=== PATIENT | female | born 1970 | race Caucasian/White ===

== ENCOUNTER 2024-05-20 12:11 | Outpatient (OUT) | payer OTHER, SELFPAY ==
--- NOTE | 2024-05-20 12:20 | XR_ITS ---
The [address] [address] Patient Name: YUNIER GARY MRN: [id number] date: 1970 Sex: F Assigned Patient Location: [facility] Current Patient Location: Accession/Order Number: [id number] Exam Date: 05/20/2024 12:25 Report Date: 05/21/2024 06:56 At the request of: FERCHO PANIAGUA Procedure: XR shoulder LT min 2V PROCEDURE: XR shoulder LT min 2V HISTORY: Pain In Unspecified Shoulder M25.519 COMPARISON: None. FINDINGS: BONES:Small degenerative osteophytes projecting inferiorly from distal end of clavicle. 5 mm rounded calcification projecting over the glenohumeral joint. Thin calcifications projecting over distal superior rotator cuff near its humeral head attachment. SOFT TISSUES:See above. EFFUSION:None visible. OTHER: Negative. XR/XR shoulder LT min 2V IMPRESSION: 1. Moderate degenerative changes of acromioclavicular joint which would predispose to rotator cuff injury. 2. Suspect 5 mm loose body within the glenohumeral joint. 3. Suspect calcific tendinitis. Electronically authenticated by: EAGLE BRYSON Date: 05/21/2024 06:56
== END 2024-05-20 12:12 | disposition home or self-care (01) ==
LOC: RAD 12:15
PROVIDERS: PCP Nurse Practitioner Family; Visit Provider Nurse Practitioner Family
DX: M25.512 Pain in left shoulder (principal); M19.012 Primary osteoarthritis, left shoulder
CPT/HCPCS: 73030

== ENCOUNTER 2024-08-02 18:51 | Emergency (ER) | payer OTHER, SELFPAY ==
[2024-08-02 18:55] VITALS: BP 156/81; PULSE 85; TEMP 37; O2SAT 99; BMI 32.4
--- OUTSIDE RECORDS SUMMARY | 2024-08-02 18:57 | XMS_ITS | CCD ---
Author Organization [facility] Care Team Providers Care Electrical Project Engineer Name Role Phone DO Finesse Recio Primary Care Provider [phone] DO Finesse Recio Attending Provider [phone] Nika Richmond Unavailable SULEMAN ., DR MESA Admitting Unavailable REYES ., DR SURY Velez Primary Care Unavailable SULEMAN ., DR MESA Attending Unavailable SULEMAN ., DR MESA Consulting Unavailable ORTEGA SINGH Consulting Unavailable ALETHEA II, TRACY Consulting Unavailable REYES ., DR SURY Velez Primary Care Unavailable SULEMAN ., DR MESA Attending Unavailable SULEMAN ., DR MESA Consulting Unavailable SULEMAN ., DR MESA Admitting Unavailable BELLFLOWER, DR DARA Souza Consulting Unavailable REQUEST, DR PAULA LISTED Primary Care Unavaila ble SULEMAN ., DR MSEA Attending Unavailable SULEMAN ., DR MESA Admitting Unavailable SULEMAN ., DR MESA Consulting Unavailable SULEAMN ., DR MESA Admitting Unavailable REYES ., DR SURY Velez Primary Care Unavailable SULEMAN ., DR MESA Attending Unavailable SULEMAN ., DR MESA Consulting Unavailable DO Finesse Recio Primary Care Provider MD Sissy Smith Attending Provider [phone] Finesse Recio Primary Care Unavailable Sissy Smith Attending Unavailable Sissy Smith Admitting Unavailable Sissy Smith Unavailable FERCHO PANIAGUA Primary Care Physician [phone] FERCHO PANIAGUA Attending Unavailable FERCHO PANIAGUA Attending Unavailable FERCHO PANIAGUA Attending Unavailable SHAWNEE SORIA Attending Unavailable FERCHO PANIAGUA Referring Unavailable Allergies Allergy Classification Reported Allergen(s) Allergy Type Date of Onset Reaction(s) Facility (4 sources) predniSONE; Translations: [prednisone] Drug Allergy Foot swelling (finding), Itching (finding), Weal (disorder) [facility] Aureliano Comment on above: Patient states she c an take the tablets but no injections (1 source) predniSONE Drug Allergy [facility] Repository Medications Current Medications Medication Drug Class(es) Dates Sig (Normalized) Sig (Original) [id number] 200 actuat albuterol 0.09 mg/actuat metered dose inhaler (1 source) beta2-Adrenergic Agonist Start: 11-25-2022 take 2 puff(s) by inhalation every four hours as needed Albuterol Sulfate HFA 108 (90 Base) MCG/ACT 2 puffs as needed Inhalation every 4 hrs Nov, Active azithromycin 250 mg oral tablet (1 source) Macrolide Antimicrobial Start: 11-25-2022 Azithromycin 250 MG 2 tablets on the first day, then 1 tablet daily for 4 days Orally Once a day for 5 day(s) Nov, Active azithromycin 250 mg Tab 5-day Dose Pack (Z-Regino) (1 source) Start: 09-27-2023 End: 10-02-2023 azithromycin 250 mg Tab 5-day Dose Pack (Z-Regino) = 1 packet(s), Oral, As Directed, as directed on package labeling, X 5 day(s), # 6 tab(s), Refills(s) 0, Pharmacy: [facility]/pharmacy #[id number], 165, cm, 09/27/23 14:13:00 EST, Height/Length Dosing, 90.2, kg, 09/27/23 14:13:00 EST, Weight Dosing Start Date: 09/27/23 Stop Date: 10/02/23 Status: Ordered benzonatate 200 mg oral capsule (1 source) Non-narcotic Antitussive Start: 11-25-2022 take 1 capsule by mouth every eight hours Benzonatate 200 MG 1 capsule Orally Three times a day for 10 days Nov, Active fluconazole 150 mg oral tablet (1 source) Azole Antifungal Start: 09-27-2023 Diflucan 150 mg Tab See Instructions, Take one tablet at the onset of symptoms; may repeat in 72 hours, # 2 tab(s), Refills(s) 0, Pharmacy: [facility]/pharmacy #[id number], 165, cm, 09/27/23 14:13:00 EST, Height/Length Dosing, 90.2, kg, 09/27/23 14:13:00 EST, Weight Dosing Start Date: 09/27/23 Status: Ordered Multi Vitamin+ (1 source) Start: 09-27-2023 Multi Vitamin+ Refill(s) 0 Start Date: 09/27/23 Status: Ordered Completed/Discontinued Medications Medication Drug Class(es) Dates Sig (Normalized) Sig (Original) methylPREDNISolone (2 sources) Corticosteroid Start: 03-19-2015 Depo-Medrol 80 mg Mar, 1 mL Problems Problem Classification Problem Date Documented Date Episodic/Chronic Abdominal pain (1 source) Pelvic and perineal pain; Translations: [PELVIC AND PERINEAL PAIN] Onset: 01-03-2023 Episodic Administrative/social admission (1 source) Patient encounter status; Translations: [Persons encountering health services in other specified circumstances] Onset: 09-27-2023 Episodic Benign neoplasm of uterus (1 source) Leiomyoma of uterus, unspecified; Translations: [LEIOMYOMA OF UTERUS UNSPECIFIED] Onset: 01-03-2023 Episodic Chronic obstructive pulmonary disease and bronchiectasis (1 source) Bronchitis, not specified as acute or chronic Episodic Contraceptive and procreative management (4 sources) Encounter for sterilization; Translations: [ENCOUNTER FOR STERILIZATION] Onset: 12-21-2022 Episodic Immunizations and screening for infectious disease (1 source) Encounter for screening for human papillomavirus (HPV); Translations: [ENC SCREENING HUMAN PAPILLOMAVIRUS] Onset: 11-02-2022 Episodic Menstrual disorders (5 sources) Excessive and frequent menstruation with regular cycle; Translations: [EXCESS FREQ MENSTRUATION W/REG CYCL] Onset: 11-07-2022 Chronic Other connective tissue disease (1 source) Ganglion, right hand Episodic Other connective tissue disease (1 source) Ganglion, left hand Episodic Other female genital disorders (1 source) Abnormal uterine and vaginal bleeding, unspecified; Translations: [ABNORMAL UTERINE VAGINAL BLEED UNS] Onset: 12-07-2022 Chronic Other screening for suspected conditions (not mental disorders or infectious disease) (5 sources) Encounter for screening mammogram for malignant neoplasm of breast; Translations: [Encounter for screening for malignant neoplasm of cervix] Onset: 11-01-2022 Episodic Other skin disorders (1 source) Disorder of the skin and subcutaneous tissue, unspecified Episodic Other skin disorders (1 source) Localized swelling, mass and lump, left upper limb Episodic Other upper respiratory infections (1 source) Acute upper respiratory infection; Translations: [Acute upper respiratory infection, unspecified] Onset: 09-27-2023 Episodic Residual codes; unclassified (1 source) Family history of malignant neoplasm of other genital organs; Translations: [FAM HX MALIG NEOPLSM OTH GENIT ORGN] Onset: 11-08-2022 Episodic Residual codes; unclassified (1 source) Family history of malignant neoplasm of other organs or systems; Translations: [FAM HX MALIG NEOPLASM OTH ORGN/SYS] Onset: 11-08-2022 Episodic Unclassified (1 source) Localized swelling, mass and lump, left upper limb; Translations: [Localized swelling, mass and lump, left upper limb] Onset: 05-15-2023 Results Test Name Value Interpretation Reference Range Facility Family Medicine Office/Clini c Noteon 05-21-2024 Family Medicine Office/Clinic Note Family Medicine Office/Clinic Note HPI Staff Yunier is a 53 year old female presenting with Onset: a month ago Location: left shoulder pain Duration: Characteristics:_ Aggravated by: Relieved by: ice did seem to help Timing:_ Associated Symptoms:_ did seem to help Putting pop in trunk bend wrong she said like pinching and tearing certain movement will hit her fast I have reviewed and verified the staff HPI to be accurate for this encounter. History of Present Illness Patient presents today to discuss left shoulder pain. She reports about 4 weeks ago she was putting a pop in the trunk of her car and she felt like pinching and tearing in the left shoulder. Since that time she has pain with certain movements. She reports that she feels like maybe there is something loose in the shoulder. She reports she has been using some ice on the shoulder with some relief. She has not used any ibuprofen or acetaminophen. Review of Systems Constitutional: no fever, no chills, no sweats, no weakness Skin: no Jaundice, no rash, no lesions, nopetechiae ENMT: no ear pain, no sore throat, no congestion, no hoarseness Respiratory: no shortness of breath, no cough, no orthopnea, no wheezing Cardiovascular: no chest pain, no palpitations, no edema Gastrointestinal: no nausea, no vomiting, no diarrhea, no GI bleeding Musculoskeletal: no back pain, no trauma Neurologic: no headache, no dizziness, no numbness, no weakness Psychiatric: no sleeping problems, no irritability, no mood swings/depression. Additional ROS info: Except as noted in the above Review of Systems and in the History of Present Illness all other systems have been reviewed and are negative or noncontributory. Physical Exam Vitals & Measurements T: 36.3 ?C(Oral) HR: 78(Peripheral) RR: 18 BP: 138/88 SpO2: 98% HT: 65 in HT: 165.0 cm WT: 88.8 kg WT: 195.36 lb BMI: 32.62 General: alert, no acute distress Skin: warm, dry Head: no trauma, normocephalic Neck: Trachea midline, no adenopathy, no tenderness Eye: normal conjunctiva, sclera clear Cardiovascular: regular rate and rhythm, normal peripheral perfusion Respiratory: Lungs CTA, respirations non labored Back: No tenderness, Normal ROM, Normal alignment. Extremities: no deformity, no trauma; limited ROM of the left shoulder, AC joint tenderness Neurological: oriented x 4, LOC appropriate for age speech normal Psychiatric: cooperative, affect appropriate for age, normal judgement, normal psychiatric thoughts. Assessment/Plan 1. Shoulder pain (M25.519: Pain in unspecified shoulder) X-ray of left shoulder-awaiting results Encouraged to take acetaminophen as needed for discomfort Explained to patient the x-ray is the first step, she may need a referral to an Ortho, or an MRI Follow-up will be determined by the x-ray results 2. Non-smoker (Z78.9: Other specified health status) Encouraged to continue as a non-smoker 3. BMI 32.0-32.9,adult (Z68.32: Body mass index [BMI] 32.0-32.9, adult) The standard range for ages 18 and older is >=18.5 and < 25 kg/m2. Your BMI today was above this range, this falls in the overweight to obese category and there are medical benefits to weight loss. We can offer counselling, referral, and/or medical support in addressing this problem. Your BMI and weight management will be followed at subsequent visits. 4. Class 1 obesity due to excess calories in adult (E66.09: Other obesity due to excess calories) The standard range for ages 18 and older is >=18.5 and < 25 kg/m2. Your BMI today was above this range, this falls in the overweight to obese category and there are medical benefits to weight loss. We can offer counselling, referral, and/or medical support in addressing this problem. Your BMI and weight management will be followed at subsequent visits. Follow-up No qualifying data available Patient Education Shoulder Pain, [id number] Problem List/Past Medical History Ongoing Bronchitis Historical No qualifying data Procedure/Surgical History Cyst of Bartholin's gland (2017), [place] tooth (2004), Hip bone (1972), Tubal ligation. Medications Multi Vitamin+ Vitamin D Allergies predniSONE (Swollen foot, Itchy, Hives) Social History Alcohol Beer, 1-2 times per month, Started age 23 Years. Alcohol use interferes with work or home: No. Drinks more than intended: No. Others hurt by drinking: No. Ready to change: No. Household alcohol concerns: No., 09/27/2023 Exercise Exercise frequency: 1-2 times/week. Self assessment: Good condition. Exercise type: Weight lifting., 09/27/2023 Substance Abuse - Denies Substance Abuse, 09/27/2023 Tobacco Never (less than 100 in lifetime) Tobacco Use:. Never Smokeless Tobacco Use:. Cigarettes, Previous treatment: None., 05/20/2024 Family History Acute myocardial infarction: Mother and Father. Alcoholism: Father and Grandparent. Diabetes mellitus: Mother and Father. Hypertension: Mother. Stroke: Mother. Normal [facility] Comment on above: Result Comment: Elec tronically Signed By: FERCHO PANIAGUA CNP\lillian\Date and Time Signed: 05/21/24 14:00 EDT Ambulatory Visit Summaryon 0 05-20-2024 Ambulatory Visit Summary Ambulatory Visit Summary YUNIER MATAMOROS :1970 Visit Date:05/20/2024 Ambulatory Visit Instructions Your Diagnosis Shoulder pain Non-smoker BMI 32.0-32.9,adult Class 1 obesity due to excess calories in adult Tests Performed XR Shoulder Complete Left -- Results Pending -- Please visit your patient portal for your results or contact your primary care physician. Your Care Team Attending Physician - FERCHO PANIAGUA CNP Primary Care Physician - FERCHO PANIAGUA CNP This Is Your Medications List ergocalciferol (Vitamin D) multivitamin (Multi Vitamin+) Procedures Performed Cyst of Bartholin's gland (2018), [place] tooth (2004), Hip bone (1972), Tubal ligation. Discharge Vitals Temperature (Oral) 36.3 ?C Heart Rate (Peripheral) 78 Respiratory Rate 18 Blood Pressure 138/88 Height 165.0 cm Height 65 in Weight 88.8 kg Weight 195.36 lb BMI 32.62 Medications What When Instructions Unchanged ergocalciferol (Vitamin D) Unchanged multivitamin (Multi Vitamin+) Allergies predniSONE (Swollen foot, Itchy, Hives) Problems Ongoing - Any problem that you are currently receiving treatment for. Bronchitis Patient Survey You may receive a survey via text or e-mail asking about your office visit. Please share your experience with us by completing your survey. We appreciate your feedback and thank you for choosing us for your care. Education Materials Shoulder Pain Many things can cause shoulder pain, including: ? An injury. ? Moving the shoulder in the same way again and again (overuse). ? Joint pain (arthritis). Pain can come from: ? Swelling and irritation (inflammation) of any part of the shoulder. ? An injury to the shoulder joint. ? An injury to: ? Tissues that connect muscle to bone (tendons). ? Tissues that connect bones to each other (ligaments). ? Bones. Follow these instructions at home: Watch for changes in your symptoms. Let your doctor know about them. Follow these instructions to help with your pain. If you have a sling: ? Wear the sling as told by your doctor. Remove it only as told by your doctor. ? Loosen the sling if your fingers: ? Tingle. ? Become numb. ? Turn cold and blue. ? Keep the sling clean. ? If the sling is not waterproof: ? Do not let it get wet. ? Take the sling off when you shower or bathe. Managing pain, stiffness, and swelling ? If told, put ice on the painful area: ? Put ice in a plastic bag. ? Place a towel between your skin and the bag. ? Leave the ice on for 20 minutes, 2?3 times a day. Stop putting ice on if it does not help with the pain. ? Squeeze a soft ball or a foam pad as much as possible. This prevents swelling in the shoulder. It also helps to strengthen the arm. General instructions ? Take [id number] and prescription medicines only as told by your doctor. ? Keep all follow-up visits as told by your doctor. This is important. Contact a doctor if: ? Your pain gets worse. ? Medicine does not help your pain. ? You have new pain in your arm, hand, or fingers. Get help right away if: ? Your arm, hand, or fingers: ? Tingle. ? Are numb. ? Are swollen. ? Are painful. ? Turn white or blue. Summary ? Shoulder pain can be caused by many things. These include injury, moving the shoulder in the same away again and again, and joint pain. ? Watch for changes in your symptoms. Let your doctor know about them. ? This condition may be treated with a sling, ice, and pain medicine. ? Contact your doctor if the pain gets worse or you have new pain. Get help right away if your arm, hand, or fingers tingle or get numb, swollen, or painful. ? Keep all follow-up visits as told by your doctor. This is important. This information is not intended to replace advice given to you by your health care provider. Make sure you discuss any questions you have with your health care provider. Document Revised: 06/02/2022 Document Reviewed: 06/02/2022 Gift Card Impressions Patient Education ? 2022 [employer] Caio [facility] Family Medicine Office/Clini c Noteon 01-16-2024 Family Medicine Office/Clinic Note Chief Complaint ear issues HPI Staff Patient presents for acute visit. Fevers: no Sinus congestion: no Sneezing: no Ear pain: no Ear itching, popping, fullness, ringing, muffled hearing: wooshing and occasional ringing Ear drainage: no Swollen nodes: no Sore throat: no Ear pain worse with chewing: chewing helps Itching: no Difficulty hearing: no occasional jaw pain Patient reports symptoms x 1 week, has improved today. Patient has tried an allergy nasal spray, took edge off. Mucinex as at times patient was feeling SOB. Headaches. Says that she just felt crummy I have reviewed and verified the staff HPI to be accurate for this encounter. History of Present Illness Patient presents today for evaluation of ear congestion & decreased energy. patient states about one week ago she started with some ear pain & and muffled hearing. She states she has tried an OTC nasal spray and this helped some. She is afebrile today in the office and she states she feels better in regards to the fatigue. She reports she has some environmental allergies but only take OTC antihistamine occasionally. Review of Systems PHQ Score Initial Depression Screen Score: 0 SCORE Constitutional: no fever, no chills, no sweats, no weakness Skin: no Jaundice, no rash, no lesions, nopetechiae ENMT: no ear pain, no sore throat, mild congestion, no hoarseness Respiratory: no shortness of breath, no cough, no orthopnea, no wheezing Cardiovascular: no chest pain, no palpitations, no edema Neurologic: no headache, no dizziness, no numbness, no weakness Psychiatric: no sleeping problems, no irritability, no mood swings/depression. Additional ROS info: Except as noted in the above Review of Systems and in the History of Present Illness all other systems have been reviewed and are negative or noncontributory. Physical Exam Vitals & Measurements HR: 77(Peripheral) BP: 146/80 SpO2: 98% HT: 65 in HT: 165.0 cm WT: 90.6 kg WT: 199.32 lb BMI: 33.28 General: alert, no acute distress ENMT: TM's clear, oral mucosa moist, no pharyngeal erythema or exudate; TM's injected Cardiovascular: regular rate and rhythm, normal peripheral perfusion Respiratory: Lungs CTA, respirations non labored Extremities: no deformity, no trauma Neurological: oriented x 4, LOC appropriate for age speech normal Assessment/Plan 1. Ear congestion (H93.8X9: Other specified disorders of ear, unspecified ear) Encouraged to take OTC loratadine-pseudoeph edrine daily x 10 days f/u if no improvement Ordered: loratadine-pseudoeph edrine, 1 tab(s), Oral, Daily for 10 day(s), 10 tab(s), Refill(s) 0, other reason (Rx) 2. BMI 33.0-33.9,adult (Z68.33: Body mass index [BMI] 33.0-33.9, adult) The standard range for ages 18 and older is >=18.5 and < 25 kg/m2. Your BMI today was above this range, this falls in the overweight to obese category and there are medical benefits to weight loss. We can offer counselling, referral, and/or medical support in addressing this problem. Your BMI and weight management will be followed at subsequent visits. Orders: fluconazole, See Instructions, Take one tablet at the onset of symptoms; may repeat in 72 hours, # 2 tab(s), Refills(s) 0, Pharmacy: [facility]/pharmacy #[id number], 165, cm, 09/27/23 14:13:00 EST, Height/Length Dosing, 90.2, kg, 09/27/23 14:13:00 EST, Weight Dosing Follow-up No qualifying data available Problem List/Past Medical History Ongoing Bronchitis Historical No qualifying data Procedure/Surgical History Cyst of Bartholin's gland (2017), [place] tooth (2004), Hip bone (1972), Tubal ligation. Medications Claritin-D 24 Hour 10 mg-240 mg Tab-ER, 1 tab(s), Oral, Daily Multi Vitamin+ Vitamin D Allergies predniSONE (Swollen foot, Itchy, Hives) Social History Alcohol Beer, 1-2 times per month, Started age 23 Years. Alcohol use interferes with work or home: No. Drinks more than intended: No. Others hurt by drinking: No. Ready to change: No. Household alcohol concerns: No., 09/27/2023 Exercise Exercise frequency: 1-2 times/week. Self assessment: Good condition. Exercise type: Weight lifting., 09/27/2023 Substance Abuse - Denies Substance Abuse, 09/27/2023 Tobacco Never (less than 100 in lifetime) Tobacco Use:. Never Smokeless Tobacco Use:. Previous treatment: None., 01/15/2024 Family History Acute myocardial infarction: Mother and Father. Alcoholism: Father and Grandparent. Diabetes mellitus: Mother and Father. Hypertension: Mother. Stroke: Mother. Normal [facility] Comment on above: Result Comment: Elec tronically Signed By: FERCHO PANIAGUA CNP\lillian\Date and Time Signed: 01/16/24 14:18 EDT Ambulatory Visit Summaryon 0 01-15-2024 Ambulatory Visit Summary YUNIER MATAMOROS :1970 Visit Date:01/15/2024 Ambulatory Visit Instructions Your Diagnosis Ear congestion BMI 33.0-33.9,adult Your Care Team Attending Physician - FERCHO PANIAGUA CNP Primary Care Physician - FERCHO PANIAGUA CNP This Is Your Medications List ergocalciferol (Vitamin D) multivitamin (Multi Vitamin+) Procedures Performed Cyst of Bartholin's gland (2017), [place] tooth (2004), Hip bone (1972), Tubal ligation. Discharge Vitals Heart Rate (Peripheral) 77 Blood Pressure 162/90 Height 165.0 cm Height 65 in Weight 90.6 kg Weight 199.32 lb BMI 33.28 Medications What When Instructions Unchanged ergocalciferol (Vitamin D) Unchanged multivitamin (Multi Vitamin+) Allergies predniSONE (Swollen foot, Itchy, Hives) Problems Ongoing - Any problem that you are currently receiving treatment for. Bronchitis Patient Survey You may receive a survey via text or e-mail asking about your office visit. Please share your experience with us by completing your survey. We appreciate your feedback and thank you for choosing us for your care. Normal [facility] Formson 09-28-2023 Forms [id number] #[id number] [facility] Family Medicine Office/Clini c Noteon 09-27-2023 Family Medicine Office/Clinic Note Chief Complaint New patient-establish care-headache and cough. History of Present Illness 53 year old female patient presents to establish care with this provider. She reports she was a previous patient of Dr. Reyes. Her main concern today is she has a dry cough and headache that is lingering since last Sunday. She reports she took OTC Mucinex and Dayquil which seemed to help at first but then this stopped working. She then took Sudafed until this made her restless and anxious. She states she did not test for COVID because it is a virus and she is aware it would need to run it's course. 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 She is hoping to get the cough and headache under control as she is planning on going snow boarding next week in [place]. Review of Systems PHQ Score Initial Depression Screen Score: 0 SCORE Constitutional: no fever, no chills, no sweats, no weakness Skin: no Jaundice, no rash, no lesions, nopetechiae ENMT: no ear pain, no sore throat, mild congestion, no hoarseness Respiratory: no shortness of breath, mild cough, no orthopnea, no wheezing Cardiovascular: no chest pain, no palpitations, no edema Gastrointestinal: no nausea, no vomiting, no diarrhea, no GI bleeding Genitourinary: no dysuria, no hematuria, no discharge, no pain Musculoskeletal: no back pain, no trauma Neurologic: no headache, no dizziness, no numbness, no weakness Psychiatric: no sleeping problems, no irritability, no mood swings/depression. Heme/Lymph: no bleeding tendency, no bruising tendency, no petechiae, no swollen nodes Allergy/Immunologic: no seasonal allergies, no food allergies, no recurrent infections, no impaired immunity Additional ROS info: Except as noted in the above Review of Systems and in the History of Present Illness all other systems have been reviewed and are negative or noncontributory. Physical Exam Vitals & Measurements T: 37.1 ?C(Temporal Artery) HR: 91(Peripheral) RR: 14 BP: 140/90 SpO2: 98% HT: 65 in HT: 165 cm WT: 90.2 kg WT: 198.44 lb BMI: 33.13 General: alert, no acute distress Skin: warm, dry Head: no trauma, normocephalic Neck: Trachea midline, no adenopathy, no tenderness Eye: normal conjunctiva, sclera clear ENMT: TM's clear, oral mucosa moist, no pharyngeal erythema or exudate; bilateral nasal passages erythematous and edematous, positive frontal sinus pain Cardiovascular: regular rate and rhythm, normal peripheral perfusion Respiratory: Lungs CTA, respirations non labored Chest wall: no deformity. Gastrointestinal: soft, non distended, no tenderness, no guarding. Back: No tenderness, Normal ROM, Normal alignment. Extremities: no deformity, no trauma Neurological: oriented x 4, LOC appropriate for age, CN II-XII intact, motor strength equal & normal bilaterally, sensation equal & normal bilaterally, speech normal Psychiatric: cooperative, affect appropriate for age, normal judgement, normal psychiatric thoughts. Assessment/Plan 1. Bacterial URI (J06.9: Acute upper respiratory infection, unspecified) Encourage to increase fluids f/U if no improvement in 3-5 days Ordered: azithromycin, = 1 packet(s), Oral, As Directed, as directed on package labeling, X 5 day(s), # 6 tab(s), Refills(s) 0, [id number], 165, cm, 09/27/23 14:13:00 EST, Height/Length Dosing, 90.2, kg, 09/27/23 14:13:00 EST, Weight Dosing fluconazole, See Instructions, Take one tablet at the onset of symptoms; may repeat in 72 hours, # 2 tab(s), Refills(s) 0, Pharmacy: [facility]/pharmacy #[id number], 165, cm, 09/27/23 14:13:00 EST, Height/Length Dosing, 90.2, kg, 09/27/23 14:13:00 EST, Weight Dosing 2. Encounter to establish care (Z76.89: Persons encountering health services in other specified circumstances) Ordered: azithromycin, = 1 packet(s), Oral, As Directed, as directed on package labeling, X 5 day(s), # 6 tab(s), Refills(s) 0, [id number], 165, cm, 09/27/23 14:13:00 EST, Height/Length Dosing, 90.2, kg, 09/27/23 14:13:00 EST, Weight Dosing fluconazole, See Instructions, Take one tablet at the onset of symptoms; may repeat in 72 hours, # 2 tab(s), Refills(s) 0, [id number], 165, cm, 09/27/23 14:13:00 EST, Height/Length Dosing, 90.2, kg, 09/27/23 14:13:00 EST, Weight Dosing Patient will need to schedule a well visit in the next 12 months Follow-up No qualifying data available Patient Education Upper Respiratory Infection, Adult, Eqpk-br-Wciw Problem List/Past Medical History Ongoing No qualifying data Historical No qualifying data Procedure/Surgical History Cyst of Bartholin's gland (2017), [place] tooth (2004), Hip bone (1972), Tubal ligation. Medications azithromycin 250 mg Tab 5-day Dose Pack (Z-Regino), 1 packet(s), Oral, As Directed Diflucan 150 mg Tab, See Instructions Multi Vitamin+ Allergies predniSONE (Swollen foot, Itchy, Hives) Social History Alcohol Beer, 1-2 times per month, Started age 4 (more content not included)... Normal [facility] Comment on above: Result Comment: Rafael blake Signed By: FERCHO PANIAGUA CNP.alessandra\Date and Time Signed: 09/27/23 15:57 EST Patient Educationon 09-27-20 23 Patient Education Infectious Disease Upper Respiratory Infection, Adult An upper respiratory infection (URI) affects the nose, throat, and upper airways that lead to the lungs. The most common type of URI is often called the common cold. URIs usually get better on their own, without medical treatment. What are the causes? A URI is caused by a germ (virus). You may catch these germs by: ? Breathing in droplets from an infected person's cough or sneeze. ? Touching something that has the germ on it (is contaminated) and then touching your mouth, nose, or eyes. What increases the risk? You are more likely to get a URI if: ? You are very young or very old. ? You have close contact with others, such as at work, school, or a health care facility. ? You smoke. ? You have long-term (chronic) heart or lung disease. ? You have a weakened disease-fighting system (immune system). ? You have nasal allergies or asthma. ? You have a lot of stress. ? You have poor nutrition. What are the signs or symptoms? ? Runny or stuffy (congested) nose. ? Cough. ? Sneezing. ? Sore throat. ? Headache. ? Feeling tired (fatigue). ? Fever. ? Not wanting to eat as much as usual. ? Pain in your forehead, behind your eyes, and over your cheekbones (sinus pain). ? Muscle aches. ? Redness or irritation of the eyes. ? Pressure in the ears or face. How is this treated? URIs usually get better on their own within 7?10 days. Medicines cannot cure URIs, but your doctor may recommend certain medicines to help relieve symptoms, such as: ? Dqvj-qft-ewmnqov cold medicines. ? Medicines to reduce coughing (cough suppressants). Coughing is a type of defense against infection that helps to clear the nose, throat, windpipe, and lungs (respiratory system). Take these medicines only as told by your doctor. ? Medicines to lower your fever. Follow these instructions at home: Activity ? Rest as needed. ? If you have a fever, stay home from work or school until your fever is gone, or until your doctor says you may return to work or school. ? You should stay home until you cannot spread the infection anymore (you are not contagious). ? Your doctor may have you wear a face mask so you have less risk of spreading the infection. Relieving symptoms ? Rinse your mouth often with salt water. To make salt water, dissolve ??1 tsp (3?6 g) of salt in 1 cup (237 mL) of warm water. ? Use a cool-mist humidifier to add moisture to the air. This can help you breathe more easily. Eating and drinking ? Drink enough fluid to keep your pee (urine) pale yellow. ? Eat soups and other clear broths. General instructions ? Take vyqh-ljy-wadtbto and prescription medicines only as told by your doctor. ? Do not smoke or use any products that contain nicotine or tobacco. If you need help quitting, ask your doctor. ? Avoid being where people are smoking (avoid secondhand smoke). ? Stay up to date on all your shots (immunizations), and get the flu shot every year. ? Keep all follow-up visits. How to prevent the spread of infection to others ? Wash your hands with soap and water for at least 20 seconds. If you cannot use soap and water, use hand pharmacist hospital. ? Avoid touching your mouth, face, eyes, or nose. ? Cough or sneeze into a tissue or your sleeve or elbow. Do not cough or sneeze into your hand or into the air. Contact a doctor if: ? You are getting worse, not better. ? You have any of these: ? A fever or chills. ? Brown or red mucus in your nose. ? Yellow or brown fluid (discharge)coming from your nose. ? Pain in your face, especially when you bend forward. ? Swollen neck glands. ? Pain when you swallow. ? White areas in the back of your throat. Get help right away if: ? You have shortness of breath that gets worse. ? You have very bad or constant: ? Headache. ? Ear pain. ? Pain in your forehead, behind your eyes, and over your cheekbones (sinus pain). ? Chest pain. ? You have long-lasting (chronic) lung disease along with any of these: ? Making high-pitched whistling sounds when you breathe, most often when you breathe out (wheezing). ? Long-lasting cough (more than 14 days). ? Coughing up blood. ? A change in your usual mucus. ? You have a stiff neck. ? You have changes in your: ? Vision. ? Hearing. ? Thinking. ? Mood. These symptoms may be an emergency. Get help right away. Call 911. ? Do not wait to see if the symptoms will go away. ? Do not drive yourself to the hospital. Summary ? An upper respiratory infection (URI) is caused by a germ (virus). The most common type of URI is often called the common cold. ? URIs usually get better within 7?10 days. ? Take tvww-une-hcadyqj and prescription medicines only as told by your doctor. This information is not intended to replace advice given to you by your health care (more content not included)... Normal [facility] XR hand LT min 3V*on 023 XR hand LT min 3V* [facility] [place] [address] [place] [address] XRay Report Signed Patient: Yunier Matamoros MR#: [id number] : 1970 Acct:[id number] Age/Sex: 52 / F ADM Date: 05/15/23 Loc: [facility] Room: Type: [facility] Attending Dr: Sissy Smith MD Copies to: Sissy Smith MD Ordering Provider: Sissy Smith MD Date of Service: 05/15/23 XR/XR hand LT min 3V*: PAIN XR hand LT min 3V* 05/15/2023 12:09 PM SIGNS AND SYMPTOMS: Mass on left third digit PROTOCOL: Frontal, lateral, and oblique radiographs of the left hand COMPARISON: None FINDINGS: The bones are in anatomic alignment. There is no evidence of fracture or dislocation. The joint spaces are preserved. No significant soft tissue swelling. XR/XR hand LT min 3V* IMPRESSION: No acute bony injury or significant degenerative change. No significant soft tissue swelling. Impression dictated by: Mikhail Greenberg M.D.05/15/2023 4:52 PM Dictation Location: [place] [address] Transcribed By: [facility] 05/15/231651 Dictated By: Mikhail Greenberg II, MD 05/15/231649 Signed By: 05/15/231651 Normal [facility] XR hand LT min 3V* [facility] [employer] Other XR hand LT min 3V* [facility] [employer] Other XR hand LT min 3V* [address] [place] [address] [facility] Other XR hand LT min 3V* [place] [address] [employer] Other XR hand LT min 3V* XRay Report [employer] Other XR hand LT min 3V* Signed [employer] Other XR hand LT min 3V* Patient: Yunier Matamoros MR#: [id number] [employer] Other XR hand LT min 3V* 827 [employer] Other XR hand LT min 3V* : 1970 Acct:[id number] [employer] Other XR hand LT min 3V* Age/Sex: 52 / F ADM Date: 05/15/23 [employer] Other XR hand LT min 3V* Loc: [facility] Room: Type: [facility] [employer] Other XR hand LT min 3V* Attending Dr: Sissy Smith MD [employer] Other XR hand LT min 3V* Copies to: Sissy Smith MD [employer] Other XR hand LT min 3V* Ordering Provider: Sissy Smith MD [employer] Other XR hand LT min 3V* Date of Service: 05/15/23 [employer] Other XR hand LT min 3V* XR/XR hand LT min 3V*: PAIN [employer] Other XR hand LT min 3V* XR hand LT min 3V* 05/15/2023 12:09 PM [employer] Other XR hand LT min 3V* SIGNS AND SYMPTOMS: Mass on left third digit [employer] Other XR hand LT min 3V* PROTOCOL: Frontal, lateral, and oblique radiographs of the left hand [employer] Other XR hand LT min 3V* COMPARISON: None [employer] Other XR hand LT min 3V* FINDINGS: [employer] Other XR hand LT min 3V* The bones are in anatomic alignment. There is no evidence of fracture or dislocation. The joint [employer] Other XR hand LT min 3V* spaces are preserved. No significant soft tissue swelling. [employer] Other XR hand LT min 3V* XR/XR hand LT min 3V* [employer] Other XR hand LT min 3V* IMPRESSION: [employer] Other XR hand LT min 3V* No acute bony injury or significant degenerative change. [employer] Other XR hand LT min 3V* No significant soft tissue swelling. [employer] Other XR hand LT min 3V* Impression dictated by: Mikhail Greenberg M.D.05/15/2023 4:52 PM [employer] Other XR hand LT min 3V* Dictation Location: [place] [address] [employer] Other XR hand LT min 3V* Transcribed By: PWS 05/15/23 165 [facility] [employer] Other XR hand LT min 3V* Dictated By: Mikhail Greenberg II, MD 05/15/231649 [facility] [employer] Other XR hand LT min 3V* Signed By: [place] [facility] Other XR hand LT min 3V* 05/15/23 [facility] [employer] Other CBC AUTO DIFFon 12-21-2022 BASO # 0.0 103/ul Normal 0.0-0.1 [facility] Comment on above: Performed By: #### C BC #### [facility] [address] [place] [address] Dr. Scottie Franco Basophils/100 WBC (Bld) 0.7 % Normal 0.2-2.0 [facility] Comment on above: Performed By: #### C BC #### [facility] [address] [place] [address] Dr. Scottie Franco EO # 0.2 103/ul Normal 0.0-0.7 [facility] Comment on above: Performed By: #### C BC #### [facility] [address] [place] [address] Dr. Scottie Franco Eosinophils/100 WBC (Bld) 3.0 % Normal 0.9-7.0 [facility] Comment on above: Performed By: #### C BC #### [facility] [address] [place] [address] Dr. Scottie Franco Erythrocyte distribution width (RBC) [Ratio] 11.7 % Normal 11.0-15.0 [facility] Comment on above: Performed By: #### C BC #### [facility] [address] [place] [address] Dr. Scottie Franco Hematocrit (Bld) [Volume fraction] 35.3 % Critically low 36.0-48.0 [facility] Comment on above: Performed By: #### C BC #### [facility] [address] [place] [address] Dr. Scottie Franco Hemoglobin (Bld) [Mass/Vol] 12.5 g/dL Normal 12.0-16.0 [facility] Comment on above: Performed By: #### C BC #### [facility] [address] [place] [address] Dr. Scottie Franco IG # 0.00 10e3/ul Normal 0.00-0.03 [facility] Comment on above: Performed By: #### C BC #### [facility] [address] [place] [address] Dr. Scottie Franco IG % 0.0 % Normal 0.0-0.5 [facility] Comment on above: Performed By: #### C BC #### [facility] [address] [place] [address] Dr. Scottie Franco LYMPH # 2.3 103/ul Normal 1.2-3.8 [facility] Comment on above: Performed By: #### C BC #### [facility] [address] [place] [address] Dr. Scottie Franco Lymphocytes/100 WBC (Bld) 37.6 % Normal 20.5-60.0 [facility] Comment on above: Performed By: #### C BC #### [facility] [address] [place] [address] Dr. Scottie Franco MANUAL DIFF REQ NO Normal [facility] Comment on above: Performed By: #### C BC #### [facility] [address] [place] [address] Dr. Scottie Franco MCH (RBC) [Entitic mass] 32.0 pg Normal 26.7-34.0 [facility] Comment on above: Performed By: #### C BC #### [facility] [address] [place] [address] Dr. Scottie Franco MCHC (RBC) [Mass/Vol] 35.4 g/dL Critically high 29.9-35.2 [facility] Comment on above: Performed By: #### C BC #### [facility] [address] [place] [address] Dr. Scottie Franco MCV (RBC) [Entitic vol] 90.3 fL Normal 81.0-99.0 [facility] Comment on above: Performed By: #### C BC #### [facility] [address] [place] [address] Dr. Scottie Franco MONO # 0.5 103/ul Normal 0.3-0.8 [facility] Comment on above: Performed By: #### C BC #### [facility] [address] [place] [address] Dr. Scottie Franco Monocytes/100 WBC (Bld) 7.8 % Normal 1.7-12.0 [facility] Comment on above: Performed By: #### C BC #### [facility] [address] [place] [address] Dr. Scottie Franco NEUT # 3.1 103/ul Normal 1.4-6.5 [facility] Comment on above: Performed By: #### C BC #### [facility] [address] [place] [address] Dr. Scottie Franco Neutrophils/100 WBC (Bld) 50.9 % Normal 43.0-75.0 [facility] Comment on above: Performed By: #### C BC #### [facility] [address] [place] [address] Dr. Scottie Franco Platelet mean volume (Bld) [Entitic vol] 10.0 fL Normal 9.5-13.5 [facility] Comment on above: Performed By: #### C BC #### [facility] [address] [place] [address] Dr. Scottie Franco PLT 314 103/ul Normal 150-450 [facility] Comment on above: Performed By: #### C BC #### [facility] [address] [place] [address] Dr. Scottie Franco RBC 3.91 106/ul Critically low 4.20-5.40 [facility] Comment on above: Performed By: #### C BC #### [facility] [address] [place] [address] Dr. Scottie Franco WBC 6.0 103/ul Normal 4.0-11.0 [facility] Comment on above: Performed By: #### C BC #### [facility] [address] [place] [address] Dr. Scottie Franco PREG QUANT HCGon 12-21-2022 HCG QUANT <1 Normal [facility] Comment on above: Performed By: #### P REGQNT #### [facility] [address] [place] [address] Dr. Scottie Franco HCG RANGE SEE BELOW Normal [facility] Comment on above: Result Comment: 5-50 0.2-1 WEEK 50-500 1-2 WEEKS 100-5,000 2-3 WEEKS 500-10,000 3-4 WEEKS 1,000-50,000 4-5 WEEKS 10,000-100,000 5-6 WEEKS 15,000-200,000 6-8 WEEKS 10,000-100,000 2-3 MONTHS Performed By: #### P REGQNT #### [facility] [address] [place] [address] Dr. Scottie Franco CBC AUTO DIFFon 11-07-2022 BASO # 0.0 103/ul Normal 0.0-0.1 [facility] Comment on above: Performed By: #### C BC #### [facility] [address] [place] [address] Dr. Scottie Franco Basophils/100 WBC (Bld) 0.5 % Normal 0.2-2.0 [facility] Comment on above: Performed By: #### C BC #### [facility] [address] [place] [address] Dr. Scottie Franco EO # 0.1 103/ul Normal 0.0-0.7 [facility] Comment on above: Performed By: #### C BC #### [facility] [address] [place] [address] Dr. Scottie Franco Eosinophils/100 WBC (Bld) 1.8 % Normal 0.9-7.0 [facility] Comment on above: Performed By: #### C BC #### [facility] [address] [place] [address] Dr. Scottie Franco Erythrocyte distribution width (RBC) [Ratio] 11.9 % Normal 11.0-15.0 [facility] Comment on above: Performed By: #### C BC #### [facility] [address] [place] [address] Dr. Scottie Franco Hematocrit (Bld) [Volume fraction] 38.4 % Normal 36.0-48.0 [facility] Comment on above: Performed By: #### C BC #### [facility] [address] [place] [address] Dr. Scottie Franco Hemoglobin (Bld) [Mass/Vol] 13.0 g/dL Normal 12.0-16.0 [facility] Comment on above: Performed By: #### C BC #### [facility] [address] [place] [address] Dr. Scottie Franco IG # 0.01 10e3/ul Normal 0.00-0.03 [facility] Comment on above: Performed By: #### C BC #### [facility] [address] [place] [address] Dr. Scottie Franco IG % 0.1 % Normal 0.0-0.5 [facility] Comment on above: Performed By: #### C BC #### [facility] [address] [place] [address] Dr. Scottie Franco LYMPH # 2.4 103/ul Normal 1.2-3.8 [facility] Comment on above: Performed By: #### C BC #### [facility] [address] [place] [address] Dr. Scottie Franco Lymphocytes/100 WBC (Bld) 32.1 % Normal 20.5-60.0 [facility] Comment on above: Performed By: #### C BC #### [facility] [address] [place] [address] Dr. Scottie Franco MANUAL DIFF REQ NO Normal [facility] Comment on above: Performed By: #### C BC #### [facility] [address] [place] [address] Dr. Scottie Franco MCH (RBC) [Entitic mass] 31.4 pg Normal 26.7-34.0 [facility] Comment on above: Performed By: #### C BC #### [facility] [address] [place] [address] [address] Scottie Franco MCHC (RBC) [Mass/Vol] 33.9 g/dL Normal 29.9-35.2 [facility] Comment on above: Performed By: #### C BC #### [facility] [address] [place] [address] [address] Scottie Franco MCV (RBC) [Entitic vol] 92.8 fL Normal 81.0-99.0 [facility] Comment on above: Performed By: #### C BC #### [facility] [address] [place] [address] Dr. Scottie Franco MONO # 0.4 103/ul Normal 0.3-0.8 [facility] Comment on above: Performed By: #### C BC #### [facility] [address] [place] [address] Dr. Scottie Franco Monocytes/100 WBC (Bld) 5.3 % Normal 1.7-12.0 [facility] Comment on above: Performed By: #### C BC #### [facility] [address] [place] [address] Dr. Scottie Franco NEUT # 4.4 103/ul Normal 1.4-6.5 [facility] Comment on above: Performed By: #### C BC #### [facility] [address] [place] [address] Dr. Scottie Franco Neutrophils/100 WBC (Bld) 60.2 % Normal 43.0-75.0 [facility] Comment on above: Performed By: #### C BC #### [facility] [address] [place] [address] Dr. Scottie Franco Platelet mean volume (Bld) [Entitic vol] 9.9 fL Normal 9.5-13.5 [facility] Comment on above: Performed By: #### C BC #### [facility] [address] [place] [address] Dr. Scottie Franco PLT 306 103/ul Normal 150-450 [facility] Comment on above: Performed By: #### C BC #### [facility] [address] [place] [address] Dr. Scottie Franco RBC 4.14 106/ul Critically low 4.20-5.40 [facility] Comment on above: Performed By: #### C BC #### [facility] [address] [place] [address] Dr. Scottie Franco WBC 7.3 103/ul Normal 4.0-11.0 [facility] Comment on above: Performed By: #### C BC #### [facility] [address] [place] [address] Dr. Scottie Franco FREE T4on 11-07-2022 Free T4 [Mass/Vol] 0.81 ng/dL Normal 0.76-1.46 [facility] Comment on above: Performed By: #### F T4 #### [facility] [address] [place] [address] Dr. Scottie Franco GLYCOHEMOGLOBIN A1Con 2022 ADA RECOMMENDATION SEE BELOW Normal [facility] Comment on above: Result Comment: ADA RECOMMENDED LIMIT 4.0 - 6.0 ADA THERAPEUTIC TARGET < 7.0 ACTION SUGGESTED > 7.0 Performed By: #### A 1C #### [facility] [address] [place] [address] Dr. Scottie Franco Glucose [Mass/Vol] 91 mg/dL Normal [facility] Comment on above: Performed By: #### A 1C #### [facility] [address] [place] [address] Dr. Scottie Franco HbA1c (Bld) [Mass fraction] 4.8 % Normal 4.5-6.2 [facility] Comment on above: Performed By: #### A 1C #### [facility] [address] [place] [address] Dr. Scottie Franco MG MAMM SCREEN 3D DAVID CADon 11-07-2022 MG MAMM SCREEN 3D DAVID CAD Patient: YUNIER MATAMOROS Exam Date: 11/07/2022 : 1970 Gender:F Ordering : DR BONITA SHELDON . Admission #: [id number] Family : Order #: [id number] CLICK HERE TO VIEW EXAM RADIOLOGY REPORT PROCEDURE: MAMMOGRAM SCREENING 3D BILATERAL CAD COMPARISON: MG MAMM DAVID SCRN W CAD DIG, 08/27/2013. INDICATIONS: Screening mammography Calculator Name NCI Breast Cancer Risk Assessment Tool 5 Year Breast Cancer Risk 1.10% Lifetime Breast Cancer Risk 9.90% Personal Breast Cancer No Personal Ovarian Cancer No Treatments None Family Cancers Mother with uterine cancer at age 40; Grandfather-paternal with pancreas cancer at age 86. LOCATION: [facility] BREAST COMPOSITION: Heterogeneously dense,which may obscure small masses. FINDINGS: DIAGNOSTIC CATEGORY 1--NEGATIVE. NO CHANGE FROM COMPARISON ASSESSMENT. Scattered benign-appearing calcifications are present. RIGHT BREAST: No significant suspicious finding. LEFT BREAST: No significant suspicious finding. RECOMMENDATIONS: ROUTINE MAMMOGRAM AND CLINICAL EVALUATION IN 12 MONTHS. PLEASE NOTE: A NORMAL MAMMOGRAM DOES NOT EXCLUDE THE POSSIBILITY OF BREAST CANCER. A CLINICALLY SUSPICIOUS PALPABLE LUMP SHOULD BE BIOPSIED. Dictated by: Dara Stafford MD on 11/08/2022 at 09:05 Approved by: Dara Stafford MD on 11/08/2022 at 09:11 Normal [facility] PAP ACOG PANEL 2: 30 to 65on 11-07-2022 . . Normal [facility] Comment on above: Result Comment: Perf ormed at: WB Performed By: #### [id number] #### [facility] [address] [place] [address] Dr. Scottie Franco Age Gdln ACOG Testing 30-65 Normal [facility] Comment on above: Performed By: #### [id number] #### [facility] [address] [place] [address] Dr. Scottie Franco DIAGNOSIS: Comment Normal [facility] Comment on above: Result Comment: NEGA TIVE FOR INTRAEPITHELIAL LESION OR MALIGNANCY. Performed at: WB Performed By: #### [id number] #### [facility] [address] [place] [address] Dr. Scottie Franco HPV Aptima Negative Normal Negative [facility] Comment on above: Result Comment: This nucleic acid amplification test detects fourteen high-risk HPV types (16,18,31,33,35,39,45,51,52,56,58,59,66,68) without differentiation. Performed at: =G Performed By: #### [id number] #### [facility] [address] [place] [address] Dr. Scottie Franco HPV Genotype Reflex Comment Normal [facility] Comment on above: Result Comment: Crit alondra not met, HPV Genotype not performed. Performed at: WB Performed By: #### [id number] #### [facility] [address] [place] [address] Dr. Scottie Franco Methodology: Comment Normal [facility] Comment on above: Result Comment: This liquid based ThinPrep(R) pap test was screened with the use of an image guided system. Performed at: WB Performed By: #### [id number] #### [facility] [address] [place] [address] Dr. Scottie Franco Note: Comment Normal [facility] Comment on above: Result Comment: The Pap smear is a screening test designed to aid in the detection of premalignant and malignant conditions of the uterine cervix. It is not a diagnostic procedure and should not be used as the sole means of detecting cervical cancer. Both false-positive and false-negative reports do occur. . Performed at: WB Performed By: #### [id number] #### [facility] [address] [place] [address] Dr. Scottie Franco Performed by: Comment Normal [facility] Comment on above: Result Comment: [employer] (ASCP) Performed at: WB Performed By: #### [id number] #### [facility] [address] [place] [address] Dr. Scottie Franco Specimen adequacy: Comment Normal [facility] Comment on above: Result Comment: Sati sfactory for evaluation. Endocervical and/or squamous metaplastic cells (endocervical component) are present. Performed at: WB Performed By: #### [id number] #### [facility] [address] [place] [address] Dr. Scottie Franco PROTIMEon 11-07-2022 INR Coag (PPP) [Relative time] {INR} Normal [facility] Comment on above: Performed By: #### P T, PTT #### [facility] [address] [address] [address] Scottie Franco INR GUIDELINES SEE BELOW Normal [facility] Comment on above: Result Comment: ALEXANDER RED INR: 2.0 - 3.0 CONDITIONS NOT LISTED BELOW 2.5 - 3.5 FOR PROSTHETIC HEART VALVE REPLACEMENT 2.5 - 3.5 RECURRENT THROMBOSIS Performed By: #### P T, PTT #### [facility] [address] [address] [address] Scottie Franco PT Coag (PPP) [Time] 9.8 s Normal 9.0-11.6 [facility] Comment on above: Performed By: #### P T, PTT #### [facility] [address] [address] [address] Scottie Franco PTTon 11-07-2022 aPTT Coag (Bld) [Time] 26.9 s Normal 22.3-36.2 [facility] Comment on above: Performed By: #### P T, PTT ####[facility] [id number] [id number]. Scottie Franco TSHon 11-07-2022 TSH 1.496 uIU/mL Normal 0.358-3.740 [facility] Comment on above: Performed By: #### T SH ####[facility] [id number] [id number] Franco US PELVIS AND TRANSVAGon US PELVIS AND TRANSVAG EXAMINATION: US PELVIS AND TRANSVAG HISTORY: Excessive and frequent menstruation COMPARISON: No relevant comparison available. FINDINGS: Transabdominal and transvaginal images The uterus is normal in size, contour and echotexture. Anteverted, anteflexed. Uterus measures 7.7 x 3.1 x 5.1 cm. No focal myometrial mass The endometrium measures 6 mm, normal. The right ovary is normal in appearance measuring 2.6 x 1.7 x 3.1 cm. Normal color and Doppler flow. The left ovary is normal in appearance measuring 3.5 x 2.0 x 2.5 cm. Normal color and Doppler flow No free fluid IMPRESSION: Normal exam Electronically authenticated by: DARA STAFFORD Date: 2022-11-07 10:56 Normal [facility] Basophils Auto (Bld) [#/Vol] Ordered By: Finesse Recio on 05-09-2022 Basophils (Bld) [#/Vol] 0.0 10*3/uL 0.0-0.2 [facility] Basophils/100 WBC Auto (Bld) Ordered By: Finesse Recio on 05-09-2022 Basophils/100 WBC (Bld) 0.7 % . [facility] Blood hemoglobin measurement (mass/volume)Ordered By: Finesse Recio on 05-09-2022 Hemoglobin (Bld) [Mass/Vol] 13.6 g/dL 11.8-15.4 [facility] Blood leukocytes automated c ount (number/volume)Ordered By: Finesse Recio on 05-09-2022 WBC (Bld) [#/Vol] 6.6 10*3/uL 4.5-11.0 [facility] Body fluid albumin measureme nt (mass/volume)Ordered By: Finesse Recio on 05-09-2022 Albumin (Body fld) [Mass/Vol] 4.2 g/dL 3.2-5.5 [facility] Cholesterol [Mass/volume] in Serum or PlasmaOrdered By: Finesse Recio on 05-09-2022 Cholesterol [Mass/Vol] 235 mg/dL 140-200 [facility] Comment on above: Chol less than 200 m g/dl low risk Chol 201-239 mg/dl borderline risk Chol 240 mg/dl and greater high risk Cholesterol in LDL Calc [Mas s/Vol]Ordered By: Finesse Recio on 05-09-2022 Cholesterol in LDL [Mass/Vol] 166 mg/dL 0-100 [facility] Comment on above: LDL ATP III CLASSIFI CATION LDL less than 100 mg/dL Optimal LDL 100-129 mg/dL Near or above optimal LDL 130-159 mg/dL Borderline high LDL 160-189 mg/dL High LDL greater than 189 mg/dL Very high Cholesterol in VLDL Calc [Ma ss/Vol]Ordered By: Finesse Recio on 05-09-2022 Cholesterol in VLDL [Mass/Vol] 15 mg/dL [facility] Creatinine and Glomerular fi ltration rate.predicted panel (S/P/Bld)Ordered By: Finesse Recio on 05-09-2022 Creatinine [Mass/Vol] 0.75 mg/dL 0.44-1.03 [facility] Eosinophils Auto (Bld) [#/Vo l]Ordered By: Finesse Recio on 05-09-2022 Eosinophils (Bld) [#/Vol] 0.2 10*3/uL 0.0-0.45 [facility] Eosinophils/100 WBC Auto (Bl d)Ordered By: Finesse Recio on 05-09-2022 Eosinophils/100 WBC (Bld) 2.6 % . [facility] Erythrocyte distribution wid th Auto (RBC) [Ratio]Ordered By: Finesse Recio on 05-09-2022 Erythrocyte distribution width (RBC) [Ratio] 12.7 % 11.9-15.3 [facility] Estimated glomerular filtrat ion rate (GFR) non- AmericanOrdered By: Finesse Recio on 05-09-2022 GFR/1.73 sq M.predicted among non-blacks MDRD (S/P/Bld) [Vol rate/Area] > 60 mL/Min [facility] Globulin Calc (S) [Mass/Vol] Ordered By: Finesse Recio on 05-09-2022 Globulin (S) [Mass/Vol] 2.8 g/dL [facility] Hematocrit Auto (Bld) [Volum e fraction]Ordered By: Finesse Recio on 05-09-2022 Hematocrit (Bld) [Volume fraction] 39.4 % 34.0-46.4 [facility] - Hematology and Cell countsOrdered By: Finesse Recio on 05-09-2022 Nucleated RBC/100 WBC (Bld) [Ratio] 0.1 % 0-0.5 [facility] Lymphocytes Auto (Bld) [#/Vo l]Ordered By: Finesse Recio on 05-09-2022 Lymphocytes (Bld) [#/Vol] 1.7 10*3/uL 1.00-4.8 [facility] Lymphocytes/100 WBC Auto (Bl d)Ordered By: Finesse Recio on 05-09-2022 Lymphocytes/100 WBC (Bld) 26.0 % . [facility] MCH Auto (RBC) [Entitic mass ]Ordered By: Finesse Recio on 05-09-2022 MCH (RBC) [Entitic mass] 31.6 pg 24.7-34.3 [facility] MCHC Auto (RBC) [Mass/Vol]Or dered By: Finesse Recio on 05-09-2022 MCHC (RBC) [Mass/Vol] 34.6 g/dL 32.0-35.0 [facility] MCV Auto (RBC) [Entitic vol] Ordered By: Finesse Recio on 05-09-2022 MCV (RBC) [Entitic vol] 91.4 fL 80-100 [facility] Monocytes Auto (Bld) [#/Vol] Ordered By: Finesse Recio on 05-09-2022 Monocytes (Bld) [#/Vol] 0.4 10*3/uL 0.0-0.8 [facility] Monocytes/100 WBC Auto (Bld) Ordered By: Finesse Recio on 05-09-2022 Monocytes/100 WBC (Bld) 6.4 % . [facility] Neutrophils Auto (Bld) [#/Vo l]Ordered By: Finesse Recio on 05-09-2022 Neutrophils (Bld) [#/Vol] 4.2 10*3/uL 1.8-7.7 [facility] Neutrophils/100 WBC Auto (Bl d)Ordered By: Finesse Recio on 05-09-2022 Neutrophils/100 WBC (Bld) 64.3 % . [facility] No Panel InformationOrdered By: Finesse Recio on 05-09-2022 Estimated GFR () > 60 mL/Min [facility] Comment on above: GFR estimated refere nce range: According to KDOQI guidelines, <60 ml/min/1.73m2 is sufficient to diagnose a patient with chronic kidney disease. Pharmacy Creatinine Clearance (Chem N/A [facility] Platelet mean volume Auto (B ld) [Entitic vol]Ordered By: Finesse Recio on 05-09-2022 Platelet mean volume (Bld) [Entitic vol] 9.2 fL 6.3-10.7 [facility] Platelets Auto (Bld) [#/Vol] Ordered By: Finesse Recio on 05-09-2022 Platelets (Bld) [#/Vol] 303 10*3/uL 150-450 [facility] Protein [Mass/volume] in Ser um or PlasmaOrdered By: Finesse Recio on 05-09-2022 Protein [Mass/Vol] 7.0 g/dL 6.1-7.9 [facility] RBC Auto (Bld) [#/Vol]Ordere d By: Finesse Recio on 05-09-2022 RBC (Bld) [#/Vol] 4.31 10*6/uL 3.60-5.00 [facility] Serum or plasma alanine simon otransferase measurement without P-5'-P (enzymatic activiOrdered By: Finesse Recio on 05-09-2022 ALT No additional P-5'-P [Catalytic activity/Vol] 23 U/L 10-60 [facility] Serum or plasma albumin/glob ulin mass ratioOrdered By: Finesse Recio on 05-09-2022 Albumin/Globulin [Mass ratio] 1.5 {ratio} [facility] Serum or plasma alkaline carmela sphatase measurement (enzymatic activity/volume)Ordered By: Finesse Recio on 05-09-2022 ALP [Catalytic activity/Vol] 59 U/L 32-92 [facility] Serum or plasma aspartate am inotransferase measurement (enzymatic activity/volume)Ordered By: Finesse Recio on 05-09-2022 AST [Catalytic activity/Vol] 18 U/L 10-42 [facility] Serum or plasma calcium dianne urement (mass/volume)Ordered By: Finesse Recio on 05-09-2022 Calcium [Mass/Vol] 9.2 mg/dL 8.2-10.2 [facility] Serum or plasma chloride luke surement (moles/volume)Ordered By: Finesse Recio on 05-09-2022 Chloride [Moles/Vol] 102 mmol/L 95-114 [facility] Serum or plasma glucose dianne urement (mass/volume)Ordered By: Finesse Recio on 05-09-2022 Glucose [Mass/Vol] 93 mg/dL 70-100 [facility] Comment on above: ADA recommended refe rence range Random Glucose Reference Range is dependent on time and content of last meal. Glucose of more than 200 mg/dL in a nonstressed, ambulatory subject supports the diagnosis of Diabetes Mellitus. Serum or plasma high density lipoprotein (HDL) cholesterol measurementOrdered By: Finesse Recio on 05-09-2022 Cholesterol in HDL [Mass/Vol] 54 mg/dL 35-85 [facility] Comment on above: HDL CHOL ATP-III CLA SSIFICATION Cardiovascular Risk HDL > or equal to 60 mg/dL LOW HDL < 40 mg/dL HIGH Serum or plasma potassium me asurement (moles/volume)Ordered By: Finesse Recio on 05-09-2022 Potassium [Moles/Vol] 4.2 mmol/L 3.5-5.1 [facility] Serum or plasma sodium measu rement (moles/volume)Ordered By: Finesse Recio on 05-09-2022 Sodium [Moles/Vol] 137 mmol/L 136-146 [facility] Serum or plasma total biliru bin measurement (mass/volume)Ordered By: Finesse Recio on 05-09-2022 Bilirubin [Mass/Vol] 0.6 mg/dL 0.3-1.2 [facility] Serum or plasma total carbon dioxide measurement (moles/volume)Ordered By: Finesse Recio on 05-09-2022 CO2 [Moles/Vol] 24.5 mmol/L 22.0-30.0 [facility] Serum or plasma total choles terol/high density lipoprotein (HDL) cholesterol mass ratOrdered By: Finesse Recio on 05-09-2022 Cholesterol.total/Chol esterol in HDL [Mass ratio] 4.4 {ratio} <5.0 [facility] Serum or plasma urea nitroge n measurement (mass/volume)Ordered By: Finesse Recio on 05-09-2022 Urea nitrogen [Mass/Vol] 7 mg/dL 9-23 [facility] TSH DL <= 0.005 mIU/L QnOrde red By: Finesse Recio on 05-09-2022 TSH Qn 2.06 m[IU]/L 0.45-5.33 [facility] Triglyceride [Mass/volume] i n Serum or PlasmaOrdered By: Finesse Recio on 05-09-2022 Triglyceride [Mass/Vol] 77 mg/dL 35-149 [facility] Comment on above: TRIG ATP III CLASSIF ICATION TRIG less than 150 mg/dL Normal TRIG 150-199 mg/dL Borderline high TRIG 200-500 mg/dL High TRIG greater than 500 mg/dL Very high Standard traceable to the Center for Disease Conrtrol and Prevention (CDC) test method. Vital Signs Date Time Vital Sign Value Performing Clinician Facility 09-27-2023 14:18-0500 Diastolic blood pressure 90 mm[Hg] FERCHO SIVA [facility] 09-27-2023 14:18-0500 Mean blood pressure 107 mm[Hg] FERCHO SIVA [facility] 09-27-2023 14:18-0500 Systolic blood pressure 140 mm[Hg] FERCHO SIVA [facility] 09-27-2023 13:53-0500 Blood Pressure Location FERCHO SIVA [facility] 09-27-2023 13:53-0500 Body temperature 98.78 [degF] FERCHO SIVA [facility] 09-27-2023 13:53-0500 Diastolic blood pressure 90 mm[Hg] FERCHO SIVA [facility] 09-27-2023 13:53-0500 Heart rate 91 /min FERCHO SIVA [facility] 09-27-2023 13:53-0500 Respiratory rate 14 /min FERCHO SIVA [facility] 09-27-2023 13:53-0500 SaO2% (BldA) [Mass fraction] 98 % FERCHO SIVA [facility] 09-27-2023 13:53-0500 Systolic blood pressure 140 mm[Hg] FERCHO PANIAGUA [facility] [place] 05-15-2023 12:00-0400 Body height 165.1 cm Sissy Lucypaula Other [employer] Other 05-15-2023 12:00-0400 Body mass index (BMI) [Ratio] 32.45 kg/m2 Sissy Smith Other [facility] Other 05-15-2023 12:00-0400 Body weight 88.45 kg Sissy Lucypaula Other [facility] Other 11-25-2022 11:00-0500 Body height 165.1 cm Nika Richmond Other [facility] Other 11-25-2022 11:00-0500 Body mass index (BMI) [Ratio] 32.45 kg/m2 Nika Richmond Other [facility] Other 11-25-2022 11:00-0500 Body temperature 98.3 [degF] Nika Richmond Other [facility] Other 11-25-2022 11:00-0500 Body weight 88.45 kg Nika Richmond Other [facility] Other 11-25-2022 11:00-0500 Respiratory rate 20 /min Nika Richmond Other [employer] Other 11-25-2022 11:00-0500 SaO2% (BldA) [Mass fraction] 99 % Nika Richmond Other [employer] Other Encounters Encounter Date Encounter Type Care Provider Facility Start: 05-27-2024 End: 05-27-2024 ambulatory SHAWNEE SORIA Not Available Start: 05-20-2024 End: 05-20-2024 ambulatory FERCHO A SIVA Facility:[facility] Start: 03-03-2024 ambulatory FERCHOJarod PANIAGUA Facility :[facility] Start: 01-15-2024 End: 01-15-2024 ambulatory FERCHO A SIVA Facility:[facility] Start: 11-02-2023 ambulatory FERCHOJarod PANIAGUA Facility :[facility] Start: 09-27-2023 End: 09-27-2023 ambulatory FERCHO A SIVA Facility:[facility] Start: 09-27-2023 End: 09-27-2023 Patient encounter procedure FERCHO PANIAGUA [facility] [place] Start: 05-15-2023 Office outpatient ne w 30 minutes S[facility]y [facility] Start: 05-15-2023 End: 05-15-2023 ambulatory Finesse Recio Facility:[facility] Start: 05-15-2023 End: 05-15-2023 ambulatory DO Finesse Recio Work Phone: [facility] Work Phone: Start: 05-15-2023 End: 05-15-2023 Patient encounter procedure DO Finesse Recio Work Phone: [facility] Start: 12-21-2022 End: 12-21-[address] BONITA SHELDON . Facility:[facility] Start: 12-07-2022 Encounter for preprocedural cardiovascular examination DR BONITA SHELDON . [facility] Start: 12-05-2022 End: 12-06-[address] BONITA SHELDON . Facility:[facility] Start: 12-05-2022 End: 12-06-2022 Encounter for preprocedural cardiovascular examination DR BONITA SHELDON . Facility: Start: 11-25-2022 End: 11-25-2022 ambulatory Nika Richmond Other [facility] Other Start: 11-25-2022 Office outpatient ne w 30 minutes Nika Richmond [facility] Start: 11-07-2022 End: 11-08-[address] DARA STAFFORD Facility:[facility] Start: 11-01-2022 End: 11-01-[address] SURY REYES . Facility:[facility] Start: 05-09-2022 End: 05-09-2022 Departed Referred DO Finesse Recio Work Phone: [facility] Procedures Date Procedure Procedure Detail Performing Clinician Start: 05-15-2023 Plain X-ray of left hand DO Finesse Recio Work Phone: Start: 10-01-2017 Cyst of Bartholin's gland duct (disorder) FERCHO PANIAGUA Comment on above: Patient states she h as had removal done twice Start: 10-01-2004 Structure of wisdom tooth (body structure) FERCHO PANIAGUA Start: 1970 Innominate bone stru cture (body structure) FERCHOJarod PANIAGUA Ligation of fallopia n tube [facility] [employer] Payers Date Payer Category Payer Self-pay [id number] 1970 Unknown [id number] 2.16.84 [id number] 1972 Unknown [id number] 2.16.84 [id number] 1972 Unknown [id number] 2.16.84 [id number] 1972 Unknown [id number] 2.16.84 [id number] 1972 Unknown [id number] 2.16.8 [id number] 1972 Unknown [id number] 2.16.8 [id number] 1972 Unknown [id number] 2.16.8 [id number] 1972 Unknown [id number] 2.16.84 [id number] 1959 Unknown [id number] Unknown [id number] 2.16.8 [id number] Social History Date Type Detail Facility Tobacco smoking stat [facility] Unknown if ever smoked [facility] Work Phone: Start: 1970 Sex Assigned At Female F [facility] Sex Assigned At [facility] Start: 09-27-2023 Tobacco smoking status Never s moked tobacco (finding) [facility] Tobacco smoking status Never [facility]] Functional Status Date Assessment Result Facility 09-27-2023 Functional Status N/A [facility] Clinical Note 05-20-2024 Note Date & Type Note Facility 05-20-2024 Note Patient Education Orthopedics Shoulder Pain Many things can cause shoulder pain, including: ? An injury. ? Moving the shoulder in the same way again and again (overuse). ? Joint pain (arthritis). Pain can come from: ? Swelling and irritation (inflammation) of any part of the shoulder. ? An injury to the shoulder joint. ? An injury to: ? Tissues that connect muscle to bone (tendons). ? Tissues that connect bones to each other (ligaments). ? Bones. Follow these instructions at home: Watch for changes in your symptoms. Let your doctor know about them. Follow these instructions to help with your pain. If you have a sling: ? Wear the sling as told by your doctor. Remove it only as told by your doctor. ? Loosen the sling if your fingers: ? Tingle. ? Become numb. ? Turn cold and blue. ? Keep the sling clean. ? If the sling is not waterproof: ? Do not let it get wet. ? Take the sling off when you shower or bathe. Managing pain, stiffness, and swelling ? If told, put ice on the painful area: ? Put ice in a plastic bag. ? Place a towel between your skin and the bag. ? Leave the ice on for 20 minutes, 2?3 times a day. Stop putting ice on if it does not help with the pain. ? Squeeze a soft ball or a foam pad as much as possible. This prevents swelling in the shoulder. It also helps to strengthen the arm. General instructions ? Take kvho-ybl-ledcwpo and prescription medicines only as told by your doctor. ? Keep all follow-up visits as told by your doctor. This is important. Contact a doctor if: ? Your pain gets worse. ? Medicine does not help your pain. ? You have new pain in your arm, hand, or fingers. Get help right away if: ? Your arm, hand, or fingers: ? Tingle. ? Are numb. ? Are swollen. ? Are painful. ? Turn white or blue. Summary ? Shoulder pain can be caused by many things. These include injury, moving the shoulder in the same away again and again, and joint pain. ? Watch for changes in your symptoms. Let your doctor know about them. ? This condition may be treated with a sling, ice, and pain medicine. ? Contact your doctor if the pain gets worse or you have new pain. Get help right away if your arm, hand, or fingers tingle or get numb, swollen, or painful. ? Keep all follow-up visits as told by your doctor. This is important. This information is not intended to replace advice given to you by your health care provider. Make sure you discuss any questions you have with your health care provider. Document Revised: 06/02/2022 Document Reviewed: 06/02/2022 Elsevier Patient Education ? 2022 [employer] [facility] Hospital Discharge instructions 09-27-2023 Note Date & Type Note Facility 09-27-2023 Hospital Discharg e instructions Patient Education 09/27/2023 15:57:06 Upper Respiratory Infection, Adult, Imgx-aa-[id number] Upper Respiratory Infection, Adult An upper respiratory infection (URI) affects the nose, throat, and upper airways that lead to the lungs. The most common type of URI is often called the common cold. URIs usually get better on their own, without medical treatment. What are the causes? A URI is caused by a germ (virus). You may catch these germs by: Breathing in droplets from an infected person's cough or sneeze. Touching something that has the germ on it (is contaminated) and then touching your mouth, nose, or eyes. What increases the risk? You are more likely to get a URI if: You are very young or very old. You have close contact with others, such as at work, school, or a health care facility. You smoke. You have long-term (chronic) heart or lung disease. You have a weakened disease-fighting system (immune system). You have nasal allergies or asthma. You have a lot of stress. You have poor nutrition. What are the signs or symptoms? Runny or stuffy (congested) nose. Cough. Sneezing. Sore throat. Headache. Feeling tired (fatigue). Fever. Not wanting to eat as much as usual. Pain in your forehead, behind your eyes, and over your cheekbones (sinus pain). Muscle aches. Redness or irritation of the eyes. Pressure in the ears or face. How is this treated? URIs usually get better on their own within 7 10 days. Medicines cannot cure URIs, but your doctor may recommend certain medicines to help relieve symptoms, such as: Iqvl-zgo-aruxmdl cold medicines. Medicines to reduce coughing (cough suppressants). Coughing is a type of defense against infection that helps to clear the nose, throat, windpipe, and lungs (respiratory system). Take these medicines only as told by your doctor. Medicines to lower your fever. Follow these instructions at home: Activity Rest as needed. If you have a fever, stay home from work or school until your fever is gone, or until your doctor says you may return to work or school. ?You should stay home until you cannot spread the infection anymore (you are not contagious). ?Your doctor may have you wear a face mask so you have less risk of spreading the infection. Relieving symptoms Rinse your mouth often with salt water. To make salt water, dissolve 1 tsp (3 6 g) of salt in 1 cup (237 mL) of warm water. Use a cool-mist humidifier to add moisture to the air. This can help you breathe more easily. Eating and drinking Drink enough fluid to keep your pee (urine) pale yellow. Eat soups and other clear broths. General instructions Take uckz-cfi-lhfnkyv and prescription medicines only as told by your doctor. Do not smoke or use any products that contain nicotine or tobacco. If you need help quitting, ask your doctor. Avoid being where people are smoking (avoid secondhand smoke). Stay up to date on all your shots (immunizations), and get the flu shot every year. Keep all follow-up visits. How to prevent the spread of infection to others Wash your hands with soap and water for at least 20 seconds. If you cannot use soap and water, use hand pharmacist hospital. Avoid touching your mouth, face, eyes, or nose. Cough or sneeze into a tissue or your sleeve or elbow. Do not cough or sneeze into your hand or into the air. Contact a doctor if: You are getting worse, not better. You have any of these: ?A fever or chills. ?Brown or red mucus in your nose. ?Yellow or brown fluid (discharge)coming from your nose. ?Pain in your face, especially when you bend forward. ?Swollen neck glands. ?Pain when you swallow. ?White areas in the back of your throat. Get help right away if: You have shortness of breath that gets worse. You have very bad or constant: ?Headache. ?Ear pain. ?Pain in your forehead, behind your eyes, and over your cheekbones (sinus pain). ?Chest pain. You have long-lasting (chronic) lung disease along with any of these: ?Making high-pitched whistling sounds when you breathe, most often when you breathe out (wheezing). ?Long-lasting cough (more than 14 days). ?Coughing up blood. ?A change in your usual mucus. You have a stiff neck. You have changes in your: ?Vision. ?Hearing. ?Thinking. ?Mood. These symptoms may be an emergency. Get help right away. Call 911. Do not wait to see if the symptoms will go away. Do not drive yourself to the hospital. Summary An upper respiratory infection (URI) is caused by a germ (virus). The most common type of URI is often called the common cold. URIs usually get better within 7 10 days. Take jkvq-sct-jnosiuc and prescription medicines only as told by your doctor. This information is not intended to replace advice given to you by your health care provider. Make sure you discuss any questions you have with your health care provider. Document Revised: 04/19/2022 Document Reviewed: 04/19/2022 [employer] Patient Education 2022 [employer] [facility] [place] Evaluation note 05-15-2023 Note Date & Type Note Facility 05-15-2023 Evaluation note Encounter Date Diagnosis Assessment Notes May, Ganglion, right hand (ICD-10 - M67.441) Discussed with patient this appears to be a gaglion cyst. Discussed with patient we discussed surgical treatment vs consertive treatment options. Patient states she does not want to proceed with surgery at this time. Discussed with patient she can use OTC voltaren gel. May, Ganglion, left hand (ICD-10 - M67.442) May, Mass of left hand (ICD-10 - R22.32) [employer] Clinical Note 12-21-2022 Note Date & Type Note Facility 12-21-2022 Note OPERATIVE NOTE OPERATION DATE: 12/21/2022 PROCEDURE: Shanel endometrial ablation with robotic assisted bilateral salpingectomy with removal of pedunculated fibroid at the fundal region of the uterus. PREOPERATIVE DIAGNOSIS: Menorrhagia, desires permanent sterilization. POSTOPERATIVE DIAGNOSIS: Menorrhagia, desires permanent sterilization including pedunculated uterine fibroid ANESTHESIA: General. SURGEON: Bonita Sheldon D.O. SCIENTIFIC ADVISOR: SKIP Rodriguez URINE OUTPUT: Yellow and clear. BLOOD LOSS: 5 mL. SPECIMEN: Bilateral tubes and pedunculated fibroid. FINDINGS: Normal appearing ovaries, slightly enlarged uterus, pedunculated fundal uterine fibroid. Endometrial cavity fluffy in appearance. No gross evidence of polyps, fibroids or malignancy. Both ostia seen. PROCEDURE: The patient was taken back to the OR where she was prepped and draped in the normal sterile fashion after being placed in the dorsal lithotomy position, after being placed under general anesthesia without difficulty. a weighted speculum was then placed into the vagina. The anterior lip was grasped with a single tooth tenaculum. The patient was then sounded to approximately 9 cm. The patient was gently sounded using Hegar dilators and the hysteroscope was passed through the cervix into the uterus where both ostia were seen. No gross evidence of polyps, fibroids or malignancy. The cervical length was noted to be 4 cm. The Shanel ablation apparatus was set to approximately 5 cm in length. This was placed in through the cervix and into the uterus. After the seal was tested, at that time the total ablation of 120 seconds was performed with the Shanel without difficulty. All instruments were removed from the vagina. A wet sponge stick was placed into the patient's vagina. Attention was then turned to the patient's abdomen, where a scalpel was used to make a small infraumbilical incision. The S retractors were then used to dissect the underlying layers until the fascia could be seen. The fascia was then grasped with Russel clamps and tented up. A knife was then used to make a small incision to the fascia. The muscle was identified, at that time two sutures of #0 Vicryl on a GI needle was then used and placed through the fascia. The peritoneum was then identified and entered bluntly. The 10-4 Maria Del Carmen was then placed into the patient's abdomen. This was confirmed with direct visualization of the bowel, using the laparoscope. The patient's abdomen was then insufflated using approximately 4 liters of CO2 gas. Survey of the patient's abdomen demonstrated normal appearing ovaries, uterus and tubes. A second and third lateral ports, which was 7-8 in size and 5 mm in size, was then placed laterally after incision was made in the skin under direct visualization. The patient's tube on the patient's right side was identified. The tube was then tented up using a grasper. The LigaSure was used to transect and coagulate the mesosalpinx from the fimbriated end to the insertion at the uterus, the tube was amputated and removed in its entirety. Excellent hemostasis was noted. This was performed on the contralateral side as well. The lateral ports were then moved under direct visualization with excellent hemostasis. The abdomen was desufflated. All instruments were removed from the patient's abdomen. The fascia was closed using the #0 Vicryl on GI needle. The skin was closed using 4- 0 Vicryl subcuticularly. All instruments were removed from the patient's vagina as well. The patient was taken out of the dorsal lithotomy position and placed in the supine position and taken to recovery in stable condition. Sponge, lap and needle counts were correct x2 [facility] Evaluation note 11-25-2022 Note Date & Type Note Facility 11-25-2022 Evaluation note Encounter Date Diagnosis Assessment Notes Nov, Skin lesion (ICD-10 - L98.9) Referral sent for dermatology Nov, Bronchitis (ICD-10 - J40) Take medications as directed. Rest and increase fluid intake. Take meds with food to prevent stomach upset. Use inhaler as needed for coughing spells and SOB. It is better to use inhaler a few times a day over the next 2-3 days. Follow up with primary care provider if symptoms do not improve with treatment plan, although it may take a few weeks for the cough to go away [facility] Other Evaluation + Plan note Note Date & Type Note Facility Evaluation + Plan note No data available for this section [facility] Evaluation note Note Date & Type Note Facility Evaluation note No assessment information availa [facility] Work Phone: History general Narrative - Reported Note Date & Type Note Facility History general Narrative - Reported Type Surgical History hip surgery 1972 Surgical History wisdom teeth extraction Hospitalization History hip surgery 1972 [facility] Other Progress note Note Date & Type Note Facility Progress note No data available for this section [facility] Chief Complaint and Reason for Visit Chief Complaint wellness check Reason for Referral Reason 01/02/23 @ 9:50am skin lesion - possibly a wart that will not come off with OTC treatment Diagnosis 1 Skin lesion (L98.9) Referral Organization [facility] Maggy Patel Referring Provider First Name Nika Referring Provider Last Name Basilio Referring Provider Specialty Nurse Pract itionepeggy Referred Organization [facility] Referred Provider Tracy Murguia Referred Address ,[place], [place],[address] Referred Provider Specialty Dermatology Referral Priority Routine Referral Appointment Date 2023-01-02 General Notes Roxana Dejesus 023 07:15:55 AM >Received referral. [facility] Dermatology office request us to send the referral P2P to them and they will call and schedule patient. Referral was sent P2P Roxana Dejesus 12/04/2022 10:23:35 AM >Fax letter for appt update Roxana Dejesus 12/04/2022 01:05:59 PM >Received letter back with appt Summary Purpose Family History No Family History Records FoundNo Family History Records Found No data available for this section No Family History Records FoundNo Family History Records Found Advance Directives No Advanced Directives Records FoundNo Advanced Directives Records FoundNo Advanced Directives Records FoundNo Advanced Directives Records Found Additional Source Comments Care Teams (unrecognized sec tion and content) Team Status: Inactive Member Role Status Dates Finesse Recio , [facility] Primary Care Provider, Attending Provider Active Team Status: Active Member Role Status Dates Finesse Recio DO [facility] Primary Care Provider Active Team Status: Inactive Member Role Status Dates Finesse Recio , DO [facility] Primary Care Provider Active Sissy Smith MD Attending Provider Active Goals (unrecognized section and content) Goals may be documented in a n alternate sectionNo InformationGoals may be documented in an alternate sectionNo Information No data available for this section REASON FOR VISIT (unrecogniz ed section and content) sinus congestion, cough, x 3 days home covid negLeft Middle Finger Mass INFORMATION SOURCE (unrecogn ized section and content) DATE CREATED AUTHOR [facility]/05/2023 [facility] DATE CREATED AUTHOR AUTHOR'S ORGANIZ ATION 05/24/2023 [facility] DATE CREATED AUTHOR AUTHOR'S ORGANIZ ATION 05/22/2024 [facility] DATE CREATED AUTHOR AUTHOR'S ORGANIZ ATION 05/28/2024 [facility] EPIC FOR RECORDS PERTAINING TO PATIENTS WHO ARE OR HAVE BEEN ENROLLED IN A CHEMICAL DEPENDENCY/SUBSTANCEABUSE PROGRAM, SOME INFORMATION MAY BE OMITTED. This clinical summary was aggregated from multiple sources. Caution should be exercised in using it in the provision of clinical care. This summary normalizes information from multiple sources, and as a consequence, information in this document may materially change the coding, format and clinical context of patient data. In addition, data may be omitted in some cases. CLINICAL DECISIONS SHOULD BE BASED ON THE PRIMARY CLINICAL RECORDS. [facility] [employer] [facility]. provides no warranty or guarantee of the accuracy or completeness of information in this document.
--- NOTE | 2024-08-02 19:11 | XR_ITS ---
The [address] [address] Patient Name: YUNIER GARY MRN: [id number] date: 1970 Sex: F Assigned Patient Location: ER Current Patient Location: Accession/Order Number: [id number] Exam Date: 08/02/2024 19:20 Report Date: 08/02/2024 21:56 At the request of: YOHANA FERNANDES Procedure: XR hand LT min 3V EXAM: PLAIN FILM OF THE HAND LEFT HISTORY: Pain. TECHNIQUE: 3 views of the hand are submitted for review. COMPARISON: None FINDINGS: There is a nondisplaced hairline fracture seen involving the base of the second digit left index finger seen only on the AP and oblique view. Mineralization is decreased. Joint spaces are otherwise maintained. Soft tissues are edematous. XR/XR hand LT min 3V IMPRESSION: Oblique fracture of the base of the second digit metacarpal bone with soft tissue swelling Electronically authenticated by: CHERYL ATKINS Date: 08/02/2024 21:56
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
== END 2024-08-02 20:00 | disposition home or self-care (01) ==
PROVIDERS: Emergency Provider Student in an Organized Health Care Education/Training Program; PCP Nurse Practitioner Family
DX: S62.311A Displaced fracture of base of second metacarpal bone, left hand, initial encounter for closed fracture (principal); X58.XXXA Exposure to other specified factors, initial encounter
CPT/HCPCS: 73130; 99283

== ENCOUNTER 2024-08-18 10:57 | Outpatient (OUT) | payer OTHER, SELFPAY ==
--- NOTE | 2024-08-18 | XR_ITS ---
The [address] [address] Patient Name: YUNIER GARY MRN: [id number] date: 1970 Sex: F Assigned Patient Location: Current Patient Location: Accession/Order Number: [id number] Exam Date: 08/18/2024 11:06 Report Date: 08/20/2024 06:53 At the request of: EAGLE HAYES Procedure: XR hand LT min 3V PROCEDURE: XR hand LT min 3V HISTORY: LEFT HAND PAIN ; follow-up fracture COMPARISON: XR hand left 08/02/2024 FINDINGS: BONES:Slightly oblique fracture through base of second metacarpal with minimal lateral subluxation. No appreciable intra-articular extension. Increased density fracture line. SOFT TISSUES:Images were obtained through cast material. EFFUSION:None visible. OTHER: Negative. XR/XR hand LT min 3V IMPRESSION: 1. Stable minimally displaced fracture at base of second metacarpal with suspected changes of early bone healing. Electronically authenticated by: EAGLE BRYSON Date: 08/20/2024 06:53
--- OUTSIDE RECORDS SUMMARY | 2024-08-18 11:19 | XMS_ITS | CCD ---
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 Name Role Phone DO Finesse Recio Primary Care Provider [phone] DO Finesse Recio Attending Provider [phone] Nika Richmond Unavailable SULEMAN ., DR MESA [...] Unavailable SULEMAN ., DR MESA Admitting Unavailable [place], DR DARA Souza Consulting Unavailable REQUEST, DR PAULA LISTED Primary Care Unavaila ble SULEMAN ., DR MESA Attending Unavailable SULEMAN ., DR MESA Admitting Unavailable SULEMAN ., DR MESA Consulting Unavailable SULEMAN ., DR MESA Admitting Unavailable REYES ., DR SURY Velez Primary Care Unavailable SULEMAN ., DR MESA Attending Unavailable SULEMAN ., DR MESA Consulting Unavailable DO Finesse Recio Primary Care Provider MD Sissy Smith Attending Provider Finesse Recio Primary Care Unavailable Sissy Smith Attending Unavailable Sissy Smith Admitting Unavailable Sissy Smith Unavailable FERCHO PANIAGUA Primary Care Physician [phone] FERCHO PANIAGUA Attending Unavailable FERCHO PANIAGUA Attending Unavailable FERCHO PANIAGUA Attending Unavailable SHAWNEE SORIA Attending Unavailable FERCHO PANIAGUA Referring Unavailable Allergies Allergy Classification Reported Allergen(s) Allergy Type Date of Onset Reaction(s) Facility (4 sources) predniSONE; Translations: [prednisone] Drug Allergy Foot swelling (finding), Itching (finding), Weal (disorder) [facility] Aureliano Comment on above: Patient states she c an take the tablets but no injections (1 source) predniSONE Drug Allergy [facility] Repository Medications Current Medications Medication Drug Class(es) Dates Sig (Normalized) Sig (Original) [id number] 200 actuat albuterol 0.09 mg/actuat metered dose [...] # 6 tab(s), Refills(s) 0, Pharmacy: [facility]/pharmacy #[id number], 165, cm, 09/27/23 14:13:00 EST, Height/Length [...] # 2 tab(s), Refills(s) 0, Pharmacy: [facility]/pharmacy #[id number], 165, cm, 09/27/23 14:13:00 EST, Height/Length [...] qualifying data available Patient Education Shoulder Pain, Wkgu-hs-Gemn Problem List/Past Medical History Ongoing Bronchitis Historical No qualifying data Procedure/Surgical History Cyst of Bartholin's gland (2017), [place] tooth (2004), Hip bone (1972), Tubal ligation. [...] and Father. Hypertension: Mother. Stroke: Mother. Normal [facility] Comment on above: Result Comment: Elec [...] Procedures Performed Cyst of Bartholin's gland (2018), [place] tooth (2004), Hip bone (1972), Tubal ligation. [...] strengthen the arm. General instructions ? Take nsaz-kzw-hdcwyqy and prescription medicines only as told by [...] provider. Document Revised: 06/02/2022 Document Reviewed: 06/02/2022 [employer] Patient Education ? 2022 [employer]. Caio [facility] Family Medicine Office/Clini c Noteon 01-16-2024 [...] # 2 tab(s), Refills(s) 0, Pharmacy: [facility]/pharmacy #[id number], 165, cm, 09/27/23 14:13:00 EST, Height/Length Dosing, 90.2, kg, 09/27/23 14:13:00 EST, Weight Dosing Follow-up No qualifying data available Problem List/Past Medical History Ongoing Bronchitis Historical No qualifying data Procedure/Surgical History Cyst of Bartholin's gland (2017), [place] tooth (2004), Hip bone (1972), Tubal ligation. [...] and Father. Hypertension: Mother. Stroke: Mother. Normal [facility] Comment on above: Result Comment: Elec [...] Procedures Performed Cyst of Bartholin's gland (2017), [place] tooth (2004), Hip bone (1972), Tubal ligation. [...] for choosing us for your care. 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 She is hoping to get the cough and headache under control as she is planning on going snow boarding next week in [place]. Review of Systems PHQ Score Initial Depression [...] day(s), # 6 tab(s), Refills(s) 0, [id number] 165, cm, 09/27/23 14:13:00 EST, Height/Length Dosing, 90.2, kg, 09/27/23 14:13:00 EST, Weight Dosing fluconazole, See Instructions, Take one tablet at the onset of symptoms; may repeat in 72 hours, # 2 tab(s), Refills(s) 0, Pharmacy: [facility]/pharmacy #[id number], 165, cm, 09/27/23 14:13:00 EST, Height/Length Dosing, 90.2, kg, 09/27/23 14:13:00 EST, Weight Dosing 2. Encounter to establish care (Z76.89: Persons encountering health services in other specified circumstances) Ordered: azithromycin, = 1 packet(s), Oral, As Directed, as directed on package labeling, X 5 day(s), # 6 tab(s), Refills(s) 0, [id number], 165, cm, 09/27/23 14:13:00 EST, Height/Length Dosing, 90.2, kg, 09/27/23 14:13:00 EST, Weight Dosing fluconazole, See Instructions, Take one tablet at the onset of symptoms; may repeat in 72 hours, # 2 tab(s), Refills(s) 0, [id number], 165, cm, 09/27/23 14:13:00 EST, Height/Length Dosing, 90.2, kg, 09/27/23 14:13:00 EST, Weight Dosing Patient will need to schedule a well visit in the next 12 months Follow-up No qualifying data available Patient Education Upper Respiratory Infection, Adult, Pkpz-wq-Qnsn Problem List/Past Medical History Ongoing No qualifying data Historical No qualifying data Procedure/Surgical History Cyst of Bartholin's gland (2017), [place] tooth (2004), Hip bone (1972), Tubal ligation. Medications azithromycin 250 mg Tab 5-day Dose Pack (Z-Regino), 1 packet(s), Oral, As Directed Diflucan 150 mg Tab, See Instructions Multi Vitamin+ Allergies predniSONE (Swollen foot, Itchy, Hives) Social History Alcohol Beer, 1-2 times per month, Started age 4 (more content not included)... Normal [facility] Comment on above: Result Comment: Rafael [...] to help relieve symptoms, such as: ? Vcxz-yix-vndnkmq cold medicines. ? Medicines to reduce coughing [...] other clear broths. General instructions ? Take pczm-rnp-ceovwyi and prescription medicines only as told by [...] cannot use soap and water, use hand assistant oceanographer. ? Avoid touching your mouth, face, eyes, [...] get better within 7?10 days. ? Take nyru-lod-zemkrzi and prescription medicines only as told by your doctor. This information is not intended to replace advice given to you by your health care (more content not included)... Normal [facility] XR hand LT min 3V*on 023 XR hand LT min 3V* [facility] [place] [address] [place] [address] XRay Report Signed Patient: Yunier Matamoros MR#: [id number] : 1970 Acct:[id number] Age/Sex: 52 / F ADM Date: 05/15/23 [place] [facility] [place] Type: [facility] Attending Dr: Sissy Smith MD Copies to: [...] Mikhail Greenberg M.D.05/15/2023 4:52 PM Dictation Location: [place] [address] Transcribed By: [facility] 05/15/231651 Dictated By: Mikhail Greenberg II, MD 05/15/231649 Signed By: 05/15/231651 Normal [facility] XR hand LT min 3V* [facility] Course [employer] Other XR hand LT min 3V* [facility] [employer] Other XR hand LT min 3V* [address] [place] [address] [employer] Other XR hand LT min 3V* [place] [address] [employer] Other XR hand LT min 3V* XRay Report [employer] Other XR hand LT min 3V* Signed [employer] Other XR hand LT min 3V* Patient: Yunier Matamoros MR#: [id number] [employer] Other XR hand LT min 3V* 827 [employer] Other XR hand LT min 3V* : 1970 Acct:[id number] [employer] Other XR hand LT min 3V* Age/Sex: 52 / F ADM Date: 05/15/23 [employer] Other XR hand LT min 3V* Loc: [facility] Room: Type: [facility] [employer] Other XR hand LT min 3V* Attending Dr: Sissy Smith MD [employer] Other XR hand LT min 3V* Copies to: Sissy Smith MD [employer] Other XR hand LT min 3V* Ordering Provider: Sissy Smith MD [employer] Other XR hand LT min 3V* Date of Service: 05/15/23 [employer] Other XR hand LT min 3V* XR/XR hand LT min 3V*: PAIN [employer] Other XR hand LT min 3V* XR hand LT min 3V* 05/15/2023 12:09 PM [employer] Other XR hand LT min 3V* SIGNS AND SYMPTOMS: Mass on left third digit [employer] Other XR hand LT min 3V* PROTOCOL: Frontal, lateral, and oblique radiographs of the left hand [employer] Other XR hand LT min 3V* COMPARISON: None [employer] Other XR hand LT min 3V* FINDINGS: [employer] Other XR hand LT min 3V* The bones are in anatomic alignment. There is no evidence of fracture or dislocation. The joint [employer] Other XR hand LT min 3V* spaces are preserved. No significant soft tissue swelling. [employer] Other XR hand LT min 3V* XR/XR hand LT min 3V* [employer] Other XR hand LT min 3V* IMPRESSION: [employer] Other XR hand LT min 3V* No acute bony injury or significant degenerative change. [employer] Other XR hand LT min 3V* No significant soft tissue swelling. [employer] Other XR hand LT min 3V* Impression dictated by: Mikhail Greenberg M.D.05/15/2023 4:52 PM [employer] Other XR hand LT min 3V* Dictation Location: [place] [address] [employer] Other XR hand LT min 3V* Transcribed By: PWS 05/15/23 165 [facility] [employer] Other XR hand LT min 3V* Dictated By: Mikhail Greenberg II, MD 05/15/231649 [facility] [employer] Other XR hand LT min 3V* Signed By: Everton [employer] Other XR hand LT min 3V* 05/15/23 [facility] [employer] Other CBC AUTO DIFFon 12-21-2022 BASO # 0.0 103/ul Normal 0.0-0.1 [facility] Comment on above: Performed By: #### C BC #### [facility] [address] [place] [address] Dr. Scottie Franco Basophils/100 WBC (Bld) 0.7 % Normal 0.2-2.0 [facility] Comment on above: Performed By: #### C BC #### [facility] [address] [place] [address] Dr. Scottie Franco EO # 0.2 103/ul Normal 0.0-0.7 [facility] Comment on above: Performed By: #### C BC #### [facility] [address] [place] [address] Dr. Scottie Franco Eosinophils/100 WBC (Bld) 3.0 % Normal 0.9-7.0 [facility] Comment on above: Performed By: #### C BC #### [facility] [address] [place] [address] Dr. Scottie Franco Erythrocyte distribution width (RBC) [Ratio] 11.7 % Normal 11.0-15.0 [facility] Comment on above: Performed By: #### C BC #### [facility] [address] [place] [address] Dr. Scottie Franco Hematocrit (Bld) [Volume fraction] 35.3 % Critically low 36.0-48.0 [facility] Comment on above: Performed By: #### C BC #### [facility] [address] [place] [address] Dr. Scottie Franco Hemoglobin (Bld) [Mass/Vol] 12.5 g/dL Normal 12.0-16.0 [facility] Comment on above: Performed By: #### C BC #### [facility] [address] [place] [address] Dr. Scottie Franco IG # 0.00 10e3/ul Normal 0.00-0.03 [facility] Comment on above: Performed By: #### C BC #### [facility] [address] [place] [address] Dr. Scottie Franco IG % 0.0 % Normal 0.0-0.5 [facility] Comment on above: Performed By: #### C BC #### [facility] [address] [place] [address] Dr. Scottie Franco LYMPH # 2.3 103/ul Normal 1.2-3.8 [facility] Comment on above: Performed By: #### C BC #### [facility] [address] [place] [address] Dr. Scottie Franco Lymphocytes/100 WBC (Bld) 37.6 % Normal 20.5-60.0 [facility] Comment on above: Performed By: #### C BC #### [facility] [address] [place] [address] Dr. Scottie Franco MANUAL DIFF REQ NO Normal [facility] Comment on above: Performed By: #### C BC #### [facility] [address] [place] [address] Dr. Scottie Franco MCH (RBC) [Entitic mass] 32.0 pg Normal 26.7-34.0 [facility] Comment on above: Performed By: #### C BC #### [facility] [address] [place] [address] Dr. Scottie Franco MCHC (RBC) [Mass/Vol] 35.4 g/dL Critically high 29.9-35.2 [facility] Comment on above: Performed By: #### C BC #### [facility] [address] [place] [address] Dr. Scottie Franco MCV (RBC) [Entitic vol] 90.3 fL Normal 81.0-99.0 [facility] Comment on above: Performed By: #### C BC #### [facility] [address] [place] [address] Dr. Scottie Franco MONO # 0.5 103/ul Normal 0.3-0.8 [facility] Comment on above: Performed By: #### C BC #### [facility] [address] [place] [address] Dr. Scottie Franco Monocytes/100 WBC (Bld) 7.8 % Normal 1.7-12.0 [facility] Comment on above: Performed By: #### C BC #### [facility] [address] [place] [address] Dr. Scottie Franco NEUT # 3.1 103/ul Normal 1.4-6.5 [facility] Comment on above: Performed By: #### C BC #### [facility] [address] [place] [address] Dr. Scottie Franco Neutrophils/100 WBC (Bld) 50.9 % Normal 43.0-75.0 [facility] Comment on above: Performed By: #### C BC #### [facility] [address] [place] [address] Dr. Scottie Franco Platelet mean volume (Bld) [Entitic vol] 10.0 fL Normal 9.5-13.5 [facility] Comment on above: Performed By: #### C BC #### [facility] [address] [place] [address] Dr. Scottie Franco PLT 314 103/ul Normal 150-450 [facility] Comment on above: Performed By: #### C BC #### [facility] [address] [place] [address] Dr. Scottie Franco RBC 3.91 106/ul Critically low 4.20-5.40 [facility] Comment on above: Performed By: #### C BC #### [facility] [address] [place] [address] Dr. Scottie Franco WBC 6.0 103/ul Normal 4.0-11.0 [facility] Comment on above: Performed By: #### C BC #### [facility] [address] [place] [address] Dr. Scottie Franco PREG QUANT HCGon 12-21-2022 HCG QUANT <1 Normal [facility] Comment on above: Performed By: #### P REGQNT #### [facility] [address] [place] [address] Dr. Scottie Franco HCG RANGE SEE BELOW Normal [facility] Comment on above: Result Comment: 5-50 0.2-1 WEEK 50-500 1-2 WEEKS 100-5,000 2-3 WEEKS 500-10,000 3-4 WEEKS 1,000-50,000 4-5 WEEKS 10,000-100,000 5-6 WEEKS 15,000-200,000 6-8 WEEKS 10,000-100,000 2-3 MONTHS Performed By: #### P REGQNT #### [facility] [address] [place] [address] Dr. Scottie Franco CBC AUTO DIFFon 11-07-2022 BASO # 0.0 103/ul Normal 0.0-0.1 [facility] Comment on above: Performed By: #### C BC #### [facility] [address] [place] [address] Dr. Scottie Franco Basophils/100 WBC (Bld) 0.5 % Normal 0.2-2.0 [facility] Comment on above: Performed By: #### C BC #### [facility] [address] [place] [address] Dr. Scottie Franco EO # 0.1 103/ul Normal 0.0-0.7 [facility] Comment on above: Performed By: #### C BC #### [facility] [address] [place] [address] Dr. Scottie Franco Eosinophils/100 WBC (Bld) 1.8 % Normal 0.9-7.0 [facility] Comment on above: Performed By: #### C BC #### [facility] [address] [place] [address] Dr. Scottie Franco Erythrocyte distribution width (RBC) [Ratio] 11.9 % Normal 11.0-15.0 [facility] Comment on above: Performed By: #### C BC #### [facility] [address] [place] [address] Dr. Scottie Franco Hematocrit (Bld) [Volume fraction] 38.4 % Normal 36.0-48.0 [facility] Comment on above: Performed By: #### C BC #### [facility] [address] [place] [address] Dr. Scottie Franco Hemoglobin (Bld) [Mass/Vol] 13.0 g/dL Normal 12.0-16.0 [facility] Comment on above: Performed By: #### C BC #### [facility] [address] [place] [address] Dr. Scottie Franco IG # 0.01 10e3/ul Normal 0.00-0.03 [facility] Comment on above: Performed By: #### C BC #### [facility] [address] [place] [address] Dr. Scottie Franco IG % 0.1 % Normal 0.0-0.5 [facility] Comment on above: Performed By: #### C BC #### [facility] [address] [place] [address] Dr. Scottie Franco LYMPH # 2.4 103/ul Normal 1.2-3.8 [facility] Comment on above: Performed By: #### C BC #### [facility] [address] [place] [address] Dr. Scottie Franco Lymphocytes/100 WBC (Bld) 32.1 % Normal 20.5-60.0 [facility] Comment on above: Performed By: #### C BC #### [facility] [address] [place] [address] Dr. Scottie Franco MANUAL DIFF REQ NO Normal [facility] Comment on above: Performed By: #### C BC #### [facility] [address] [place] [address] Dr. Scottie Franco MCH (RBC) [Entitic mass] 31.4 pg Normal 26.7-34.0 [facility] Comment on above: Performed By: #### C BC #### [facility] [address] [place] [address] [address] Scottie Franco MCHC (RBC) [Mass/Vol] 33.9 g/dL Normal 29.9-35.2 [facility] Comment on above: Performed By: #### C BC #### [facility] [address] [place] [address] [address] Scottie Franco MCV (RBC) [Entitic vol] 92.8 fL Normal 81.0-99.0 [facility] Comment on above: Performed By: #### C BC #### [facility] [address] [place] [address] Dr. Scottie Franco MONO # 0.4 103/ul Normal 0.3-0.8 [facility] Comment on above: Performed By: #### C BC #### [facility] [address] [place] [address] Dr. Scottie Franco Monocytes/100 WBC (Bld) 5.3 % Normal 1.7-12.0 [facility] Comment on above: Performed By: #### C BC #### [facility] [address] [place] [address] Dr. Scottie Franco NEUT # 4.4 103/ul Normal 1.4-6.5 [facility] Comment on above: Performed By: #### C BC #### [facility] [address] [place] [address] Dr. Scottie Franco Neutrophils/100 WBC (Bld) 60.2 % Normal 43.0-75.0 [facility] Comment on above: Performed By: #### C BC #### [facility] [address] [place] [address] Dr. Scottie Franco Platelet mean volume (Bld) [Entitic vol] 9.9 fL Normal 9.5-13.5 [facility] Comment on above: Performed By: #### C BC #### [facility] [address] [place] [address] Dr. Scottie Franco PLT 306 103/ul Normal 150-450 [facility] Comment on above: Performed By: #### C BC #### [facility] [address] [place] [address] Dr. Scottie Franco RBC 4.14 106/ul Critically low 4.20-5.40 [facility] Comment on above: Performed By: #### C BC #### [facility] [address] [place] [address] Dr. Scottie Franco WBC 7.3 103/ul Normal 4.0-11.0 [facility] Comment on above: Performed By: #### C BC #### [facility] [address] [place] [address] Dr. Scottie Franco FREE T4on 11-07-2022 Free T4 [Mass/Vol] 0.81 ng/dL Normal 0.76-1.46 [facility] Comment on above: Performed By: #### F T4 #### [facility] [address] [place] [address] Dr. Scottie Franco GLYCOHEMOGLOBIN A1Con 2022 ADA RECOMMENDATION SEE BELOW Normal [facility] Comment on above: Result Comment: ADA RECOMMENDED LIMIT 4.0 - 6.0 ADA THERAPEUTIC TARGET < 7.0 ACTION SUGGESTED > 7.0 Performed By: #### A 1C #### [facility] [address] [place] [address] Dr. Scottie Franco Glucose [Mass/Vol] 91 mg/dL Normal [facility] Comment on above: Performed By: #### A 1C #### [facility] [address] [place] [address] Dr. Scottie Franco HbA1c (Bld) [Mass fraction] 4.8 % Normal 4.5-6.2 [facility] Comment on above: Performed By: #### A 1C #### [facility] [address] [place] [address] Dr. Scottie Franco MG MAMM SCREEN 3D DAVID CADon 11-07-2022 MG MAMM SCREEN 3D DAVID CAD Patient: YUNIER MATAMOROS Exam Date: 11/07/2022 : 1970 Gender:F Ordering : DR BONITA SHELDON . Admission #: [id number] Family : Order #: [id number] CLICK HERE TO VIEW EXAM RADIOLOGY REPORT [...] pancreas cancer at age 88. LOCATION: [facility] BREAST COMPOSITION: Heterogeneously dense,which may obscure [...] Stafford MD on 11/08/2022 at 09:11 Normal [facility] PAP ACOG PANEL 2: 30 to 65on 11-07-2022 . . Normal [facility] Comment on above: Result Comment: Perf ormed at: WB Performed By: #### [id number] #### [facility] [address] [place] [address] Dr. Scottie Franco Age Gdln ACOG Testing 30-65 Normal [facility] Comment on above: Performed By: #### [id number] #### [facility] [address] [place] [address] Dr. Scottie Franco DIAGNOSIS: Comment Normal [facility] Comment on above: Result Comment: NEGA TIVE FOR INTRAEPITHELIAL LESION OR MALIGNANCY. Performed at: WB Performed By: #### [id number] #### [facility] [address] [place] [address] Dr. Scottie Franco HPV Aptima Negative Normal Negative [facility] Comment on above: Result Comment: This nucleic acid amplification test detects fourteen high-risk HPV types (16,18,31,33,35,39,45,51,52,56,58,59,66,68) without differentiation. Performed at: =G Performed By: #### [id number] #### [facility] [address] [place] [address] Dr. Scottie Franco HPV Genotype Reflex Comment Normal [facility] Comment on above: Result Comment: Crit alondra not met, HPV Genotype not performed. Performed at: WB Performed By: #### [id number] #### [facility] [address] [place] [address] Dr. Scottie Franco Methodology: Comment Normal [facility] Comment on above: Result Comment: This liquid based ThinPrep(R) pap test was screened with the use of an image guided system. Performed at: WB Performed By: #### [id number] #### [facility] [address] [place] [address] Dr. Scottie Franco Note: Comment Normal [facility] Comment on above: Result Comment: The Pap smear is a screening test designed to aid in the detection of premalignant and malignant conditions of the uterine cervix. It is not a diagnostic procedure and should not be used as the sole means of detecting cervical cancer. Both false-positive and false-negative reports do occur. . Performed at: WB Performed By: #### [id number] #### [facility] [address] [place] [address] Dr. Scottie Franco Performed by: Comment Normal [facility] Comment on above: Result Comment: [employer] (ASCP) Performed at: WB Performed By: #### [id number] #### [facility] [address] [place] [address] Dr. Scottie Franco Specimen adequacy: Comment Normal [facility] Comment on above: Result Comment: Sati sfactory for evaluation. Endocervical and/or squamous metaplastic cells (endocervical component) are present. Performed at: WB Performed By: #### [id number] #### [facility] [address] [place] [address] Dr. Scottie Franco PROTIMEon 11-07-2022 INR Coag (PPP) [Relative time] {INR} Normal [facility] Comment on above: Performed By: #### P T, PTT #### [facility] [address] [place] [address] [address] Scottie Franco INR GUIDELINES SEE BELOW Normal [facility] Comment on above: Result Comment: ALEXANDER RED INR: 2.0 - 3.0 CONDITIONS NOT LISTED BELOW 2.5 - 3.5 FOR PROSTHETIC HEART VALVE REPLACEMENT 2.5 - 3.5 RECURRENT THROMBOSIS Performed By: #### P T, PTT #### [facility] [address] [address] [address] Scottie Franco PT Coag (PPP) [Time] 9.8 s Normal 9.0-11.6 [facility] Comment on above: Performed By: #### P T, PTT #### [facility] [address] [address] [address] Scottie Franco PTTon 11-07-2022 aPTT Coag (Bld) [Time] 26.9 s Normal 22.3-36.2 [facility] Comment on above: Performed By: #### P T, PTT ####[facility] [address] [id number]. Scottie Franco TSHon 11-07-2022 TSH 1.496 uIU/mL Normal 0.358-3.740 [facility] Comment on above: Performed By: #### T SH ####[facility] [address] [id number] Franco US PELVIS AND TRANSVAGon US PELVIS [...] DARA STAFFORD Date: 2022-11-07 10:56 Normal [facility] Basophils Auto (Bld) [#/Vol] Ordered By: Finesse Recio on 05-09-2022 Basophils (Bld) [#/Vol] 0.0 10*3/uL 0.0-0.2 [facility] Basophils/100 WBC Auto (Bld) Ordered By: Finesse Recio on 05-09-2022 Basophils/100 WBC (Bld) 0.7 % . [facility] Blood hemoglobin measurement (mass/volume)Ordered By: Finesse Recio on 05-09-2022 Hemoglobin (Bld) [Mass/Vol] 13.6 g/dL 11.8-15.4 [facility] Blood leukocytes automated c ount (number/volume)Ordered By: Finesse Recio on 05-09-2022 WBC (Bld) [#/Vol] 6.6 10*3/uL 4.5-11.0 [facility] Body fluid albumin measureme nt (mass/volume)Ordered By: Finesse Recio on 05-09-2022 Albumin (Body fld) [Mass/Vol] 4.2 g/dL 3.2-5.5 [facility] Cholesterol [Mass/volume] in Serum or PlasmaOrdered By: Finesse Recio on 05-09-2022 Cholesterol [Mass/Vol] 235 mg/dL 140-200 [facility] Comment on above: Chol less than 200 m g/dl low risk Chol 201-239 mg/dl borderline risk Chol 240 mg/dl and greater high risk Cholesterol in LDL Calc [Mas s/Vol]Ordered By: Finesse Recio on 05-09-2022 Cholesterol in LDL [Mass/Vol] 166 mg/dL 0-100 [facility] Comment on above: LDL ATP III CLASSIFI CATION LDL less than 100 mg/dL Optimal LDL 100-129 mg/dL Near or above optimal LDL 130-159 mg/dL Borderline high LDL 160-189 mg/dL High LDL greater than 189 mg/dL Very high Cholesterol in VLDL Calc [Ma ss/Vol]Ordered By: Finesse Recio on 05-09-2022 Cholesterol in VLDL [Mass/Vol] 15 mg/dL [facility] Creatinine and Glomerular fi ltration rate.predicted panel (S/P/Bld)Ordered By: Finesse Recio on 05-09-2022 Creatinine [Mass/Vol] 0.75 mg/dL 0.44-1.03 [facility] Eosinophils Auto (Bld) [#/Vo l]Ordered By: Finesse Recio on 05-09-2022 Eosinophils (Bld) [#/Vol] 0.2 10*3/uL 0.0-0.45 [facility] Eosinophils/100 WBC Auto (Bl d)Ordered By: Finesse Recio on 05-09-2022 Eosinophils/100 WBC (Bld) 2.6 % . [facility] Erythrocyte distribution wid th Auto (RBC) [Ratio]Ordered By: Finesse Recio on 05-09-2022 Erythrocyte distribution width (RBC) [Ratio] 12.7 % 11.9-15.3 [facility] Estimated glomerular filtrat ion rate (GFR) non- AmericanOrdered By: Finesse Recio on 05-09-2022 GFR/1.73 sq M.predicted among non-blacks MDRD (S/P/Bld) [Vol rate/Area] > 60 mL/Min [facility] Globulin Calc (S) [Mass/Vol] Ordered By: Finesse Recio on 05-09-2022 Globulin (S) [Mass/Vol] 2.8 g/dL [facility] Hematocrit Auto (Bld) [Volum e fraction]Ordered By: Finesse Recio on 05-09-2022 Hematocrit (Bld) [Volume fraction] 39.4 % 34.0-46.4 [facility] - Hematology and Cell countsOrdered By: Finesse Recio on 05-09-2022 Nucleated RBC/100 WBC (Bld) [Ratio] 0.1 % 0-0.5 [facility] Lymphocytes Auto (Bld) [#/Vo l]Ordered By: Finesse Recio on 05-09-2022 Lymphocytes (Bld) [#/Vol] 1.7 10*3/uL 1.00-4.8 [facility] Lymphocytes/100 WBC Auto (Bl d)Ordered By: Finesse Recio on 05-09-2022 Lymphocytes/100 WBC (Bld) 26.0 % . [facility] MCH Auto (RBC) [Entitic mass ]Ordered By: Finesse Recio on 05-09-2022 MCH (RBC) [Entitic mass] 31.6 pg 24.7-34.3 [facility] MCHC Auto (RBC) [Mass/Vol]Or dered By: Finesse Recio on 05-09-2022 MCHC (RBC) [Mass/Vol] 34.6 g/dL 32.0-35.0 [facility] MCV Auto (RBC) [Entitic vol] Ordered By: Finesse Recio on 05-09-2022 MCV (RBC) [Entitic vol] 91.4 fL 80-100 [facility] Monocytes Auto (Bld) [#/Vol] Ordered By: Finesse Recio on 05-09-2022 Monocytes (Bld) [#/Vol] 0.4 10*3/uL 0.0-0.8 [facility] Monocytes/100 WBC Auto (Bld) Ordered By: Finesse Recio on 05-09-2022 Monocytes/100 WBC (Bld) 6.4 % . [facility] Neutrophils Auto (Bld) [#/Vo l]Ordered By: Finesse Recio on 05-09-2022 Neutrophils (Bld) [#/Vol] 4.2 10*3/uL 1.8-7.7 [facility] Neutrophils/100 WBC Auto (Bl d)Ordered By: Finesse Recio on 05-09-2022 Neutrophils/100 WBC (Bld) 64.3 % . [facility] No Panel InformationOrdered By: Finesse Recio on 05-09-2022 Estimated GFR () > 60 mL/Min [facility] Comment on above: GFR estimated refere nce range: According to KDOQI guidelines, <60 ml/min/1.73m2 is sufficient to diagnose a patient with chronic kidney disease. Pharmacy Creatinine Clearance (Chem N/A [facility] Platelet mean volume Auto (B ld) [Entitic vol]Ordered By: Finesse Recio on 05-09-2022 Platelet mean volume (Bld) [Entitic vol] 9.2 fL 6.3-10.7 [facility] Platelets Auto (Bld) [#/Vol] Ordered By: Finesse Recio on 05-09-2022 Platelets (Bld) [#/Vol] 303 10*3/uL 150-450 [facility] Protein [Mass/volume] in Ser um or PlasmaOrdered By: Finesse Recio on 05-09-2022 Protein [Mass/Vol] 7.0 g/dL 6.1-7.9 [facility] RBC Auto (Bld) [#/Vol]Ordere d By: Finesse Recio on 05-09-2022 RBC (Bld) [#/Vol] 4.31 10*6/uL 3.60-5.00 [facility] Serum or plasma alanine simon otransferase measurement without P-5'-P (enzymatic activiOrdered By: Finesse Recio on 05-09-2022 ALT No additional P-5'-P [Catalytic activity/Vol] 23 U/L 10-60 [facility] Serum or plasma albumin/glob ulin mass ratioOrdered By: Finesse Recio on 05-09-2022 Albumin/Globulin [Mass ratio] 1.5 {ratio} [facility] Serum or plasma alkaline carmela sphatase measurement (enzymatic activity/volume)Ordered By: Finesse Recio on 05-09-2022 ALP [Catalytic activity/Vol] 59 U/L 32-92 [facility] Serum or plasma aspartate am inotransferase measurement (enzymatic activity/volume)Ordered By: Finesse Recio on 05-09-2022 AST [Catalytic activity/Vol] 18 U/L 10-42 [facility] Serum or plasma calcium dianne urement (mass/volume)Ordered By: Finesse Recio on 05-09-2022 Calcium [Mass/Vol] 9.2 mg/dL 8.2-10.2 [facility] Serum or plasma chloride luke surement (moles/volume)Ordered By: Finesse Recio on 05-09-2022 Chloride [Moles/Vol] 102 mmol/L 95-[address] [facility] Serum or plasma glucose dianne urement (mass/volume)Ordered By: Finesse Recio on 05-09-2022 Glucose [Mass/Vol] 93 mg/dL 70-100 [facility] Comment on above: ADA recommended refe rence range Random Glucose Reference Range is dependent on time and content of last meal. Glucose of more than 200 mg/dL in a nonstressed, ambulatory subject supports the diagnosis of Diabetes Mellitus. Serum or plasma high density lipoprotein (HDL) cholesterol measurementOrdered By: Finesse Recio on 05-09-2022 Cholesterol in HDL [Mass/Vol] 54 mg/dL 35-85 [facility] Comment on above: HDL CHOL ATP-III CLA SSIFICATION Cardiovascular Risk HDL > or equal to 60 mg/dL LOW HDL < 40 mg/dL HIGH Serum or plasma potassium me asurement (moles/volume)Ordered By: Finesse Recio on 05-09-2022 Potassium [Moles/Vol] 4.2 mmol/L 3.5-5.1 [facility] Serum or plasma sodium measu rement (moles/volume)Ordered By: Finesse Recio on 05-09-2022 Sodium [Moles/Vol] 137 mmol/L 136-146 [facility] Serum or plasma total biliru bin measurement (mass/volume)Ordered By: Finesse Recio on 05-09-2022 Bilirubin [Mass/Vol] 0.6 mg/dL 0.3-1.[address] [facility] Serum or plasma total carbon dioxide measurement (moles/volume)Ordered By: Finesse Recio on 05-09-2022 CO2 [Moles/Vol] 24.5 mmol/L 22.0-30.0 [facility] Serum or plasma total choles terol/high density lipoprotein (HDL) cholesterol mass ratOrdered By: Finesse Recio on 05-09-2022 Cholesterol.total/Chol esterol in HDL [Mass ratio] 4.4 {ratio} <5.0 [facility] Serum or plasma urea nitroge n measurement (mass/volume)Ordered By: Finesse Recio on 05-09-2022 Urea nitrogen [Mass/Vol] 7 mg/dL 9-23 [facility] TSH DL <= 0.005 mIU/L QnOrde red By: Finesse Recio on 05-09-2022 TSH Qn 2.06 m[IU]/L 0.45-5.33 [facility] Triglyceride [Mass/volume] i n Serum or PlasmaOrdered By: Finesse Recio on 05-09-2022 Triglyceride [Mass/Vol] 77 mg/dL 35-149 [facility] Comment on above: TRIG ATP III CLASSIF ICATION TRIG less than 150 mg/dL Normal TRIG 150-199 mg/dL Borderline high TRIG 200-500 mg/dL High TRIG greater than 500 mg/dL Very high Standard traceable to the Center for Disease Conrtrol and Prevention (CDC) test method. Vital Signs Date Time Vital Sign Value Performing Clinician Facility 09-27-2023 14:18-0500 Diastolic blood pressure 90 mm[Hg] FERCHO SIVA [facility] 09-27-2023 14:18-0500 Mean blood pressure 107 mm[Hg] FERCHO SIVA [facility] 09-27-2023 14:18-0500 Systolic blood pressure 140 mm[Hg] FERCHO SIVA [facility] 09-27-2023 13:53-0500 Blood Pressure Location FERCHO SIVA [facility] 09-27-2023 13:53-0500 Body temperature 98.78 [degF] FERCHO SIVA [facility] 09-27-2023 13:53-0500 Diastolic blood pressure 90 mm[Hg] FERCHO SIVA [facility] 09-27-2023 13:53-0500 Heart rate 91 /min FERCHO SIVA [facility] 09-27-2023 13:53-0500 Respiratory rate 14 /min FERCHO SIVA [facility] 09-27-2023 13:53-0500 SaO2% (BldA) [Mass fraction] 98 % FERCHO SIVA [facility] 09-27-2023 13:53-0500 Systolic blood pressure 140 mm[Hg] FERCHO PANIAGUA [facility] [place] 05-15-2023 12:00-0400 Body height 165.1 cm Sissy Lucypaula Other [employer] Other 05-15-2023 12:00-0400 Body mass index (BMI) [Ratio] 32.45 kg/m2 Sissy Smith Other [employer] Other 05-15-2023 12:00-0400 Body weight 88.45 kg Sissy Lucypaula Other [employer] Other 11-25-2022 11:00-0500 Body height 165.1 cm Nika Richmond Other [employer] Other 11-25-2022 11:00-0500 Body mass index (BMI) [Ratio] 32.45 kg/m2 Nika Richmond Other [employer] Other 11-25-2022 11:00-0500 Body temperature 98.3 [degF] Nika Richmond Other [employer] Other 11-25-2022 11:00-0500 Body weight 88.45 kg Nika Richmond Other [employer] Other 11-25-2022 11:00-0500 Respiratory rate 20 /min Nika Richmond Other [employer] Other 11-25-2022 11:00-0500 SaO2% (BldA) [Mass fraction] 99 % Nika Richmond Other [employer] Other Encounters Encounter Date Encounter Type Care Provider Facility Start: 05-27-2024 End: 05-27-2024 ambulatory SHAWNEE SORIA Not Available Start: 05-20-2024 End: 05-20-2024 ambulatory FERCHO A SIVA Facility:[facility] Start: 03-03-2024 ambulatory FERCHOJarod PANIAGUA Facility :[facility] Start: 01-15-2024 End: 01-15-2024 ambulatory FERCHO A SIVA Facility:[facility] Start: 11-02-2023 ambulatory FERCHOJarod PANIAGUA Facility :[facility] Start: 09-27-2023 End: 09-27-2023 ambulatory FERCHO A SIVA Facility:[facility] Start: 09-27-2023 End: 09-27-2023 Patient encounter procedure FERCHO PANIAGUA [facility] [place] Start: 05-15-2023 Office outpatient ne w 30 minutes S[facility]y [facility] Start: 05-15-2023 End: 05-15-2023 ambulatory Finesse Recio Facility:[facility] Start: 05-15-2023 End: 05-15-2023 ambulatory DO Finesse Recio Work Phone: [facility] Work Phone: Start: 05-15-2023 End: 05-15-2023 Patient encounter procedure DO Finesse Recio Work Phone: [facility] Start: 12-21-2022 End: 12-21-[address] BONITA SHELDON . Facility:[facility] Start: 12-07-2022 Encounter for preprocedural cardiovascular examination DR BONITA SHELDON . [facility] Start: 12-05-2022 End: 12-06-[address] BONITA SHELDON . Facility:[facility] Start: 12-05-2022 End: 12-06-2022 Encounter for preprocedural cardiovascular examination DR BONITA SHELDON . Facility: Start: 11-25-2022 End: 11-25-2022 ambulatory Nika Richmond Other [facility] Other Start: 11-25-2022 Office outpatient ne w 30 minutes Nika Richmond [facility] Start: 11-07-2022 End: 11-08-[address] DARA STAFFORD Facility:[facility] Start: 11-01-2022 End: 11-01-[address] SURY REYES . Facility:[facility] Start: 05-09-2022 End: 05-09-2022 Departed Referred DO Finesse Rceio Work Phone: [facility] Procedures Date Procedure [...] PANIAGUA Ligation of fallopia n tube FERCHO [employer] Payers Date Payer Category Payer Self-pay [id number] 1970 Unknown [id number] 2.16.84 [id number] 1970 Unknown [id number] 2.16.84 [id number] 1972 Unknown [id number] 2.16.84 [id number] 1972 Unknown [id number] 2.16.84 [id number] 1972 Unknown [id number] 2.16.8 [id number] 1972 Unknown [id number] 2.16.8 [id number] 1972 Unknown [id number] 2.16.8 [id number] 1972 Unknown [id number] 2.16.84 [id number] 1959 Unknown [id number] Unknown [id number] 2.16.8 [id number] Social History Date Type Detail Facility Tobacco smoking stat [facility] Unknown if ever smoked [facility] Work Phone: Start: 1970 Sex Assigned At Female F [facility] Sex Assigned At [facility] Start: 09-27-2023 Tobacco smoking status Never s moked tobacco (finding) [facility] Tobacco smoking status Never [facility] Functional Status Date Assessment Result Facility 09-27-2023 Functional Status N/A [place] Clinical Note 05-20-2024 Note Date & Type [...] strengthen the arm. General instructions ? Take oymc-zhq-sfswscd and prescription medicines only as told by [...] Reviewed: 06/02/2022 Elsevier Patient Education ? 2022 [employer]. [facility] Hospital Discharge instructions 09-27-2023 Note Date & Type Note Facility 09-27-2023 Hospital Discharg e instructions Patient Education 09/27/2023 15:57:06 Upper Respiratory Infection, Adult, Hrik-cp-Xtwm Upper Respiratory Infection, Adult An upper respiratory [...] medicines to help relieve symptoms, such as: Bosb-fsq-qgidhos cold medicines. Medicines to reduce coughing (cough [...] and other clear broths. 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 Avoid touching your mouth, face, eyes, or [...] get better within 7 10 days. Take bogv-ktj-asrcoww and prescription medicines only as told by your doctor. This information is not intended to replace advice given to you by your health care provider. Make sure you discuss any questions you have with your health care provider. Document Revised: 04/19/2022 Document Reviewed: 04/19/2022 [employer] Patient Education 2022 [employer]. [facility] Evaluation note 05-15-2023 Note Date & Type [...] Mass of left hand (ICD-10 - R22.32) [employer] Other Clinical Note 12-21-2022 Note Date & Type Note Facility 12-21-2022 Note OPERATIVE NOTE OPERATION DATE: 12/21/2022 PROCEDURE: Shanel endometrial ablation with robotic assisted bilateral salpingectomy with removal of pedunculated fibroid at the fundal region of the uterus. PREOPERATIVE DIAGNOSIS: Menorrhagia, desires permanent sterilization. POSTOPERATIVE DIAGNOSIS: Menorrhagia, desires permanent sterilization including pedunculated uterine fibroid ANESTHESIA: General. SURGEON: Bonita Sheldon D.O. SHOE SALESMAN: SKIP Rodriguez URINE OUTPUT: Yellow and clear. [...] and needle counts were correct x2 [facility] Evaluation note 11-25-2022 Note Date & [...] weeks for the cough to go away [employer] Other Evaluation + Plan note Note Date & Type Note Facility Evaluation + Plan note No data available for this section [facility] Evaluation note Note Date & Type Note Facility Evaluation note No assessment information availa [facility] Work Phone: History general Narrative - Reported Note Date & Type Note Facility History general Narrative - Reported Type Surgical History hip surgery 1972 Surgical History wisdom teeth extraction Hospitalization History hip surgery 1972 [facility] Other Progress note Note Date & Type Note Facility Progress note No data available for this section [facility] Chief Complaint and Reason for Visit Chief Complaint wellness check Reason for Referral Reason 01/02/23 @ 9:50am skin lesion - possibly a wart that will not come off with OTC treatment Diagnosis 1 Skin lesion (L98.9) Referral Organization [facility] Maggy Patel Referring Provider First Name Nika Referring Provider Last Name Basilio Referring Provider Specialty Nurse Pract itionepeggy Referred Organization [facility] Referred Provider Tracy Murguia Referred Address ,[place], [place],[address] Referred Provider Specialty Dermatology Referral Priority Routine Referral Appointment Date 2023-01-02 General Notes Roxana Dejesus 023 07:15:55 AM >Received referral. [facility] Dermatology office request us to send the [...] Member Role Status Dates Finesse Recio , [facility] Primary Care Provider, Attending Provider Active Team Status: Active Member Role Status Dates Finesse Recoi DO [facility] Primary Care Provider Active Team Status: Inactive Member Role Status Dates Finesse Recio , DO [facility] Primary Care Provider Active Sissy Smith MD [...] content) DATE CREATED AUTHOR [facility]/05/2023 [facility] DATE CREATED AUTHOR AUTHOR'S ORGANIZ ATION 05/24/2023 [facility] DATE CREATED AUTHOR AUTHOR'S ORGANIZ ATION 05/22/2024 [facility] DATE CREATED AUTHOR AUTHOR'S ORGANIZ ATION 05/28/2024 [facility] EPIC FOR RECORDS PERTAINING TO [...] BE BASED ON THE PRIMARY CLINICAL RECORDS. [facility]. provides no warranty or guarantee of the accuracy or completeness of information in this document.
== END 2024-08-18 10:58 | disposition home or self-care (01) ==
LOC: EC 10:57
PROVIDERS: PCP Nurse Practitioner Family; Visit Provider Orthopaedic Surgery
DX: S62.391D Other fracture of second metacarpal bone, left hand, subsequent encounter for fracture with routine healing (principal)
CPT/HCPCS: 73130

== ENCOUNTER 2024-09-08 08:36 | Outpatient (OUT) | payer OTHER, SELFPAY ==
--- NOTE | 2024-09-08 | XR_ITS ---
The [address] [address] Patient Name: YUNIER GARY MRN: [id number] date: 1970 Sex: F Assigned Patient Location: Current Patient Location: Accession/Order Number: [id number] Exam Date: 09/08/2024 08:38 Report Date: 09/09/2024 08:59 At the request of: EAGLE HAYES Procedure: XR hand LT min 3V PROCEDURE: XR hand LT min 3V HISTORY: LEFT HAND PAIN COMPARISON: XR hand left 08/18/2024, 08/02/2024 FINDINGS: BONES:Nondisplaced transverse fracture through the base of the second metacarpal without intra-articular extension. No significantly increased density of the fracture line or callus formation. SOFT TISSUES:No visible soft tissue swelling. EFFUSION:None visible. OTHER: Negative. XR/XR hand LT min 3V IMPRESSION: 1. Stable, normal alignment of the proximal second metacarpal fracture but no significant radiographic evidence of bone healing. Electronically authenticated by: EAGLE BRYSON Date: 09/09/2024 08:59
== END 2024-09-08 08:37 | disposition home or self-care (01) ==
LOC: EC 08:37
PROVIDERS: PCP Nurse Practitioner Family; Visit Provider Orthopaedic Surgery
DX: S62.391D Other fracture of second metacarpal bone, left hand, subsequent encounter for fracture with routine healing (principal)
CPT/HCPCS: 73130

== ENCOUNTER 2024-10-13 09:02 | Outpatient (OUT) | payer OTHER, SELFPAY ==
--- NOTE | 2024-10-13 | XR_ITS ---
[address] [address] Patient Name: YUNIER GARY MRN: [id number] date: 1970 Sex: F Assigned Patient Location: Current Patient Location: Accession/Order Number: [id number] Exam Date: 10/13/2024 09:04 Report Date: 10/13/2024 10:57 At the request of: EAGLE HAYES Procedure: XR hand LT min 3V PROCEDURE: XR hand LT min 3V COMPARISON: 09/08/2024 HISTORY: LEFT HAND PAIN FINDINGS: BONES:Stable oblique intra-articular fracture base of the second metatarsal with interval bone formation with incomplete bony bridging. SOFT TISSUES:Negative. No visible soft tissue swelling. EFFUSION:None visible. OTHER: Negative. XR/XR hand LT min 3V IMPRESSION: Stable healing extra-articular fracture base of the second metatarsal with incomplete bony bridging Electronically authenticated by: DARA STAFFORD Date: 10/13/2024 10:57
--- OUTSIDE RECORDS SUMMARY | 2024-10-13 09:21 | XMS_ITS | CCD ---
Author Organization [facility] Care Team Providers Care Platinum Smith Name Role Phone DO Finesse Recio Primary Care Provider DO Finesse Recio Attending Provider Nika Richmond Unavailable SULEMAN ., DR MESA Admitting Unavailable REYES ., DR SURY Velez Primary Care Unavailable SULEMAN ., DR MESA Attending Unavailable SULEMAN ., DR MESA Consulting Unavailable SHARP, ORTEGA Consulting Unavailable ALETHEA II, TRACY Consulting Unavailable REYES ., DR SURY Velez Primary Care Unavailable SULEMAN ., DR MESA Attending Unavailable SULEMAN ., DR MESA Consulting Unavailable SULEMAN ., DR MESA Admitting Unavailable [place], DR DARA Souza Consulting Unavailable REQUEST, DR [...] Smith Unavailable FERCHO PANIAGUA Primary Care Physician FERCHO PANIAGUA Attending Unavailable FERCHO PANIAGUA Attending Unavailable FERCHO PANIAGUA Attending Unavailable SHAWNEE CHANDLER Attending Unavailable FERCHO PANIAGUA Referring Unavailable Alpa BLOCK-Shani GUARDADO Unavailable Fercho Paniagua Primary Care Provider [phone] Allergies Allergy Classification Reported Allergen(s) Allergy Type Date of Onset Reaction(s) Facility (4 sources) predniSONE; Translations: [prednisone] Drug Allergy Foot swelling (finding), Itching (finding), Weal (disorder) [facility] Comment on above: Patient states she c an take the tablets but no injections (1 source) predniSONE Drug Allergy [facility] Repository (2 sources) Prednisone Propensity to adverse reactions 4 Hives, Itching, Rash, Swelling, Dermatitis [facility] Medications Current Medications Medication Drug Class(es) Dates Sig (Normalized) Sig (Original) [id number] 200 actuat albuterol 0.09 mg/actuat metered dose [...] day(s), # 6 tab(s), Refills(s) 0, Pharmacy: [facility]/pharmacy #[id number], 165, cm, 09/27/23 14:13:00 EST, Height/Length Dosing, 90.2, kg, 09/27/23 14:13:00 EST, Weight Dosing Start Date: 09/27/23 Stop Date: 10/02/23 Status: Ordered benzonatate 200 mg oral capsule (1 source) Non-narcotic Antitussive Start: 11-25-2022 take 1 capsule by mouth every eight hours Benzonatate 200 MG 1 capsule Orally Three times a day for 10 days Nov, Active cholecalciferol 0.05 mg oral capsule (2 sources) Vitamin D Start: 01-15-2024 cholecalciferol (Vitamin D-3) 50 MCG (1999) capsule Refills(s) 0 01/15/2024 Active fluconazole 150 mg oral tablet (1 source) Azole Antifungal Start: 09-27-2023 Diflucan 150 mg Tab See Instructions, Take one tablet at the onset of symptoms; may repeat in 72 hours, # 2 tab(s), Refills(s) 0, Pharmacy: [facility]/pharmacy #[id number], 165, cm, 09/27/23 14:13:00 EST, Height/Length Dosing, 90.2, kg, 09/27/23 14:13:00 EST, Weight Dosing Start Date: 09/27/23 Status: Ordered meloxicam 15 mg oral tablet (2 sources) Nonsteroidal Anti-inflammatory Drug Start: 05-27-2024 End: 08-25-2024 take 1 tablet by mouth once daily at mealtime meloxicam (Mobic) 15 MG tablet Indications: Rotator cuff impingement syndrome of left shoulder Take 1 tablet (15 mg) by mouth Daily With food. 30 tablet 2 05/27/2024 08/25/2024 Active Multi Vitamin+ (1 source) Start: 09-27-2023 Multi Vitamin+ Refill(s) 0 Start Date: 09/27/23 Status: Ordered Multiple Vitamin (MULTI VITAMIN DAILY PO) (2 sources) Start: 09-27-2023 Multiple Vitamin (MULTI VITAMIN DAILY PO) Refill(s) 0 09/27/2023 Active Completed/Discontinued Medications Medication Drug Class(es) Dates Sig (Normalized) Sig (Original) betamethasone 3 mg/ml / betamethasone acetate 3 mg/ml injectable suspension (4 sources) Corticosteroid Start: 05-27-2024 End: 05-27-2024 betamethasone acetate-betamethason e sodium phosphate (Celestone) injection 12 mg Start: 05-27-2024 End: 05-27-2024 12 mg, Intra-articular, Once PRN Procedure, Starting on Sun05/27/24 at 0920, For 1 dose methylPREDNISolone (2 sources) Corticosteroid Start: 03-19-2015 Depo-Medrol 80 mg Mar, 1 mL Problems Active Problems Problem Classification Problem Date Documented Date Episodic/Chronic Abdominal pain (1 source) Pelvic and perineal pain; Translations: [PELVIC AND PERINEAL PAIN] Onset: 01-03-2023 Episodic Administrative/socia l admission (1 source) Patient encounter status; Translations: [...] FREQ MENSTRUATION W/REG CYCL] Onset: 11-07-2022 Chronic Osteoarthritis (2 sources) Arthritis of left acromioclavicular joint; Translations: [Primary osteoarthritis, left shoulder] 05-27-2024 Chronic Other connective tissue disease (1 source) [...] and lump, left upper limb] Onset: 05-15-2023 Past or Other Problems Problem Classification Problem Date Documented Da te Episodic/Chronic Other connective tissue disease (2 sources) Rotator cuff impingement syndrome; Translations: [Impingement syndrome of left shoulder] 05-27-2024 Episodic Spondylosis; intervertebral disc disorders; other back problems (2 sources) Right cervical root neuropathy; Translations: [Radiculopathy, cervical region] 05-27-2024 Episodic Results Test Name Value Interpretation Reference Range Facility No Panel Informationon 05-27 Melia Rosado, ARRT 05/27/2024 4:13 PM L Inj/Asp: L glenohumeral on 05/27/2024 9:20 AM Indications: pain Details: 25 G needle, ultrasound-guided anterior approach Medications: 12 mg betamethasone acetate-betamethason e sodium phosphate 6 (3-3) MG/ML Procedure, treatment alternatives, risks and benefits explained, specific risks discussed. Consent was given by the patient. Patient was prepped and draped in the usual sterile fashion. [facility]ini [facility] Noteon 05-21-2024 Family [...] qualifying data available Patient Education Shoulder Pain, Biyl-sv-Rmrf Problem List/Past Medical History Ongoing Bronchitis Historical No qualifying data Procedure/Surgical History Cyst of Bartholin's gland (2017), [place] tooth (2004), Hip bone (1972), Tubal ligation. [...] Mother and Father. Hypertension: Mother. Stroke: Mother. [facility] Comment on above: Result Comment: Elec [...] Procedures Performed Cyst of Bartholin's gland (2017), [place] tooth (2004), Hip bone (1972), Tubal ligation. [...] strengthen the arm. General instructions ? Take gpim-ruy-qcjvknz and prescription medicines only as told by [...] provider. Document Revised: 06/02/2022 Document Reviewed: 06/02/2022 [employer] Patient Education ? 2022 [employer] Caio Carrero [facility] Family Medicine Office/Clini c Noteon 01-16-2024 Family [...] hours, # 2 tab(s), Refills(s) 0, Pharmacy: [facility]/pharmacy #[id number], 165, cm, 09/27/23 14:13:00 EST, Height/Length Dosing, 90.2, kg, 09/27/23 14:13:00 EST, Weight Dosing Follow-up No qualifying data available Problem List/Past Medical History Ongoing Bronchitis Historical No qualifying data Procedure/Surgical History Cyst of Bartholin's gland (2017), [place] tooth (2004), Hip bone (1972), Tubal ligation. [...] Mother and Father. Hypertension: Mother. Stroke: Mother. [facility] Comment on above: Result Comment: Elec tronically Signed By: FERCHO PANIAGUA CNP\.br\Date and Time Signed: 01/16/24 14:18 EDT Ambulatory Visit Summaryon 0 01-15-2024 Ambulatory Visit Summary YUNIER MATAMOROS :1970 Visit Date:01/15/2024 Ambulatory Visit Instructions Your Diagnosis Ear congestion BMI 33.0-33.9,adult Your Care Team Attending Physician - FERCHO PANIAGUA CNP Primary Care Physician - FERCHO PANIAGUA CNP This Is Your Medications List ergocalciferol (Vitamin D) multivitamin (Multi Vitamin+) Procedures Performed Cyst of Bartholin's gland (2017), [place] tooth (2004), Hip bone (1972), Tubal ligation. [...] you for choosing us for your care. 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 She is hoping to get the cough and headache under control as she is planning on going snow boarding next week in [place]. Review of Systems PHQ Score Initial Depression [...] day(s), # 6 tab(s), Refills(s) 0, Pharmacy: [facility]/pharmacy #[id number], 165, cm, 09/27/23 14:13:00 EST, Height/Length Dosing, 90.2, kg, 09/27/23 14:13:00 EST, Weight Dosing fluconazole, See Instructions, Take one tablet at the onset of symptoms; may repeat in 72 hours, # 2 tab(s), Refills(s) 0, [id number] 165, cm, 09/27/23 14:13:00 EST, Height/Length Dosing, 90.2, kg, 09/27/23 14:13:00 EST, Weight Dosing 2. Encounter to establish care (Z76.89: Persons encountering health services in other specified circumstances) Ordered: azithromycin, = 1 packet(s), Oral, As Directed, as directed on package labeling, X 5 day(s), # 6 tab(s), Refills(s) 0, [id number], 165, cm, 09/27/23 14:13:00 EST, Height/Length Dosing, 90.2, kg, 09/27/23 14:13:00 EST, Weight Dosing fluconazole, See Instructions, Take one tablet at the onset of symptoms; may repeat in 72 hours, # 2 tab(s), Refills(s) 0, Pharmacy: [facility]/pharmacy #[id number], 165, cm, 09/27/23 14:13:00 EST, Height/Length Dosing, 90.2, kg, 09/27/23 14:13:00 EST, Weight Dosing Patient will need to schedule a well visit in the next 12 months Follow-up No qualifying data available Patient Education Upper Respiratory Infection, Adult, Ptrw-su-Vdjq Problem List/Past Medical History Ongoing No qualifying data Historical No qualifying data Procedure/Surgical History Cyst of Bartholin's gland (2018), [place] tooth (2004), Hip bone (1972), Tubal ligation. Medications azithromycin 250 mg Tab 5-day Dose Pack (Z-Regino), 1 packet(s), Oral, As Directed Diflucan 150 mg Tab, See Instructions Multi Vitamin+ Allergies predniSONE (Swollen foot, Itchy, Hives) Social History Alcohol Beer, 1-2 times per month, Started age 4 (more content not included)... Normal [facility] Comment on above: Result Comment: Elec tronically Signed By: FERCHO PANIAGUA CNP\.br\Date and Time Signed: 09/27/23 15:57 EST Patient [...] to help relieve symptoms, such as: ? Clev-jsx-hhzpspz cold medicines. ? Medicines to reduce coughing [...] other clear broths. General instructions ? 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 ? Avoid touching your mouth, face, eyes, [...] get better within 7?10 days. ? Take lmtl-tom-zgitkze and prescription medicines only as told by your doctor. This information is not intended to replace advice given to you by your health care (more content not included)... Normal [facility] XR hand LT min 3V*on 023 XR hand LT min 3V* [facility] [place] [address] XRay Report Signed Patient: Yunier Matamoros MR#: [id number] : 1970 Acct:[id number] Age/Sex: 52 / F ADM Date: 05/15/23 Loc: [facility] Room: Type: [facility] Attending Dr: Sissy Smith MD Copies to: [...] Mikhail Greenberg M.D.05/15/2023 4:52 PM Dictation Location: [place] [address] Transcribed By: [facility] 05/15/231651 Dictated By: Mikhail Greenberg II, MD 05/15/231649 Signed By: 05/15/231651 [facility] XR hand LT min 3V* [facility] [employer] Other XR hand LT min 3V* [facility] Main [facility] [employer] Other XR hand LT min 3V* [address] [place] [email or web address] [facility] [employer] Other XR hand LT min 3V* [place] [address] [employer] Other XR hand LT min 3V* XRay Report [employer] Other XR hand LT min 3V* Signed [employer] Other XR hand LT min 3V* Patient: Yunier Matamoros MR#: [id number] [employer] Other XR hand LT min 3V* 827 [employer] Other XR hand LT min 3V* : 1970 Acct:[id number] [employer] Other XR hand LT min 3V* Age/Sex: 52 / F ADM Date: 05/15/23 [employer] Other XR hand LT min 3V* Loc: [facility] Room: Type: REG CLI [employer] Other XR hand LT min 3V* Attending Dr: Sissy Smith MD [employer] Other XR hand LT min 3V* Copies to: Sissy Smith MD [employer] Other XR hand LT min 3V* Ordering Provider: Sissy Smith MD [employer] Other XR hand LT min 3V* Date of Service: 05/15/23 [employer] Other XR hand LT min 3V* XR/XR hand LT min 3V*: PAIN [employer] Other XR hand LT min 3V* XR hand LT min 3V* 05/15/2023 12:09 PM [employer] Other XR hand LT min 3V* SIGNS AND SYMPTOMS: Mass on left third digit [employer] Other XR hand LT min 3V* PROTOCOL: Frontal, lateral, and oblique radiographs of the left hand [employer] Other XR hand LT min 3V* COMPARISON: None [employer] Other XR hand LT min 3V* FINDINGS: [employer] Other XR hand LT min 3V* The bones are in anatomic alignment. There is no evidence of fracture or dislocation. The joint [employer] Other XR hand LT min 3V* spaces are preserved. No significant soft tissue swelling. [employer] Other XR hand LT min 3V* XR/XR hand LT min 3V* [employer] Other XR hand LT min 3V* IMPRESSION: [employer] Other XR hand LT min 3V* No acute bony injury or significant degenerative change. [employer] Other XR hand LT min 3V* No significant soft tissue swelling. [employer] Other XR hand LT min 3V* Impression dictated by: Mikhail Greenberg M.D.05/15/2023 4:52 PM [employer] Other XR hand LT min 3V* Dictation Location: [place] [address] [employer] Other XR hand LT min 3V* Transcribed By: TAVO 05/15/23 [facility] [employer] Other XR hand LT min 3V* Dictated By: Mikhail Greenberg II, MD 05/15/23 [facility] [employer] Other XR hand LT min 3V* Signed By: [employer] Other XR hand LT min 3V* 05/15/[address] [place] [address] [employer] Other CBC AUTO DIFFon 12-21-2022 BASO # 0.0 103/ul Normal 0.0-0.1 [facility] Comment on above: Performed By: #### C BC #### [facility] [address] [place] [address] Dr. Scottie Franco Basophils/100 WBC (Bld) 0.7 % Normal 0.2-2.0 [facility] Comment on above: Performed By: #### C BC #### [facility] [address] [place] [address] [address] Scottie Franco EO # 0.2 103/ul Normal 0.0-0.7 [facility] Comment on above: Performed By: #### C BC #### [facility] [address] [address] [address] Scottie Franco Eosinophils/100 WBC (Bld) 3.0 % Normal 0.9-7.0 [facility] Comment on above: Performed By: #### C BC #### [facility] [address] [place] [address] Dr. Scottie Franco Erythrocyte distribution width (RBC) [Ratio] 11.7 % Normal 11.0-15.0 [facility] Comment on above: Performed By: #### C BC #### [facility] [address] [place] [address] Dr. Scottie Franco Hematocrit (Bld) [Volume fraction] 35.3 % Critically low 36.0-48.0 [facility] Comment on above: Performed By: #### C BC #### [facility] [address] [place] [address] Dr. Scottie Franco Hemoglobin (Bld) [Mass/Vol] 12.5 g/dL Normal 12.0-16.0 [facility] Comment on above: Performed By: #### C BC #### [facility] [address] [place] [address] Dr. Scottie Franco IG # 0.00 10e3/ul Normal 0.00-0.03 [facility] Comment on above: Performed By: #### C BC #### [facility] [address] [place] [address] Dr. Scottie Franco IG % 0.0 % Normal 0.0-0.5 [facility] Comment on above: Performed By: #### C BC #### [facility] [address] [place] [address] Dr. Scottie Franco LYMPH # 2.3 103/ul Normal 1.2-3.8 [facility] Comment on above: Performed By: #### C BC #### [facility] [address] [place] [address] Dr. Scottie Franco Lymphocytes/100 WBC (Bld) 37.6 % Normal 20.5-60.0 [facility] Comment on above: Performed By: #### C BC #### [facility] [address] [place] [address] Dr. Scottie Franco MANUAL DIFF REQ NO Normal [facility] Comment on above: Performed By: #### C BC #### [facility] [address] [place] [address] Dr. Scottie Franco MCH (RBC) [Entitic mass] 32.0 pg Normal 26.7-34.0 [facility] Comment on above: Performed By: #### C BC #### [facility] [address] [address] [address] Scottie Franco MCHC (RBC) [Mass/Vol] 35.4 g/dL Critically high 29.9-35.2 [facility] Comment on above: Performed By: #### C BC #### [facility] [address] [place] [address] Dr. Scottie Franco MCV (RBC) [Entitic vol] 90.3 fL Normal 81.0-99.0 [facility] Comment on above: Performed By: #### C BC #### [facility] [address] [place] [address] Dr. Scottie Franco MONO # 0.5 103/ul Normal 0.3-0.8 [facility] Comment on above: Performed By: #### C BC #### [facility] [address] [place] [address] Dr. Scottie Franco Monocytes/100 WBC (Bld) 7.8 % Normal 1.7-12.0 [facility] Comment on above: Performed By: #### C BC #### [facility] [address] [place] [address] Dr. Scottie Franco NEUT # 3.1 103/ul Normal 1.4-6.5 [facility] Comment on above: Performed By: #### C BC #### [facility] [address] [place] [address] Dr. Scottie Franco Neutrophils/100 WBC (Bld) 50.9 % Normal 43.0-75.0 [facility] Comment on above: Performed By: #### C BC #### [facility] [address] [place] [address] Dr. Scottie Franco Platelet mean volume (Bld) [Entitic vol] 10.0 fL Normal 9.5-13.5 [facility] Comment on above: Performed By: #### C BC #### [facility] [address] [place] [address] Dr. Scottie Franco PLT 314 103/ul Normal 150-450 [facility] Comment on above: Performed By: #### C BC #### [facility] [address] [place] [address] Dr. Scottie Franco RBC 3.91 106/ul Critically low 4.20-5.40 [facility] Comment on above: Performed By: #### C BC #### [facility] [address] [place] [address] Dr. Scottie Franco WBC 6.0 103/ul Normal 4.0-11.0 [facility] Comment on above: Performed By: #### C BC #### [facility] [address] [place] [address] Dr. Scottie Franco PREG QUANT HCGon 12-21-2022 HCG QUANT <1 Normal [facility] Comment on above: Performed By: #### P REGQNT #### [facility] [address] [place] [address] Dr. Scottie Franco HCG RANGE SEE BELOW Normal [facility] Comment on above: Result Comment: 5-50 0.2-1 WEEK 50-500 1-2 WEEKS 100-5,000 2-3 WEEKS 500-10,000 3-4 WEEKS 1,000-50,000 4-5 WEEKS 10,000-100,000 5-6 WEEKS 15,000-200,000 6-8 WEEKS 10,000-100,000 2-3 MONTHS Performed By: #### P REGQNT #### [facility] [address] [place] [address] Dr. Sctotie Franco CBC AUTO DIFFon 11-07-2022 BASO # 0.0 103/ul Normal 0.0-0.1 [facility] Comment on above: Performed By: #### C BC #### [facility] [address] [place] [address] Dr. Scottie Franco Basophils/100 WBC (Bld) 0.5 % Normal 0.2-2.0 [facility] Comment on above: Performed By: #### C BC #### [facility] [address] [place] [address] Dr. Scottie Franco EO # 0.1 103/ul Normal 0.0-0.7 [facility] Comment on above: Performed By: #### C BC #### [facility] [address] [place] [address] Dr. Scottie Franco Eosinophils/100 WBC (Bld) 1.8 % Normal 0.9-7.0 [facility] Comment on above: Performed By: #### C BC #### [facility] [address] [place] [address] Dr. Scottie Franco Erythrocyte distribution width (RBC) [Ratio] 11.9 % Normal 11.0-15.0 [facility] Comment on above: Performed By: #### C BC #### [facility] [address] [place] [address] Dr. Scottie Franco Hematocrit (Bld) [Volume fraction] 38.4 % Normal 36.0-48.0 [facility] Comment on above: Performed By: #### C BC #### [facility] [address] [place] [address] Dr. Scottie Franco Hemoglobin (Bld) [Mass/Vol] 13.0 g/dL Normal 12.0-16.0 [facility] Comment on above: Performed By: #### C BC #### [facility] [address] [place] [address] Dr. Scottie Franco IG # 0.01 10e3/ul Normal 0.00-0.03 [facility] Comment on above: Performed By: #### C BC #### [facility] [address] [place] [address] Dr. Scottie Franco IG % 0.1 % Normal 0.0-0.5 [facility] Comment on above: Performed By: #### C BC #### [facility] [address] [place] [address] Dr. Scottie Franco LYMPH # 2.4 103/ul Normal 1.2-3.8 [facility] Comment on above: Performed By: #### C BC #### [facility] [address] [place] [address] Dr. Scottie Franco Lymphocytes/100 WBC (Bld) 32.1 % Normal 20.5-60.0 [facility] Comment on above: Performed By: #### C BC #### [facility] [address] [place] [address] Dr. Scottie Franco MANUAL DIFF REQ NO Normal [facility] Comment on above: Performed By: #### C BC #### [facility] [address] [place] [address] Dr. Scottie Franco MCH (RBC) [Entitic mass] 31.4 pg Normal 26.7-34.0 [facility] Comment on above: Performed By: #### C BC #### [facility] [address] [place] [address] Dr. Scottie Franco MCHC (RBC) [Mass/Vol] 33.9 g/dL Normal 29.9-35.2 [facility] Comment on above: Performed By: #### C BC #### [facility] [address] [place] [address] Dr. Scottie Franco MCV (RBC) [Entitic vol] 92.8 fL Normal 81.0-99.0 [facility] Comment on above: Performed By: #### C BC #### [facility] [address] [place] [address] Dr. Scottie Franco MONO # 0.4 103/ul Normal 0.3-0.8 [facility] Comment on above: Performed By: #### C BC #### [facility] [address] [place] [address] Dr. Scottie Franco Monocytes/100 WBC (Bld) 5.3 % Normal 1.7-12.0 [facility] Comment on above: Performed By: #### C BC #### [facility] [address] [place] [address] Dr. Scottie Franco NEUT # 4.4 103/ul Normal 1.4-6.5 [facility] Comment on above: Performed By: #### C BC #### [facility] [address] [place] [address] Dr. Scottie Franco Neutrophils/100 WBC (Bld) 60.2 % Normal 43.0-75.0 [facility] Comment on above: Performed By: #### C BC #### [facility] [address] [place] [address] Dr. Scottie Franco Platelet mean volume (Bld) [Entitic vol] 9.9 fL Normal 9.5-13.5 [facility] Comment on above: Performed By: #### C BC #### [facility] [address] [place] [address] Dr. Scottie Franco PLT 306 103/ul Normal 150-450 [facility] Comment on above: Performed By: #### C BC #### [facility] [address] [address] [address] Scottie Franco RBC 4.14 106/ul Critically low 4.20-5.40 [facility] Comment on above: Performed By: #### C BC #### [facility] [address] [place] [address] Dr. Scottie Franco WBC 7.3 103/ul Normal 4.0-11.0 [facility] Comment on above: Performed By: #### C BC #### [facility] [address] [place] [address] Dr. Scottie Franco FREE T4on 11-07-2022 Free T4 [Mass/Vol] 0.81 ng/dL Normal 0.76-1.46 [facility] Comment on above: Performed By: #### F T4 #### [facility] [address] [place] [address] Dr. Scottie Franco GLYCOHEMOGLOBIN A1Con 2022 ADA RECOMMENDATION SEE BELOW Normal [facility] Comment on above: Result Comment: ADA RECOMMENDED LIMIT 4.0 - 6.0 ADA THERAPEUTIC TARGET < 7.0 ACTION SUGGESTED > 7.0 Performed By: #### A 1C #### [facility] [address] [place] [address] Dr. Scottie Franco Glucose [Mass/Vol] 91 mg/dL Normal [facility] Comment on above: Performed By: #### A 1C #### [facility] [address] [place] [address] Dr. Scottie Franco HbA1c (Bld) [Mass fraction] 4.8 % Normal 4.5-6.2 [facility] Comment on above: Performed By: #### A 1C #### [facility] [address] [address] [address] Scottie Franco MG MAMM SCREEN 3D DAVID CADon 11-07-2022 MG MAMM SCREEN 3D DAVID CAD Patient: YUNIER MATAMOROS Exam Date: 11/07/2022 : 1970 Gender:F Ordering : DR BONITA SHELDON . Admission #: [id number] Family : Order #: [id number] CLICK HERE TO VIEW EXAM RADIOLOGY REPORT [...] pancreas cancer at age 88. LOCATION: [facility] BREAST COMPOSITION: Heterogeneously dense,which may obscure [...] Stafford MD on 11/08/2022 at 09:11 Normal [facility] PAP ACOG PANEL 2: 30 to 65on 11-07-2022 . . Normal [facility] Comment on above: Result Comment: Perf ormed at: WB Performed By: #### [id number] #### [facility] [address] [address] [address] Scottie Franco Age Gdln ACOG Testing 30-65 Normal [facility] Comment on above: Performed By: #### [id number] #### [facility] [address] [address] [address] Scottie Franco DIAGNOSIS: Comment Normal [facility] Comment on above: Result Comment: NEGA TIVE FOR INTRAEPITHELIAL LESION OR MALIGNANCY. Performed at: WB Performed By: #### [id number] #### [facility] [address] [address] [address] Scottie Franco HPV Aptima Negative Normal Negative [facility] Comment on above: Result Comment: This nucleic acid amplification test detects fourteen high-risk HPV types (16,18,31,33,35,39,45,51,52,56,58,59,66,68) without differentiation. Performed at: =G Performed By: #### [id number] #### [facility] [address] [address] [address] Scottie Franco HPV Genotype Reflex Comment Normal [facility] Comment on above: Result Comment: Crit eria not met, HPV Genotype not performed. Performed at: WB Performed By: #### [id number] #### [facility] [address] [place] [address] Dr. Scottie Franco Methodology: Comment Normal [facility] Comment on above: Result Comment: This liquid based ThinPrep(R) pap test was screened with the use of an image guided system. Performed at: WB Performed By: #### [id number] #### [facility] [address] [place] [address] Dr. Scottie Franco Note: Comment Normal [facility] Comment on above: Result Comment: The Pap smear is a screening test designed to aid in the detection of premalignant and malignant conditions of the uterine cervix. It is not a diagnostic procedure and should not be used as the sole means of detecting cervical cancer. Both false-positive and false-negative reports do occur. . Performed at: WB Performed By: #### [id number] #### [facility] [address] [place] [address] Dr. Scottie Franco Performed by: Comment Normal [facility] Comment on above: Result Comment: Gilbert Wilburn Nut Tightener (ASCP) Performed at: WB Performed By: #### [id number] #### [facility] [address] [place] [address] Dr. Scottie Franco Specimen adequacy: Comment Normal [facility] Comment on above: Result Comment: Sati sfactory for evaluation. Endocervical and/or squamous metaplastic cells (endocervical component) are present. Performed at: WB Performed By: #### [id number] #### [facility] [address] [place] [address] Dr. Scottie Franco PROTIMEon 11-07-2022 INR Coag (PPP) [Relative time] {INR} Normal [facility] Comment on above: Performed By: #### P T, PTT #### [facility] [address] [place] [address] Dr. Scottie Franco INR GUIDELINES SEE BELOW Normal [facility] Comment on above: Result Comment: ALEXANDER RED INR: 2.0 - 3.0 CONDITIONS NOT LISTED BELOW 2.5 - 3.5 FOR PROSTHETIC HEART VALVE REPLACEMENT 2.5 - 3.5 RECURRENT THROMBOSIS Performed By: #### P T, PTT #### [facility] [address] [place] [address] Dr. Scottie Franco PT Coag (PPP) [Time] 9.8 s Normal 9.0-11.6 [facility] Comment on above: Performed By: #### P T, PTT #### [facility] [address] [place] [address] Dr. Scottie Franco PTTon 11-07-2022 aPTT Coag (Bld) [Time] 26.9 s Normal 22.3-36.2 [facility] Comment on above: Performed By: #### P T, PTT ####[facility] [id number] [address]Dr. Scottie Franco TSHon 11-07-2022 TSH 1.496 uIU/mL Normal 0.358-3.740 [facility] Comment on above: Performed By: #### T SH ####[facility] [id number] [address]Dr. Scottie Franco US PELVIS AND TRANSVAGon US PELVIS [...] DARA STAFFORD Date: 2022-11-07 10:56 Normal [facility] Basophils Auto (Bld) [#/Vol] Ordered By: Finesse Recio on 05-09-2022 Basophils (Bld) [#/Vol] 0.0 10*3/uL 0.0-0.2 [facility] Basophils/100 WBC Auto (Bld) Ordered By: Finesse Recio on 05-09-2022 Basophils/100 WBC (Bld) 0.7 % . [facility] Blood hemoglobin measurement (mass/volume)Ordered By: Finesse Recio on 05-09-2022 Hemoglobin (Bld) [Mass/Vol] 13.6 g/dL 11.8-15.4 [facility] Blood leukocytes automated c ount (number/volume)Ordered By: Finesse Recio on 05-09-2022 WBC (Bld) [#/Vol] 6.6 10*3/uL 4.5-11.0 [facility] Body fluid albumin measureme nt (mass/volume)Ordered By: Finesse Recio on 05-09-2022 Albumin (Body fld) [Mass/Vol] 4.2 g/dL 3.2-5.5 [facility] Cholesterol [Mass/volume] in Serum or PlasmaOrdered By: Finesse Recio on 05-09-2022 Cholesterol [Mass/Vol] 235 mg/dL 140-200 [facility] Comment on above: Chol less than 200 m g/dl low risk Chol 201-239 mg/dl borderline risk Chol 240 mg/dl and greater high risk Cholesterol in LDL Calc [Mas s/Vol]Ordered By: Finesse Recio on 05-09-2022 Cholesterol in LDL [Mass/Vol] 166 mg/dL 0-100 [facility] Comment on above: LDL ATP III CLASSIFI CATION LDL less than 100 mg/dL Optimal LDL 100-129 mg/dL Near or above optimal LDL 130-159 mg/dL Borderline high LDL 160-189 mg/dL High LDL greater than 189 mg/dL Very high Cholesterol in VLDL Calc [Ma ss/Vol]Ordered By: Finesse Recio on 05-09-2022 Cholesterol in VLDL [Mass/Vol] 15 mg/dL [facility] Creatinine and Glomerular fi ltration rate.predicted panel (S/P/Bld)Ordered By: Finesse Recio on 05-09-2022 Creatinine [Mass/Vol] 0.75 mg/dL 0.44-1.03 [facility] Eosinophils Auto (Bld) [#/Vo l]Ordered By: Finesse Recio on 05-09-2022 Eosinophils (Bld) [#/Vol] 0.2 10*3/uL 0.0-0.45 [facility] Eosinophils/100 WBC Auto (Bl d)Ordered By: Finesse Recio on 05-09-2022 Eosinophils/100 WBC (Bld) 2.6 % . [facility] Erythrocyte distribution wid th Auto (RBC) [Ratio]Ordered By: Finesse Recio on 05-09-2022 Erythrocyte distribution width (RBC) [Ratio] 12.7 % 11.9-15.3 [facility] Estimated glomerular filtrat ion rate (GFR) non- AmericanOrdered By: Finesse Recio on 05-09-2022 GFR/1.73 sq M.predicted among non-blacks MDRD (S/P/Bld) [Vol rate/Area] > 60 mL/Min [facility] Globulin Calc (S) [Mass/Vol] Ordered By: Finesse Recio on 05-09-2022 Globulin (S) [Mass/Vol] 2.8 g/dL [facility] Hematocrit Auto (Bld) [Volum e fraction]Ordered By: Finesse Recio on 05-09-2022 Hematocrit (Bld) [Volume fraction] 39.4 % 34.0-46.4 [facility] - Hematology and Cell countsOrdered By: Finesse Recio on 05-09-2022 Nucleated RBC/100 WBC (Bld) [Ratio] 0.1 % 0-0.5 [facility] Lymphocytes Auto (Bld) [#/Vo l]Ordered By: Finesse Recio on 05-09-2022 Lymphocytes (Bld) [#/Vol] 1.7 10*3/uL 1.00-4.8 [facility] Lymphocytes/100 WBC Auto (Bl d)Ordered By: Finesse Recio on 05-09-2022 Lymphocytes/100 WBC (Bld) 26.0 % . [facility] MCH Auto (RBC) [Entitic mass ]Ordered By: Finesse Recio on 05-09-2022 MCH (RBC) [Entitic mass] 31.6 pg 24.7-34.3 [facility] MCHC Auto (RBC) [Mass/Vol]Or dered By: Finesse Recio on 05-09-2022 MCHC (RBC) [Mass/Vol] 34.6 g/dL 32.0-35.0 [facility] MCV Auto (RBC) [Entitic vol] Ordered By: Finesse Recio on 05-09-2022 MCV (RBC) [Entitic vol] 91.4 fL 80-100 [facility] Monocytes Auto (Bld) [#/Vol] Ordered By: Finesse Recio on 05-09-2022 Monocytes (Bld) [#/Vol] 0.4 10*3/uL 0.0-0.8 [facility] Monocytes/100 WBC Auto (Bld) Ordered By: Finesse Recio on 05-09-2022 Monocytes/100 WBC (Bld) 6.4 % . [facility] Neutrophils Auto (Bld) [#/Vo l]Ordered By: Finesse Recio on 05-09-2022 Neutrophils (Bld) [#/Vol] 4.2 10*3/uL 1.8-7.7 [facility] Neutrophils/100 WBC Auto (Bl d)Ordered By: Finesse Recio on 05-09-2022 Neutrophils/100 WBC (Bld) 64.3 % . [facility] No Panel InformationOrdered By: Finesse Recio on 05-09-2022 Estimated GFR () > 60 mL/Min [facility] Comment on above: GFR estimated refere nce range: According to KDOQI guidelines, <60 ml/min/1.73m2 is sufficient to diagnose a patient with chronic kidney disease. Pharmacy Creatinine Clearance (Chem N/A [facility] Platelet mean volume Auto (B ld) [Entitic vol]Ordered By: Finesse Recio on 05-09-2022 Platelet mean volume (Bld) [Entitic vol] 9.2 fL 6.3-10.7 [facility] Platelets Auto (Bld) [#/Vol] Ordered By: Finesse Recio on 05-09-2022 Platelets (Bld) [#/Vol] 303 10*3/uL 150-450 [facility] Protein [Mass/volume] in Ser um or PlasmaOrdered By: Finesse Recio on 05-09-2022 Protein [Mass/Vol] 7.0 g/dL 6.1-7.9 [facility] RBC Auto (Bld) [#/Vol]Ordere d By: Finesse Recio on 05-09-2022 RBC (Bld) [#/Vol] 4.31 10*6/uL 3.60-5.00 [facility] Serum or plasma alanine simon otransferase measurement without P-5'-P (enzymatic activiOrdered By: Finesse Recio on 05-09-2022 ALT No additional P-5'-P [Catalytic activity/Vol] 23 U/L 10-60 [facility] Serum or plasma albumin/glob ulin mass ratioOrdered By: Finesse Recio on 05-09-2022 Albumin/Globulin [Mass ratio] 1.5 {ratio} [facility] Serum or plasma alkaline acrmela sphatase measurement (enzymatic activity/volume)Ordered By: Finesse Recio on 05-09-2022 ALP [Catalytic activity/Vol] 59 U/L 32-92 [facility] Serum or plasma aspartate am inotransferase measurement (enzymatic activity/volume)Ordered By: Finesse Recio on 05-09-2022 AST [Catalytic activity/Vol] 18 U/L 10-42 [facility] Serum or plasma calcium dianne urement (mass/volume)Ordered By: Finesse Recio on 05-09-2022 Calcium [Mass/Vol] 9.2 mg/dL 8.2-10.2 [facility] Serum or plasma chloride luke surement (moles/volume)Ordered By: Finesse Recio on 05-09-2022 Chloride [Moles/Vol] 102 mmol/L 95-[address] [facility] Serum or plasma glucose dianne urement (mass/volume)Ordered By: Finesse Recio on 05-09-2022 Glucose [Mass/Vol] 93 mg/dL 70-100 [facility] Comment on above: ADA recommended refe rence range Random Glucose Reference Range is dependent on time and content of last meal. Glucose of more than 200 mg/dL in a nonstressed, ambulatory subject supports the diagnosis of Diabetes Mellitus. Serum or plasma high density lipoprotein (HDL) cholesterol measurementOrdered By: Finesse Recio on 05-09-2022 Cholesterol in HDL [Mass/Vol] 54 mg/dL 35-85 [facility] Comment on above: HDL CHOL ATP-III CLA SSIFICATION Cardiovascular Risk HDL > or equal to 60 mg/dL LOW HDL < 40 mg/dL HIGH Serum or plasma potassium me asurement (moles/volume)Ordered By: Finesse Recio on 05-09-2022 Potassium [Moles/Vol] 4.2 mmol/L 3.5-5.1 [facility] Serum or plasma sodium measu rement (moles/volume)Ordered By: Finesse Recio on 05-09-2022 Sodium [Moles/Vol] 137 mmol/L 136-146 [facility] Serum or plasma total biliru bin measurement (mass/volume)Ordered By: Finesse Recio on 05-09-2022 Bilirubin [Mass/Vol] 0.6 mg/dL 0.3-1.[address] [facility] Serum or plasma total carbon dioxide measurement (moles/volume)Ordered By: Finesse Recio on 05-09-2022 CO2 [Moles/Vol] 24.5 mmol/L 22.0-30.0 [facility] Serum or plasma total choles terol/high density lipoprotein (HDL) cholesterol mass ratOrdered By: Finesse Recio on 05-09-2022 Cholesterol.total/Chol esterol in HDL [Mass ratio] 4.4 {ratio} <5.0 [facility] Serum or plasma urea nitroge n measurement (mass/volume)Ordered By: Finesse Recio on 05-09-2022 Urea nitrogen [Mass/Vol] 7 mg/dL 9-23 [facility] TSH DL <= 0.005 mIU/L QnOrde red By: Finesse Recio on 05-09-2022 TSH Qn 2.06 m[IU]/L 0.45-5.33 [facility] Triglyceride [Mass/volume] i n Serum or PlasmaOrdered By: Finsese Recio on 05-09-2022 Triglyceride [Mass/Vol] 77 mg/dL 35-149 [facility] Comment on above: TRIG ATP III CLASSIF ICATION TRIG less than 150 mg/dL Normal TRIG 150-199 mg/dL Borderline high TRIG 200-500 mg/dL High TRIG greater than 500 mg/dL Very high Standard traceable to the Center for Disease Conrtrol and Prevention (CDC) test method. Vital Signs Date Time Vital Sign Value Performing Clinician Facility 05-27-2024 08:51-0400 Body height 165.1 cm [employer] Work Phone: [facility] 05-27-2024 08:51-0400 Body mass index (BMI) [Ratio] 32.62 kg/m2 [employer] Work Phone: [facility] 05-27-2024 08:51-0400 Body weight 88.91 kg [facility] [employer] Work Phone: [facility] 09-27-2023 14:18-0500 Diastolic blood pressure 90 mm[Hg] FERCHO SIVA [facility] 09-27-2023 14:18-0500 Mean blood pressure 107 mm[Hg] FERCHO SIVA [facility] 09-27-2023 14:18-0500 Systolic blood pressure 140 mm[Hg] FERCHO SIVA [facility] 09-27-2023 13:53-0500 Blood Pressure Location FERCHO SIVA [facility] 09-27-2023 13:53-0500 Body temperature 98.78 [degF] FERCHO SIVA [facility] 09-27-2023 13:53-0500 Diastolic blood pressure 90 mm[Hg] FERCHO SIVA [facility] 09-27-2023 13:53-0500 Heart rate 91 /min FERCHO SIVA [facility] 09-27-2023 13:53-0500 Respiratory rate 14 /min FERCHO SIVA [facility] 09-27-2023 13:53-0500 SaO2% (BldA) [Mass fraction] 98 % FERCHO SIVA [facility] 09-27-2023 13:53-0500 Systolic blood pressure 140 mm[Hg] FERCHO SIVA [facility] 05-15-2023 12:00-0400 Body height 165.1 cm Sissy Daily [employer] Other [email or web address] [facility] [employer] Other 05-15-2023 12:00-0400 Body mass index (BMI) [Ratio] 32.45 kg/m2 Sissyata Smith Other [employer] Other 05-15-2023 12:00-0400 Body weight 88.45 kg Sissy Daily Picpaula Other [employer] Other 11-25-2022 11:00-0500 Body height 165.1 cm Nika Richmond Other [employer] Other 11-25-2022 11:00-0500 Body mass index (BMI) [Ratio] 32.45 kg/m2 Nika Richmond Other [employer] Other 11-25-2022 11:00-0500 Body temperature 98.3 [degF] Nika Richmond Other [employer] Other 11-25-2022 11:00-0500 Body weight 88.45 kg Nika Richmond Other [employer] Other 11-25-2022 11:00-0500 Respiratory rate 20 /min Nika Richmond Other [employer] Other 11-25-2022 11:00-0500 SaO2% (BldA) [Mass fraction] 99 % Nika Richmond Other [employer] Other Encounters Encounter Date Encounter Type Care Provider Facility Start: 05-27-2024 End: 05-27-2024 Bamboo flowsheet Shawnee Chandler PA Work Phone: [facility] Start: 05-27-2024 End: 05-27-2024 Bamboo flowsheet Shawnee Chandler PA Work Phone: [facility] Start: 05-27-2024 End: 05-27-2024 ambulatory SHAWNEE CHANDLER Not Available Start: 05-27-2024 End: 05-27-2024 Patient encounter procedure Shawnee Chandler PA Work Phone: [facility] Comment on above: Rotator cuff impinge ment syndrome of left shoulder (Primary Dx); Arthritis of left acromioclavicular joint; Right cervical radiculopathy Start: 05-20-2024 End: 05-20-2024 ambulatory [facility] Facility:[facility] Start: 03-03-2024 ambulatory [facility] Facility :[facility] Start: 01-15-2024 End: 01-15-2024 ambulatory [facility] Facility:[facility] Start: 11-02-2023 ambulatory [facility] Facility : [facility] Start: 09-27-2023 End: 09-27-2023 ambulatory FERCHO PANIAGUA Facility:[facility] Start: 09-27-2023 End: 09-27-2023 Patient encounter procedure FERCHO PANIAGUA [facility] Start: 05-15-2023 Office outpatient ne w 30 minutes Sissy Smith [facility] Start: 05-15-2023 End: 05-15-2023 ambulatory Finesse Recio Facility:[facility] Start: 05-15-2023 End: 05-15-2023 ambulatory DO Fineses Recio Work Phone: [facility] Work Phone: Start: 05-15-2023 End: 05-15-2023 Patient encounter procedure DO Finesse Recio Work Phone: [facility] Start: 12-21-2022 End: 12-21-[address] BONITA SHELDON . Facility:[facility] Start: 12-07-2022 Encounter for prepro cedural cardiovascular examination DR BONITA SHELDON . [facility] Start: 12-05-2022 End: 12-06-[address] BONITA SHELDON . Facility: Start: 12-05-2022 End: 12-06-2022 Encounter for preprocedural cardiovascular examination DR BONITA SHELDON . Facility:[facility] Start: 11-25-2022 End: 11-25-2022 ambulatory Nika Richmond Other [employer] Other Start: 11-25-2022 Office outpatient ne w 30 minutes Nika Richmond [facility] Start: 11-07-2022 End: 11-08-[address] DARA STAFFORD Facility:[facility] Start: 11-01-2022 End: 11-01-[address] SURY REYES . Facility:[facility] Start: 05-09-2022 End: 05-09-2022 Departed Referred DO Finesse Recio Work Phone: [facility] Procedures Date Procedure Procedure Detail Performing Clinician Start: 05-27-2024 Arthrocentesis aspir &/inj major jt/bursa w/us Shawnee RAMIREZ Work Phone: Start: 05-15-2023 Plain X-ray of left hand DO Finesse Recio Work Phone: Start: 11-07-2022 Mammography Shawnee RAMIREZ Work Phone: Start: 10-01-2017 Cyst of Bartholin's gland duct (disorder) FERCHO PANIAGUA Comment on above: Patient states she h as had removal done twice Start: 10-01-2004 Structure of wisdom tooth (body structure) FERCHO PANIAGUA Start: 1970 Innominate bone stru cture (body structure) FERCHO AUGUSTINANN Ligation of fallopian tube S ALEJANDRO AUGUSTINANN Plan of Treatment Date Care Activity Detail Author Start: 06-01-2024 Influenza vaccination Influenza Vacc ine (#1) [facility] Start: 11-07-2023 Screening for malign ant neoplasm of breast Mammogram [facility] Start: 2002 Screening for malign ant neoplasm of cervix [facility] Start: 1993 Screening for malign ant neoplasm of cervix Pap Smear [facility] Start: 1970 Screening for malign ant neoplasm of colon [facility] Payers Date Payer Category Payer Self-pay [id number] 2022 Unknown [employer] [id number] 2022-Present [address] [place] [address] [id number] 1970 Unknown [id number] 1970 Unknown [id number] 1970 Unknown [id number] 1970 Unknown [id number] 1970 Unknown [id number] 1970 Unknown [id number] 1970 Unknown [id number] 1970 Unknown [id number] 1959 Unknown [id number] Unknown [id number] Social History Date Type Detail Facility Tobacco smoking stat [facility] Unknown if ever smoked [facility] Work Phone: Start: 1970 Sex Assigned At Female F [facility] Start: 05-27-2024 Sex Assigned At F [facility] Start: 09-27-2023 End: 05-27-2024 Tobacco smoking status Never smoked tobacco (finding) [facility] Tobacco smoking status Never [facility] Start: 05-27-2024 Tobacco use and exposure Smokeless tobacco non-user [facility] Start: 05-27-2024 Alcoholic beverage intake Current drinker of alcohol (finding) [facility] Start: 05-27-2024 Alcoholic beverage intake [facility] Start: 1970 Sex assigned at Not on file [facility] Tobacco smoking stat [facility] Tobacco smoking consumption unknown [facility] Functional Status Date Assessment Result Facility 09-27-2023 Functional Status N/A [facility] Clinical Notes 11-25-2022 to 05-27-2024 LCARA Hobson - 05/27/2024 8:45 AM EDTTJAMES Ramsey - 05/27/2024 8:45 AM EDTPatient Instructions Note Date & Type Note Facility 05-27-2024 History of Present illness Narrative Associated Order(s): L Inj/Asp: L glenohumeral Post-Procedure Diagnose(s): Rotator cuff impingement syndrome of left shoulder L Inj/Asp: L glenohumeral on 05/27/2024 9:20 AM Indications: pain Details: 25 G needle, ultrasound-guided anterior approach Medications: 12 mg betamethasone acetate-betamethasone sodium phosphate 6 (3-3) MG/ML Procedure, treatment alternatives, risks and benefits explained, specific risks discussed. Consent was given by the patient. Patient was prepped and draped in the usual sterile fashion. GENERAL HISTORY AND PHYSICAL: NAME: Yunier Matamoros : 1970 HISTORY OF PRESENT ILLNESS: Yunier Matamoros is an 53 y.o. female is here for orthopedic evaluation left shoulder pain after lifting a case of pop up over the bed of her truck and trying to lay it down into the bed feeling something shoot into her left shoulder. She has had troubles with nighttime rest and just general use of the arm but he has been fighting through the discomfort. Taking occasional ibuprofen which does significantly help. 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 This being her non dominant arm she is also having some radicular symptoms and right cervical and scapular discomfort which is newer than the shoulder problem and causing tingling down into the radial aspect of the hand and thumb. She is here mainly for the left shoulder concerns and has come in with outpatient x-rays taken prior to this visit. PAST MEDICAL HISTORY: Past Medical History: Diagnosis Date Rotator cuff syndrome 04/30/24 PAST SURGICAL HISTORY: History reviewed. No pertinent surgical history. SOCIAL HISTORY: Social History Occupational History Not on file Tobacco Use Smoking status: Never Smokeless tobacco: Never Substance and Sexual Activity Alcohol use: Yes Alcohol/week: 3.0 standard drinks of alcohol Types: 3 Cans of beer per week Drug use: Never Sexual activity: Yes Partners: Male control/protection: Other ALLERGIES: Allergies Allergen Reactions Prednisone Hives, Itching, Rash, Swelling and Dermatitis Patient states she can take the tablets but no injections MEDICATIONS: Current Outpatient Medications Medication Instructions cholecalciferol (Vitamin D-3) 50 MCG (1999 UT) capsule Refills(s) 0 meloxicam (MOBIC) 15 mg, Oral, Daily, With food. Multiple Vitamin (MULTI VITAMIN DAILY PO) Refill(s) 0 REVIEW OF SYSTEMS: Review of Systems General: Denies appetite or significant weight change. Denies fever, chills or night sweats. Denies lightheadedness. ENT: Denies dry mouth, sore throat or swollen glands. Denies difficulty swallowing. Denies ear pain. Respiratory: Denies chest pain, SOB, cough or wheezing. Denies asthma or pneumonia symptoms. Cardiovascular: Denies CP or palpitations. No syncope or dyspnea on exertion. Gastrointestinal: Denies nausea or vomiting. Denies heartburn or abdominal pain. Denies diarrhea. Genitourinary: Denies frequent or painful urination. Musculoskeletal: See HPI for comments. Integumentary: Denies rash, lesion or skin infection. Neurologic: Denies dizziness, headache or seizure history. Vitals: Body mass index is 32.62 kg/m . PHYSICAL EXAM: Physical Exam She has impingement with abduction at 80 degrees she is able to extend to 95 degrees rotator cuff is intact with tenderness with stressing supraspinatus. Subscap and infraspinatus have excellent strength bilaterally she does have some similar weakness on the right supraspinatus. She has maintained excellent mobility despite the impingement pain forward flexion of 150+ internal rotation to the midthoracic spine external rotation from neutral is 90 degrees she does have pain in the AC joint with cross-arm activity No orders of the defined types were placed in this encounter. Previous imaging reviewed she does have significant AC joint arthritis and inferior spurring of the distal clavicle and acromial hook. She also has calcific findings of tendinitis of the supraspinatus at its insertion. No acute fracture no bony tumor seen. Glenohumeral joint appears well-preserved in humeral head is in good position with no proximal migration. ASSESSMENT: Rotator cuff impingement syndrome of left shoulder Arthritis of left acromioclavicular joint Right cervical radiculopathy PLAN: Would anticipate improvement with cortisone after about 48 hours up to 1 week. May repeat cortisone 3 times a year per joint and as soon as 4 weeks from today. Continue your exercise program and use of the arm as tolerated maintaining her mobility. Try meloxicam daily with food to avoid GI upset and avoid other anti-inflammatory medications while taking this medicine. May try Tylenol for breakthrough discomfort is necessary. Ice to the shoulder 20 minutes several times a day and before bed we will be helpful as well as to the base of the right lower cervical region. May see improvement with the numbness and tingling down the right arm with the meloxicam as well. We will follow up as needed for continued pain in the left shoulder and or worsening symptoms on the right arm and neck region. JAMES Valdez documented in this encounter [facility] 05-27-2024 Instructions JAMES Valdez - 05/27/2024 8:45 AM EDT Would anticipate improvement with cortisone after about 48 hours up to 1 week. May repeat cortisone 3 times a year per joint and as soon as 4 weeks from today. Continue your exercise program and use of the arm as tolerated maintaining her mobility. Try meloxicam daily with food to avoid GI upset and avoid other anti-inflammatory medications while taking this medicine. May try Tylenol for breakthrough discomfort is necessary. Ice to the shoulder 20 minutes several times a day and before bed we will be helpful as well as to the base of the right lower cervical region. May see improvement with the numbness and tingling down the right arm with the meloxicam as well. We will follow up as needed for continued pain in the left shoulder and or worsening symptoms on the right arm and neck region. documented in this encounter [facility] 05-20-2024 Note Patient Education Orthopedics Shoulder Pain [...] strengthen the arm. General instructions ? Take eclo-zyk-svvgxkc and prescription medicines only as told by [...] provider. Document Revised: 06/02/2022 Document Reviewed: 06/02/2022 Elses[employer]er Patient Education ? 2022 [facility] 09-27-2023 Hospital Discharge instructions Patient Education 09/27/2023 15:57:06 Upper Respiratory Infection, Adult, [facility] Upper Respiratory Infection, Adult An upper respiratory [...] medicines to help relieve symptoms, such as: Puup-pes-hxosltq cold medicines. Medicines to reduce coughing (cough [...] and other clear broths. 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 Avoid touching your mouth, face, eyes, or [...] get better within 7 10 days. Take iqee-vno-mvtcbak and prescription medicines only as told by your doctor. This information is not intended to replace advice given to you by your health care provider. Make sure you discuss any questions you have with your health care provider. Document Revised: 04/19/2022 Document Reviewed: 04/19/2022 [employer] Patient Education 2022 [employer]. [facility] 05-15-2023 Evaluation note Encounter Date Diagnosis Assessment [...] Mass of left hand (ICD-10 - R22.32) [facility] Other [id number] NoteOPERATIVE NOTE OPERATION DATE: 12/21/2022 PROCEDURE: Shanel endometrial ablation with robotic assisted bilateral salpingectomy with removal of pedunculated fibroid at the fundal region of the uterus. PREOPERATIVE DIAGNOSIS: Menorrhagia, desires permanent sterilization. POSTOPERATIVE DIAGNOSIS: Menorrhagia, desires permanent sterilization including pedunculated uterine fibroid ANESTHESIA: General. SURGEON: Bonita Sheldon D.O. SENIOR DESIGN ENGINEER: SKIP Rodriguez URINE OUTPUT: Yellow and clear. [...] Sponge, lap and needle counts were correct [address]02-25-2023 Evaluation note * Encounter Date Diagnosis Assessment Notes Treatment Notes Treatment Clinical Notes Nov, Skin lesion (ICD-10 - L98.9) [...] weeks for the cough to go away [facility] Other Evaluation + Plan note No data available for this section [facility] Evaluation noteNo assessment information available [facility] Work Phone: Evaluation note* Diagnosis Rotator cuff impingement syndrome of left shoulder- Primary Arthritis of left acromioclavicular joint Right cervical radiculopathy documented in this encounter [facility] N[facility]ative - Reported* Type Description Date Surgical History hip surgery 1972 Surgical History wisdom teeth extraction Hospitalization History hip surgery 1972 [facility] Other Progress note No data available for this section [facility] Aureliano Chief Complaint and Reason for Visit Chief Complaint wellness check Reason for Referral Reason 01/02/23 @ 9:50am skin lesion - possibly a wart that will not come off with OTC treatment Diagnosis 1 Skin lesion (L98.9) Referral Organization [facility] Family Maggy Patel Referring Provider First Name Nika Referring Provider Last Name Basilio Referring Provider Specialty Nurse Merlin thornton Referred Organization [facility] Referred Provider Tracy Murguia Referred Address ,[place], [place],[address] Referred Provider Specialty Dermatology Referral Priority Routine Referral Appointment Date 2023-01-02 General Notes Roxana Dejesus 023 07:15:55 AM >Received referral. [facility] Dermatology office request us to send the referral P2P to them and they will call and schedule patient. [facility] 10:23:35 AM >Fax letter for appt update [facility] 12/04/2022 01:05:59 PM >Received letter back with appt Specialty Diagnoses / Procedures Referred By Jorge morales Referred To Contact Orthopaedic Surgery Diagnoses Rotator cuff impingement syndrome of left shoulder Procedures L Inj/Asp: L glenohumeral [facility] [address] [place] [address] Referral ID Status Reason Start Date Expiration Date V isits Requested Visits Authorized [id number] Authorized 05/27/2024 11/23/2024 1 1 Summary Purpose Family History No Family History [...] Role Status Dates Finesse Recio , DO [facility] Primary Care Provider, Attending Provider Active Team Status: Active Member Role Status Dates Finesse Recio DO [facility] Primary Care Provider Active Team Status: Inactive Member Role Status Dates Finesse Recio DO [facility] Primary Care Provider Active Sissy Smith MD Attending Provider Active Platinum Smith Relationship Specialty Start Date End Date Shani Yuen, LEAD WELDER-FIRE EXTINGUISHER REPAIRER [address] [place] [address] PCP - Medical [employer] 11/15/00 09/30/99 Fercho Paniagua [address] [address] PCP - General 05/27/24 Platinum Smith Relationship Specialty Start Date End Date Shani YuenUMAIR-FIRE EXTINGUISHER REPAIRER [address] [place] [address] PCP - Medical [employer] 11/15/00 09/30/99 Fercho Paniagua [address] [address] PCP - General 05/27/24 Goals (unrecognized section and content) Goals may be documented in a n alternate sectionNo InformationGoals may be documented in an alternate sectionNo Information No data available for this section REASON FOR VISIT (unrecogniz ed section and content) Reason Comments Pain INFORMATION SOURCE (unrecogn ized section and content) DATE CREATED AUTHOR 01/05/2023 [facility] DATE CREATED AUTHOR AUTHOR'S ORGANIZ ATION 05/24/2023 [place] DATE CREATED AUTHOR AUTHOR'S ORGANIZ ATION 05/22/2024 [facility] DATE CREATED AUTHOR AUTHOR'S ORGANIZ ATION 05/28/2024 [facility] dical Specialists [facility] FOR RECORDS PERTAINING TO PATIENTS WHO ARE [...] BE BASED ON THE PRIMARY CLINICAL RECORDS. [employer] provides no warranty or guarantee of the accuracy or completeness of information in this document.
== END 2024-10-13 09:03 | disposition home or self-care (01) ==
LOC: EC 09:02
PROVIDERS: PCP Nurse Practitioner Family; Visit Provider Orthopaedic Surgery
DX: S62.391D Other fracture of second metacarpal bone, left hand, subsequent encounter for fracture with routine healing (principal)
CPT/HCPCS: 73130

== ENCOUNTER 2024-11-24 08:38 | Outpatient (OUT) | payer OTHER, SELFPAY ==
--- NOTE | 2024-11-24 | XR_ITS ---
The [address] [address] Patient Name: YUNIER GARY MRN: [id number] date: 1970 Sex: F Assigned Patient Location: Current Patient Location: Accession/Order Number: [id number] Exam Date: 11/24/2024 11:01 Report Date: 11/24/2024 11:04 At the request of: EAGLE HAYES MD Procedure: XR hand LT min 3V LEFT HAND - 3 views CLINICAL DATA: Follow-up fracture of the second metacarpal COMPARISON: 10/13/2024 AP, lateral and oblique views were obtained. There is redemonstration of a fracture at the base of the second metacarpal. There is no significant interval change in alignment. There maybe slight increase in callus formation. There is no new fracture or dislocation. There are no significant soft tissue abnormalities. XR/XR hand LT min 3V IMPRESSION: STABLE HEALING FRACTURE AT THE PROXIMAL SECOND METACARPAL Impression dictated by: Amy Pratt M.D.11/24/2024 11:04 AM Dictation Location: [facility]ITALDynamic IT Management Services Electronically authenticated by: [id number] Y Date: 11/24/2024 11:04
--- OUTSIDE RECORDS SUMMARY | 2024-11-24 08:59 | XMS_ITS | CCD ---
Author Organization [facility] Care Team Providers Care Ticket Broker Name Role Phone DO Finesse Recio Primary Care Provider DO Finesse Recio Attending Provider [phone] Nika Richmond Unavailable SULEMAN ., DR MESA [...] Unavailable SULEMAN ., DR MESA Admitting Unavailable PAULDING, DR DARA Souza Consulting Unavailable REQUEST, DR [...] GUARDADO Unavailable Fercho Paniagua Primary Care Provider Allergies Allergy Classification Reported Allergen(s) Allergy Type Date of Onset Reaction(s) Facility (4 sources) predniSONE; Translations: [prednisone] Drug Allergy Foot swelling (finding), Itching (finding), Weal (disorder) [facility] Comment on above: Patient states she c an take the tablets but no injections (1 source) predniSONE Drug Allergy [facility] Repository (2 sources) Prednisone Propensity to adverse reactions 4 Hives, Itching, Rash, Swelling, Dermatitis [facility] Medications Current Medications Medication Drug Class(es) Dates Sig (Normalized) Sig (Original) [id number] 200 actuat albuterol 0.09 mg/actuat metered dose [...] day(s), # 6 tab(s), Refills(s) 0, Pharmacy: [facility]/pharmacy #[id number], 165, cm, 09/27/23 14:13:00 EST, [...] hours, # 2 tab(s), Refills(s) 0, Pharmacy: [facility]/pharmacy #[id number], 165, cm, 09/27/23 14:13:00 EST, [...] and draped in the usual sterile fashion. [facility] Office/Clini c Noteon [...] qualifying data available Patient Education Shoulder Pain, Oezs-te-Xckx Problem List/Past Medical History Ongoing Bronchitis Historical No qualifying data Procedure/Surgical History Cyst of Bartholin's gland (2017), [place] tooth (2004), Hip bone (1972), Tubal ligation. [...] Mother and Father. Hypertension: Mother. Stroke: Mother. [facility] Comment on above: Result Comment: Elec tronically [...] Procedures Performed Cyst of Bartholin's gland (2017), [place] tooth (2004), Hip bone (1972), Tubal ligation. [...] strengthen the arm. General instructions ? Take mgdu-ftp-xraojtz and prescription medicines only as told by [...] provider. Document Revised: 06/02/2022 Document Reviewed: 06/02/2022 [employer] Patient Education ? 2022 [employer] Ca[facility] Carre[facility] Family Medicine Office/Clini c Noteon 01-16-2024 [...] hours, # 2 tab(s), Refills(s) 0, Pharmacy: [facility]/pharmacy #[id number], 165, cm, 09/27/23 14:13:00 EST, Height/Length Dosing, 90.2, kg, 09/27/23 14:13:00 EST, Weight Dosing Follow-up No qualifying data available Problem List/Past Medical History Ongoing Bronchitis Historical No qualifying data Procedure/Surgical History Cyst of Bartholin's gland (2017), [place] tooth (2004), Hip bone (1972), Tubal ligation. [...] Mother and Father. Hypertension: Mother. Stroke: Mother. [facility] Comment on above: Result Comment: Elec tronically [...] Procedures Performed Cyst of Bartholin's gland (2017), [place] tooth (2004), Hip bone (1972), Tubal ligation. [...] you for choosing us for your care. 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 She is hoping to get the cough [...] day(s), # 6 tab(s), Refills(s) 0, Pharmacy: [facility]/pharmacy #[id number], 165, cm, 09/27/23 14:13:00 EST, Height/Length Dosing, 90.2, kg, 09/27/23 14:13:00 EST, Weight Dosing fluconazole, See Instructions, Take one tablet at the onset of symptoms; may repeat in 72 hours, # 2 tab(s), Refills(s) 0, [id number], 165, cm, 09/27/23 14:13:00 EST, Height/Length Dosing, 90.2, kg, 09/27/23 14:13:00 EST, Weight Dosing 2. Encounter to establish care (Z76.89: Persons encountering health services in other specified circumstances) Ordered: azithromycin, = 1 packet(s), Oral, As Directed, as directed on package labeling, X 5 day(s), # 6 tab(s), Refills(s) 0, [id number], 165, cm, 09/27/23 14:13:00 EST, Height/Length Dosing, 90.2, kg, 09/27/23 14:13:00 EST, Weight Dosing fluconazole, See Instructions, Take one tablet at the onset of symptoms; may repeat in 72 hours, # 2 tab(s), Refills(s) 0, Pharmacy: [facility]/pharmacy #[id number], 165, cm, 09/27/23 14:13:00 EST, Height/Length Dosing, 90.2, kg, 09/27/23 14:13:00 EST, Weight Dosing Patient will need to schedule a well visit in the next 12 months Follow-up No qualifying data available Patient Education Upper Respiratory Infection, Adult, Xkyx-xq-Vupp Problem List/Past Medical History Ongoing No qualifying data Historical No qualifying data Procedure/Surgical History Cyst of Bartholin's gland (2018), [place] tooth (2004), Hip bone (1972), Tubal ligation. Medications azithromycin 250 mg Tab 5-day Dose Pack (Z-Regino), 1 packet(s), Oral, As Directed Diflucan 150 mg Tab, See Instructions Multi Vitamin+ Allergies predniSONE (Swollen foot, Itchy, Hives) Social History Alcohol Beer, 1-2 times per month, Started age 4 (more content not included)... Normal [facility] Comment on above: Result Comment: Elec tronically [...] to help relieve symptoms, such as: ? Gcuk-ikn-vauufgn cold medicines. ? Medicines to reduce coughing [...] other clear broths. General instructions ? 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 ? Avoid touching your mouth, face, eyes, [...] get better within 7?10 days. ? Take upod-arc-erpfinh and prescription medicines only as told by your doctor. This information is not intended to replace advice given to you by your health care (more content not included)... Normal [facility] XR hand LT min 3V*on 023 XR hand LT min 3V* [facility] [place] [address] XRay Report Signed Patient: Yunier Matamoros MR#: [id number] : 1970 Acct:[id number] Age/Sex: 52 / F ADM Date: 05/15/23 Loc: [facility] Room: Type: [facility] Attending Dr: iSssy Smith MD Copies to: Sissy Smith MD [...] Mikhail Greenberg M.D.05/15/2023 4:52 PM Dictation Location: [place] [address] Transcribed By: [facility] 05/15/231651 Dictated By: Mikhail Greenberg II, MD 05/15/231649 Signed By: 05/15/231651 [facility] XR hand LT min 3V* [facility] [employer] Other XR hand LT min 3V* [facility] Main [facility] [employer] Other XR hand LT min 3V* [address] [place] [address] [facility] [employer] Other XR hand LT min 3V* [place] [address] [employer] Other XR hand LT min 3V* XRay Report [employer] Other XR hand LT min 3V* Signed [employer] Other XR hand LT min 3V* Patient: Yunier Matamoros MR#: [id number] [facility] Other XR hand LT min 3V* 827 [employer] Other XR hand LT min 3V* : 1970 Acct:[id number] [employer] Other XR hand LT min 3V* Age/Sex: 52 / F ADM Date: 05/15/23 [facility] Other XR hand LT min 3V* Loc: [facility] Room: Type: REG CLI [employer] Other XR hand LT min 3V* Attending Dr: Sissy Smith MD [employer] Other XR hand LT min 3V* Copies to: Sissy Smith MD [employer] Other XR hand LT min 3V* Ordering Provider: Sissy Smith MD [employer] Other XR hand LT min 3V* Date of Service: 05/15/23 [facility] Other XR hand LT min 3V* XR/XR hand LT min 3V*: PAIN [facility] Other XR hand LT min 3V* XR hand LT min 3V* 05/15/2023 12:09 PM [facility] Other XR hand LT min 3V* SIGNS AND SYMPTOMS: Mass on left third digit [employer] Other XR hand LT min 3V* PROTOCOL: Frontal, lateral, and oblique radiographs of the left hand [facility] Other XR hand LT min 3V* COMPARISON: None [facility] Other XR hand LT min 3V* FINDINGS: [facility] Other XR hand LT min 3V* The bones are in anatomic alignment. There is no evidence of fracture or dislocation. The joint [employer] Other XR hand LT min 3V* spaces are preserved. No significant soft tissue swelling. [employer] Other XR hand LT min 3V* XR/XR hand LT min 3V* [employer] Other XR hand LT min 3V* IMPRESSION: [employer] Other XR hand LT min 3V* No acute bony injury or significant degenerative change. [employer] Other XR hand LT min 3V* No significant soft tissue swelling. [employer] Other XR hand LT min 3V* Impression dictated by: Mikhail Greenberg M.D.05/15/2023 4:52 PM [employer] Other XR hand LT min 3V* Dictation Location: [place] [address] [employer] Other XR hand LT min 3V* Transcribed By: TAVO 05/15/23 [facility] [employer] Other XR hand LT min 3V* Dictated By: Mikhail Greenberg II, MD 05/15/23 [facility] [employer] Other XR hand LT min 3V* Signed By: [employer] Other XR hand LT min 3V* 05/15/[address] [place] [address] [facility] Other CBC AUTO DIFFon 12-21-2022 BASO # 0.0 103/ul Normal 0[facility]0-0.1 [facility] Comment on above: Performed By: #### C BC #### [facility] [address] [place] [address] Dr. Scottie Franco Basophils/100 WBC (Bld) 0.7 % Normal 0.2-2.0 [facility] Comment on above: Performed By: #### C BC #### [facility] [address] [place] [address] [address] Scottie Franco EO # 0.2 103/ul Normal 0.0-0.7 [facility] Comment on above: Performed By: #### C BC #### [facility] [address] [place] [address] [address] Scottie Franco Eosinophils/100 WBC (Bld) 3.0 % Normal 0.9-7.0 [facility] Comment on above: Performed By: #### C BC #### [facility] [address] [place] [address] Dr. Scottie Franco Erythrocyte distribution width (RBC) [Ratio] 11.7 % Normal 11.0-15.0 [facility] Comment on above: Performed By: #### C BC #### [facility] [address] [place] [address] Dr. Scottie Franco Hematocrit (Bld) [Volume fraction] 35.3 % Critically low 36.0-48.0 [facility] Comment on above: Performed By: #### C BC #### [facility] [address] [place] [address] Dr. Scottie Franco Hemoglobin (Bld) [Mass/Vol] 12.5 g/dL Normal 12.0-16.0 [facility] Comment on above: Performed By: #### C BC #### [facility] [address] [place] [address] Dr. Scottie Franco IG # 0.00 10e3/ul Normal 0.00-0.03 [facility] Comment on above: Performed By: #### C BC #### [facility] [address] [place] [address] Dr. Scottie Franco IG % 0.0 % Normal 0.0-0.5 [facility] Comment on above: Performed By: #### C BC #### [facility] [address] [place] [address] Dr. Scottie Franco LYMPH # 2.3 103/ul Normal 1.2-3.8 [facility] Comment on above: Performed By: #### C BC #### [facility] [address] [place] [address] Dr. Scottie Franco Lymphocytes/100 WBC (Bld) 37.6 % Normal 20.5-60.0 [facility] Comment on above: Performed By: #### C BC #### [facility] [address] [place] [address] Dr. Scottie Franco MANUAL DIFF REQ NO Normal [facility] Comment on above: Performed By: #### C BC #### [facility] [address] [place] [address] Dr. Scottie Franco MCH (RBC) [Entitic mass] 32.0 pg Normal 26.7-34.0 [facility] Comment on above: Performed By: #### C BC #### [facility] [address] [place] [address] [address] Scottie Franco MCHC (RBC) [Mass/Vol] 35.4 g/dL Critically high 29.9-35.2 [facility] Comment on above: Performed By: #### C BC #### [facility] [address] [place] [address] Dr. Scottie Franco MCV (RBC) [Entitic vol] 90.3 fL Normal 81.0-99.0 [facility] Comment on above: Performed By: #### C BC #### [facility] [address] [place] [address] Dr. Scottie Franco MONO # 0.5 103/ul Normal 0.3-0.8 [facility] Comment on above: Performed By: #### C BC #### [facility] [address] [place] [address] Dr. Scottie Franco Monocytes/100 WBC (Bld) 7.8 % Normal 1.7-12.0 [facility] Comment on above: Performed By: #### C BC #### [facility] [address] [place] [address] Dr. Scottie Franco NEUT # 3.1 103/ul Normal 1.4-6.5 [facility] Comment on above: Performed By: #### C BC #### [facility] [address] [place] [address] Dr. Scottie Franco Neutrophils/100 WBC (Bld) 50.9 % Normal 43.0-75.0 [facility] Comment on above: Performed By: #### C BC #### [facility] [address] [place] [address] Dr. Scottie Franco Platelet mean volume (Bld) [Entitic vol] 10.0 fL Normal 9.5-13.5 [facility] Comment on above: Performed By: #### C BC #### [facility] [address] [place] [address] Dr. Scottie Franco PLT 314 103/ul Normal 150-450 [facility] Comment on above: Performed By: #### C BC #### [facility] [address] [place] [address] Dr. Scottie Franco RBC 3.91 106/ul Critically low 4.20-5.40 [facility] Comment on above: Performed By: #### C BC #### [facility] [address] [place] [address] Dr. Scottie Franco WBC 6.0 103/ul Normal 4.0-11.0 [facility] Comment on above: Performed By: #### C BC #### [facility] [address] [place] [address] Dr. Scottie Franco PREG QUANT HCGon 12-21-2022 HCG QUANT <1 Normal [facility] Comment on above: Performed By: #### P REGQNT #### [facility] [address] [place] [address] Dr. Scottie Franco HCG RANGE SEE BELOW Normal [facility] Comment on above: Result Comment: 5-50 0.2-1 WEEK 50-500 1-2 WEEKS 100-5,000 2-3 WEEKS 500-10,000 3-4 WEEKS 1,000-50,000 4-5 WEEKS 10,000-100,000 5-6 WEEKS 15,000-200,000 6-8 WEEKS 10,000-100,000 2-3 MONTHS Performed By: #### P REGQNT #### [facility] [address] [place] [address] Dr. Scottie Franco CBC AUTO DIFFon 11-07-2022 BASO # 0.0 103/ul Normal 0.0-0.1 [facility] Comment on above: Performed By: #### C BC #### [facility] [address] [place] [address] Dr. Scottie Franco Basophils/100 WBC (Bld) 0.5 % Normal 0.2-2.0 [facility] Comment on above: Performed By: #### C BC #### [facility] [address] [place] [address] Dr. Scottie Franco EO # 0.1 103/ul Normal 0.0-0.7 [facility] Comment on above: Performed By: #### C BC #### [facility] [address] [place] [address] Dr. Scottie Franco Eosinophils/100 WBC (Bld) 1.8 % Normal 0.9-7.0 [facility] Comment on above: Performed By: #### C BC #### [facility] [address] [place] [address] Dr. Scottie Franco Erythrocyte distribution width (RBC) [Ratio] 11.9 % Normal 11.0-15.0 [facility] Comment on above: Performed By: #### C BC #### [facility] [address] [place] [address] Dr. Scottie Franco Hematocrit (Bld) [Volume fraction] 38.4 % Normal 36.0-48.0 [facility] Comment on above: Performed By: #### C BC #### [facility] [address] [place] [address] Dr. Scottie Franco Hemoglobin (Bld) [Mass/Vol] 13.0 g/dL Normal 12.0-16.0 [facility] Comment on above: Performed By: #### C BC #### [facility] [address] [place] [address] Dr. Scottie Franco IG # 0.01 10e3/ul Normal 0.00-0.03 [facility] Comment on above: Performed By: #### C BC #### [facility] [address] [place] [address] Dr. Scottie Franco IG % 0.1 % Normal 0.0-0.5 [facility] Comment on above: Performed By: #### C BC #### [facility] [address] [place] [address] Dr. Scottie Franco LYMPH # 2.4 103/ul Normal 1.2-3.8 [facility] Comment on above: Performed By: #### C BC #### [facility] [address] [place] [address] Dr. Scottie Franco Lymphocytes/100 WBC (Bld) 32.1 % Normal 20.5-60.0 [facility] Comment on above: Performed By: #### C BC #### [facility] [address] [place] [address] Dr. Scottie Franco MANUAL DIFF REQ NO Normal [facility] Comment on above: Performed By: #### C BC #### [facility] [address] [place] [address] Dr. Scottie Franco MCH (RBC) [Entitic mass] 31.4 pg Normal 26.7-34.0 [facility] Comment on above: Performed By: #### C BC #### [facility] [address] [place] [address] Dr. Scottie Franco MCHC (RBC) [Mass/Vol] 33.9 g/dL Normal 29.9-35.2 [facility] Comment on above: Performed By: #### C BC #### [facility] [address] [place] [address] Dr. Scottie Franco MCV (RBC) [Entitic vol] 92.8 fL Normal 81.0-99.0 [facility] Comment on above: Performed By: #### C BC #### [facility] [address] [place] [address] Dr. Scottie Franco MONO # 0.4 103/ul Normal 0.3-0.8 [facility] Comment on above: Performed By: #### C BC #### [facility] [address] [place] [address] Dr. Scottie Franco Monocytes/100 WBC (Bld) 5.3 % Normal 1.7-12.0 [facility] Comment on above: Performed By: #### C BC #### [facility] [address] [place] [address] Dr. Scottie Franco NEUT # 4.4 103/ul Normal 1.4-6.5 [facility] Comment on above: Performed By: #### C BC #### [facility] [address] [place] [address] Dr. Scottie Franco Neutrophils/100 WBC (Bld) 60.2 % Normal 43.0-75.0 [facility] Comment on above: Performed By: #### C BC #### [facility] [address] [place] [address] Dr. Scottie Franco Platelet mean volume (Bld) [Entitic vol] 9.9 fL Normal 9.5-13.5 [facility] Comment on above: Performed By: #### C BC #### [facility] [address] [place] [address] Dr. Scottie Franco PLT 306 103/ul Normal 150-450 [facility] Comment on above: Performed By: #### C BC #### [facility] [address] [place] [address] [address] Scottie Franco RBC 4.14 106/ul Critically low 4.20-5.40 [facility] Comment on above: Performed By: #### C BC #### [facility] [address] [place] [address] Dr. Scottie Franco WBC 7.3 103/ul Normal 4.0-11.0 [facility] Comment on above: Performed By: #### C BC #### [facility] [address] [place] [address] Dr. Scottie Franco FREE T4on 11-07-2022 Free T4 [Mass/Vol] 0.81 ng/dL Normal 0.76-1.46 [facility] Comment on above: Performed By: #### F T4 #### [facility] [address] [place] [address] Dr. Scottie Franco GLYCOHEMOGLOBIN A1Con 2022 ADA RECOMMENDATION SEE BELOW Normal [facility] Comment on above: Result Comment: ADA RECOMMENDED LIMIT 4.0 - 6.0 ADA THERAPEUTIC TARGET < 7.0 ACTION SUGGESTED > 7.0 Performed By: #### A 1C #### [facility] [address] [place] [address] Dr. Scottie Franco Glucose [Mass/Vol] 91 mg/dL Normal [facility] Comment on above: Performed By: #### A 1C #### [facility] [address] [place] [address] Dr. Scottie Franco HbA1c (Bld) [Mass fraction] 4.8 % Normal 4.5-6.2 [facility] Comment on above: Performed By: #### A 1C #### [facility] [address] [place] [address] [address] Scottie Franco MG MAMM SCREEN 3D DAVID CADon 11-07-2022 MG MAMM SCREEN 3D DAVID CAD Patient: YUNIER MATAMOROS Exam Date: 11/07/2022 : 1970 Gender:F Ordering : DR BONITA SHELDON . Admission #: [id number] Family : Order #: [id number] CLICK HERE TO VIEW EXAM RADIOLOGY REPORT [...] at age 88. LOCATION: [facility] BREAST COMPOSITION: Heterogeneously dense,which may obscure [...] Stafford MD on 11/08/2022 at 09:11 Normal [facility] PAP ACOG PANEL 2: 30 to 65on 11-07-2022 . . Normal [facility] Comment on above: Result Comment: Perf ormed at: WB Performed By: #### [id number] #### [facility] [address] [place] [address] [address] Scottie Franco Age Gdln ACOG Testing 30-65 Normal [facility] Comment on above: Performed By: #### [id number] #### [facility] [address] [address] [address] Scottie Franco DIAGNOSIS: Comment Normal [facility] Comment on above: Result Comment: NEGA TIVE FOR INTRAEPITHELIAL LESION OR MALIGNANCY. Performed at: WB Performed By: #### [id number] #### [facility] [address] [address] [address] Scottie Franco HPV Aptima Negative Normal Negative [facility] Comment on above: Result Comment: This nucleic acid amplification test detects fourteen high-risk HPV types (16,18,31,33,35,39,45,51,52,56,58,59,66,68) without differentiation. Performed at: =G Performed By: #### [id number] #### [facility] [address] [address] [address] Scottie Franco HPV Genotype Reflex Comment Normal [facility] Comment on above: Result Comment: Crit eria not met, HPV Genotype not performed. Performed at: WB Performed By: #### [id number] #### [facility] [address] [place] [address] Dr. Scottie Franco Methodology: Comment [facility] Comment on above: Result Comment: This liquid based ThinPrep(R) pap test was screened with the use of an image guided system. Performed at: WB Performed By: #### [id number] #### [facility] [address] [place] [address] Dr. Scottie Franco Note: Comment [facility] Comment on above: Result Comment: The Pap smear is a screening test designed to aid in the detection of premalignant and malignant conditions of the uterine cervix. It is not a diagnostic procedure and should not be used as the sole means of detecting cervical cancer. Both false-positive and false-negative reports do occur. . Performed at: WB Performed By: #### [id number] #### [facility] [address] [place] [address] Dr. Scottie Franco Performed by: Comment Normal [facility] Comment on above: Result Comment: Gilbert [employer] Clerk (ASCP) Performed at: WB Performed By: #### [id number] #### [facility] [address] [place] [address] Dr. Scottie Franco Specimen adequacy: Comment Normal [facility] Comment on above: Result Comment: Sati sfactory for evaluation. Endocervical and/or squamous metaplastic cells (endocervical component) are present. Performed at: WB Performed By: #### [id number] #### [facility] [address] [place] [address] Dr. Scottie Franco PROTIMEon 11-07-2022 INR Coag (PPP) [Relative time] {INR} Normal [facility] Comment on above: Performed By: #### P T, PTT #### [facility] [address] [place] [address] Dr. Scottie Franco INR GUIDELINES SEE BELOW Normal [facility] Comment on above: Result Comment: ALEXANDER RED INR: 2.0 - 3.0 CONDITIONS NOT LISTED BELOW 2.5 - 3.5 FOR PROSTHETIC HEART VALVE REPLACEMENT 2.5 - 3.5 RECURRENT THROMBOSIS Performed By: #### P T, PTT #### [facility] [facility] [address] [place] [address] Dr. Scottie Franco PT Coag (PPP) [Time] 9.8 s Normal 9.0-11.6 [facility] Comment on above: Performed By: #### P T, PTT #### [facility] [address] [place] [address] Dr. Scottie Franco PTTon 11-07-2022 aPTT Coag (Bld) [Time] 26.9 s Normal 22.3-36.2 [facility] Comment on above: Performed By: #### P T, PTT ####[facility] [address] [address]Dr. Scottie Franco TSHon 11-07-2022 TSH 1.496 uIU/mL Normal 0.358-3.740 [facility] Comment on above: Performed By: #### T SH ####[facility] [address] [address]Dr. Scottie Franco US PELVIS AND TRANSVAGon US [...] Date: 2022-11-07 10:56 Normal [facility] Basophils Auto (Bld) [#/Vol] Ordered By: Finesse Recio on 05-09-2022 Basophils (Bld) [#/Vol] 0.0 10*3/uL 0.0-0.2 [facility] Basophils/100 WBC Auto (Bld) Ordered By: Finesse Recio on 05-09-2022 Basophils/100 WBC (Bld) 0.7 % . [facility] Blood hemoglobin measurement (mass/volume)Ordered By: Finesse Recio on 05-09-2022 Hemoglobin (Bld) [Mass/Vol] 13.6 g/dL 11.8-15.4 [facility] Blood leukocytes automated c ount (number/volume)Ordered By: Finsese Recio on 05-09-2022 WBC (Bld) [#/Vol] 6.6 10*3/uL 4.5-11.0 [facility] Body fluid albumin measureme nt (mass/volume)Ordered By: Finesse Recio on 05-09-2022 Albumin (Body fld) [Mass/Vol] 4.2 g/dL 3.2-5.5 [facility] Cholesterol [Mass/volume] in Serum or PlasmaOrdered By: Finesse Recio on 05-09-2022 Cholesterol [Mass/Vol] 235 mg/dL 140-200 [facility] Comment on above: Chol less than 200 m g/dl low risk Chol 201-239 mg/dl borderline risk Chol 240 mg/dl and greater high risk Cholesterol in LDL Calc [Mas s/Vol]Ordered By: Finesse Recio on 05-09-2022 Cholesterol in LDL [Mass/Vol] 166 mg/dL 0-100 [facility] Comment on above: LDL ATP III CLASSIFI CATION LDL less than 100 mg/dL Optimal LDL 100-129 mg/dL Near or above optimal LDL 130-159 mg/dL Borderline high LDL 160-189 mg/dL High LDL greater than 189 mg/dL Very high Cholesterol in VLDL Calc [Ma ss/Vol]Ordered By: Finesse Recio on 05-09-2022 Cholesterol in VLDL [Mass/Vol] 15 mg/dL [facility] Creatinine and Glomerular fi ltration rate.predicted panel (S/P/Bld)Ordered By: Finesse Recio on 05-09-2022 Creatinine [Mass/Vol] 0.75 mg/dL 0.44-1.03 [facility] Eosinophils Auto (Bld) [#/Vo l]Ordered By: Finesse Recio on 05-09-2022 Eosinophils (Bld) [#/Vol] 0.2 10*3/uL 0.0-0.45 [facility] Eosinophils/100 WBC Auto (Bl d)Ordered By: Finesse Recio on 05-09-2022 Eosinophils/100 WBC (Bld) 2.6 % . [facility] Erythrocyte distribution wid th Auto (RBC) [Ratio]Ordered By: Finesse Recio on 05-09-2022 Erythrocyte distribution width (RBC) [Ratio] 12.7 % 11.9-15.3 [facility] Estimated glomerular filtrat ion rate (GFR) non- AmericanOrdered By: Finesse Recio on 05-09-2022 GFR/1.73 sq M.predicted among non-blacks MDRD (S/P/Bld) [Vol rate/Area] > 60 mL/Min [facility] Globulin Calc (S) [Mass/Vol] Ordered By: Finesse Recio on 05-09-2022 Globulin (S) [Mass/Vol] 2.8 g/dL [facility] Hematocrit Auto (Bld) [Volum e fraction]Ordered By: Finesse Recio on 05-09-2022 Hematocrit (Bld) [Volume fraction] 39.4 % 34.0-46.4 [facility] Laboratory - Hematology and Cell countsOrdered By: Finesse Recoi on 05-09-2022 Nucleated RBC/100 WBC (Bld) [Ratio] 0.1 % 0-0.5 [facility] Lymphocytes Auto (Bld) [#/Vo l]Ordered By: Finesse Recio on 05-09-2022 Lymphocytes (Bld) [#/Vol] 1.7 10*3/uL 1.00-4.8 [facility] Lymphocytes/100 WBC Auto (Bl d)Ordered By: Finesse Recio on 05-09-2022 Lymphocytes/100 WBC (Bld) 26.0 % . [facility] MCH Auto (RBC) [Entitic mass ]Ordered By: Finesse Recio on 05-09-2022 MCH (RBC) [Entitic mass] 31.6 pg 24.7-34.3 [facility] MCHC Auto (RBC) [Mass/Vol]Or dered By: Finesse Recio on 05-09-2022 MCHC (RBC) [Mass/Vol] 34.6 g/dL 32.0-35.0 [facility] MCV Auto (RBC) [Entitic vol] Ordered By: Finesse Recio on 05-09-2022 MCV (RBC) [Entitic vol] 91.4 fL 80-100 [facility] Monocytes Auto (Bld) [#/Vol] Ordered By: Finesse Recio on 05-09-2022 Monocytes (Bld) [#/Vol] 0.4 10*3/uL 0.0-0.8 [facility] Monocytes/100 WBC Auto (Bld) Ordered By: Finesse Recio on 05-09-2022 Monocytes/100 WBC (Bld) 6.4 % . [facility] Neutrophils Auto (Bld) [#/Vo l]Ordered By: Finesse Recio on 05-09-2022 Neutrophils (Bld) [#/Vol] 4.2 10*3/uL 1.8-7.7 [facility] Neutrophils/100 WBC Auto (Bl d)Ordered By: Finesse Recio on 05-09-2022 Neutrophils/100 WBC (Bld) 64.3 % . [facility] No Panel InformationOrdered By: Finesse Recio on 05-09-2022 Estimated GFR () > 60 mL/Min [facility] Comment on above: GFR estimated refere nce range: According to KDOQI guidelines, <60 ml/min/1.73m2 is sufficient to diagnose a patient with chronic kidney disease. Pharmacy Creatinine Clearance (Chem N/A [facility] Platelet mean volume Auto (B ld) [Entitic vol]Ordered By: Finesse Recio on 05-09-2022 Platelet mean volume (Bld) [Entitic vol] 9.2 fL 6.3-10.7 [facility] Platelets Auto (Bld) [#/Vol] Ordered By: Finesse Recio on 05-09-2022 Platelets (Bld) [#/Vol] 303 10*3/uL 150-450 [facility] Protein [Mass/volume] in Ser um or PlasmaOrdered By: Finesse Recio on 05-09-2022 Protein [Mass/Vol] 7.0 g/dL 6.1-7.9 [facility] RBC Auto (Bld) [#/Vol]Ordere d By: Finesse Recio on 05-09-2022 RBC (Bld) [#/Vol] 4.31 10*6/uL 3.60-5.[address] [facility] Serum or plasma alanine simon otransferase measurement without P-5'-P (enzymatic activiOrdered By: Finesse Recio on 05-09-2022 ALT No additional P-5'-P [Catalytic activity/Vol] 23 U/L 10-60 [facility] Serum or plasma albumin/glob ulin mass ratioOrdered By: Finesse Recio on 05-09-2022 Albumin/Globulin [Mass ratio] 1.5 {ratio} [facility] Serum or plasma alkaline carmela sphatase measurement (enzymatic activity/volume)Ordered By: Finesse Recio on 05-09-2022 ALP [Catalytic activity/Vol] 59 U/L 32-92 [facility] Serum or plasma aspartate am inotransferase measurement (enzymatic activity/volume)Ordered By: Finesse Recio on 05-09-2022 AST [Catalytic activity/Vol] 18 U/L 10-42 [facility] Serum or plasma calcium dianne urement (mass/volume)Ordered By: Finesse Recio on 05-09-2022 Calcium [Mass/Vol] 9.2 mg/dL 8.2-10.2 [facility] Serum or plasma chloride luke surement (moles/volume)Ordered By: Finesse Recio on 05-09-2022 Chloride [Moles/Vol] 102 mmol/L 95-114 [facility] Serum or plasma glucose dianne urement (mass/volume)Ordered By: Finesse Recio on 05-09-2022 Glucose [Mass/Vol] 93 mg/dL 70-100 [facility] Comment on above: ADA recommended refe rence range Random Glucose Reference Range is dependent on time and content of last meal. Glucose of more than 200 mg/dL in a nonstressed, ambulatory subject supports the diagnosis of Diabetes Mellitus. Serum or plasma high density lipoprotein (HDL) cholesterol measurementOrdered By: Finesse Recio on 05-09-2022 Cholesterol in HDL [Mass/Vol] 54 mg/dL 35-85 [facility] Comment on above: HDL CHOL ATP-III CLA SSIFICATION Cardiovascular Risk HDL > or equal to 60 mg/dL LOW HDL < 40 mg/dL HIGH Serum or plasma potassium me asurement (moles/volume)Ordered By: Finesse Recio on 05-09-2022 Potassium [Moles/Vol] 4.2 mmol/L 3.5-5.1 [facility] Serum or plasma sodium measu rement (moles/volume)Ordered By: Finesse Recio on 05-09-2022 Sodium [Moles/Vol] 137 mmol/L 136-146 [facility] Serum or plasma total biliru bin measurement (mass/volume)Ordered By: Finesse Recio on 05-09-2022 Bilirubin [Mass/Vol] 0.6 mg/dL 0.3-1.2 [facility] Serum or plasma total carbon dioxide measurement (moles/volume)Ordered By: Finesse Recio on 05-09-2022 CO2 [Moles/Vol] 24.5 mmol/L 22.0-30.0 [facility] Serum or plasma total choles terol/high density lipoprotein (HDL) cholesterol mass ratOrdered By: Finesse Recio on 05-09-2022 Cholesterol.total/Chol esterol in HDL [Mass ratio] 4.4 {ratio} <5.0 [facility] Serum or plasma urea nitroge n measurement (mass/volume)Ordered By: Finesse Recio on 05-09-2022 Urea nitrogen [Mass/Vol] 7 mg/dL 9-23 [facility] TSH DL <= 0.005 mIU/L QnOrde red By: Finesse Recio on 05-09-2022 TSH Qn 2.06 m[IU]/L 0.45-5.33 [facility] Triglyceride [Mass/volume] i n Serum or PlasmaOrdered By: Finesse Recio on 05-09-2022 Triglyceride [Mass/Vol] 77 mg/dL 35-149 [facility] Comment on above: TRIG ATP III CLASSIF ICATION TRIG less than 150 mg/dL Normal TRIG 150-199 mg/dL Borderline high TRIG 200-500 mg/dL High TRIG greater than 500 mg/dL Very high Standard traceable to the Center for Disease Conrtrol and Prevention (CDC) test method. Vital Signs Date Time Vital Sign Value Performing Clinician Facility 05-27-2024 08:51-0400 Body height 165.1 cm Mccammon Arteris Work Phone: [facility] 05-27-2024 08:51-0400 Body mass index (BMI) [Ratio] 32.62 kg/m2 Mccammon Arteris Work Phone: [facility] 05-27-2024 08:51-0400 Body weight 88.91 kg [facility] AFreeze Work Phone: [facility] 09-27-2023 14:18-0500 Diastolic blood pressure 90 mm[Hg] FERCHO SIVA [facility] 09-27-2023 14:18-0500 Mean blood pressure 107 mm[Hg] FERCHO SIVA [facility] 09-27-2023 14:18-0500 Systolic blood pressure 140 mm[Hg] FERCHO SIVA [facility] 09-27-2023 13:53-0500 Blood Pressure Location FERCHO SIVA [facility] 09-27-2023 13:53-0500 Body temperature 98.78 [degF] FERCHO SIVA [facility] 09-27-2023 13:53-0500 Diastolic blood pressure 90 mm[Hg] FERCHO SIVA [facility] 09-27-2023 13:53-0500 Heart rate 91 /min FERCHO SIVA [facility] 09-27-2023 13:53-0500 Respiratory rate 14 /min FERCHO SIVA [facility] 09-27-2023 13:53-0500 SaO2% (BldA) [Mass fraction] 98 % FERCHO SIVA [facility] 09-27-2023 13:53-0500 Systolic blood pressure 140 mm[Hg] FERCHO SIVA [facility] 05-15-2023 12:00-0400 Body height 165.1 cm Sissy Incentivepaula Other [facility] Other 05-15-2023 12:00-0400 Body mass index (BMI) [Ratio] 32.45 kg/m2 Sissyata Smith Other [facility] Other 05-15-2023 12:00-0400 Body weight 88.45 kg Sissy Incentivepaula Other [facility] Other 11-25-2022 11:00-0500 Body height 165.1 cm Nika Richmond Other [facility] Other 11-25-2022 11:00-0500 Body mass index (BMI) [Ratio] 32.45 kg/m2 Nika Richmond Other [facility] Other 11-25-2022 11:00-0500 Body temperature 98.3 [degF] Nika Richmond Other [facility] Other 11-25-2022 11:00-0500 Body weight 88.45 kg Nika Richmond Other [facility] Other 11-25-2022 11:00-0500 Respiratory rate 20 /min Nika Richmond Other [facility] Other 11-25-2022 11:00-0500 SaO2% (BldA) [Mass fraction] 99 % Nika Richmond Other [facility] Other Encounters Encounter Date Encounter Type Care Provider Facility Start: 05-27-2024 End: 05-27-2024 Bamboo flowsheet Shawnee Chandler PA Work Phone: [facility] Start: 05-27-2024 End: 05-27-2024 Bamboo flowsheet Shawnee Chandler PA Work Phone: [facility] Start: 05-27-2024 End: 05-27-2024 ambulatory SHAWNEE CHANDLER Not Available Start: 05-27-2024 End: 05-27-2024 Patient encounter procedure Shawene Chandler PA Work Phone: [facility] Comment on above: Rotator cuff impinge ment syndrome of left shoulder (Primary Dx); Arthritis of left acromioclavicular joint; Right cervical radiculopathy Start: 05-20-2024 End: 05-20-2024 ambulatory GLADWIN A [facility] Facility:[facility] Start: 03-03-2024 ambulatory [facility] Facility :[facility] Start: 01-15-2024 End: 01-15-2024 ambulatory GLADWIN A [facility] Facility:[facility] Start: 11-02-2023 ambulatory [facility] Facility : [place] Start: 09-27-2023 End: 09-27-2023 ambulatory FERCHO PANIAGUA Facility:[facility] Start: 09-27-2023 End: 09-27-2023 Patient encounter procedure FERCHO PANIAGUA [facility] [place] Start: 05-15-2023 Office outpatient ne w 30 minutes Sissy Smith [facility] Start: 05-15-2023 End: 05-15-2023 ambulatory Finesse Recio Facility:[facility] Start: 05-15-2023 End: 05-15-2023 ambulatory DO Finesse Recio Work Phone: [facility] Work Phone: Start: 05-15-2023 End: 05-15-2023 Patient encounter procedure DO Finesse Recio Work Phone: [facility] Start: 12-21-2022 End: 12-21-[address] BONITA SHELDON . Facility:[facility] Start: 12-07-2022 Encounter for prepro cedural cardiovascular examination DR BONITA SHELDON . [facility] Start: 12-05-2022 End: 12-06-[address] BONITA SHELDON . Facility: Start: 12-05-2022 End: 12-06-2022 Encounter for preprocedural cardiovascular examination DR BONITA SHELDON . Facility:[facility] Start: 11-25-2022 End: 11-25-2022 ambulatory Nika Richmond Other [facility] Other Start: 11-25-2022 Office outpatient ne w 30 minutes Nika Richmond [facility] Start: 11-07-2022 End: 11-08-[address] DARA STAFFORD Facility:[facility] Start: 11-01-2022 End: 11-01-[address] SURY REYES . Facility:[facility] Start: 05-09-2022 End: 05-09-2022 Departed Referred DO Finesse Recio Work Phone: [facility] Procedures Date [...] 06-01-2024 Influenza vaccination Influenza Vacc ine (#1) [facility] Start: 11-07-2023 Screening for malign ant neoplasm of breast Mammogram [facility] Start: 2002 Screening for malign ant neoplasm of cervix [facility] Start: 1993 Screening for malign ant neoplasm of cervix Pap Smear [facility] Start: 1972 Screening for malign ant neoplasm of colon [facility] Payers Date Payer Category Payer Self-pay [id number] 2022 Unknown [employer] [id number] 2022-Present [address] [place] [address] [id number] 1972 Unknown [id number] 1972 Unknown [id number] 1972 Unknown [id number] 1972 Unknown [id number] 1972 Unknown [id number] 1972 Unknown [id number] 1972 Unknown [id number] 1972 Unknown [id number] 1959 Unknown [id number] Unknown [id number] Social History Date Type Detail Facility Tobacco smoking stat [facility] Unknown if ever smoked [facility] Work Phone: Start: 1970 Sex Assigned At Female F [facility] Start: 05-27-2024 Sex Assigned At F [facility] Start: 09-27-2023 End: 05-27-2024 Tobacco smoking status Never smoked tobacco (finding) [facility] Tobacco smoking status Never [facility] Start: 05-27-2024 Tobacco use and exposure Smokeless tobacco non-user [facility] Start: 05-27-2024 Alcoholic beverage intake Current drinker of alcohol (finding) [facility] Start: 05-27-2024 Alcoholic beverage intake [facility] Start: 1970 Sex assigned at Not on file [facility] Tobacco smoking stat [facility] Tobacco smoking consumption unknown [facility] Functional Status Date Assessment Result Facility 09-27-2023 Functional Status N/A [facility] [place] Clinical Notes 11-25-2022 to 05-27-2024 CLARA Hobson - 05/27/2024 8:45 AM EDTTJAMES Ramsey [...] which does significantly help. 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 JAMES Valdez documented in this encounter [facility] 05-27-2024 Instructions JAMES Valdez - 05/27/2024 8:45 [...] and neck region. documented in this encounter [facility] 05-20-2024 Note Patient Education Orthopedics Shoulder Pain [...] strengthen the arm. General instructions ? Take qgtp-bfo-jfxmzfa and prescription medicines only as told by [...] Reviewed: 06/02/2022 Elsesameer Patient Education ? 2022 WanovaNika [facility] 09-27-2023 Hospital Discharge instructions Patient Education 09/27/2023 15:57:06 Upper Respiratory Infection, Adult, Ozxb-qg-Oxoj Upper Respiratory Infection, Adult An upper respiratory [...] medicines to help relieve symptoms, such as: Fslb-xkc-fggrdza cold medicines. Medicines to reduce coughing (cough [...] and other clear broths. General instructions Take yspi-god-qheqopz and prescription medicines only as told by [...] cannot use soap and water, use hand intraoperative neuro tech. Avoid touching your mouth, face, eyes, or [...] get better within 7 10 days. Take psdk-uli-szclnpw and prescription medicines only as told by your doctor. This information is not intended to replace advice given to you by your health care provider. Make sure you discuss any questions you have with your health care provider. Document Revised: 04/19/2022 Document Reviewed: 04/19/2022 [employer] Patient Education 2022 W[employer]. [facility] [place] 05-15-2023 Evaluation note Encounter Date Diagnosis Assessment [...] Mass of left hand (ICD-10 - R22.32) [facility] Other [id number] NoteOPERATIVE NOTE OPERATION DATE: 12/21/2022 PROCEDURE: Shanel endometrial ablation with robotic assisted bilateral salpingectomy with removal of pedunculated fibroid at the fundal region of the uterus. PREOPERATIVE DIAGNOSIS: Menorrhagia, desires permanent sterilization. POSTOPERATIVE DIAGNOSIS: Menorrhagia, desires permanent sterilization including pedunculated uterine fibroid ANESTHESIA: General. SURGEON: Bonita Sheldon D.O. HUMAN SERVICES WORKER: SKIP Rodriguez URINE OUTPUT: Yellow and clear. [...] Sponge, lap and needle counts were correct [address]02-25-2023 Evaluation note * Encounter Date Diagnosis [...] weeks for the cough to go away [facility] Other Evaluation + Plan note No data available for this section [facility] Evaluation noteNo assessment information available [facility] Work Phone: Evaluation note* Diagnosis Rotator cuff impingement syndrome of left shoulder- Primary Arthritis of left acromioclavicular joint Right cervical radiculopathy documented [facility] N[facility]ative - Reported* Type Description Date Surgical History hip surgery 1972 Surgical History wisdom teeth extraction Hospitalization History hip surgery 1972 [facility] Other Progress note No data available for this section [facility] [place] Chief Complaint and Reason for Visit Chief Complaint wellness check Reason for Referral Reason 01/02/23 @ 9:50am skin lesion - possibly a wart that will not come off with OTC treatment Diagnosis 1 Skin lesion (L98.9) Referral Organization [facility] Family Maggy Patel Referring Provider First Name Nika Referring Provider Last Name Basilio Referring Provider Specialty Nurse Merlin thornton Referred Organization [facility] Referred Provider Tracy Murguia Referred Address ,[place], [place],[address] Referred Provider Specialty Dermatology Referral Priority Routine Referral Appointment Date 2023-01-02 General Notes Roxana Dejesus 023 07:15:55 AM >Received referral. [facility] Dermatology office request us to send the referral P2P to them and they will call and schedule patient. [facility] 12/04/2022 10:23:35 AM >Fax letter for appt update [facility] 12/04/2022 01:05:59 PM >Received letter back with appt Specialty Diagnoses / Procedures Referred By Jorge morales Referred To Contact Orthopaedic Surgery Diagnoses Rotator cuff impingement syndrome of left shoulder Procedures L Inj/Asp: L glenohumeral Shawnee Chandler PA [address] [place] [address] Referral ID Status Reason Start Date Expiration Date V isits Requested Visits Authorized [id number] Authorized 05/27/2024 11/23/2024 1 1 Summary Purpose [...] Role Status Dates Finesse Recio , DO [facility] Primary Care Provider, Attending Provider Active Team Status: Active Member Role Status Dates Finesse Recio DO [facility] Primary Care Provider Active Team Status: Inactive Member Role Status Dates Finesse Recio DO [facility] Primary Care Provider Active Sissy Smith MD Attending Provider Active Ticket Broker Relationship Specialty Start Date End Date Shani Yuen, GRINDING MILL OPERATOR-TRIMMING MACHINE OPERATOR [address] [place] [address] PCP - Medical [facility] [employer] 11/15/00 09/30/99 Fercho Paniagua [address] [address] PCP - General 05/27/24 Ticket Broker Relationship Specialty Start Date End Date Shani YuenUMAIR-TRIMMING MACHINE OPERATOR [address] [place] [address] PCP - Medical [employer] 11/15/00 09/30/99 Fercho Paniagua [address] [address] PCP - General 05/27/24 Goals (unrecognized section and content) Goals may be documented in a n alternate sectionNo InformationGoals may be documented in an alternate sectionNo Information No data available for this section REASON FOR VISIT (unrecogniz ed section and content) Reason Comments Pain INFORMATION SOURCE (unrecogn ized section and content) DATE CREATED AUTHOR 01/05/2023 [facility] DATE CREATED AUTHOR AUTHOR'S ORGANIZ ATION 05/24/2023 [facility] DATE CREATED AUTHOR AUTHOR'S ORGANIZ ATION 05/22/2024 [facility] DATE CREATED AUTHOR AUTHOR'S ORGANIZ ATION 05/28/2024 [facility] dical Specialists [facility] FOR RECORDS PERTAINING TO PATIENTS WHO ARE [...] BE BASED ON THE PRIMARY CLINICAL RECORDS. [employer]. provides no warranty or guarantee of the accuracy or completeness of information in this document.
== END 2024-11-24 08:39 | disposition home or self-care (01) ==
LOC: EC 08:38
PROVIDERS: PCP Nurse Practitioner Family; Visit Provider Orthopaedic Surgery
DX: S62.391D Other fracture of second metacarpal bone, left hand, subsequent encounter for fracture with routine healing (principal)
CPT/HCPCS: 73130

== ENCOUNTER 2024-12-22 08:44 | Outpatient (OUT) | payer OTHER, SELFPAY ==
--- NOTE | 2024-12-22 08:45 | XR_ITS ---
The [address] [address] Patient Name: YUNIER GARY MRN: [id number] date: 1970 Sex: F Assigned Patient Location: Current Patient Location: Accession/Order Number: [id number] Exam Date: 12/22/2024 13:59 Report Date: 12/22/2024 14:00 At the request of: EAGLE HAYES MD Procedure: XR hand LT min 3V LEFT HAND - 3 views REASON FOR EXAM: Fracture second metacarpal left hand. COMPARISON: Left hand 11/24/2024 FINDINGS: No focal soft tissue abnormality. Second metacarpal fracture is grossly unchanged alignment and healing when compared to the prior study. No new fractures are noted. XR/XR hand LT min 3V IMPRESSION: NO SIGNIFICANT CHANGE IN FRACTURE FINDINGS. Impression dictated by: Dipak Nam Jr., D.O.12/22/2024 2:00 PM Dictation Location: [place] [address] Electronically authenticated by: [id number] Y Date: 12/22/2024 14:00
== END 2024-12-22 08:45 | disposition home or self-care (01) ==
LOC: EC 08:44
PROVIDERS: PCP Nurse Practitioner Family; Visit Provider Orthopaedic Surgery
DX: S62.391D Other fracture of second metacarpal bone, left hand, subsequent encounter for fracture with routine healing (principal)
CPT/HCPCS: 73130

== ENCOUNTER 2025-05-20 08:24 | Outpatient (OUT) | payer OTHER, SELFPAY ==
--- OUTSIDE RECORDS SUMMARY | 2025-05-20 08:28 | XMS_ITS | CCD ---
Author Organization [facility] Care Team Providers Care Sales Order Processor Name Role Phone DO Finesse Recio Primary Care Provider [phone] DO Finesse Recio Attending Provider [phone] Nika Richmond Unavailable SULEMAN ., DR MESA Admitting Unavailable GREY ., DR SURY Velez Primary Care Unavailable SULEMAN ., DR MESA Attending Unavailable SULEMAN ., DR MESA Consulting Unavailable ORTEGA SINGH Consulting Unavailable ALEHTEA II, TRACY Consulting Unavailable GREY ., DR SURY Velez Primary Care Unavailable SULEMAN ., DR MESA Attending Unavailable SULEMAN ., DR MESA Consulting Unavailable SULEMAN ., DR MESA Admitting Unavailable WEISER, DR DARA Souza Consulting Unavailable REQUEST, DR MITCHELL LISTED Primary Care Unavaila ble SULEMAN ., DR MESA Attending Unavailable SULEMAN ., DR MESA Admitting Unavailable SULEMAN ., DR MESA Consulting Unavailable SULEMAN ., DR MESA Admitting Unavailable GREY ., DR SURY Velez Primary Care Unavailable SULEAMN ., DR MESA Attending Unavailable SULEMAN ., DR MESA Consulting Unavailable DO Finesse Recio Primary Care Provider MD Sissy Smith Attending Provider Sissy Smith Unavailable FERCHO PANIAGUA Primary Care Physician Shani Baker Unavailable [phone] Fercho Paniagua Primary Care Provider Fercho Paniagua NP Primary Care Provider SHAWNEE CHANDLER Attending Unavailable FERCHO PANIAGUA Referring Unavailable NNEKA COBB Jaime Attending Unavailable [facility] Finesse SHOEMAKER Primary Care Provider [phone] [facility] Finesse SHOEMAKER Attending Provider Finesse Allen Attending Unavailable Almita Finesse DELGADO Primary Care Unavailable Finesse Allen Admitting Unavailable FERCHO PANIAGUA Attending Unavailable FERCHO PANIAGUA Attending Unavailable Allergies Allergy Classification Reported Allergen(s) Allergy Type Date of Onset Reaction(s) Facility (4 sources) predniSONE; Translations: [prednisone] Drug Allergy Foot swelling (finding), Itching (finding), Weal (disorder) [facility] [place] Comment on above: Patient states she c an take the tablets but no injections (1 source) predniSONE Drug Allergy [facility] Repository (4 sources) Prednisone Propensity to adverse reactions 4 Hives, Itching, Rash, Swelling, Dermatitis [facility] Healthcare (1 source) predniSONE Drug Allergy 3 [facility] Repository Medications Current Medications Medication Drug Class(es) Dates Sig (Normalized) Sig (Original) [id number] 200 actuat albuterol 0.09 mg/actuat metered dose inhaler (1 source) beta2-Adrenergic Agonist Start: 11-25-2022 take 2 puff(s) by inhalation every four hours as needed Albuterol Sulfate HFA 108 (90 Base) MCG/ACT 2 puffs as needed Inhalation every 4 hrs Nov, Active amoxicillin 875 mg / clavulanate 125 mg oral tablet (2 sources) Penicillin-class Antibacterial Start: 01-03-2025 End: 01-10-2025 take 1 tablet by mouth in the morning amoxicillin-clavulan ate (Augmentin) 875-125 MG tablet Indications: Acute bacterial rhinosinusitis Take 1 tablet (875 mg) by mouth in the morning and 1 tablet (875 mg) before bedtime. Do all this for 7 days. 14 tablet 01/03/2025 01/10/2025 Active azithromycin 250 mg oral tablet (1 [...] day(s), # 6 tab(s), Refills(s) 0, Pharmacy: [facility]/pharmacy #[id number], 165, cm, 09/27/23 14:13:00 EST, Height/Length Dosing, 90.2, kg, 09/27/23 14:13:00 EST, Weight Dosing Start Date: 09/27/23 Stop Date: 10/02/23 Status: Ordered benzonatate 200 mg oral capsule (1 source) Non-narcotic Antitussive Start: 11-25-2022 take 1 capsule by mouth every eight hours Benzonatate 200 MG 1 capsule Orally Three times a day for 10 days Nov, Active cholecalciferol 0.05 mg oral capsule (4 sources) Vitamin D Start: 01-15-2024 cholecalciferol (Vitamin D-3) 50 MCG (1999 UT) capsule Refills(s) 0 01/15/2024 Active fluconazole 150 mg oral tablet (3 sources) Azole Antifungal Start: 01-03-2025 End: 01-04-2025 take 1 tablet by mouth once daily fluconazole (Diflucan) 150 MG tablet Indications: Vulvovaginal candidiasis Take 1 tablet (150 mg) by mouth Daily for 1 day 1 tablet 01/03/2025 01/04/2025 Active Start: 09-27-2023 Diflucan 150 m g Tab See Instructions, Take one tablet at the onset of symptoms; may repeat in 72 hours, # 2 tab(s), Refills(s) 0, Pharmacy: [facility]/pharmacy #[id number], 165, cm, 09/27/23 14:13:00 EST, Height/Length Dosing, 90.2, kg, 09/27/23 14:13:00 EST, Weight Dosing Start Date: 09/27/23 Status: Ordered fluticasone propionate 0.05 mg/actuat metered dose nasal spray (2 sources) Corticosteroid Start: 01-03-2025 End: 02-02-2025 take 2 spray(s) nasal route once daily fluticasone (Flonase) 50 MCG/ACT nasal spray Indications: Acute bacterial rhinosinusitis Administer 2 sprays into each nostril Daily Shake gently. Before first use, prime pump. After use, clean tip and replace cap. 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] Onset: 11-07-2022 Chronic Mycoses (2 sources) Candidal vulvovaginitis; Translations: [Vulvovaginal candidiasis] 01-03-2025 Episodic Neoplasms of unspecified nature or uncertain behavior (2 sources) Neoplasm of uncertain behavior of skin; Translations: [Neoplasm of uncertain behavior of skin] 01-03-2025 Episodic Osteoarthritis (2 sources) Arthritis of left acromioclavicular [...] upper limb Episodic Other upper respiratory infections (3 sources) Acute upper respiratory infection; Translations: [Acute upper respiratory infection, unspecified] Onset: 09-27-2023 Episodic Residual codes; unclassified (1 source) Family history of malignant neoplasm of other genital organs; Translations: [FAM HX MALIG NEOPLSM OTH GENIT ORGN] Onset: 11-08-2022 Episodic Residual codes; unclassified (1 source) Family history of malignant neoplasm of other organs or systems; Translations: [FAM HX MALIG NEOPLASM OTH ORGN/SYS] Onset: 11-08-2022 Episodic Past or Other Problems Problem Classification Problem Date Documented Da te Episodic/Chronic Other connective tissue disease (2 sources) Rotator cuff impingement syndrome; Translations: [Impingement syndrome of left shoulder] 05-27-2024 Episodic Spondylosis; intervertebral disc disorders; other back problems (2 sources) Right cervical root neuropathy; Translations: [Radiculopathy, cervical region] 05-27-2024 Episodic Results Test Name Value Interpretation Reference Range Facility Ambulatory Visit Summaryon 0 04-28-2025 Ambulatory Visit Summary Ambulatory Visit Summary YUNIER MATAMOROS :1970 Visit Date:04/28/2025 Ambulatory Visit Instructions Your Diagnosis High cholesterol High serum low-density lipoprotein (LDL) BMI 32.0-32.9,adult Obesity (BMI 30.0-34.9) Nonsmoker Your Care Team Attending Physician - FERCHO PANIAGUA CNP Primary Care Physician - FERCHO PANIAGUA CNP This Is Your Medications List calcium-vitamin D ergocalciferol (Vitamin D) multivitamin (Multi Vitamin+) Procedures Performed Cyst of Bartholin's gland (2017), [place] tooth (2004), Hip bone (1972), Tubal ligation. Discharge Vitals Temperature (Oral) 36.8 ???C Heart Rate (Peripheral) 70 Respiratory Rate 18 Blood Pressure 132/84 Height 165 cm Height 65 in Weight 87.9 kg Weight 193.786 lb BMI 32.29 Medications What How Much When Instructions New calcium-vitamin D Unchanged ergocalciferol (Vitamin D) Unchanged multivitamin (Multi Vitamin+) Allergies predniSONE (Swollen foot, Itchy, Hives) Problems Ongoing - Any problem that you are currently receiving treatment for. BMI 32.0-32.9,adult Bronchitis Nonsmoker Obesity (BMI 30.0-34.9) Patient Survey You may receive a survey via text or e-mail asking about your office visit. Please share your experience with us by completing your survey. We appreciate your feedback and thank you for choosing us for your care. Patient Portal You may access all of your results and other medical record information on our secure patient portal. If you are not signed up for this yet, please contact Health Information Management at [phone] to get signed up today. Language Information Language assistance services are available as needed. [facility] Family Medicine Office/Clini c Noteon 04-28-2025 Family Medicine Office/Clinic Note Family Medicine Office/Clinic Note Chief Complaint Annual Wellness The patient is concerned about high cholesterol levels. HPI Staff Pt presents today for annual wellness. Labs completed 04/16/25 @ [facility]. Health Maintenance: Colonoscopy: no Mammo: cpl yrs ago Pap: cpl yrs Last Labs: 04/16/25 Is concerned with cholesterol labs. I have reviewed and verified the staff HPI to be accurate for this encounter. History of Present Illness 54-year-old female presenting for a wellness visit and to discuss lab results. Her cholesterol level is elevated at 235 mg/dL, with an LDL of 159 mg/dL, which is above the recommended level of under 100 mg/dL. The patient has a family history of high blood pressure, heart attacks, heart disease, and diabetes, which may contribute to her concern about her cholesterol levels. According to the [employer] risk calculator., patient has a 1.9 % risk of stroke or cardiac event in the next ten years. The patient is classified as having obesity with a BMI between 30.0 and 34.9. She is currently engaging in lifestyle modifications, including intermittent fasting, to manage her weight and improve her health. The patient is a nonsmoker, which is a positive factor in her overall health profile. Preventative care measures discussed include colon cancer screening with a stool test and scheduling a mammogram, which she has not had in the past two years. Review of Systems PHQ Score Initial Depression [...] noncontributory. Physical Exam Vitals & Measurements T: 36.8 ???C(Oral) HR: 70(Peripheral) RR: 18 BP: 132/84 SpO2: 99% HT: 165 cm HT: 65 in WT: 87.9 kg WT: 193.786 lb BMI: 32.29 General: alert, no acute distress Skin: warm, [...] normal judgement, normal psychiatric thoughts. Assessment/Plan 1. High cholesterol (E78.00: Pure hypercholesterolemia, unspecified) - Lifestyle modifications recommended, including dietary changes to reduce saturated fats and cholesterol intake. - Re-evaluation of cholesterol levels in one year to assess the effectiveness of lifestyle changes. f/u annual wellness 2. High serum low-density lipoprotein (LDL) (R79.89: Other specified abnormal findings of blood chemistry) - Advised to continue monitoring LDL levels and maintain lifestyle modifications. 3. Screening for breast cancer (Z12.39: Encounter for other screening for malignant neoplasm of breast) Ordered: MA Mamm Screen w/CAD if perf and 3D Andre 4. Screen for colon cancer (Z12.11: Encounter for screening for malignant neoplasm of colon) Ordered: Cologuard Screening Test 5. BMI 32.0-32.9,adult (Z68.32: Body mass index [BMI] 32.0-32.9, adult) BMI 32.39 6. Obesity (BMI 30.0-34.9) (E66.811: Obesity, class 1) - Encouraged to continue intermittent fasting and other weight management strategies. 7. Nonsmoker (Z78.9: Other specified health status) - Encouraged to continue as a non-smoker Follow-up With When Contact Information FERCHO PANIAGUA CNP, PATRICK Within 1 year [address] [place] [phone] Business (1) Additional Instructions: Well adult visit Patient Education Breast Self-Awareness, Eajm-cp-Ibun Fat and Cholesterol Restricted Eating Plan Problem List/Past Medical History Ongoing BMI 32.0-32.9,adult Bronchitis Nonsmoker Obesity (BMI 30.0-34.9) Historical No qualifying data Procedure/Surgical History Cyst of Bartholin's gland (2017), [place] tooth (2004), (more content not included)... Normal [facility] Comment on above: Result Comment: Elec tronically Signed By: FERCHO PANIAGUA CNP\.br\Date and Time Signed: 04/28/25 10:07 EDT Alanine aminotransferase [En zymatic activity/volume] in Serum or PlasmaOrdered By: Finesse Recio on 04-16-2025 ALT [Catalytic activity/Vol] 15 U/L Normal 7-52 [facility] Comment on above: Performed By: #### T SH3, LIPID, CBC, CMP #### [facility] [address] [place] [address] [place] Albumin [Mass/volume] in Ser um or Plasma by Bromocresol green (BCG) dye binding methoOrdered By: Finesse Recio on 04-16-2025 Albumin BCG dye [Mass/Vol] 4.4 g/dL 3.5-5.7 [facility] Alkaline phosphatase [Enzyma tic activity/volume] in Serum or PlasmaOrdered By: Finesse Recio on 04-16-2025 ALP [Catalytic activity/Vol] 63 U/L Normal 34-104 [facility] Comment on above: Performed By: #### T SH3, LIPID, CBC, CMP #### [facility] [address] [place] [address] [place] Aspartate aminotransferase [ Enzymatic activity/volume] in Serum or PlasmaOrdered By: Finesse Recio on 04-16-2025 AST [Catalytic activity/Vol] 14 U/L Normal 13-39 [facility] Comment on above: Performed By: #### T SH3, LIPID, CBC, CMP #### [facility] [address] Basophils [#/volume] in Bloo d by Automated countOrdered By: Finesse Recio on 04-16-2025 Basophils (Bld) [#/Vol] 0.0 10*3/uL Normal 0.0-0.2 [facility] Comment on above: Result Comment: PERF ORMED BY: [place] [address] PATHOLOGIST [employer] SHANNA TORREZ M.D. Performed By: #### T SH3, LIPID, CBC, CMP #### [address] Basophils/100 leukocytes in Blood by Automated countOrdered By: Finesse Recio on 04-16-2025 Basophils/100 WBC (Bld) 0.8 % Normal . [facility] Comment on above: Performed By: #### T SH3, LIPID, CBC, CMP #### [address] Bilirubin.total [Mass/volume ] in Serum or PlasmaOrdered By: Finesse Recio on 04-16-2025 Bilirubin [Mass/Vol] 0.7 mg/dL Normal 0.3-1.0 [facility] Comment on above: Performed By: #### T SH3, LIPID, CBC, CMP #### [address] Calcium [Mass/volume] in Ser um or PlasmaOrdered By: Finesse Recio on 04-16-2025 Calcium [Mass/Vol] 8.9 mg/dL Normal 8.6-10.3 [facility] Comment on above: Performed By: #### T SH3, LIPID, CBC, CMP #### [address] Carbon dioxide, total [Moles /volume] in Serum or PlasmaOrdered By: Finesse Recio on 04-16-2025 CO2 [Moles/Vol] 27.0 mmol/L Normal 21.0-31.0 [facility] Comment on above: Performed By: #### T SH3, LIPID, CBC, CMP #### [facility] [address] [place] [id number] [place] Chloride [Moles/volume] in S fidelina or PlasmaOrdered By: Finesse Recio on 04-16-2025 Chloride [Moles/Vol] 105 mmol/L Normal 98-107 [facility] Comment on above: Performed By: #### T SH3, LIPID, CBC, CMP #### [facility] [address] [place] [address] [place] Cholesterol [Mass/volume] in Serum or PlasmaOrdered By: Finesse Recio on 04-16-2025 Cholesterol [Mass/Vol] 233 mg/dL High 140-[address] [facility] Comment on above: Chol less than 200 m g/dl low riskChol 201-239 mg/dl borderline riskChol 240 mg/dl and greater high risk Result Comment: Chol less than 200 mg/dl low risk Chol 201-239 mg/dl borderline risk Chol 240 mg/dl and greater high risk Performed By: #### T SH3, LIPID, CBC, CMP #### [facility] [address] [place] [id number] [place] Cholesterol in HDL [Mass/vol ume] in Serum or PlasmaOrdered By: Finesse Recio on 04-16-2025 Cholesterol in HDL [Mass/Vol] 55 mg/dL Normal 23-92 [facility] Comment on above: HDL CHOL ATP-III CLA SSIFICATION Cardiovascular RiskHDL > or equal to 60 mg/dL LOWHDL < 40 mg/dL HIGH Result Comment: HDL CHOL ATP-III CLASSIFICATION Cardiovascular Risk HDL > or equal to 60 mg/dL LOW HDL < 40 mg/dL HIGH Performed By: #### T SH3, LIPID, CBC, CMP #### [facility] [address] [place] [id number] [place] Cholesterol in LDL Calc [Mas s/Vol]Ordered By: Finesse Recio on 04-16-2025 Cholesterol in LDL [Mass/Vol] 159 mg/dL High 0-100 [facility] Comment on above: LDL ATP III CLASSIFI CATIONLDL less than 100 mg/dL OptimalLDL 100-129 mg/dL Near or above optimalLDL 130-159 mg/dL Borderline highLDL 160-189 mg/dL HighLDL greater than 189 mg/dL Very high Cholesterol in VLDL Calc [Ma ss/Vol]Ordered By: Finesse Recio on 04-16-2025 Cholesterol in VLDL [Mass/Vol] 19 mg/dL [facility] Complete Blood Count Auto Di ffon 04-16-2025 Mean Corpuscular HGB Conc 34.7 g/dL Normal 32.0-35.0 [facility] Comment on above: Performed By: #### T SH3, LIPID, CBC, CMP #### [facility] [address] NRBC% 0.2 /100{WBC} Normal 0-0.5 [facility] Comment on above: Performed By: #### T SH3, LIPID, CBC, CMP #### [facility] [address] [place] [address] White Blood Count 6.2 [CFU]/mL Normal 3.8-11.6 [facility] Comment on above: Performed By: #### T SH3, LIPID, CBC, CMP #### [facility] [address] Comprehensive Metabolic Pane johnson 04-16-2025 Albumin [Mass/Vol] 4.4 g/dL Normal 3.5-5.7 [facility] Comment on above: Performed By: #### T SH3, LIPID, CBC, CMP #### [place] [address] [place] GFR/1.73 sq M.predicted MDRD (S/P/Bld) [Vol rate/Area] mL/min/{1.73_m2} Normal [facility] Comment on above: Performed By: #### T SH3, LIPID, CBC, CMP #### [place] [address] [place] Creatinine [Mass/volume] in Serum or PlasmaOrdered By: Finesse Recio on 04-16-2025 Creatinine [Mass/Vol] 0.60 mg/dL Normal 0.60-1.20 [facility] Comment on above: Performed By: #### T SH3, LIPID, CBC, CMP #### [facility] [address] Eosinophils [#/volume] in Bl ood by Automated countOrdered By: Finesse Recio on 04-16-2025 Eosinophils (Bld) [#/Vol] 0.1 10*3/uL Normal 0.0-0.45 [facility] Comment on above: Performed By: #### T SH3, LIPID, CBC, CMP #### [place] [address] [place] Eosinophils/100 leukocytes i n Blood by Automated countOrdered By: Finesse Recio on 04-16-2025 Eosinophils/100 WBC (Bld) 1.8 % Normal . [facility] Comment on above: Performed By: #### T SH3, LIPID, CBC, CMP #### [address] Erythrocyte distribution wid th [Ratio] by Automated countOrdered By: Finesse Recio on 04-16-2025 Erythrocyte distribution width (RBC) [Ratio] 12.7 % Normal 11.9-15.3 [facility] Comment on above: Performed By: #### T SH3, LIPID, CBC, CMP #### [address] Erythrocytes [#/volume] in B lood by Automated countOrdered By: Finesse Recio on 04-16-2025 RBC (Bld) [#/Vol] 4.19 10*6/uL Normal 3.60-5.00 [facility] Comment on above: Performed By: #### T SH3, LIPID, CBC, CMP #### [address] Glucose [Mass/volume] in Ser um or PlasmaOrdered By: Finesse Recio on 04-16-2025 Glucose [Mass/Vol] 95 mg/dL Normal 70-100 [facility] Comment on above: ADA recommended refe rence rangeRandom Glucose Reference Range is dependent on time and content of last meal. Glucose of more than 200 mg/dL in a nonstressed, ambulatory subject supports the diagnosis of Diabetes Mellitus. Result Comment: [place] Glucose Reference Range is dependent on time and content of last meal. Glucose of more than 200 mg/dL in a nonstressed, ambulatory subject supports the diagnosis of Diabetes Mellitus. ADA recommended reference range Performed By: #### T SH3, LIPID, CBC, CMP #### [facility] [address] Hematocrit [Volume Fraction] of Blood by Automated countOrdered By: Finesse Recio on 04-16-2025 Hematocrit (Bld) [Volume fraction] 37.8 % Normal 34.0-46.4 [facility] Comment on above: Performed By: #### T SH3, LIPID, CBC, CMP #### [facility] [address] Hemoglobin [Mass/volume] in BloodOrdered By: Finesse Recio on 04-16-2025 Hemoglobin (Bld) [Mass/Vol] 13.1 g/dL Normal 11.8-15.4 [facility] Comment on above: Performed By: #### T SH3, LIPID, CBC, CMP #### [facility] [address] Leukocytes [#/volume] correc radha for nucleated erythrocytes in Blood by Automated counOrdered By: Finesse Recio on 04-16-2025 WBC corrected for nucl RBC Auto (Bld) [#/Vol] 6.2 10*3/uL 3.8-11.6 [facility] Leukocytes [#/volume] in Blo od by Automated countOrdered By: Finesse Recio on 04-16-2025 WBC (Bld) [#/Vol] 6.2 10*3/uL Normal 3.8-11.6 [facility] Comment on above: Performed By: #### T SH3, LIPID, CBC, CMP #### [facility] [address] Lipid Panelon 04-16-2025 LDL Cholesterol,Calculated 159 mg/dL High 0-100 [facility] Comment on above: Result Comment: LDL ATP III CLASSIFICATION LDL less than 100 mg/dL Optimal LDL 100-129 mg/dL Near or above optimal LDL 130-159 mg/dL Borderline high LDL 160-189 mg/dL High LDL greater than 189 mg/dL Very high Performed By: #### T SH3, LIPID, CBC, CMP #### [address] Triglyceride w/Reflex 96 mg/dL Normal 0-149 [facility] Comment on above: Result Comment: TRIG ATP III CLASSIFICATION TRIG less than 150 mg/dL Normal TRIG 150-199 mg/dL Borderline high TRIG 200-500 mg/dL High TRIG greater than 500 mg/dL Very high Standard traceable to the Center for Disease Conrtrol and Prevention (CDC) test method. Performed By: #### T SH3, LIPID, CBC, CMP #### [address] VLDL CHOLESTEROL 19 mg/dL Normal [facility] Comment on above: Performed By: #### T SH3, LIPID, CBC, CMP #### [address] Lymphocytes [#/volume] in Bl ood by Automated countOrdered By: Finesse Recio on 04-16-2025 Lymphocytes (Bld) [#/Vol] 1.7 10*3/uL Normal 1.00-4.8 [facility] Comment on above: Performed By: #### T SH3, LIPID, CBC, CMP #### [address] Lymphocytes/100 leukocytes i n Blood by Automated countOrdered By: Finesse Recio on 04-16-2025 Lymphocytes/100 WBC (Bld) 27.6 % Normal . [facility] Comment on above: Performed By: #### T SH3, LIPID, CBC, CMP #### [address] MCH [Entitic mass] by Automa radha countOrdered By: Finesse Recio on 04-16-2025 MCH (RBC) [Entitic mass] 31.3 pg Normal 24.7-34.3 [facility] Comment on above: Performed By: #### T SH3, LIPID, CBC, CMP #### [address] MCHC Auto (RBC) [Mass/Vol]Or dered By: Finesse Recio on 04-16-2025 MCHC (RBC) [Mass/Vol] 34.7 g/dL 32.0-35.0 [facility] MCV [Entitic volume] by Auto mated countOrdered By: Finesse Recio on 04-16-2025 MCV (RBC) [Entitic vol] 90.2 fL Normal 80-100 [facility] Comment on above: Performed By: #### T SH3, LIPID, CBC, CMP #### [facility] [address] [place] [address] [place] Monocytes [#/volume] in Bloo d by Automated countOrdered By: Finesse Recio on 04-16-2025 Monocytes (Bld) [#/Vol] 0.4 10*3/uL Normal 0.0-0.8 [facility] Comment on above: Performed By: #### T SH3, LIPID, CBC, CMP #### [facility] [address] [place] [address] [place] Monocytes/100 leukocytes in Blood by Automated countOrdered By: Finesse Recio on 04-16-2025 Monocytes/100 WBC (Bld) 6.9 % Normal . [facility] Comment on above: Performed By: #### T SH3, LIPID, CBC, CMP #### [facility] [address] [place] [address] [place] Neutrophils [#/volume] in Bl ood by Automated countOrdered By: Finesse Recio on 04-16-2025 Neutrophils (Bld) [#/Vol] 3.9 10*3/uL Normal 1.8-7.7 [facility] Comment on above: Performed By: #### T SH3, LIPID, CBC, CMP #### [facility] [address] [place] [address] [place] Neutrophils/100 leukocytes i n Blood by Automated countOrdered By: Finesse Recio on 04-16-2025 Neutrophils/100 WBC (Bld) 62.9 % Normal . [facility] Comment on above: Performed By: #### T SH3, LIPID, CBC, CMP #### [facility] [address] No Panel InformationOrdered By: Finesse Recio on 04-16-2025 Estimated GFR (CKD-EPI) > 60.0 mL/Min [facility] Creatinine Clearance (Chem N/A [facility] Nucleated erythrocytes [Pres ence] in Blood by Automated countOrdered By: Finesse Recio on 04-16-2025 Nucleated RBC Auto Ql (Bld) 0.2 /100{WBC} 0-0.5 [facility] Platelet mean volume [Entiti c volume] in Blood by Automated countOrdered By: Finesse Recio on 04-16-2025 Platelet mean volume (Bld) [Entitic vol] 8.6 fL Normal 6.3-10.7 [facility] Comment on above: Performed By: #### T SH3, LIPID, CBC, CMP #### [facility] [address] [place] [address] Platelets [#/volume] in Bloo d by Automated countOrdered By: Finesse Recio on 04-16-2025 Platelets (Bld) [#/Vol] 293 10*3/uL Normal 150-450 [facility] Comment on above: Performed By: #### T SH3, LIPID, CBC, CMP #### [facility] [address] [place] [address] Potassium [Moles/volume] in Serum or PlasmaOrdered By: Finesse Recio on 04-16-2025 Potassium [Moles/Vol] 4.3 mmol/L Normal 3.5-5.1 [facility] Comment on above: Performed By: #### T SH3, LIPID, CBC, CMP #### [facility] [address] Protein [Mass/volume] in Ser um or PlasmaOrdered By: Finesse Recio on 04-16-2025 Protein [Mass/Vol] 7.0 g/dL Normal 6.4-8.9 [facility] Comment on above: Performed By: #### T SH3, LIPID, CBC, CMP #### [facility] [address] [place] [address] Serum globulin measurement b y calculation (mass/volume)Ordered By: Finesse Recio on 04-16-2025 Globulin (S) [Mass/Vol] 2.6 g/dL Normal [facility] Comment on above: Performed By: #### T SH3, LIPID, CBC, CMP #### [address] Serum or plasma albumin/glob ulin mass ratioOrdered By: Finesse Recio on 04-16-2025 Albumin/Globulin [Mass ratio] 1.7 {ratio} Normal [facility] Comment on above: Performed By: #### T SH3, LIPID, CBC, CMP #### [address] Serum or plasma anion gap de terminationOrdered By: Finesse Recio on 04-16-2025 Anion gap [Moles/Vol] 9.3 mmol/L Normal 6.0-15.0 [facility] Comment on above: Performed By: #### T SH3, LIPID, CBC, CMP #### [address] Serum or plasma total choles terol/high density lipoprotein (HDL) cholesterol mass ratOrdered By: Finesse Recio on 04-16-2025 Cholesterol.total/Umm sterol in HDL [Mass ratio] 4.2 {ratio} Normal <5.0 [facility] Comment on above: Performed By: #### T SH3, LIPID, CBC, CMP #### [address] Sodium [Moles/volume] in Ser um or PlasmaOrdered By: Finesse Recio on 04-16-2025 Sodium [Moles/Vol] 137 mmol/L Normal 136-145 [facility] Comment on above: Performed By: #### T SH3, LIPID, CBC, CMP #### [address] Thyrotropin [Units/volume] i n Serum or PlasmaOrdered By: Finesse Recio on 04-16-2025 TSH Qn 1.83 m[IU]/L Normal 0.45-5.33 [facility] Comment on above: Result Comment: PERF ORMED BY: [place] [address] PATHOLOGIST [employer] SHANNA TORREZ M.D. Performed By: #### T SH3, LIPID, CBC, CMP #### [place] [id number] [facility] Triglyceride [Mass/volume] i n Serum or PlasmaOrdered By: Finesse Recio on 04-16-2025 Triglyceride [Mass/Vol] 96 mg/dL 0-149 [facility] Comment on above: TRIG ATP III CLASSIF ICATIONTRIG less than 150 mg/dL NormalTRIG 150-199 mg/dL Borderline highTRIG 200-500 mg/dL High TRIG greater than 500 mg/dL Very highStandard traceable to the Center for Disease Conrtrol and Prevention (CDC) test method. Urea nitrogen [Mass/volume] in Serum or PlasmaOrdered By: Finesse Recio on 04-16-2025 Urea nitrogen [Mass/Vol] 8 mg/dL Normal 7-25 [facility] Comment on above: Performed By: #### T SH3, LIPID, CBC, CMP #### [address] No Panel Informationon 05-27 Melia Rosado, ARRT 05/27/2024 4:13 PM L Inj/Asp: L glenohumeral on 05/27/2024 9:20 AM Indications: pain Details: 25 G needle, ultrasound-guided anterior approach Medications: 12 mg betamethasone acetate-betamethasone sodium phosphate 6 (3-3) MG/ML Procedure, treatment alternatives, risks and benefits explained, specific risks discussed. Consent was given by the patient. Patient was prepped and draped in the usual sterile fashion. [facility] Office/Clini c Noteon 05-21-2024 Family [...] qualifying data available Patient Education Shoulder Pain, Ansq-rr-Yzwg Problem List/Past Medical History Ongoing Bronchitis Historical No qualifying data Procedure/Surgical History Cyst of Bartholin's gland (2017), [place] tooth (2004), Hip bone (1972), Tubal ligation. [...] and Father. Hypertension: Mother. Stroke: Mother. Normal [facility] Comment on above: Result Comment: Elec tronically Signed By: FERCHO PANIAGUA CNP\.br\Date and Time Signed: 05/21/24 14:00 EDT Ambulatory [...] Procedures Performed Cyst of Bartholin's gland (2017), [place] tooth (2004), Hip bone (1972), Tubal ligation. [...] strengthen the arm. General instructions ? Take xelr-lnt-ozhmzmq and prescription medicines only as told by [...] provider. Document Revised: 06/02/2022 Document Reviewed: 06/02/2022 [employer] Patient Education ? 2022 [employer]. Normal [facility] XR hand LT min 3V*on 023 XR hand LT min 3V* [facility] [employer] Other XR hand LT min 3V* [facility] [employer] Other XR hand LT min 3V* [address] [facility] [employer] Other XR hand LT min 3V* RACHELE Bhagat [address] [employer] Other XR hand LT min 3V* XRay Report [employer] Other XR hand LT min 3V* Signed [employer] Other XR hand LT min 3V* Patient: Yunier Matamoros MR#: [id number] [facility] [employer] Other XR hand LT min 3V* 827 [employer] Other XR hand LT min 3V* : 1970 Acct:[id number] [employer] Other XR hand LT min 3V* Age/Sex: 52 / F ADM Date: 05/15/23 [employer] Other XR hand LT min 3V* Loc: [facility] Room: [facility] [employer] Other XR hand LT min 3V* Attending Dr: Mandy Smith MD [employer] Other XR hand LT min 3V* Copies to: Sissy Smith MD [employer] Other XR hand LT min 3V* Ordering Provider: Sissy Smith MD [employer] Other XR hand LT min 3V* Date of Service: 05/15/23 [employer] Other XR hand LT min 3V* XR/XR hand LT min 3V*: PAIN [employer] Other XR hand LT min 3V* XR hand LT min 3V* 05/15/2023 12:09 PM [employer] Other XR hand LT min 3V* SIGNS AND SYMPTOMS: Mass on left third digit [employer] Other XR hand LT min 3V* PROTOCOL: Frontal, lateral, and oblique radiographs of the left hand [employer] Other XR hand LT min 3V* COMPARISON: None [employer] Other XR hand LT min 3V* FINDINGS: [employer] Other XR hand LT min 3V* The bones are in anatomic alignment. There is no evidence of fracture or dislocation. The joint [employer] Other XR hand LT min 3V* spaces are preserved . No significant soft tissue swelling. [employer] Other XR hand LT min 3V* XR/XR hand LT min 3V* [employer] Other XR hand LT min 3V* IMPRESSION: [employer] Other XR hand LT min 3V* No acute bony injury or significant degenerative change. [employer] Other XR hand LT min 3V* No significant soft tissue swelling. [employer] Other XR hand LT min 3V* Impression dictated by: Mikhail Greenberg M.D.05/15/2023 4:52 PM [employer] Other XR hand LT min 3V* Dictation Location: [place] [address] [employer] Other XR hand LT min 3V* Transcribed By: TAVO 05/15/23 [facility] [employer] Other XR hand LT min 3V* Dictated By: Mikhail Greenberg II, MD 05/15/23 032 [employer] Other XR hand LT min 3V* Signed By: [employer] Other XR hand LT min 3V* 05/15/23 1652 [facility] [employer] Other CBC AUTO DIFFon 12-21-2022 BASO # 0.0 103/ul Normal 0.0-0.1 [facility] Comment on above: Performed By: #### C BC #### [facility] [address] [place] [address] [address] Scottie Franco Basophils/100 WBC (Bld) 0.7 % Normal 0.2-2.0 [facility] Comment on above: Performed By: #### C BC #### [facility] [address] [place] [address] [address] Scottie Franco EO # 0.2 103/ul Normal 0.0-0.7 [facility] Comment on above: Performed By: #### C BC #### [facility] [address] [place] [address] Dr. Scottie Franco Eosinophils/100 WBC (Bld) 3.0 % Normal 0.9-7.0 [facility] Comment on above: Performed By: #### C BC #### [facility] [address] [place] [address] [address] Scottie Franco Erythrocyte distribution width (RBC) [Ratio] 11.7 % Normal 11.0-15.0 [facility] Comment on above: Performed By: #### C BC #### [facility] [address] [place] [address] Dr. Scottie Franco Hematocrit (Bld) [Volume fraction] 35.3 % Critically low 36.0-48.0 [facility] Comment on above: Performed By: #### C BC #### [facility] [address] [place] [address] [address] Scottie Franco Hemoglobin (Bld) [Mass/Vol] 12.5 g/dL Normal 12.0-16.0 [facility] Comment on above: Performed By: #### C BC #### [facility] [address] [place] [address] Dr. Scottie Franco IG # 0.00 10e3/ul Normal 0.00-0.03 [facility] Comment on above: Performed By: #### C BC #### [facility] [address] [place] [address] Dr. Scottie Franco IG % 0.0 % Normal 0.0-0.5 [facility] Comment on above: Performed By: #### C BC #### [facility] [address] [place] [address] Dr. Scottie Franco LYMPH # 2.3 103/ul Normal 1.2-3.8 [facility] Comment on above: Performed By: #### C BC #### [facility] [address] [place] [address] Dr. Scottie Franco Lymphocytes/100 WBC (Bld) 37.6 % Normal 20.5-60.0 [facility] Comment on above: Performed By: #### C BC #### [facility] [address] [place] [address] Dr. Scottie Franco MANUAL DIFF REQ NO Normal [facility] Comment on above: Performed By: #### C BC #### [facility] [address] [place] [address] Dr. Scottie Franco MCH (RBC) [Entitic mass] 32.0 pg Normal 26.7-34.0 [facility] Comment on above: Performed By: #### C BC #### [facility] [address] [place] [address] Dr. Scottie Franco MCHC (RBC) [Mass/Vol] 35.4 g/dL Critically high 29.9-35.2 [facility] Comment on above: Performed By: #### C BC #### [facility] [address] [place] [address] Dr. Scottie Franco MCV (RBC) [Entitic vol] 90.3 fL Normal 81.0-99.0 [facility] Comment on above: Performed By: #### C BC #### [facility] [address] [place] [address] Dr. Scottie Franco MONO # 0.5 103/ul Normal 0.3-0.8 [facility] Comment on above: Performed By: #### C BC #### [facility] [address] [place] [address] Dr. Scottie Franco Monocytes/100 WBC (Bld) 7.8 % Normal 1.7-12.0 [facility] Comment on above: Performed By: #### C BC #### [facility] [address] [place] [address] Dr. Scottie Franco NEUT # 3.1 103/ul Normal 1.4-6.5 [facility] Comment on above: Performed By: #### C BC #### [facility] [address] [place] [address] Dr. Scottie Franco Neutrophils/100 WBC (Bld) 50.9 % Normal 43.0-75.0 [facility] Comment on above: Performed By: #### C BC #### [facility] [address] [place] [address] Dr. Scottie Franco Platelet mean volume (Bld) [Entitic vol] 10.0 fL Normal 9.5-13.5 [facility] Comment on above: Performed By: #### C BC #### [facility] [address] [place] [address] Dr. Scottie Franco PLT 314 103/ul Normal 150-450 [facility] Comment on above: Performed By: #### C BC #### [facility] [address] [place] [address] Dr. Scottie Franco RBC 3.91 106/ul Critically low 4.20-5.40 [facility] Comment on above: Performed By: #### C BC #### [facility] [address] [place] [address] Dr. Scottie Franco WBC 6.0 103/ul Normal 4.0-11.0 [facility] Comment on above: Performed By: #### C BC #### [facility] [address] [place] [address] Dr. Scottie Franco PREG QUANT HCGon 12-21-2022 HCG QUANT <1 Normal [facility] Comment on above: Performed By: #### P REGQNT #### [facility] [address] [place] [address] Dr. Scottie Franco HCG RANGE SEE BELOW Normal [facility] Comment on above: Result Comment: 5-50 0.2-1 WEEK 50-500 1-2 WEEKS 100-5,000 2-3 WEEKS 500-10,000 3-4 WEEKS 1,000-50,000 4-5 WEEKS 10,000-100,000 5-6 WEEKS 15,000-200,000 6-8 WEEKS 10,000-100,000 2-3 MONTHS Performed By: #### P REGQNT #### [facility] [address] [place] [address] Dr. Scottie Franco CBC AUTO DIFFon 11-07-2022 BASO # 0.0 103/ul Normal 0.0-0.1 [facility] Comment on above: Performed By: #### C BC #### [facility] [address] [place] [address] Dr. Scottie Franco Basophils/100 WBC (Bld) 0.5 % Normal 0.2-2.0 [facility] Comment on above: Performed By: #### C BC #### [facility] [address] [place] [address] Dr. Scottie Franco EO # 0.1 103/ul Normal 0.0-0.7 [facility] Comment on above: Performed By: #### C BC #### [facility] [address] [place] [address] Dr. Scottie Franco Eosinophils/100 WBC (Bld) 1.8 % Normal 0.9-7.0 [facility] Comment on above: Performed By: #### C BC #### [facility] [address] [place] [address] Dr. Scottie Franco Erythrocyte distribution width (RBC) [Ratio] 11.9 % Normal 11.0-15.0 [facility] Comment on above: Performed By: #### C BC #### [facility] [address] [place] [address] Dr. Scottie Franco Hematocrit (Bld) [Volume fraction] 38.4 % Normal 36.0-48.0 [facility] Comment on above: Performed By: #### C BC #### [facility] [address] [place] [address] Dr. Scottie Franco Hemoglobin (Bld) [Mass/Vol] 13.0 g/dL Normal 12.0-16.0 [facility] Comment on above: Performed By: #### C BC #### [facility] [address] [place] [address] Dr. Scottie Franco IG # 0.01 10e3/ul Normal 0.00-0.03 [facility] Comment on above: Performed By: #### C BC #### [facility] [address] [place] [address] Dr. Scottie Franco IG % 0.1 % Normal 0.0-0.5 [facility] Comment on above: Performed By: #### C BC #### [facility] [address] [place] [address] Dr. Scottie Franco LYMPH # 2.4 103/ul Normal 1.2-3.8 [facility] Comment on above: Performed By: #### C BC #### [facility] [address] [place] [address] Dr. Scottie Franco Lymphocytes/100 WBC (Bld) 32.1 % Normal 20.5-60.0 [facility] Comment on above: Performed By: #### C BC #### [facility] [address] [place] [address] Dr. Scottie Franco MANUAL DIFF REQ NO Normal [facility] Comment on above: Performed By: #### C BC #### [facility] [address] [place] [address] Dr. Scottie Franco MCH (RBC) [Entitic mass] 31.4 pg Normal 26.7-34.0 [facility] Comment on above: Performed By: #### C BC #### [facility] [address] [place] [address] Dr. Scottie Franco MCHC (RBC) [Mass/Vol] 33.9 g/dL Normal 29.9-35.2 [facility] Comment on above: Performed By: #### C BC #### [facility] [address] [place] [address] Dr. Scottie Franco MCV (RBC) [Entitic vol] 92.8 fL Normal 81.0-99.0 [facility] Comment on above: Performed By: #### C BC #### [facility] [address] [place] [address] Dr. Scottie Franco MONO # 0.4 103/ul Normal 0.3-0.8 [facility] Comment on above: Performed By: #### C BC #### [facility] [address] [address] [address] Scottie Franco Monocytes/100 WBC (Bld) 5.3 % Normal 1.7-12.0 [facility] Comment on above: Performed By: #### C BC #### [facility] [address] [place] [address] Dr. Scottie Franco NEUT # 4.4 103/ul Normal 1.4-6.5 [facility] Comment on above: Performed By: #### C BC #### [facility] [address] [place] [address] Dr. Scottie Franco Neutrophils/100 WBC (Bld) 60.2 % Normal 43.0-75.0 [facility] Comment on above: Performed By: #### C BC #### [facility] [address] [place] [address] Dr. Scottie Franco Platelet mean volume (Bld) [Entitic vol] 9.9 fL Normal 9.5-13.5 [facility] Comment on above: Performed By: #### C BC #### [facility] [address] [place] [address] Dr. Scottie Franco PLT 306 103/ul Normal 150-450 [facility] Comment on above: Performed By: #### C BC #### [facility] [address] [place] [address] Dr. Scottie Franco RBC 4.14 106/ul Critically low 4.20-5.40 [facility] Comment on above: Performed By: #### C BC #### [facility] [address] [place] [address] Dr. Scottie Franco WBC 7.3 103/ul Normal 4.0-11.0 [facility] Comment on above: Performed By: #### C BC #### [facility] [address] [place] [address] Dr. Scottie Franco FREE T4on 11-07-2022 Free T4 [Mass/Vol] 0.81 ng/dL Normal 0.76-1.46 [facility] Comment on above: Performed By: #### F T4 #### [facility] [address] [address] [address] Scottie Franco GLYCOHEMOGLOBIN A1Con 2022 ADA RECOMMENDATION SEE BELOW Normal [facility] Comment on above: Result Comment: ADA RECOMMENDED LIMIT 4.0 - 6.0 ADA THERAPEUTIC TARGET < 7.0 ACTION SUGGESTED > 7.0 Performed By: #### A 1C #### [facility] [address] [place] [address] Dr. Scottie Franco Glucose [Mass/Vol] 91 mg/dL Normal [facility] Comment on above: Performed By: #### A 1C #### [facility] [address] [place] [address] Dr. Scottie Franco HbA1c (Bld) [Mass fraction] 4.8 % Normal 4.5-6.2 [facility] Comment on above: Performed By: #### A 1C #### [facility] [address] [place] [address] Dr. Scottie Franco MG MAMM SCREEN 3D ANDRE CADon 11-07-2022 MG MAMM SCREEN 3D ANDRE CAD Patient: YUNIER MATAMOROS Exam Date: 11/07/2022 : 1970 Gender:F Ordering : DR BONITA SHELDON . Admission #: [id number] Family : Order #: [id number] CLICK HERE TO VIEW EXAM RADIOLOGY REPORT PROCEDURE: MAMMOGRAM SCREENING 3D BILATERAL CAD COMPARISON: MG MAMM ANDRE SCRN W CAD DIG, 08/27/2013. INDICATIONS: Screening mammography Calculator Name NCI Breast Cancer Risk Assessment Tool 5 Year Breast Cancer Risk 1.10% Lifetime Breast Cancer Risk 9.90% Personal Breast Cancer No Personal Ovarian Cancer No Treatments None Family Cancers Mother with uterine cancer at age 40; Grandfather-paternal with pancreas cancer at age 86. LOCATION: [facility] BREAST COMPOSITION: Heterogeneously dense,which may obscure small [...] Stafford MD on 11/08/2022 at 09:11 Normal [facility] PAP ACOG PANEL 2: 30 to 65on 11-07-2022 . . Normal [facility] Comment on above: Result Comment: Perf ormed at: WB Performed By: #### [id number] #### [facility] [address] [address] [address] Scottie Franco Age Gdln ACOG Testing 30-65 Normal [facility] Comment on above: Performed By: #### [id number] #### [facility] [address] [address] [address] Scottie Franco DIAGNOSIS: Comment Normal [facility] Comment on above: Result Comment: NEGA TIVE FOR INTRAEPITHELIAL LESION OR MALIGNANCY. Performed at: WB Performed By: #### [id number] #### [facility] [address] [address] [address] Scottie Franco HPV Aptima Negative Normal Negative [facility] Comment on above: Result Comment: This nucleic acid amplification test detects fourteen high-risk HPV types (16,18,31,33,35,39,45,51,52,56,58,59,66,68) without differentiation. Performed at: =G Performed By: #### [id number] #### [facility] [address] [address] [address] Scottie Franco HPV Genotype Reflex Comment Normal [facility] Comment on above: Result Comment: Crit eria not met, HPV Genotype not performed. Performed at: WB Performed By: #### [id number] #### [facility] [address] [place] [address] Dr. Scottie Franco Methodology: Comment Normal [facility] Comment on above: Result Comment: This liquid based ThinPrep(R) pap test was screened with the use of an image guided system. Performed at: WB Performed By: #### [id number] #### [facility] [address] [place] [address] Dr. Scottie Franco Note: Comment Normal [facility] Comment on above: Result Comment: The Pap smear is a screening test designed to aid in the detection of premalignant and malignant conditions of the uterine cervix. It is not a diagnostic procedure and should not be used as the sole means of detecting cervical cancer. Both false-positive and false-negative reports do occur. . Performed at: WB Performed By: #### [id number] #### [facility] [address] [place] [address] Dr. Scottie Franco Performed by: Comment Normal [facility] Comment on above: Result Comment: Gilbert Wilburn Dopster (ASCP) Performed at: WB Performed By: #### [id number] #### [facility] [address] [place] [address] Dr. Scottie Franco Specimen adequacy: Comment Normal [facility] Comment on above: Result Comment: Sati sfactory for evaluation. Endocervical and/or squamous metaplastic cells (endocervical component) are present. Performed at: WB Performed By: #### [id number] #### [facility] [address] [place] [address] Dr. Scottie Franco PROTIMEon 11-07-2022 INR Coag (PPP) [Relative time] {INR} [facility] Comment on above: Performed By: #### P T, PTT #### [facility] [address] [place] [address] Dr. Scottie Franco INR GUIDELINES SEE BELOW [facility] Comment on above: Result Comment: ALEXANDER RED INR: 2.0 - 3.0 CONDITIONS NOT LISTED BELOW 2.5 - 3.5 FOR PROSTHETIC HEART VALVE REPLACEMENT 2.5 - 3.5 RECURRENT THROMBOSIS Performed By: #### P T, PTT #### [facility] [address] [place], [place] [id number] Dr[address] Scottie Franco PT Coag (PPP) [Time] 9.8 s Normal 9.0-11.6 [facility] Comment on above: Performed By: #### P T, PTT #### [facility] [address] [address] [address] Scottie Franco PTTon 11-07-2022 aPTT Coag (Bld) [Time] 26.9 s Normal 22.3-36.2 [facility] Comment on above: Performed By: #### P T, PTT ####[facility] [id number] [id number]. Scottie Franco TSHon 11-07-2022 TSH 1.496 uIU/mL Normal 0.358-3.740 [facility] Comment on above: Performed By: #### T SH ####[facility] [id number] [id number]. Scottie Franco US PELVIS AND TRANSVAGon US [...] 05-09-2022 Basophils (Bld) [#/Vol] 0.0 10*3/uL 0.0-0.2 [facility] Basophils/100 WBC Auto (Bld) Ordered By: Finesse Recio on 05-09-2022 Basophils/100 WBC (Bld) 0.7 % . [facility] Blood hemoglobin measurement (mass/volume)Ordered By: Finesse Recio on 05-09-2022 Hemoglobin (Bld) [Mass/Vol] 13.6 g/dL 11.8-15.4 [facility] Blood leukocytes automated c ount (number/volume)Ordered By: Finesse Recio on 05-09-2022 WBC (Bld) [#/Vol] 6.6 10*3/uL 4.5-11.0 [facility] Body fluid albumin measureme nt (mass/volume)Ordered By: Finesse Recio on 05-09-2022 Albumin (Body fld) [Mass/Vol] 4.2 g/dL 3.2-5.5 [facility] Cholesterol [Mass/volume] in Serum or PlasmaOrdered By: Finesse Recio on 05-09-2022 Cholesterol [Mass/Vol] 235 mg/dL 140-[address] [facility] Comment on above: Chol less than 200 m g/dl low risk Chol 201-239 mg/dl borderline risk Chol 240 mg/dl and greater high risk Cholesterol in LDL Calc [Mas s/Vol]Ordered By: Finesse Recio on 05-09-2022 Cholesterol in LDL [Mass/Vol] 166 mg/dL 0-100 [facility] Comment on above: LDL ATP III CLASSIFI CATION LDL less than 100 mg/dL Optimal LDL 100-129 mg/dL Near or above optimal LDL 130-159 mg/dL Borderline high LDL 160-189 mg/dL High LDL greater than 189 mg/dL Very high Cholesterol in VLDL Calc [Ma ss/Vol]Ordered By: Finesse Recio on 05-09-2022 Cholesterol in VLDL [Mass/Vol] 15 mg/dL [facility] Creatinine and Glomerular fi ltration rate.predicted panel (S/P/Bld)Ordered By: Finesse Recio on 05-09-2022 Creatinine [Mass/Vol] 0.75 mg/dL 0.44-1.03 [facility] Eosinophils Auto (Bld) [#/Vo l]Ordered By: Finesse Recio on 05-09-2022 Eosinophils (Bld) [#/Vol] 0.2 10*3/uL 0.0-0.45 [facility] Eosinophils/100 WBC Auto (Bl d)Ordered By: Finesse Recio on 05-09-2022 Eosinophils/100 WBC (Bld) 2.6 % . [facility] Erythrocyte distribution wid th Auto (RBC) [Ratio]Ordered By: Finesse Recio on 05-09-2022 Erythrocyte distribution width (RBC) [Ratio] 12.7 % 11.9-15.3 [facility] Estimated glomerular filtrat ion rate (GFR) non- AmericanOrdered By: Finesse Recio on 05-09-2022 GFR/1.73 sq M.predicted among non-blacks MDRD (S/P/Bld) [Vol rate/Area] > 60 mL/Min [facility] Globulin Calc (S) [Mass/Vol] Ordered By: Finesse Recio on 05-09-2022 Globulin (S) [Mass/Vol] 2.8 g/dL [facility] Hematocrit Auto (Bld) [Volum e fraction]Ordered By: Finesse Recio on 05-09-2022 Hematocrit (Bld) [Volume fraction] 39.4 % 34.0-46.4 [facility] Laboratory - Hematology and Cell countsOrdered By: Finesse Recio on 05-09-2022 Nucleated RBC/100 WBC (Bld) [Ratio] 0.1 % 0-0.5 [facility] Lymphocytes Auto (Bld) [#/Vo l]Ordered By: Finesse Recio on 05-09-2022 Lymphocytes (Bld) [#/Vol] 1.7 10*3/uL 1.00-4.8 [facility] Lymphocytes/100 WBC Auto (Bl d)Ordered By: Finesse Recio on 05-09-2022 Lymphocytes/100 WBC (Bld) 26.0 % . [facility] MCH Auto (RBC) [Entitic mass ]Ordered By: Finesse Recio on 05-09-2022 MCH (RBC) [Entitic mass] 31.6 pg 24.7-34.3 [facility] MCHC Auto (RBC) [Mass/Vol]Or dered By: Finesse Recio on 05-09-2022 MCHC (RBC) [Mass/Vol] 34.6 g/dL 32.0-35.0 [facility] MCV Auto (RBC) [Entitic vol] Ordered By: Finesse Recio on 05-09-2022 MCV (RBC) [Entitic vol] 91.4 fL 80-100 [facility] Monocytes Auto (Bld) [#/Vol] Ordered By: Finesse Recio on 05-09-2022 Monocytes (Bld) [#/Vol] 0.4 10*3/uL 0.0-0.8 [facility] Monocytes/100 WBC Auto (Bld) Ordered By: Finesse Recio on 05-09-2022 Monocytes/100 WBC (Bld) 6.4 % . [facility] Neutrophils Auto (Bld) [#/Vo l]Ordered By: Finesse Recio on 05-09-2022 Neutrophils (Bld) [#/Vol] 4.2 10*3/uL 1.8-7.7 [facility] Neutrophils/100 WBC Auto (Bl d)Ordered By: Finesse Recio on 05-09-2022 Neutrophils/100 WBC (Bld) 64.3 % . [facility] No Panel InformationOrdered By: Finesse Recio on 05-09-2022 Estimated GFR () > 60 mL/Min [facility] Comment on above: GFR estimated refere nce range: According to KDOQI guidelines, <60 ml/min/1.73m2 is sufficient to diagnose a patient with chronic kidney disease. Pharmacy Creatinine Clearance (Chem N/A [facility] Platelet mean volume Auto (B ld) [Entitic vol]Ordered By: Finesse Recio on 05-09-2022 Platelet mean volume (Bld) [Entitic vol] 9.2 fL 6.3-10.7 [facility] Platelets Auto (Bld) [#/Vol] Ordered By: Finesse Recio on 05-09-2022 Platelets (Bld) [#/Vol] 303 10*3/uL 150-450 [facility] Protein [Mass/volume] in Ser um or PlasmaOrdered By: Finesse Recio on 05-09-2022 Protein [Mass/Vol] 7.0 g/dL 6.1-7.9 [facility] RBC Auto (Bld) [#/Vol]Ordere d By: Finesse Recio on 05-09-2022 RBC (Bld) [#/Vol] 4.31 10*6/uL 3.60-5.00 [facility] Serum or plasma alanine simon otransferase measurement without P-5'-P (enzymatic activiOrdered By: Finesse Recio on 05-09-2022 ALT No additional P-5'-P [Catalytic activity/Vol] 23 U/L 10-60 [facility] Serum or plasma albumin/glob ulin mass ratioOrdered By: Finesse Recio on 05-09-2022 Albumin/Globulin [Mass ratio] 1.5 {ratio} [facility] Serum or plasma alkaline carmela sphatase measurement (enzymatic activity/volume)Ordered By: Finesse Recio on 05-09-2022 ALP [Catalytic activity/Vol] 59 U/L 32-92 [facility] Serum or plasma aspartate am inotransferase measurement (enzymatic activity/volume)Ordered By: Finesse Recoi on 05-09-2022 AST [Catalytic activity/Vol] 18 U/L 10-42 [facility] Serum or plasma calcium dianne urement (mass/volume)Ordered By: Finesse Recio on 05-09-2022 Calcium [Mass/Vol] 9.2 mg/dL 8.2-10.2 [facility] Serum or plasma chloride luke surement (moles/volume)Ordered By: Finesse Recio on 05-09-2022 Chloride [Moles/Vol] 102 mmol/L 95-114 [facility] Serum or plasma glucose dianne urement (mass/volume)Ordered By: Finesse Recio on 05-09-2022 Glucose [Mass/Vol] 93 mg/dL 70-100 [facility] Comment on above: ADA recommended refe rence range Random Glucose Reference Range is dependent on time and content of last meal. Glucose of more than 200 mg/dL in a nonstressed, ambulatory subject supports the diagnosis of Diabetes Mellitus. Serum or plasma high density lipoprotein (HDL) cholesterol measurementOrdered By: Finesse Recio on 05-09-2022 Cholesterol in HDL [Mass/Vol] 54 mg/dL 35-85 [facility] Comment on above: HDL CHOL ATP-III CLA SSIFICATION Cardiovascular Risk HDL > or equal to 60 mg/dL LOW HDL < 40 mg/dL HIGH Serum or plasma potassium me asurement (moles/volume)Ordered By: Finesse Recio on 05-09-2022 Potassium [Moles/Vol] 4.2 mmol/L 3.5-5.1 [facility] Serum or plasma sodium measu rement (moles/volume)Ordered By: Finesse Recio on 05-09-2022 Sodium [Moles/Vol] 137 mmol/L 136-146 [facility] Serum or plasma total biliru bin measurement (mass/volume)Ordered By: Finesse Recio on 05-09-2022 Bilirubin [Mass/Vol] 0.6 mg/dL 0.3-1.2 [facility] Serum or plasma total carbon dioxide measurement (moles/volume)Ordered By: Finesse Recio on 05-09-2022 CO2 [Moles/Vol] 24.5 mmol/L 22.0-30.0 [facility] Serum or plasma total choles terol/high density lipoprotein (HDL) cholesterol mass ratOrdered By: Finesse Recio on 05-09-2022 Cholesterol.total/Umm sterol in HDL [Mass ratio] 4.4 {ratio} <5.0 [facility] Serum or plasma urea nitroge n measurement (mass/volume)Ordered By: Finesse Recio on 05-09-2022 Urea nitrogen [Mass/Vol] 7 mg/dL 9-23 [facility] TSH DL <= 0.005 mIU/L QnOrde red By: Finesse Recio on 05-09-2022 TSH Qn 2.06 m[IU]/L 0.45-5.33 [facility] Triglyceride [Mass/volume] i n Serum or PlasmaOrdered By: Finesse Recio on 05-09-2022 Triglyceride [Mass/Vol] 77 mg/dL 35-149 [facility] Comment on above: TRIG ATP III CLASSIF ICATION TRIG less than 150 mg/dL Normal TRIG 150-199 mg/dL Borderline high TRIG 200-500 mg/dL High TRIG greater than 500 mg/dL Very high Standard traceable to the Center for Disease Conrtrol and Prevention (CDC) test method. Vital Signs Date Time Vital Sign Value Performing Clinician Facility 01-03-2025 09:31-0400 Body height 165.1 cm Nneka Dodsont [employer] Work Phone: [facility] 01-03-2025 09:31-0400 Body mass index (BMI) [Ratio] 32.45 kg/m2 Nneka Dodsont [employer] Work Phone: [facility] 01-03-2025 09:31-0400 Body temperature 97.11 [degF] Nneka Gottliebepert [employer] Work Phone: [facility] 01-03-2025 09:31-0400 Body weight 88.45 kg Nneka Dodsont [employer] Work Phone: [facility] 01-03-2025 09:31-0400 Diastolic blood pressure 80 mm[Hg] Nneka Gottliebepert [employer] Work Phone: [facility] 01-03-2025 09:31-0400 Heart rate 79 /min Nneka Dodsont [employer] Work Phone: [facility] 01-03-2025 09:31-0400 SaO2% (BldA) [Mass fraction] 97 % Nneka Dodsont [employer] Work Phone: [facility] 01-03-2025 09:31-0400 Systolic blood pressure 110 mm[Hg] Nneka Dodsont [employer] Work Phone: [facility] 05-27-2024 08:51-0400 Body height 165.1 cm [facility] Work Phone: [facility] 05-27-2024 08:51-0400 Body mass index (BMI) [Ratio] 32.62 kg/m2 [facility] Work Phone: [facility] 05-27-2024 08:51-0400 Body weight 88.91 kg [facility] Work Phone: [facility] 09-27-2023 14:18-0500 Diastolic blood pressure 90 mm[Hg] FERCHO PANIAGUA [facility] [place] 09-27-2023 14:18-0500 Mean blood pressure 107 mm[Hg] FERCHO SIVA [facility] 09-27-2023 14:18-0500 Systolic blood pressure 140 mm[Hg] FERCHO SIVA [facility] 09-27-2023 13:53-0500 Blood Pressure Location FERCHO SIVA [facility] 09-27-2023 13:53-0500 Body temperature 98.78 [degF] FERCHO SIVA [facility] 09-27-2023 13:53-0500 Diastolic blood pressure 90 mm[Hg] FERCHO SIVA [facility] 09-27-2023 13:53-0500 Heart rate 91 /min FERCHO SIVA [facility] 09-27-2023 13:53-0500 Respiratory rate 14 /min FERCHO SIVA [facility] 09-27-2023 13:53-0500 SaO2% (BldA) [Mass fraction] 98 % FERCHO SIVA [facility] 09-27-2023 13:53-0500 Systolic blood pressure 140 mm[Hg] FERCHO SIVA [facility] 05-15-2023 12:00-0400 Body height 165.1 cm Sissy Smith Other [employer] Other 05-15-2023 12:00-0400 Body mass index (BMI) [Ratio] 32.45 kg/m2 Sissy Smith Other [employer] Other 05-15-2023 12:00-0400 Body weight 88.45 kg Sissy Smith Other [employer] Other 11-25-2022 11:00-0500 Body height 165.1 cm Nika Richmond Other [employer] Other 11-25-2022 11:00-0500 Body mass index (BMI) [Ratio] 32.45 kg/m2 Nika Richmond Other [employer] Other 11-25-2022 11:00-0500 Body temperature 98.3 [degF] Nika Richmond Other [employer] Other 11-25-2022 11:00-0500 Body weight 88.45 kg Nika Richmond Other [employer] Other 11-25-2022 11:00-0500 Respiratory rate 20 /min Nika Richmond Other [employer] Other 11-25-2022 11:00-0500 SaO2% (BldA) [Mass fraction] 99 % Nika Richmond Other [employer] Other Encounters Encounter Date Encounter Type Care Provider Facility Start: 04-28-2025 End: 04-28-2025 ambulatory FERCHO PANIAGUA Facility:[facility] Start: 04-16-2025 End: 04-16-2025 ambulatory Finesse Recio - [facility] DO Work Phone: [facility] Work Phone: Start: 04-16-2025 End: 04-16-2025 Departed Referred Finesse Harrison DO [facility] Work Phone: Start: 01-03-2025 End: 01-03-2025 Office outpatient visit 15 minutes Nneka A Kiepert [employer] Work Phone: [facility] Comment on above: Acute bacterial rhin osinusitis (Primary Dx); Vulvovaginal candidiasis; Neoplasm of uncertain behavior of skin Start: 01-03-2025 End: 01-03-2025 ambulatory NNEKA A KIEPERT Not Available Start: 05-27-2024 End: 05-27-2024 Bamboo flowsheet Shawnee Chandler PA Work Phone: [facility] Start: 05-27-2024 End: 05-27-2024 Bamboo flowsheet Shawnee Chandler PA Work Phone: [facility] Start: 05-27-2024 End: 05-27-2024 ambulatory SHAWNEE CHANDLER Not Available Start: 05-27-2024 End: 05-27-2024 Patient encounter procedure Shawnee Chandler PA Work Phone: [facility] Comment on above: Rotator cuff impinge ment syndrome of left shoulder (Primary Dx); Arthritis of left acromioclavicular joint; Right cervical radiculopathy Start: 05-20-2024 End: 05-20-2024 ambulatory FERCHO PANIAGUA Facility:[facility] Start: 09-27-2023 End: 09-27-2023 Patient encounter procedure FERCHO PANIAGUA [facility] Start: 05-15-2023 Office outpatient ne w 30 minutes [facility] Start: 05-15-2023 End: 05-15-2023 ambulatory DO Finesse Recio Work Phone: [facility] Work Phone: Start: 05-15-2023 End: 05-15-2023 Patient encounter procedure DO Finesse Recio Work Phone: [facility] Start: 12-21-2022 End: 12-21-[address] BONITA SHELDON . Facility: Start: 12-07-2022 Encounter for prepro cedural cardiovascular examination DR BONITA SHELDON . [facility] Start: 12-05-2022 End: 12-06-[address] BONITA SHELDON . Facility:[facility] Start: 12-05-2022 End: 12-06-2022 Encounter for preprocedural cardiovascular examination DR BONITA SHELDON . Facility:[facility] Start: 11-25-2022 End: 11-25-2022 ambulatory Nika Richmond Other [facility] Other Start: 11-25-2022 Office outpatient ne w 30 minutes Nika Richmond [facility] Start: 11-07-2022 End: 11-08-[address] DARA STAFFORD Facility:[facility] Start: 11-01-2022 End: 11-01-[address] SURY GREY . Facility:[facility] Start: 05-09-2022 End: 05-09-2022 Departed Referred DO Finesse Recio Work Phone: [facility] [facility] Procedures Date Procedure Procedure Detail [...] Innominate bone stru cture (body structure) FERCHO PANIAGUA Ligation of fallopian tube S ALEJANDRO PANIAGUA Plan of Treatment Date Care Activity Detail Author Start: 06-01-2024 Influenza vaccination Influenza Vacc ine (#1) [facility] Start: 11-07-2023 Screening for malign ant neoplasm of breast Mammogram [facility] Start: 2002 Screening for malign ant neoplasm of cervix [facility] Start: 1993 Screening for malign ant neoplasm of cervix Pap Smear [facility] Start: 1972 Screening for malign ant neoplasm of colon [facility] Payers Date Payer Category Payer Self-pay [id number] 2022 Private Health Insurance [employer] [id number] 2022 Unknown [employer] [id number] 2022-Present [address] [place] [address] [id number] 1972 Unknown [id number] 1972 Unknown [id number] 593 1972 Unknown [id number] 593 1972 Unknown [id number] 593 1972 Unknown [id number] 1259 1972 Unknown [id number] 1259 1972 Unknown [id number] 727 1972 Unknown [id number] 727 1959 Unknown [id number] Unknown [id number] Social History Date Type Detail Facility [facility] Work Phone: Start: 1970 Sex Assigned At Female [facility] Start: 05-27-2024 End: 01-03-2025 Sex Assigned At [facility] Start: 09-27-2023 End: 03-06-2025 Tobacco smoking status Never smoked tobacco (finding) [facility] Tobacco smoking status Never [facility] Start: 05-27-2024 Tobacco use and exposure Smokeless tobacco non-user [facility] Start: 05-27-2024 End: 01-03-2025 Alcoholic beverage intake Current drinker of alcohol (finding) [facility] Start: 05-27-2024 End: 01-03-2025 Alcoholic beverage intake [facility] Start: 1970 Sex assigned at Not on file [facility] Sex Female (finding) [facility] Functional Status Date Assessment Result Facility 09-27-2023 Functional Status N/A [facility] Clinical Notes 11-25-2022 to 04-28-2025 Nneka Cobb NP - 01/03/2025 9:30 AM CLARA Wan - 05/27/2024 8:45 AM JAMES Hamlin - 05/27/2024 8:45 AM EDTPatient Instructions Note Date & Type Note Facility 04-28-2025 Note Patient Education Nutrition Fat and Cholesterol Restricted Eating Plan Eating a diet that limits fat and cholesterol may help lower your risk for heart disease and other conditions. Your body needs fat and cholesterol for basic functions, but eating too much of these things can be harmful to your health. Your health care provider may order lab tests to check your blood fat (lipid) and cholesterol levels. This helps your health care provider understand your risk for certain conditions and whether you need to make diet changes. Work with your health care provider or dietitian to make an eating plan that is right for you. Your plan includes: ??? Limit your fat intake to % or less of your total calories a day. This is g of fat per day. ??? Limit your saturated fat intake to % or less of your total calories a day. This is g of saturated fat per day. ??? Limit the amount of cholesterol in your diet to less than mg a day. ??? Eat g of fiber a day. What are tips for following this plan? General guidelines ??? If you are overweight, work with your health care provider to lose weight safely. Losing just 5?10% of your body weight can improve your overall health and help prevent diseases such as diabetes and heart disease. ??? Avoid: ? Foods with added sugar. ? Fried foods. ? Foods that contain partially hydrogenated oils, including stick margarine, some tub margarines, cookies, crackers, and other baked goods. ??? If you drink alcohol: ? Limit how much you have to: ? 0?1 drink a day for women who are not . ? 0?2 drinks a day for men. ? Know how much alcohol is in a drink. In the [place] one drink equals one 12 oz bottle of beer (355 mL), one 5 oz glass of wine (148 mL), or one 1? oz glass of hard liquor (44 mL). Reading food labels ??? Check food labels for: ? Trans fats or partially hydrogenated oils. Avoid foods that contain these. ? High amounts of saturated fat. Choose foods that are low in saturated fat (less than 2 g). ? The amount of cholesterol in each serving. ? The amount of fiber in each serving. ??? Choose foods with healthy fats, such as: ? Monounsaturated and polyunsaturated fats. These include olive and canola oil, flaxseeds, walnuts, almonds, and seeds. ? [place]-3 fats. These are found in foods such as salmon, mackerel, sardines, tuna, flaxseed oil, and ground flaxseeds. ??? Choose grain products that have whole grains. Look for the word whole as the first word in the ingredient list. Cooking ??? Cook foods using methods other than frying. Baking, boiling, grilling, and broiling are some healthy options. ??? Eat more home-cooked food and less restaurant, buffet, and fast food. ??? Avoid cooking using saturated fats. ? Animal sources of saturated fats include meats, butter, and cream. ? Plant sources of saturated fats include palm oil, palm kernel oil, and coconut oil. Meal planning ??? At meals, imagine dividing your plate into fourths: ? Fill one-half of your plate with vegetables, green salads, and fruit. ? Fill one-fourth of your plate with whole grains. ? Fill one-fourth of your plate with lean protein foods. ??? Eat fish that is high in omega-3 fats at least two times a week. ??? Eat more foods that contain fiber, such as whole grains, beans, apples, pears, berries, broccoli, carrots, peas, and barley. These foods help promote healthy cholesterol levels in the blood. What foods should I eat? Fruits All fresh, canned (in natural juice), or frozen fruits. Vegetables Fresh or frozen vegetables (raw, steamed, roasted, or grilled). Green salads. Grains Whole grains, such as whole wheat or whole grain breads, crackers, cereals, and pasta. Unsweetened oatmeal, bulgur, barley, quinoa, or brown rice. [place] or whole wheat flour tortillas. Meats and other proteins Ground beef (85% or leaner), grass-fed beef, or beef trimmed of fat. Skinless chicken or turkey. Ground chicken or turkey. Pork trimmed of fat. All fish and seafood. Egg whites. Dried beans, peas, or lentils. Unsalted nuts or seeds. Unsalted canned beans. Natural nut butters without added sugar and oil. Dairy Low-fat or nonfat dairy products, such as skim or 1% milk, 2% or reduced-fat cheeses, low-fat and fat-free ricotta or cottage cheese, or plain low-fat and nonfat yogurt. Fats and oils Tub margarine without trans fats. Light or reduced-fat mayonnaise and salad dressings. Avocado. [place], canola, sesame, or safflower oils. The items listed above may not be a complete list of foods and beverages you can eat. Contact a dietitian for more information. What foods should I avoid? Fruits Canned fruit in heavy syrup. Fruit in cream or butter sauce. Fried fruit. Vegetables Vegetables cooked in cheese, cream, or butter sauce. Fried vegetables. Grains White bread. White pasta. White rice. Cornbread. Bagels, pastries, and croissants. Crackers (more content not included)... [facility] 01-03-2025 History of Present illness Narrative Images from the original note were not included. [address] , [address] [facility], [address] P: [phone] F: [phone] HPI Historian of HPI: patient Yunier Matamoros is a 54 y.o. female who presents today to the Urgent Care with the following complaints and denials which have been present for 2 week(s) C/O Denies Symptom Comments [x] [] Runny Nose yellow [] [x] Difficulty Swallowing [] [x] Sore Throat [] [x] Cough [x] [] Ear Pain [] [x] Fever [] [x] Chills [x] [] Nasal Congestion [] [x] Myalgia [x] [] Sinus Pain [x] [] Sinus Pressure Additional Comments: pt has taken cold medicine OTC medication without relief ROS A complete system ROS was performed and negative aside from the pertinent positives noted in the HPI and PE. IH Testing: PHYSICAL EXAM Gen: well nourished, no acute distress, interactive Head: normocephalic, atraumatic HEENT: TMs pearly rice, tongue midline, mucous membranes moist, postnasal drip present, maxillary sinus tenderness, 0.5 cm circumscribed patchy lesion noted inferior to inner canthus of left eye Lungs: CTAB, respiratory effort normal Heart: RRR without murmur, rub, gallop Abdomen: BS x 4, soft, no palpable mass, no tenderness Extremities: warm to touch, capillary refill x 3 seconds Neuro: alert, oriented, moving all extremities Psych: cooperative, appropriately interactive TREATMENT PLAN 1. Acute bacterial rhinosinusitis (Primary) Diagnosis and medication discussed. It is important to take your medications as directed. Good handwashing, push fluids, humidifier at bedside Discussed signs and symptoms that require immediate evaluation in the ER It is important to follow up with your pcp within 3-5 days for evaluation of current treatment plan. Please schedule that appointment as soon as possible. You may use OTC pain relievers/fever reducers as instructed - amoxicillin-clavulanate (Augmentin) 875-125 MG tablet; Take 1 tablet (875 mg) by mouth in the morning and 1 tablet (875 mg) before bedtime. Do all this for 7 days. Dispense: 14 tablet; Refill: 0 - fluticasone (Flonase) 50 MCG/ACT nasal spray; Administer 2 sprays into each nostril Daily Shake gently. Before first use, prime pump. After use, clean tip and replace cap. Dispense: 16 g; Refill: 0 2. Vulvovaginal candidiasis Medication as directed - fluconazole (Diflucan) 150 MG tablet; Take 1 tablet (150 mg) by mouth Daily for 1 day Dispense: 1 tablet; Refill: 0 3. Neoplasm of uncertain behavior of skin Must follow up with dermatology documented in this encounter [facility] 05-27-2024 History of Present illness Narrative Associated [...] which does significantly help. 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 JAMES Valdez documented in this encounter [facility] 05-27-2024 Instructions JAMES Valdez - 05/27/2024 8:45 [...] and neck region. documented in this encounter [facility] 05-20-2024 Note Patient Education Orthopedics Shoulder Pain [...] strengthen the arm. General instructions ? Take fqfg-gfl-rylfqcm and prescription medicines only as told by [...] Reviewed: 06/02/2022 Elsevier Patient Education ? 2022 [employer]. [facility] 09-27-2023 Hospital Discharge instructions Patient Education 09/27/2023 15:57:06 Upper Respiratory Infection, Adult, Jxdc-af-Ospc Upper Respiratory Infection, Adult An upper respiratory [...] medicines to help relieve symptoms, such as: Yzlu-dkx-rqonixm cold medicines. Medicines to reduce coughing (cough [...] and other clear broths. 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 Avoid touching your mouth, face, eyes, or [...] get better within 7 10 days. Take fyaq-lon-gmehviv and prescription medicines only as told by your doctor. This information is not intended to replace advice given to you by your health care provider. Make sure you discuss any questions you have with your health care provider. Document Revised: 04/19/2022 Document Reviewed: 04/19/2022 DTT Patient Education 2022 [employer]. [facility] Aureliano 05-15-2023 Evaluation note Encounter [...] Mass of left hand (ICD-10 - R22.32) [employer] Other [id number] NoteOPERATIVE NOTE OPERATION DATE: 12/21/2022 PROCEDURE: Shanel endometrial ablation with robotic assisted bilateral salpingectomy with removal of pedunculated fibroid at the fundal region of the uterus. PREOPERATIVE DIAGNOSIS: Menorrhagia, desires permanent sterilization. POSTOPERATIVE DIAGNOSIS: Menorrhagia, desires permanent sterilization including pedunculated uterine fibroid ANESTHESIA: General. SURGEON: Bonita Sheldon D.O. ENVIRONMENTAL HEALTH TECHNICIAN: SKIP Rodriguez URINE OUTPUT: Yellow and clear. [...] Sponge, lap and needle counts were correct [address]02-25-2023 Evaluation note * Encounter Date Diagnosis [...] weeks for the cough to go away [employer] Other Evaluation + Plan note No data available for this section [facility] Evaluation noteNo assessment information available [facility] [place] Work Phone: Evaluation note* Diagnosis Rotator cuff impingement syndrome of left shoulder- Primary Arthritis of left acromioclavicular joint Right cervical radiculopathy [facility] Diagnosis Acute bacterial rhinosinusitis- Primary Vulvovaginal candidiasis Neoplasm of uncertain behavior of skin [facility] Narrative - Reported* Type Description Date Surgical History hip surgery 1972 Surgical History wisdom teeth extraction Hospitalization History hip surgery 1972 [employer] Other Progress note No data available for this section [facility] Reason for referral (narrative)No reason for referral [facility] Work Phone: Chief Complaint and Reason for Visit Chief Complaint wellness check Chief Complaint Admit Date [facility] wellness April 16, 2025 8:45 am Reason for Referral Reason 01/02/23 @ 9:50am skin lesion - possibly a wart that will not come off with OTC treatment Diagnosis 1 Skin lesion (L98.9) Referral Organization [facility] Maggy Patel Referring Provider First Name Nika Referring Provider Last Name Basilio Referring Provider Specialty Nurse Pract itioner Referred Organization [facility] Referred Provider Tracy Murguia Referred Address ,[place], [place],[address] Referred Provider Specialty Dermatology Referral Priority Routine Referral Appointment Date 2023-01-02 General Notes Roxana Dejesus 07:15:55 AM >Received referral. [facility] Dermatology office request us to send the [...] Inj/Asp: L glenohumeral [facility] [address] [place] [address] Referral ID Status Reason Start Date Expiration Date V isits Requested Visits Authorized [id number] Authorized 05/27/2024 11/23/2024 1 1 Summary Purpose Family History No Family History Records Found No data available for this section No Family History Records FoundNo Family History Records FoundNo Family History Records Found Advance Directives No Advanced Directives Records Found Advance Directive Response Recorded Date/ Time Advance Directives No May 21, 2023 9:41am Additional Source Comments Care Teams (unrecognized sec tion and content) Team Status: Inactive Member Role Status Dates Finesse Recio DO [facility] Primary Care Provider, Attending Provider Active Team Status: Active Member Role Status Dates Finesse Recio DO [facility] Primary Care Provider Active Team Status: Inactive Member Role Status Dates Finesse Recio DO [facility] Primary Care Provider Active Sissy Smith MD Attending Provider Active Sales Order Processor Relationship Specialty Start Date End Date Shani Yuen, AD TRAFFICKER-SALESFORCE DEVELOPER [address] [place] [address] PCP - Medical [facility] [employer] 11/15/00 09/30/99 Fercho Paniagua [facility] [address] [place] [address] PCP - General 05/27/24 Sales Order Processor Relationship Specialty Start Date End Date Alpa Shani MARIEL SandovalN-SALESFORCE DEVELOPER [address] [place] [address] PCP - Medical [facility] 11/15/00 09/30/99 Fercho Paniagua [address] [address] PCP - General 05/27/24 Sales Order Processor Relationship Specialty Start Date End Date Fercho Paniagua NP [address] [address] PCP - General 05/27/24 Team Status: Active Member Role Status Dates Finesse Helm [facility] , DO [facility] Primary Care Provider Acti ve Team Status: Inactive Member Role Status Dates Finesse Helm [facility] , DO [facility] Primary Care Provider Acti ve Start: April 16, 2025 End: April 16, 2025 Finesse Helm [facility] , DO [facility] Attending Provider Active Start: April 16, 2025 End: April 16, 2025 Goals (unrecognized section and content) Goals may be documented in a n alternate sectionNo InformationGoals may be documented in an alternate sectionNo Information No data available for this sectionGoals may be documented in an alternate section REASON FOR VISIT (unrecogniz ed section and content) Reason Comments Pain INFORMATION SOURCE (unrecogn ized section and content) DATE CREATED AUTHOR 01/05/2023 [facility] DATE CREATED AUTHOR AUTHOR'S ORGANIZ ATION 01/05/2025 [facility] EPIC DATE CREATED AUTHOR AUTHOR'S ORGANIZ ATION 04/25/2025 [facility] DATE CREATED AUTHOR AUTHOR'S ORGANIZ ATION 04/29/2025 [facility] FOR RECORDS PERTAINING TO PATIENTS WHO ARE [...] BE BASED ON THE PRIMARY CLINICAL RECORDS. [facility] [employer] [facility]. provides no warranty or guarantee of the accuracy or completeness of information in this document.
== END 2025-05-20 08:25 | disposition home or self-care (01) ==
LOC: MAMMO 08:24
PROVIDERS: PCP Nurse Practitioner Family; Visit Provider Nurse Practitioner Family
DX: Z12.31 Encounter for screening mammogram for malignant neoplasm of breast (principal); Z80.8 Family history of malignant neoplasm of other organs or systems
CPT/HCPCS: 77063; 77067

== ENCOUNTER 2025-08-25 15:29 | Outpatient (OUT) | payer OTHER, SELFPAY ==
--- OUTSIDE RECORDS SUMMARY | 2024-10-06 04:50 | XMS_ITS ---
Author Organization [facility] Address [address] [place] [address] Care Team Providers Care Engraving Supervisor Name Role Phone Physician, Non-Staff Primary Care Provider Unava Farooq Hedrick Unavailable [phone] REASON FOR VISIT LEFT INDEX MC FX Encounters Encounter Location Date Provider Diagnosis [facility] [address] [place] [address] [place] [address] 10/06/2024 Farooq Mcnair Plan Of Treatment No Information Progress Notes * YUNIER GARY SDOB:[birth year] (54 yo F)Acc No.[id number]:10/06/2024 Patient:?YUNIER GARY Ying :?Farooq Mcnair, MDDOB:1970???Age:54 Y ???Sex:FemaleDate:10/06/2024Phone:[phone]:[id number] [id number]:Non-Staff Physician Subjective: * Chief Complaints: * 1 . LEFT INDEX FX. * Medical History: Objective: * Vitals: Assessment: Plan: * Treatment: Forms: * Images: * Electronic signature of Farooq Mcnair MD on 08/25/2025 at 03:35 PM ESTSign off status: Pending * Provider: Ying Mcnair MD Date: 0 10/06/2024 Generated for Printing/Faxing/eTransmitting on:?08/25/2025 03:35 PM EST
--- OUTSIDE RECORDS SUMMARY | 2025-03-02 03:50 | XMS_ITS ---
Author Organization [facility] Address [address] [place] [address] Care Team Providers Care Planned Giving Officer Name Role Phone Physician, Non-Staff Primary Care Provider Unava Farooq Hedrick Unavailable [phone] Results Component Value Reference Range Notes SCC- HAND 3 VIEW LEFT [id number] Reviewed date:03/03/2025 09:42:03 AM Interpretation: Performing Lab: Notes/Report: REASON FOR VISIT LEFT 2ND METACARPAL FX Encounters Encounter Location Date Provider Diagnosis [facility] [address] [place] [address] [place] [address] 03/02/2025 Farooq Mcnair Other fracture of second metacarpal bone, left hand, subsequent encounter for fracture with routine healing S62.391D Assessments Encounter Date Diagnosis (ICD Code) Assessment Notes Treatment Notes Treatment Clinical Notes Section Notes 03/02/2025 Other fracture of se cond metacarpal bone, left hand, subsequent encounter for fracture with routine healing (ICD-10 - S62.391D) Plan Of Treatment No Information Progress Notes * YUNIER GARY SDOB:[birth year] (54 yo F)Acc No.[id number]:03/02/2025 Patient:?YUNIER GARY :?Farooq Mcnair, MDDOB:1970???Age:54 Y ???Sex:FemaleDate:03/02/2025Phone:[phone]:[id number] [id number]:Non-Staff Physician Subjective: * Chief Complaints: * 1 . LEFT 2ND METACARPAL FX. * Medical History: Objective: * Vitals: Assessment: * Assessment: 1.?Other fracture of second metacarpal bone, left hand, subsequent encounter for fracture withroutine healing - S62.391D??? Plan: * Treatment: ?Imaging: SCC- HAND 3 VIEW LEFT [id number] (Performed Date - 03/03/2025) Forms: * Images: * Electronic signature of Farooq Mcnair MD on 08/25/2025 at 03:35 PM ESTSign off status: Pending * Provider: Ying Mcnair MD Date: 0 03/02/2025 Generated for Printing/Faxing/eTransmitting on:?08/25/2025 03:35 PM EST
--- OUTSIDE RECORDS SUMMARY | 2025-08-12 05:15 | XMS_ITS ---
Author Organization [facility] Address [address] [place] [address] Care Team Providers Care Chronic Disease Manager Name Role Phone Physician, Non-Staff Primary Care Provider UnaFarooq Miranda Unavailable [phone] REASON FOR VISIT left knee djd, 1 month ck Encounters Encounter Location Date Provider Diagnosis [facility] [address] [address] 08/12/2025 Farooq Mcnair Plan Of Treatment No Information Progress Notes * YUNIER GARY SDOB:[birth year] (54 yo F)Acc No.[id number]:08/12/2025 Patient:?YUNIER GARY Ying :?Farooq Mcnair, MDDOB:1970???Age:54 Y ???Sex:FemaleDate:08/12/2025Phone:[phone]:[id number] [id number]:Non-Staff Physician Subjective: * Chief Complaints: * 1 . Left knee djd, 1 month ck. * Medical History: Objective: * Vitals: Assessment: Plan: * Treatment: Forms: * Images: * Electronic signature of Farooq Mcnair MD on 08/25/2025 at 03:34 PM ESTSign off status: Pending * Provider: Ying Mcnair MD Date: 10/12/2024 Generated for Printing/Faxing/eTransmitting on:?08/25/2025 03:34 PM EST
--- OUTSIDE RECORDS SUMMARY | 2025-08-25 15:35 | XMS_ITS | Patient Health Record ---
Author Organization [facility] Address [address] [place] [address] Care Team Providers Care Account Representative Name Role Phone Physician, Non-Staff Primary Care Provider Blayne Varmaen Unavailable [phone] DianaStephanea Unavailable [phone] Kalyn Nicole Unavailable [phone] Allergies Allergen (clinical drug ingredient) Drug/Non Drug Allergy documented on EMR Reaction Allergy Type Onset Date Status prednisone predniSONE hives/tingling Drug Allergy Active Results Component Value Reference Range Notes SCC- HAND 3 VIEW LEFT [id number] Reviewed date:10/07/2024 03:45:28 PM Interpretation: Performing Lab: Notes/Report: SCC- HAND 3 VIEW LEFT [id number] Reviewed date:12/18/2024 01:52:22 PM Interpretation: Performing Lab: Notes/Report: SCC- HAND 3 VIEW LEFT [id number] Reviewed date:10/14/2024 03:44:31 PM Interpretation: Performing Lab: Notes/Report: Reason For Referral No Information Medications Medication SIG (Take, Route, Frequency, Duration) Notes Start Date End Date Status Mobic 15 mg 1 tab(s) orally once a day; Dura tion: 30 days 5Active Social History Tobacco Use: Social History Observation Description Date Details (start date - stop date) Never Smoker NA - NA AUDIT-C (Standard) Question Answer Notes Did you have a drink containing alcohol in the p ast year? Yes How often did you have six or more drinks on one occasion in the past year?Never (0 point)How many drinks did you have on a typical day when you were drinking in the past year?1 or 2 drinks (0 point)How often did you have a drink containing alcohol in the past year?Monthly or less (1 point)Yudoqg9VmfbfcscgfqintBfpczcbp Tobacco Control (Standard) Question Answer Notes Tobacco use: Nonsmoker Problems Problem Type SNOMED Code ICD Code Onset Dates Problem Status W/U Status Risk Notes Problem Osteoarthritis of knee (09902338 7) Primary osteoarthritis of left knee (M17.12) ActiveconfirmedProblemOther fracture of second metacarpal bone, left hand, subsequent encounter for fracture with routinehealing (S62.391D)Activeconfirmed ProblemClosed fracture of multiple sites of metacarpus (55677202)Closed nondisplaced fracture of other part of second metacarpal bone of left hand, initial encounter (S62.391A)Activeconfirmed Vital Signs Height 5'5 in 12/22/2024 Aliozi828 lbs12/22/2024BMI31.61012/22/2024 Encounters Encounter Location Date Provider Diagnosis [facility] [address] [place] [address] [place] [address] 09/08/2024 Farooq [place] Other fracture of second metacarpal bone, left hand, subsequent encounter for fracture with routine healing S62.391D [facility] [address] [place] [address] 10/13/2024 Farooq [place] Other fracture of second metacarpal bone, left hand, subsequent encounter for fracture with routine healing S62.391D [facility] [address] [place] [address] 11/24/2024 Kalyn iNcole Other fracture of second metacarpal bone, left hand, subsequent encounter for fracture with routine healing S62.391D [facility] [address] [place] [address] 12/22/2024 Farooq [place] Other fracture of second metacarpal bone, left hand, subsequent encounter for fracture with routine healing S62.391D [facility] [address] [place] [address] 07/13/2025 Sandra Ortiz Other fracture of second metacarpal bone, left hand, subsequent encounter for fracture with routine healing S62.391D and Primary osteoarthritis of left knee M17.12 Assessments Encounter Date Diagnosis (ICD Code) Assessment Notes Treatment Notes Treatment Clinical Notes Section Notes 09/08/2024 Other fracture of se cond metacarpal bone, left hand, subsequent encounter for fracture with routine healing (ICD-10 - S62.391D) 10/13/2024Other fracture of second metacarpal bone, left hand, subsequent encounter for fracture with routinehealing (ICD-10 - S62.391D)11/24/2024Other fracture of second metacarpal bone, left hand, subsequent encounter for fracture with routinehealing (ICD-10 - S62.391D)12/22/2024Other fracture of second metacarpal bone, left hand, subsequent encounter for fracture with routine healing (ICD-10 - S62.391D)07/13/2025Other fracture of second metacarpal bone, left hand, subsequent encounter for fracture with routinehealing (ICD-10 - S62.391D)07/13/2025Primary osteoarthritis of left knee (ICD-10 - M17.12) 09/08/2024Other We will have her discontinue use of the splint. I have shown her exercises to work on restoring motion. I have offered physical therapy which she has declined. She is to do no lifting pushing pullingmore than a pound or 2 with his left hand. She will follow-up in 1 month to repeat x-rays and reassess her progress. Import medication 10/13/2024Other For her left index metacarpal fracture we will continue to restrict activities. She will follow-up in 6 weeks to repeat x-rays and reassess her progress. Import medication 11/24/2024OtherPatient is almost 4 months out from fracture of her second left metacarpal. I reviewed her x-rays with her today and still recommending activity modification. We will see her back in 4 weeks to repeat x-rays.12/22/2024Other Patient is doing well. She will continue to restrict activities such as catching up from a pitcher during private lessons. She will follow-up in 2 months to repeat a likely final set of x-rays and reassess her progress. Import medication 07/13/2025OtherAt this point, we discussed treatment options and alternatives with the patient. 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 I have prescribed Mobic 15 mg daily and precautions of the medication reviewed. If she continues to have issues we discussed consideration for intra-articular cortisone injection versus viscosupplementation. Lastly diagnostic arthroscopy procedure. She is pleased with these recommendations and will follow-up in a month to reassess her progress. Plan Of Treatment Pending Test Test Name Order Date SCC- HAND 3 VIEW LEFT [id number] 12/22/2024 Insurance Providers Payer Name Payer Address Payer Phone Subscriber Number Group Number Insured Name Patient Relationship to Insured Coverage Start Date Coverage End Date [employer] [address] [place] [address] [id number] SONIA GARYelf - patient is the insured Medical (General) History Medical History History ICD Code Drug Allergies Surgical History Surgery Date(Month/Year) Cyst removal 2014 Left hip 1973
--- OUTSIDE RECORDS SUMMARY | 2025-08-25 15:35 | XMS_ITS | Clinical Summary ---
Author Organization [facility] Address [address] [place] [address] Care Team Providers Care [employer] Name Role Phone Fanta, Payton Sandoval THERMITE WELDER Primary Care Provider + [phone] Allergies Active AllergyReactionsCriticalityNoted DateCommentsPrednisoneHives,Itching,Rash ,Swelling,BhutrjkhzfIwd35/27/2024 Patient states she can take the tablets but no injections Medications MedicationSigDispense QuantityRefillsLast FilledStart DateEnd DateStatus Multiple Vitamin (MULTI VITAMIN DAILY PO) 3Active cholecalciferol (Vitamin D-3) 50 MCG (1999 UT) capsule 4Active fluticasone (Flonase) 50 MCG/ACT nasal spray Indications:Acute bacterial rhinosinusitisAdminister 2 sprays into each nostril Daily Shake gently. Before first use, prime pump. After use, clean tip and replace cap. 16 g 5Active Active Problems No known active problems Encounters DateTypeDepartmentCare OltuAmtxlrmmffg01/29/2025 3:00 PM EDTOffice Visit [facility] [address] [place] [address] Umberto Kumar DO Chronic pain of left knee (Primary Dx); Acute medial meniscus tear of left knee, initial encounter; Primary osteoarthritis of left knee06/29/2025amboo flowsheet [facility] [address] [place] [address] Umberto Kumar DO 06/29/20254066Qabxki74/17/2025Results Follow-Up [facility] [address] [place] [address] Foster Chandler PA MR knee left wo IV /16/2025 9:15 AM EDTAncillary Procedure [facility] [address] [place] [address] Acute internal derangement of left knee; Other tear of medial meniscus, current injury, left knee, initial encounter 06/16/20250992Rueidn82/05/2025 2:45 PM EDTOffice Visit [facility] [address] [place] [address] Foster Chandler PA Acute pain of left knee (Primary Dx); Acute internal derangement of left knee06/05/2025 11:50 AM EDTAncillary Procedure [facility] [address] [place] [address] 06/05/2025Travelfrom Last 3 Months Family History Medical HistoryRelationNameCommentsDiabetesFatherCraig SchwiefertCancerMaternal GrandfatherLou LaknerDiabetesMaternal GrandfatherLou LaknerDiabetesMotherMary matias MassieRelationNameStatusCommentsFatherCraig SchwiefertMaternal Grandfather Matias LaknerMotherMary matias Teto Social History Tobacco UseTypesPacks/DayYears UsedDateSmoking Tobacco: NeverSmokeless Tobacco: NeverAlcohol UseStandard Drinks/WeekCommentsYes3 (1 standard drink = 0.6 oz pure alcohol)CommentsUnknownSex and Gender InformationValueDate RecordedSex Assigned at BirthNot on fileLegal FtbMdmxbk52/15/2023 6:58 PM EDTGender Identity Not on fileSexual OrientationNot on file Last Filed Vital Signs Vital SignReadingTime TakenCommentsBlood Ynbyrsfr866/8004 9:31 AM EDT Eccps2643 9:31 AM DJPLohkvfvnwfo50.2 ??C (97.1 ??F)01/03/2025 9:31 AM EDTRespiratory Rate--Oxygen Ewgmykhgak48%01/03/2025 9:31 AM EDTInhaled Oxygen Concentration--Qkrgtu09.5 kg (195 lb)06/29/2025 2:51 PM EKPHzgioi015.1 cm (5' 5 )06/29/2025 2:51 PM EDTBody Mass Index32.45006/29/2025 2:51 PM EDT Plan of Treatment Not on file Procedures Procedure NamePriorityDate/TimeAssociated DiagnosisCommentsMR KNEE LEFT WO IV RUYKGNKAGdcnvoz19/16/2025 9:49 AM EDT Acute internal derangement of left knee Other tear of medial meniscus, current injury, left knee, initial encounter XR KNEE 3 VIEWS VXTZHrddyht96/05/2025 11:48 AM EDT Acute pain of left knee from Last 3 Months Results * MR knee left wo IV contrast (06/16/2025 9:49 AM EDT)Anatomical Region LateralityModalityLower Extremities, KneeLeftMagnetic ResonanceSpecimen (Source)Anatomical Location / LateralityCollection Method / VolumeCollection TimeReceived Time06/16/2025 3:57 PM EDT Impressions 06/16/2025 3:59 PM EDT Medial meniscal tear. ELECTRONICALLY SIGNED BY: Kun Haro MD [facility] 06/16/2025 3:59 PM EDT EXAMINATION/TECHNIQUE: MR KNEE LEFT WO IV CONTRAST HISTORY: ?? Left knee pain for 4 months after squatting injury. Decreased range of motion. Possiblemedial meniscal tear. COMPARISON: Radiographs 06/05/2025. RESULT: MENISCI: Medial Meniscus: Essentially complete radial tear at the posterior root with portion of the meniscus protruding toward the medial gutter Lateral Meniscus: ??Intact LIGAMENTS: ACL, PCL, MCL, and LCL complex intact. CARTILAGE: No distinct measurable full-thickness chondral defect. Small area of low-grade partial-thickness chondral loss/fissuring involving the patella. TENDONS: Distal quadriceps intact. Patellar tendon intact. Popliteus intact. BONES AND MARROW: ??No evidence of fracture or bone marrow replacing process. Multiple small benignbone islands. MUSCLES: ??Muscle bulk and signal intensity are normal. JOINT FLUID AND SYNOVIUM: Small joint effusion. No synovitis. No Willett's cyst. OTHER: ??No other significant abnormality. ?? Procedure Note Kun Haro MD - 06/16/2025 EXAMINATION/TECHNIQUE: MR KNEE LEFT WO IV CONTRAST HISTORY: Left knee pain for 4 months after squatting injury. Decreasedrange of motion. Possible medial meniscal tear. COMPARISON: Radiographs 06/05/2025. RESULT: MENISCI: Medial Meniscus: Essentially complete radial tear at the posterior rootwith portion of the meniscus protruding toward the medial gutter Lateral Meniscus: Intact LIGAMENTS: ACL, PCL, MCL, and LCL complex intact. CARTILAGE: No distinct measurable full-thickness chondral defect. Smallarea of low-grade partial-thickness chondral loss/fissuring involving thepatella. TENDONS: Distal quadriceps intact. Patellar tendon intact. Popliteusintact. BONES AND MARROW: No evidence of fracture or bone marrow replacingprocess. Multiple small benign bone islands. MUSCLES: Muscle bulk and signal intensity are normal. JOINT FLUID AND SYNOVIUM: Small joint effusion. No synovitis. No Willett'scyst. OTHER: No other significant abnormality. IMPRESSION: Medial meniscal tear. ELECTRONICALLY SIGNED BY: Kun Haro MD Authorizing ProviderResult TypeResult StatusTodd Marley [facility] PROCED[facility] Final Result * XR knee 3 views left (06/05/2025 11:48 AM EDT)Anatomical RegionLaterality ModalityLower Extremities, KneeLeftRadiographic ImagingSpecimen (Source) Anatomical Location / LateralityCollection Method / VolumeCollection Time Received Time Narrative 06/05/2025 3:52 PM EDT Imaging Result: Bilateral standing PA, bilateral sunrise, and lateral of the affected knee were imaged today in the office. ??Patient does have some lateral tiltTo both ??patella with some lateral facet hypertrophy but mediolateral compartments are well-preserved both knees no evidence of acute fracture bony tumor seen. Authorizing ProviderResult TypeResult StatusTodd Marley [facility] PROCEDURES Final Result from Last 3 Months Insurance Care Teams Team MemberRelationshipSpecialtyStart DateEnd Date Payton Jewell NP [facility] [address] [place] [address] [facility]05/27/24
--- OUTSIDE RECORDS SUMMARY | 2025-08-25 15:44 | XMS_ITS | CCD ---
Author Organization [facility] Care Team Providers Care Clerical Production Worker Name Role Phone DO Finesse Recio Primary Care Provider [phone] DO Finesse Recio Attending Provider [phone] Nika Richmond Unavailable SULEMAN ., DR MESA Admitting Unavailable GREY ., DR SURY Velez Primary Care Unavailable SULEMAN ., DR MESA Attending Unavailable SULEMAN ., DR MESA Consulting Unavailable SHARPORTEGA Consulting Unavailable ALETHEA II, TRACY Consulting Unavailable GREY ., DR SURY Velez Primary Care Unavailable SULEMAN ., DR MESA Attending Unavailable SULEMAN ., DR MESA Consulting Unavailable SULEMAN ., DR MESA Admitting Unavailable [place], DR DARA Souza Consulting Unavailable REQUEST, DR MITCHELL LISTED Primary Care Unavaila ble SULEMAN ., DR MESA Attending Unavailable SULEMAN ., DR MESA Admitting Unavailable SULEMAN ., DR MESA Consulting Unavailable SULEMAN ., DR MESA Admitting Unavailable GREY ., DR SURY Velez Primary Care Unavailable SULEMAN ., DR MESA Attending Unavailable SULEMAN ., DR MESA Consulting Unavailable DO Finesse Recio Primary Care Provider [phone] MD Sissy Smith Attending Provider Sissy Smith Unavailable FERCHO PANIAGUA Primary Care Physician Shani Baker Unavailable Fercho Paniagua Primary Care Provider Fercho Paniagua NP Primary Care Provider Critical access hospital Finesse SHOEMAKER Primary Care Provider [phone] Critical access hospital Finesse SHOEMAKER Attending Provider [facility] Finesse DELGADO Attending Unavailable [facility] Finesse DELGADO Primary Care Unavailable [facility] Finesse DELGADO Admitting Unavailable Shawnee Giraldo Unavailable ZULEIMA COBB Attending Unavailable SHAWNEE CHANDLER Referring Unavailable SHAWNEE CHANDLER Attending Unavailable SHAWNEE CHANDLER Referring Unavailable DARA UGARTE Attending Unavailable DARA UGARTE Referring Unavailable FERCHO PANIAGUA Attending Unavailable Trisha Hood Attending Unavailable Allergies Allergy ClassificationReported Allergen(s)Allergy TypeDate of OnsetReaction(s) Facility (4 sources)predniSONE; Translations: [prednisone]Drug AllergyFoot swelling (finding), Itching (finding), Weal (disorder)[facility] MilanComment on above:Patient states she can take the tablets but no injections (1 source)predniSONEDrug AllergyThe [facility] (9 sources)PrednisonePropensity to adverse irbuxmkul53-71-2906Murkg, Itching, Rash, Swelling, DermatitisNOMS Healthcare (1 source)predniSONEDrug Tiwnvev07-12-6103QyxnzolgrC[facility] Repository Medications Current Medications MedicationDrug Class(es)DatesSig (Normalized)Sig (Original)[id number] 200 actuat albuterol 0.09 mg/actuat metered dose inhaler (1 source)beta2-Adrenergic AgonistStart: 48-21-4907imhv 2 puff(s) by inhalation every four hours as neededAlbuterol Sulfate HFA 108 (90 Base) MCG/ACT 2 puffs as needed Inhalation every 4 hrs Nov, Activeamoxicillin 875 mg / clavulanate 125 mg oral tablet (2 sources)Penicillin-class AntibacterialStart: 01-03-2025 End: 89-44-8607jrjt 1 tablet by mouth in the morningamoxicillin-clavulanate (Augmentin) 875-125 MG tablet Indications: Acute bacterial rhinosinusitis Take 1 tablet (875 mg) by mouth in the morning and 1 tablet (875 mg) before bedtime. Do all this for 7 days. 14 tablet 01/03/2025 01/10/2025 Activeazithromycin 250 mg oral tablet (1 source)Macrolide AntimicrobialStart: 06-32-0596Bjsqnvfvdrbx 250 MG 2 tablets on the first day, then 1 tablet daily for 4 days Orally Once a day for 5 day(s) Nov, Activeazithromycin 250 mg Tab 5-day Dose Pack (Z-Regino) (1 source)Start: 09-27-2023 End: 79-25-0486fgctglnacbyh 250 mg Tab 5-day Dose Pack (Z-Regino) = 1 packet(s), Oral, As Directed, as directed on package labeling, X 5 day(s), # 6 tab(s), Refills(s) 0, Pharmacy: [facility]/pharmacy #[id number], 165, cm, 09/27/23 14:13:00 EST, Height/Length Dosing, 90.2, kg, 09/27/23 14:13:00 EST, Weight Dosing Start Date: 09/27/23 Stop Date: 10/02/23 Status: Orderedbenzonatate 200 mg oral capsule (1 source)Non-narcotic AntitussiveStart: 89-43-1711gjxu 1 capsule by mouth every eight hoursBenzonatate 200 MG 1 capsule Orally Three times a day for 10 days Nov, Activecholecalciferol 0.05 mg oral capsule (9 sources)Vitamin DStart: 67-86-8435dxxhzfjcnwkfmls (Vitamin D-3) 50 MCG (1999) capsule 01/15/2024 Activefluconazole 150 mg oral tablet (3 sources)Azole AntifungalStart: 01-03-2025 End: 41-91-2708kkqf 1 tablet by mouth once dailyfluconazole (Diflucan) 150 MG tablet Indications: Vulvovaginal candidiasis Take 1 tablet (150 mg) by mouth Daily for 1 day 1 tablet 01/03/2025 01/04/2025 ActiveStart: 02-59-8437Jtywwtpo 150 mg Tab See Instructions, Take one tablet at the onset of symptoms; may repeat in 72 hours, # 2 tab(s), Refills(s) 0, Pharmacy: [facility]/pharmacy #[id number], 165, cm, 09/27/23 14:13:00 EST, Height/Length Dosing, 90.2, kg, 09/27/23 14:13:00 EST, Weight Dosing Start Date: 09/27/23 Status: Orderedfluticasone propionate 0.05 mg/actuat metered dose nasal spray (7 sources)CorticosteroidStart: 01-03-2025 End: 33-41-4919esdr 2 spray(s) nasal route once dailyfluticasone (Flonase) 50 MCG/ACT nasal spray Indications: Acute bacterial rhinosinusitis Administer2 sprays into each nostril Daily Shake gently. Before first use, prime pump. After use, clean tip and replace cap. 16 g 01/03/2025 Activemeloxicam 15 mg oral tablet (2 sources)Nonsteroidal Anti-inflammatory DrugStart: 05-27-2024 End: 41-16-1325qtof 1 tablet by mouth once daily at mealtimemeloxicam (Mobic) 15 MG tablet Indications: Rotator cuff impingement syndrome of left shoulder Take1 tablet (15 mg) by mouth Daily With food. 30 tablet 2 05/27/2024 08/25/2024 ActiveMulti Vitamin+ (1 source)Start: 74-05-5552Hgjgl Vitamin+ Refill(s) 0 Start Date: 09/27/23 Status: OrderedMultiple Vitamin (MULTI VITAMIN DAILY PO) (9 sources)Start: 24-78-3391Hmcyahho Vitamin (MULTI VITAMIN DAILY PO) 09/27/2023 ActiveStart: 21-56-8337Ludpaxex Vitamin (MULTI VITAMIN DAILY PO) Refill(s) 0 09/27/2023 Active Completed/Discontinued Medications MedicationDrug Class(es)DatesSig (Normalized)Sig (Original)betamethasone 3 mg/ml / betamethasone acetate 3 mg/ml injectable suspension (4 sources)CorticosteroidStart: 05-27-2024 End: 13-55-4319vhelrxpurqboe acetate-betamethasone sodium phosphate (Celestone) injection 12 mgStart: 05-27-2024 End: 73-04-822448 mg, Intra-articular, Once PRN Procedure, Starting on Sun05/27/24 at 0920, For 1 dosemethylPREDNISolone (2 sources)CorticosteroidStart: 33-18-5210Hdfu-Medrol 80 mg Mar, 1 mL Problems Active Problems Problem ClassificationProblemDateDocumented DateEpisodic/ChronicAbdominal pain (1 source)Pelvic and perineal pain; Translations: [PELVIC AND PERINEAL PAIN] Onset: 74-36-6382CaztqpaqXbbhenshdawqwe/social admission (1 source)Patient encounter status; Translations: [Persons encountering health services in other specified circumstances]Onset: 51-06-6713SavoyneqAdmjnn neoplasm of uterus (1 source)Leiomyoma of uterus, unspecified; Translations: [LEIOMYOMA OF UTERUS UNSPECIFIED]Onset: 29-93-3761FwyttalmUajccbt obstructive pulmonary disease and bronchiectasis (1 source)Bronchitis, not specified as acute or chronicEpisodicContraceptive and procreative management (4 sources)Encounter for sterilization; Translations: [ENCOUNTER FOR STERILIZATION]Onset: 31-51-4002HrgzdwbvDmqgixxikqxqh and screening for infectious disease (1 source)Encounter for screening for human papillomavirus (HPV); Translations: [ENC SCREENING HUMAN PAPILLOMAVIRUS]Onset: 54-57-3584AybpnwodSeead disorders and dislocations; trauma-related (2 sources)Derangement of left knee; Translations: [Unspecified internal derangement of left knee]18-07-7477RlfbishBuely disorders and dislocations; trauma-related (2 sources)Acute tear of medial meniscus of left knee; Translations: [Other tear of medial meniscus, current injury, left knee, initial encounter]06-29-2025 EpisodicMenstrual disorders (5 sources)Excessive and frequent menstruation with regular cycle; Translations: [EXCESS FREQ MENSTRUATION W/REG CYCL]Onset: 64-36-0580IzgeytgBhbwvxx (2 sources)Candidal vulvovaginitis; Translations: [Vulvovaginal candidiasis] 16-78-9388TzqborhiLfelaspeb of unspecified nature or uncertain behavior (2 sources)Neoplasm of uncertain behavior of skin; Translations: [Neoplasm of uncertain behavior of skin]93-29-7057WawaiktnRrbvmkburetqik (4 sources)Arthritis of left acromioclavicular joint; Translations: [Primary osteoarthritis, left shoulder]62-16-1745OetiupoNjdjf connective tissue disease (1 source)Ganglion, right handEpisodicOther connective tissue disease (1 source)Ganglion, left handEpisodicOther female genital disorders (1 source)Abnormal uterine and vaginal bleeding, unspecified; Translations: [ABNORMAL UTERINE VAGINAL BLEED UNS]Onset: 22-69-7550WfksskpUvlzb non-traumatic joint disorders (4 sources)Pain in left knee; Translations: [Pain in joint, lower leg]06-05-2025 EpisodicOther screening for suspected conditions (not mental disorders or infectious disease) (5 sources)Encounter for screening mammogram for malignant neoplasm of breast; Translations: [Encounter for screening for malignant neoplasm of cervix]Onset: 76-84-7478KoiinoaySimcw skin disorders (1 source)Disorder of the skin and subcutaneous tissue, unspecifiedEpisodicOther skin disorders (1 source)Localized swelling, mass and lump, left upper limbEpisodicOther upper respiratory infections (3 sources)Acute upper respiratory infection; Translations: [Acute upper respiratory infection, unspecified]Onset: 42-89-0215DbledqdlMhsszsgp codes; unclassified (1 source)Family history of malignant neoplasm of other genital organs; Translations: [[facility] NEOPLSM OT GENIT ORGN]Onset: 34-69-1809Zsrrlwgl Residual codes; unclassified (1 source)Family history of malignant neoplasm of other organs or systems; Translations: [[facility] NEOPLASM OT ORGN/SYS]Onset: 02-99-0347Cmeeifgr Past or Other Problems Problem ClassificationProblemDateDocumented DateEpisodic/ChronicOther connective tissue disease (2 sources)Rotator cuff impingement syndrome; Translations: [Impingement syndrome of left shoulder]63-64-3485LdafylqmZdsopjjepxx; intervertebral disc disorders; other back problems (2 sources)Right cervical root neuropathy; Translations: [Radiculopathy, cervical region]53-80-8622Qsntbxqs Results Test NameValueInterpretationReference RangeFacilityMR KNEE LEFT WO IV CONTRASTon 63-23-1000PX KNEE LEFT WO IV CONTRASTEXAMINATION/TECHNIQUE: MR KNEE LEFT WO IV CONTRAST HISTORY: Left knee pain for 4 months after squatting injury. Decreased range of motion. Possible medial meniscal tear. COMPARISON: [...] tendon intact. Popliteus intact. BONES AND MARROW: No evidence of fracture or bone marrow replacing process. Multiple small benign bone islands. MUSCLES: Muscle bulk and signal intensity are normal. JOINT FLUID AND SYNOVIUM: Small joint effusion. No synovitis. No Willett's cyst. OTHER: No other significant abnormality. IMPRESSION: Medial meniscal tear. ELECTRONICALLY SIGNED BY: Mera SaraviaNot AvailableComment on above: Order Comment: No to all MRI QuestionsXR Knee - left 3 Viewson 81-50-2727Yfbscwr Result: Bilateral standing PA, bilateral sunrise, and lateral of the affected knee were imaged today in the office. Patient does have some lateral tiltTo both patella with some lateral facet hypertrophy but mediolateral compartments are well-preserved both knees no evidence of acute fracture bony tumor seen.[facility] HospitalRad[facility] observation (narrative)[facility] HealthcareAmbulatory Visit Summaryon 23-34-5086Vxoolthjfi Visit SummaryAmbulatory Visit Summary YUNIER MATAMOROS :1970 Visit Date:04/28/2025 Ambulatory Visit Instructions Your Diagnosis High cholesterol High serum low-density lipoprotein (LDL) BMI 32.0-32.9,adult Obesity (BMI 30.0-34.9) Nonsmoker Your Care Team Attending Physician - FERCHO PANIAGUA CNP Primary Care Physician - FERCHO PANIAGUA CNP This Is Your Medications List calcium-vitamin D ergocalciferol (Vitamin D) multivitamin (Multi Vitamin+) Procedures Performed Cyst of Bartholin's gland (2017), [place] tooth (2004), Hip bone (1972), Tubal ligation. [...] signed up for this yet, please contact [employer] at [phone] to get signed up today. Language Information Language assistance services are available as needed. [facility] Medicine Office/Clinic Noteon 19-33-6114Bzsbhf Medicine Office/Clinic NoteFami Medicine Office/Clinic Note Chief Complaint Annual Wellness The patient is concerned about high cholesterol levels. HPI Staff Pt presents today for annual wellness. Labs completed 04/16/25 @ [facility]. Health Maintenance: Colonoscopy: no Mammo: cpl yrs [...] no food allergies, no recurrent infections, no impairedimmunity Additional ROS info: Except as noted in [...] With When Contact Information FERCHO PANIAGUA CNP, FAM Within [address] [place], [place] [phone] Business (1) Additional Instructions: Well adult visit Patient Education Breast Self-Awareness, Rwwp-sm-Okfa Fat and Cholesterol Restricted Eating Plan Problem List/Past Medical History Ongoing BMI 32.0-32.9,adult Bronchitis Nonsmoker Obesity (BMI 30.0-34.9) Historical No qualifying data Procedure/Surgical History Cyst of Bartholin's gland (2017), [place] tooth (2004), (more content not included)...[facility] Osteopathic ClinicComment on above:Result Comment: Electronically Signed By: FERCHO PANIAGUA CNP\.br\Date and Time Signed: 04/28/25 10:07 EDTAlanine aminotransferase [Enzymatic activity/volume] in Serum or PlasmaOrdered By: Finesse Recio on 55-65-6962QWR [Catalytic activity/Vol]15 U/L Normal7-[address] [place], [place] [address]Comment on above:Performed By: #### TSH3, LIPID, CBC, CMP #### [facility] [address] [place] [address] USAAlbumin [Mass/volume] in Serum or Plasma by Bromocresol green (BCG) dye binding methoOrdered By: Finesse Recio on 14-65-8336Mfnzdjv BCG dye [Mass/Vol]4.4 g/dL3.5-5.7FMercy Health – The Jewish HospitalAlkaline phosphatase [Enzymatic activity/volume] in Serum or PlasmaOrdered By: Finesse Recio on 60-80-1605UJC [Catalytic activity/Vol]63 U/OTbiqgi55-409LyxceiiksCleveland Clinic South Pointe HospitalComment on above:Performed By: #### TSH3, LIPID, CBC, CMP #### [facility] [address] [place] [address] USAAspartate aminotransferase [Enzymatic activity/volume] in Serum or PlasmaOrdered By: iFnesse Recio on 99-42-2728AZY [Catalytic activity/Vol] 14 U/OGpzshn66-24VcvdtzvkxCleveland Clinic South Pointe HospitalComment on above:Performed By: #### TSH3, LIPID, CBC, CMP #### [place] [address] USABasophils [#/volume] in Blood by Automated countOrdered By: Finesse Recio on 02-45-4648Vvhmakfsz (Bld) [#/Vol]0.0 10*3/uLNormal0.0-0.2 [facility] HospitalComment on above:Result Comment: PERFORMED BY: [place] [address] PATHOLOGIST GRADER MARKER SHANNA TORREZ M.D.Performed By: #### TSH3, LIPID, CBC, CMP #### [place] [address] USABasophils/100 leukocytes in Blood by Automated count Ordered By: Finesse Recio on 62-07-9984Wepyybkbi/100 WBC (Bld)0.8 %Normal.[facility] HospitalComment on above:Performed By: #### TSH3, LIPID, CBC, CMP #### [place] [address] USABilirubin.total [Mass/volume] in Serum or PlasmaOrdered By: Finesse Recio on 06-33-7735Ovtqxvtrs [Mass/Vol]0.7 mg/dLNormal0.3-1.0[facility] HospitalComment on above:Performed By: #### TSH3, LIPID, CBC, CMP #### [facility] [address] [place] [address] USACalcium [Mass/volume] in Serum or PlasmaOrdered By: Finesse Rceio on 50-74-9685Ukfqgcb [Mass/Vol]8.9 mg/dLNormal8.6-10.3FMercy Health – The Jewish HospitalComment on above:Performed By: #### TSH3, LIPID, CBC, CMP #### [facility] [address] [place] [address] USACarbon dioxide, total [Moles/volume] in Serum or Plasma Ordered By: Finesse Recio on 09-78-9969QK6 [Moles/Vol]27.0 mmol/WAzrald38.0-31.0 [facility] HospitalComment on above:Performed By: #### TSH3, LIPID, CBC, CMP #### [facility] [address] [place] [address] USAChloride [Moles/volume] in Serum or PlasmaOrdered By: Finesse Recio on 82-20-3211Hkbibcgp [Moles/Vol]105 mmol/SWdyqtu01-670PkcncqgadCleveland Clinic South Pointe HospitalComment on above:Performed By: #### TSH3, LIPID, CBC, CMP #### [facility] [address] [place] [id number] USACholesterol [Mass/volume] in Serum or PlasmaOrdered By: Finesse Recio on 86-34-8823Hkxfmllnmhx [Mass/Vol]233 mg/wGZort035-427HlpxvmptcCleveland Clinic South Pointe HospitalComment on above:Chol less than 200 mg/dl low riskChol 201-239 mg/dl borderline riskChol 240 mg/dl and greater high riskResult Comment: Chol less than 200 mg/dl low risk Chol 201-239 mg/dl borderline risk Chol 240 mg/dl and greater high riskPerformed By: #### TSH3, LIPID, CBC, CMP #### [facility] [address] [place] [id number] USACholesterol in HDL [Mass/volume] in Serum or PlasmaOrdered By: Finesse Recio on 57-87-7149Svyaybtjmsc in HDL [Mass/Vol]55 mg/cUNhqqmu42-45 [facility] HospitalComment on above:HDL CHOL ATP-III CLASSIFICATION Cardiovascular RiskHDL > or equal to 60 mg/dL LOWHDL < 40 mg/dL HIGHResult Comment: HDL CHOL ATP-III CLASSIFICATION Cardiovascular Risk HDL > or equal to 60 mg/dL LOW HDL < 40 mg/dL HIGHPerformed By: #### TSH3, LIPID, CBC, CMP #### [facility] [address] [place] [address] USACholesterol in LDL Calc [Mass/Vol]Ordered By: Finesse Recio on 65-92-2257Dbswqfyynue in LDL [Mass/Vol]159 mg/dLHigh0-100[facility] HospitalComment on above:LDL ATP III CLASSIFICATIONLDL less than 100 mg/dL OptimalLDL 100-129 mg/dL Near or above gntmeccETC866-812 mg/dL Borderline highLDL 160-189 mg/dL HighLDL greater than 189 mg/dL Very highCholesterol in VLDL Calc [Mass/Vol]Ordered By: Finesse Recio on 83-21-6574Zhktyfptfwg in VLDL [Mass/Vol]19 mg/dLCleveland Clinic South Pointe HospitalComplete Blood Count Auto Diffon 69-20-5424Baup Corpuscular HGB Conc34.7 g/gOMdzmrj65.0-35.0The [facility] Physician GroupComment on above:Performed By: #### TSH3, LIPID, CBC, CMP #### [facility] [address] [place] [address] USANRBC%0.2 /100{WBC}Normal0-0.5[facility] Comment on above:Performed By: #### TSH3, LIPID, CBC, CMP #### [facility] [address] [place] [address] USAWhite Blood Count6.2 [CFU]/mLNormal3.8-11.6The [facility] Physician GroupComment on above:Performed By: #### TSH3, LIPID, CBC, CMP #### [facility] [address] [place] [address] USAComprehensive Metabolic Panelon 48-64-9775Hyddkgi [Mass/Vol]4.4 g/dLNormal3.5-5.7The [facility] Physician GroupComment on above: Performed By: #### TSH3, LIPID, CBC, CMP #### [facility] [address] [place] [address] USAGFR/1.73 sq M.predicted MDRD (S/P/Bld) [Vol rate/Area] mL/min/{1.73_m2}NormalThe [facility] Physician [facility] HospitalComment on above:Performed By: #### TSH3, LIPID, CBC, CMP #### [place] [address] USACreatinine [Mass/volume] in Serum or PlasmaOrdered By: Finesse Recio on 14-46-2477Kclwryogkg [Mass/Vol]0.60 mg/dLNormal0.60-1.20[facility] HospitalComment on above:Performed By: #### TSH3, LIPID, CBC, CMP #### [place] [address] USAEosinophils [#/volume] in Blood by Automated countOrdered By: Finesse Recio on 71-20-3765Mjisonnzdrt (Bld) [#/Vol]0.1 10*3/uLNormal0.0-0.45 [facility] HospitalComment on above:Performed By: #### TSH3, LIPID, CBC, CMP #### [place] [address] USAEosinophils/100 leukocytes in Blood by Automated count Ordered By: Finesse Recio on 64-88-1552Vfvsqhefytd/100 WBC (Bld)1.8 %Normal. [facility] HospitalComment on above:Performed By: #### TSH3, LIPID, CBC, CMP #### [place] [address] USAErythrocyte distribution width [Ratio] by Automated count Ordered By: Finesse Recio on 51-74-4073Uljwtrjgmue distribution width (RBC) [Ratio] 12.7 %Knsizf78.9-15.3FMercy Health – The Jewish HospitalComment on above:Performed By: #### TSH3, LIPID, CBC, CMP #### [facility] [address] [place] [id number] USAErythrocytes [#/volume] in Blood by Automated countOrdered By: Finesse Recio on 29-50-4920JNH (Bld) [#/Vol]4.19 10*6/uLNormal3.60-5.00 [facility] HospitalComment on above:Performed By: #### TSH3, LIPID, CBC, CMP #### [facility] [address] [place] [id number] USAGlucose [Mass/volume] in Serum or PlasmaOrdered By: Finesse Recio on 74-84-9211Hkhgbfn [Mass/Vol]95 mg/cPSlbcmv13-611NuromeijzCleveland Clinic South Pointe HospitalComment on above:ADA recommended reference rangeRandom Glucose Reference Range is dependent on time and content of last meal. Glucose of more than 200 mg/dL in a nonstressed, ambulatory subject supports the diagnosisof Diabetes Mellitus.Result Comment: Random Glucose Reference Range is dependent on time and content of last meal. Glucose of more than 200 mg/dL in a nonstressed, ambulatory subject supports the diagnosis of Diabetes Mellitus. ADA recommended reference rangePerformed By: #### TSH3, LIPID, CBC, CMP #### [facility] [address] [place] [id number] USAHematocrit [Volume Fraction] of Blood by Automated count Ordered By: Finesse Recio on 41-81-3790Wzvjysofmv (Bld) [Volume fraction]37.8 % Bbhacd26.0-46.4FMercy Health – The Jewish HospitalComment on above:Performed By: #### TSH3, LIPID, CBC, CMP #### [facility] [address] [place] [id number] USAHemoglobin [Mass/volume] in BloodOrdered By: Finesse Recio on 02-40-9672Zpwozlmcyb (Bld) [Mass/Vol]13.1 g/oEJtyupf16.8-15.4FMercy Health – The Jewish HospitalComment on above:Performed By: #### TSH3, LIPID, CBC, CMP #### [facility] [address] [place] [address] USALeukocytes [#/volume] corrected for nucleated erythrocytes in Blood by Automated counOrdered By: Finesse Recio on 27-56-3709JAQ corrected for nucl RBC Auto (Bld) [#/Vol]6.2 10*3/uL3.8-11.6FMercy Health – The Jewish Hospital Leukocytes [#/volume] in Blood by Automated countOrdered By: Finesse Recio on 15-31-8704ONN (Bld) [#/Vol]6.2 10*3/uLNormal3.8-11.6FMercy Health – The Jewish HospitalComment on above:Performed By: #### TSH3, LIPID, CBC, CMP #### [facility] [address] [place] [id number] USALipid Panelon 47-34-8800RUF Cholesterol,Pbjfmsvfpe492 mg/dLHigh0-100The [facility] Physician GroupComment on above:Result Comment: LDL ATP III CLASSIFICATION LDL less than 100 mg/dL Optimal LDL 100-129 mg/dL Near or above optimal LDL 130-159 mg/dL Borderline high LDL 160-189 mg/dL High LDL greater than 189 mg/dL Very highPerformed By: #### TSH3, LIPID, CBC, CMP #### [facility] [address] [place] [address] USATriglyceride w/Htvuct77 mg/dLNormal0-149[facility] Physician GroupComment on above:Result Comment: TRIG ATP III CLASSIFICATION TRIG less than 150 mg/dL Normal TRIG 150-199 mg/dL Borderline high TRIG 200-500 mg/dL High TRIG greater than 500 mg/dL Very high Standard traceable to the Center for Disease Conrtrol and Prevention (CDC) test method.Performed By: #### TSH3, LIPID, CBC, CMP #### [facility] [address] [place] [address] USAVLDL ESXSTEUPDOX24 mg/dLNormalThe [facility] Physician GroupComment on above:Performed By: #### TSH3, LIPID, CBC, CMP #### [facility] [address] [place] [address] USALymphocytes [#/volume] in Blood by Automated countOrdered By: Finesse Recio on 38-05-2720Yqcwivvnhqm (Bld) [#/Vol]1.7 10*3/uLNormal1.00-4.8 [facility] HospitalComment on above:Performed By: #### TSH3, LIPID, CBC, CMP #### [facility] [address] [place] [address] USALymphocytes/100 leukocytes in Blood by Automated count Ordered By: Finesse Recio on 65-99-3756Xgpvrelsewz/100 WBC (Bld)27.6 %Normal. [facility] Pointe HospitalComment on above:Performed By: #### TSH3, LIPID, CBC, CMP #### [facility] [address] [Entitic mass] by Automated countOrdered By: Finesse Recio on 84-86-8994HXF (RBC) [Entitic mass]31.3 pjMurrhc67.7-34.3FMercy Health – The Jewish HospitalComment on above:Performed By: #### TSH3, LIPID, CBC, CMP #### [facility] [address] Auto (RBC) [Mass/Vol]Ordered By: Finesse Recio on 60-42-8427LHMX (RBC) [Mass/Vol]34.7 g/dL32.0-35.0[facility] HospitalMCV [Entitic volume] by Automated countOrdered By: Finesse Recio on 96-69-8350ORQ (RBC) [Entitic vol]90.2 sHRchnog99-698XijbuwgyuCleveland Clinic South Pointe HospitalComment on above:Performed By: #### TSH3, LIPID, CBC, CMP #### [facility] [address] [place] [address] USAMonocytes [#/volume] in Blood by Automated countOrdered By: Finesse Recio on 52-69-4923Gjauouydq (Bld) [#/Vol]0.4 10*3/uLNormal0.0-0.8 [facility] HospitalComment on above:Performed By: #### TSH3, LIPID, CBC, CMP #### [facility] [address] [place] [address] USAMonocytes/100 leukocytes in Blood by Automated count Ordered By: Finesse Recio on 00-73-9616Vsvbmofux/100 WBC (Bld)6.9 %Normal.[facility] Pointe HospitalComment on above:Performed By: #### TSH3, LIPID, CBC, CMP #### [facility] [address] [place] [address] USANeutrophils [#/volume] in Blood by Automated countOrdered By: Finesse Recio on 78-33-7386Muxijstpdkl (Bld) [#/Vol]3.9 10*3/uLNormal1.8-7.7 [facility] HospitalComment on above:Performed By: #### TSH3, LIPID, CBC, CMP #### [place] [address] USANeutrophils/100 leukocytes in Blood by Automated count Ordered By: Finesse Recio on 63-83-4302Nrzaaujumut/100 WBC (Bld)62.9 %Normal. [facility] HospitalComment on above:Performed By: #### TSH3, LIPID, CBC, CMP #### [facility] [address] [place] [address] USANo Panel InformationOrdered By: Finesse Recio on 04-16-2025 Estimated GFR (CKD-EPI)> 60.0 mL/MinCleveland Clinic South Pointe HospitalPharmacy Creatinine Clearance (ChemN/AFMercy Health – The Jewish HospitalNucleated erythrocytes [Presence] in Blood by Automated countOrdered By: Finesse Recio on 34-64-8804Rbyylmenf RBC Auto Ql (Bld)0.2 /100{WBC}0-0.5FMercy Health – The Jewish HospitalPlatelet mean volume [Entitic volume] in Blood by Automated count Ordered By: Finesse Recio on 10-49-4349Qxoskvtk mean volume (Bld) [Entitic vol]8.6 fLNormal6.3-10.7FMercy Health – The Jewish HospitalComment on above:Performed By: #### TSH3, LIPID, CBC, CMP #### [facility] [address] [place] [address] USAPlatelets [#/volume] in Blood by Automated countOrdered By: Finesse Recio on 47-83-3349Qnlvwwvas (Bld) [#/Vol]293 10*3/iIQaucpy556-539 [facility] HospitalComment on above:Performed By: #### TSH3, LIPID, CBC, CMP #### [facility] [address] [place] [address] USAPotassium [Moles/volume] in Serum or PlasmaOrdered By: Finesse Recio on 36-34-0160Uzovrfvcz [Moles/Vol]4.3 mmol/LNormal3.5-5.1FMercy Health – The Jewish HospitalComment on above:Performed By: #### TSH3, LIPID, CBC, CMP #### [place] [address] USAProtein [Mass/volume] in Serum or PlasmaOrdered By: Finesse Recio on 67-38-4942Bewlofo [Mass/Vol]7.0 g/dLNormal6.4-8.9[facility] HospitalComment on above:Performed By: #### TSH3, LIPID, CBC, CMP #### [facility] [address] [place] [address] USASerum globulin measurement by calculation (mass/volume) Ordered By: Finesse Recio on 14-29-0161Jkfuxrpz (S) [Mass/Vol]2.6 g/dLNormal [facility] HospitalComment on above:Performed By: #### TSH3, LIPID, CBC, CMP #### [facility] [address] [place] [address] USASerum or plasma albumin/globulin mass ratioOrdered By: Finesse Recio on 13-14-5564Hqnlldc/Globulin [Mass ratio]1.7 {ratio}NormalCleveland Clinic South Pointe HospitalComment on above:Performed By: #### TSH3, LIPID, CBC, CMP #### [facility] [address] [place] [address] USASerum or plasma anion gap determinationOrdered By: Finesse Recio on 79-38-2652Zbqme gap [Moles/Vol]9.3 mmol/LNormal6.0-15.0[facility] HospitalComment on above:Performed By: #### TSH3, LIPID, CBC, CMP #### [facility] [address] [place] [id number] USASerum or plasma total cholesterol/high density lipoprotein (HDL) cholesterol mass ratOrdered By: Finesse Recio on 04-16-2025 Cholesterol.total/Cholesterol in HDL [Mass ratio]4.2 {ratio}Normal<5.0[facility] Pointe HospitalComment on above:Performed By: #### TSH3, LIPID, CBC, CMP #### [facility] [address] [place] [id number] USASodium [Moles/volume] in Serum or PlasmaOrdered By: Finesse Recio on 08-58-5648Mkgfqc [Moles/Vol]137 mmol/PWskwre794-971DkqjuzqllCleveland Clinic South Pointe HospitalComment on above:Performed By: #### TSH3, LIPID, CBC, CMP #### [place] [id number] USAThyrotropin [Units/volume] in Serum or PlasmaOrdered By: Finesse Recio on 87-54-2651NFW Qn1.83 m[IU]/LNormal0.45-5.33[facility] Pointe HospitalComment on above:Result Comment: PERFORMED BY: [place] [address] PATHOLOGIST GRADER MARKER SHANNA TORREZ M.D.Performed By: #### TSH3, LIPID, CBC, CMP #### [place] [id number] USATriglyceride [Mass/volume] in Serum or PlasmaOrdered By: Finesse Recio on 43-78-1221Dpfuauzhowoq [Mass/Vol]96 mg/dL0-149[facility] Pointe HospitalComment on above:TRIG ATP III CLASSIFICATIONTRIG less than 150 mg/dL NormalTRIG 150-199 mg/dL Borderline highTRIG 200-500 mg/dL High TRIG greater than 500 mg/dL Very highStandard traceable to the Center for Disease Co nrtrol and Prevention (CDC) test method.Urea nitrogen [Mass/volume] in Serum or PlasmaOrdered By: Finesse Recio on 28-36-8146Pkmt nitrogen [Mass/Vol]8 mg/dLNormal 04-24[facility] HospitalComment on above:Performed By: #### TSH3, LIPID, CBC, CMP #### [facility] [address] [place] [address] USANo Panel Informationon 49-72-2412Zqyohc Mantz, ARRT 05/27/2024 4:13 PM L Inj/Asp: L glenohumeral on 05/27/2024 9:20 AM Indications: pain Details: 25 G needle, ultrasound-guided anterior approach Medications: 12 mg betamethasone acetate-betamethasone sodium phosphate 6 (3-3) MG/ML Procedure, treatment alternatives, risks and benefits explained, specific risks discussed. Consent was given by the patient. Patient was prepped and draped in the usual sterile fashion. [facility] HospitalXR [facility] min 3V*on 54-02-5544FA hand LT min 3V* [facility] [employer] Other XR hand LT min 3V*[facility] [employer] Other XR hand LT min 3V*[facility] [employer] Other XR hand LT min 3V*[place], [place] [address] Other XR hand LT min 3V*[facility] [employer] Other XR hand LT min 3V*[facility] [employer] Other XR hand LT min 3V*Patient: Yunier Matamoros MR#: [id number] [employer] Other XR hand LT min 3V*82[facility] [employer] Other XR hand LT min 3V*: 1970 Acct:[id number] [employer] Other XR hand LT min 3V*Age/Sex: 52 / F ADM Date: 05/15/23 [facility] [employer] Other XR hand LT min 3V*Loc: SOXD Room: Type: [facility] [employer] Other XR hand LT min 3V*Attending Dr: Sissy Smith MD [facility] [employer] Other XR hand LT min 3V*Copies to: Sissy Smith MDSimpson [employer] Other XR hand LT min 3V*Ordering Provider: Sissy Smith [facility] [employer] Other XR hand LT min 3V*Date of Service: 05/15/23Simpson [employer] Other XR hand LT min 3V* XR/XR hand LT min 3V*: [facility] [employer] Other XR hand LT min 3V*XR hand LT min 3V* 05/15/2023 12:09 [facility] [employer] Other XR hand LT min 3V*SIGNS AND SYMPTOMS: Mass on left third digitSimpson [employer] Other XR hand LT min 3V*PROTOCOL: Frontal, lateral, and oblique radiographs of the left handSimpson [employer] Other XR hand LT min 3V*COMPARISON: [facility] [employer] Other XR hand LT min 3V*FINDINGS:[employer] Other XR hand LT min 3V*The bones are in anatomic alignment. There is no evidence of fracture or dislocation. [facility] [employer] Other XR hand LT min 3V*spaces are preserved. No significant soft tissue swelling.[employer] Other XR hand LT min 3V* XR/XR hand LT min 3V*[facility] [employer] Other XR hand LT min 3V*IMPRESSION:[employer] Other XR hand LT min 3V*No acute bony injury or significant degenerative change.[employer] Other XR hand LT min 3V*No significant soft tissue swelling. [employer] Other XR hand LT min 3V*Impression dictated by: Mikhail Greenberg M.D.05/15/2023 4:52 [facility]Ns[facility] [employer] Other XR hand LT min 3V*Dictation Location: [id number] [employer] Other XR hand LT min 3V*Transcribed By: TAVO 05/15/[address] [place] [address] [employer] Other XR hand LT min 3V*Dictated By: Mikhail Greenberg II, MD 05/15/[address] [place] [address] [employer] Other xr hand LT min 3V*Signed By:[employer] Other xr hand LT min 3V*05/15/[address] [place] [address] [employer] Other CBK AUTO DIFFon 08-14-6678RVKJ #0.0 103/ulNormal 0.0-0.1OhiohealthComment on above:Performed By: #### CBC #### [facility] [address] [place] [address] [address] Scottie FrancoBasophils/100 WBC (Bld)0.7 %Normal0.2-2.0The [facility] Comment on above:Performed By: #### CBC #### [facility] [address] [place] [address] [address] Scottie Shaver #0.2 103/ulNormal0.0-0.7The [facility] CampusComment on above: Performed By: #### CBC #### [facility] [address] [address] [address] Scottie Fatimaosinophils/100 WBC (Bld)3.0 %Normal0.9-7.0The [facility] Comment on above:Performed By: #### CBC #### [facility] [address] [place] [address] Dr. Scottie Fatimarythrocyte distribution width (RBC) [Ratio]11.7 %Aznper59.0-15.0 Flower Hospitalment on above:Performed By: #### CBC #### [facility] [address] [place] [address] Dr. Scottie FrancoHematocrit (Bld) [Volume fraction]35.3 %Critically low36.0-48.0 OhiohealthComment on above:Performed By: #### CBC #### [facility] [address] [place] [address] Dr. Scottie FrancoHemoglobin (Bld) [Mass/Vol]12.5 g/xXSxpplw77.0-16.0OhiohealthComment on above:Performed By: #### CBC #### [facility] [address] [place] [address] Dr. Scottie Macedo #0.00 10e3/ulNormal0.00-0.03The [facility] CampusComment on above:Performed By: #### CBC #### [facility] [address] [place] [address] Dr. Scottie Macedo %0.0 %Normal0.0-0.5The [facility]ena Health Systemment on above: Performed By: #### CBC #### [facility] [address] [place] [address] Dr. Scottie Cohen #2.3 103/ulNormal1.2-3.8The [facility] CampusComment on above:Performed By: #### CBC #### [facility] [address] [place] [address] Dr. Scottie Bloommphocytes/100 WBC (Bld)37.6 %Bcughi15.5-60.0Flower Hospitalment on above:Performed By: #### CBC #### [facility] [address] [place] [address] Dr. Scottie MckeonUAL DIFF REQNONormalThe St. [facility] CampusComment on above: Performed By: #### CBC #### [facility] [address] [place] [address] Dr. Scottie Conway (RBC) [Entitic mass]32.0 xhFpkmxf67.7-34.0The [facility] CampusComment on above:Performed By: #### CBC #### [facility] [address] [place] [address] Dr. Scottie Conway (RBC) [Mass/Vol]35.4 g/dLCritically high29.9-35.2The [facility] CampusComment on above:Performed By: #### CBC #### [facility] [address] [place] [address] Dr. Scottie Hensley (RBC) [Entitic vol]90.3 eCFloaow12.0-99.0The [facility] CampusComment on above:Performed By: #### CBC #### [facility] [address] [place] [address] Dr. Scottie Hendrickson #0.5 103/ulNormal0.3-0.8The [facility] CampusComment on above:Performed By: #### CBC #### [facility] [address] [place] [address] Dr. Scottie Claudioocytes/100 WBC (Bld)7.8 %Normal1.7-12.0The [facility] Comment on above:Performed By: #### CBC #### [facility] [address] [place] [address] Dr. Scottie Perales #3.1 103/ulNormal1.4-6.5The [facility] CampusComment on above:Performed By: #### CBC #### [facility] [address] [place] [address] Dr. Scottie Lockeutrophils/100 WBC (Bld)50.9 %Csudyv59.0-75.0The [facility] CampusComment on above:Performed By: #### CBC #### [facility] [address] [place] [address] Dr. Scottie Amezquitalet mean volume (Bld) [Entitic vol]10.0 fLNormal9.5-13.5The [facility] CampusComment on above:Performed By: #### CBC #### [facility] [address] [place] [address] Dr. Scottie FrancoPLT314 103/hpAfgydq274-162Keq [facility]ont[facility] CampusComment on above: Performed By: #### CBC #### [facility] [address] [place] [address] Dr. Scottie FrancoRBC3.91 106/ulCritically low4.20-5.40The [facility] CampusComment on above:Performed By: #### CBC #### [facility] [address] [place] [address] Dr. Scottie FrancoWBC6.0 103/ulNormal4.0-11.0The [facility] CampusComment on above: Performed By: #### CBC #### [facility] [address] [place] [address] Dr. Scottie FrancoPREJosé Antonio QUANT HCGon 77-43-4826NNA QUANT<1NormalThe St[facility] Comment on above:Performed By: #### PREGQNT #### [facility] [address] [place] [address] Dr. Scottie FrancoHCJosé Antonio RANGESEE BELOWNoUniversity Hospitals Elyria Medical CenterComment on above: Result Comment: 5-50 0.2-1 WEEK 50-500 1-2 WEEKS 100-5,000 2-3 WEEKS 500-10,000 3-4 WEEKS 1,000-50,000 4-5 WEEKS 10,000-100,000 5-6 WEEKS 15,000-200,000 6-8 WEEKS 10,000-100,000 2-3 MONTHSPerformed By: #### PREGQNT #### [facility] [address] [place] [address] Dr. Scottie ChavezC AUTO DIFFon 00-29-3936TQMH #0.0 103/ulNormal0.0-0.1The [facility] CampusComment on above:Performed By: #### CBC #### [facility] [address] [address] [address] Scottie FrancoBasophils/100 WBC (Bld)0.5 %Normal0.2-2.0The [facility] Comment on above:Performed By: #### CBC #### [facility] [address] [place] [address] Dr. Scottie Shaver #0.1 103/ulNormal0.0-0.7The [facility] CampusComment on above: Performed By: #### CBC #### [facility] [address] [place] [address] Dr. Scottie Fatimaosinophils/100 WBC (Bld)1.8 %Normal0.9-7.0The [facility] Comment on above:Performed By: #### CBC #### [facility] [address] [place] [address] Dr. Scottie Fatimarythrocyte distribution width (RBC) [Ratio]11.9 %Mdjjgy93.0-15.[address] [facility] CampusComment on above:Performed By: #### CBC #### [facility] [address] [place] [address] Dr. Scottie FrancoHematocrit (Bld) [Volume fraction]38.4 %Azmxrf39.0-48.0The [facility] CampusComment on above:Performed By: #### CBC #### [facility] [address] [place] [address] Dr. Scottie FrancoHemoglobin (Bld) [Mass/Vol]13.0 g/sAYhvhxu20.0-16.0The [facility] CampusComment on above:Performed By: #### CBC #### [facility] [address] [place] [address] Dr. Scottie Macedo #0.01 10e3/ulNormal0.00-0.03The [facility] CampusComment on above:Performed By: #### CBC #### [facility] [address] [place] [address] Dr. Scottie Macedo %0.1 %Normal0.0-0.5The [facility] CampusComment on above: Performed By: #### CBC #### [facility] [address] [address] [address] Scottie Cohen #2.4 103/ulNormal1.2-3.8The [facility] CampusComment on above:Performed By: #### CBC #### [facility] [address] [address] [address] Scottie Bloommphocytes/100 WBC (Bld)32.1 %Ehmefs15.5-60.0The [facility] CampusComment on above:Performed By: #### CBC #### [facility] [address] [address] [address] Scottie Hollins DIFF REQNONormalThe St. [facility] CampusComment on above: Performed By: #### CBC #### [facility] [address] [place] [address] Dr. Scottie Conway (RBC) [Entitic mass]31.4 myGnzgcr02.7-34.0The [facility] CampusComment on above:Performed By: #### CBC #### [facility] [address] [place] [address] Dr. Scottie Conway (RBC) [Mass/Vol]33.9 g/xSSzoisa64.9-35.2The [facility] CampusComment on above:Performed By: #### CBC #### [facility] [address] [place] [address] Dr. Scottie Conway (RBC) [Entitic vol]92.[address] mUEweaqi73.0-99.0The [facility] CampusComment on above:Performed By: #### CBC #### [facility] [address] [place] [address] Dr. Scottei Hendrickson #0.4 103/ulNormal0.3-0.8The [facility] CampusComment on above:Performed By: #### CBC #### [facility] [address] [place] [address] Dr. Scottie Claudioocytes/100 WBC (Bld)5.3 %Normal1.7-12.0The [facility] Comment on above:Performed By: #### CBC #### [facility] [address] [place] [address] Dr. Scottie LockeUT #4.4 103/ulNormal1.4-6.5The [facility]ena Health Systemment on above:Performed By: #### CBC #### [facility] [address] [place] [address] Dr. Scottie Lockeutrophils/100 WBC (Bld)60.2 %Trofsa11.0-75.0The [facility] on above:Performed By: #### CBC #### [facility] [address] [place] [address] Dr. Scottie FrancoPlatelet mean volume (Bld) [Entitic vol]9.9 fLNormal9.5-13.5The [facility] on above:Performed By: #### CBC #### [facility] [address] [place] [address] Dr. Scottie FrancoPLT306 103/ynZqdazc261-010Vrf [facility] on above: Performed By: #### CBC #### [facility] [address] [place] [address] Dr. Scottie FrancoRBC4.14 106/ulCritically low4.20-5.40The [facility] on above:Performed By: #### CBC #### [facility] [address] [place] [address] Dr. Scottie FrancoWBC7.3 103/ulNormal4.0-11.0The [facility] on above: Performed By: #### CBC #### [facility] [address] [place] [address] Dr. Scottie FrancoFREE T4on 03-29-5668Cjec T4 [Mass/Vol]0.81 ng/dLNormal0.76-1.46 The [facility] on above:Performed By: #### FT4 #### [facility] [address] [place] [address] Dr. Scottie FrancoGLYCOHEMOGLOBIN A1Con 28-77-8956ZRP RECOMMENDATIONSEE BELOWNormal The [facility] CampusComment on above:Result Comment: ADA RECOMMENDED LIMIT 4.0 - 6.0 ADA THERAPEUTIC TARGET < 7.0 ACTION SUGGESTED > 7.0Performed By: #### A1C #### [facility] [address] [address] [address] Scottie FrancoGlucose [Mass/Vol]91 mg/dLNormalThe St. [facility] CampusComment on above:Performed By: #### A1C #### [facility] [address] [address] [address] Scottie FrancoHbA1c (Bld) [Mass fraction]4.8 %Normal4.5-6.2The [facility] CampusComment on above:Performed By: #### A1C #### [facility] [address] [place] [address] Dr. Scottie FrancoMG MAMM SCREEN 3D ANDRE CADon 15-81-6223JF MAMM SCREEN 3D ANDRE CAD Patient: YUNIER MATAMOROS Exam Date: 11/07/2022 : 1970 Gender:F Ordering : DR ÓSCAR SHELDON . Admission #: [id number] Family : Order #: [id number] CLICK HERE TO VIEW EXAM RADIOLOGY REPORT [...] pancreas cancer at age 88. LOCATION: [facility] BREAST COMPOSITION: Heterogeneously dense,which may obscure small [...] by: Dara Stafford MD on 11/08/2022 at 09:11[facility] ACOG PANEL 2: 30 to 65on 11-07-2022..[address] [facility] CampusComment on above:Result Comment: Performed at: WBPerformed By: #### [id number] #### [facility] [address] [place] [address] Dr. Scottie Crooks Gdln ACOG Stdrnle46-74QjsnyeFibUniversity Hospitals Elyria Medical CenterComment on above:Performed By: #### [id number] #### [facility] [address] [place] [address] Dr. Scottie FrancoDIAGNOSIS:CommentCleveland Clinic South Pointe Hospital on above: Result Comment: NEGATIVE FOR INTRAEPITHELIAL LESION OR MALIGNANCY. Performed at: WBPerformed By: #### [id number] #### [facility] [address] [place] [address] Dr. Scottie FrancoHPHarley AptimaNegativeNormalNegativeOhiohealthComsheridan community hospital on above:Result Comment: This nucleic acid amplification test detects fourteen high-risk HPV types (16,18,31,33,35,39,45,51,52,56,58,59,66,68) without differentiation. Performed at: =GPerformed By: #### [id number] #### [facility] [address] [place] [address] Dr. Scottie FrancoHPHarley Genotype ReflexCommentCleveland Clinic South Pointe Hospital on above:Result Comment: Criteria not met, HPV Genotype not performed. Performed at: WBPerformed By: #### [id number] #### [facility] [address] [place] [address] Dr. Scottie FrancoMethodology:CommentCleveland Clinic South Pointe Hospital on above: Result Comment: This liquid based ThinPrep(R) pap test was screened with the use of an image guided system. Performed at: WBPerformed By: #### [id number] #### [facility] [address] [place] [address] Dr. Scottie FrancoNote:CommentCleveland Clinic South Pointe Hospital on above:Result Comment: The Pap smear is a screening test designed to aid in the detection of premalignant and malignant conditions of the uterine cervix. It is not a diagnostic procedure and should not be used as the sole means of detecting cervical cancer. Both false-positive and false-negative reports do occur. . Performed at: WBPerformed By: #### [id number] #### [facility] [address] [place] [address] Dr. Scottie Monterrosoformed by:CommentCleveland Clinic South Pointe Hospital on above: Result Comment: Gilbert Wilburn Store Receiving Specialist (ASCP) Performed at: WBPerformed By: #### [id number] #### [facility] [address] [place] [address] Dr. Scottie Monzon adequacy:[facility] on above:Result Comment: Satisfactory for evaluation. Endocervical and/or squamous metaplastic cells (endocervical component) are present. Performed at: WBPerformed By: #### [id number] #### [facility] [address] [place] [address] Dr. Scottie Frankel 15-13-7117AFM Coag (PPP) [Relative time]{INR}NormalThe St. [facility] CampusComment on above:Performed By: #### PT, PTT #### [facility] [address] [place] [address] Dr. Scottie Martin GUIDELINESSEE BELOWOhio State Harding HospitalComment on above:Result Comment: DESIRED INR: 2.0 - 3.0 CONDITIONS NOT LISTED BELOW 2.5 - 3.5 FOR PROSTHETIC HEART VALVE REPLACEMENT 2.5 - 3.5 RECURRENT THROMBOSIS Performed By: #### PT, PTT #### [facility] [address] [place] [address] Dr. Scottie FrancoPT Coag (PPP) [Time]9.8 sNormal9.0-11.6The [facility] Comment on above:Performed By: #### PT, PTT #### [facility] [address] [place] [address] Dr. Scottie Stafford 35-77-5174jASY Coag (Bld) [Time]26.9 wVfivls97.3-36.2The [facility] CampusComment on above:Performed By: #### PT, PTT ####[facility] [address] [place], [place] [address]Pc. Scottie FrancoTSHon 94-13-9922ZBA2.496 uIU/mLNormal0.358-3.740The [facility] CampusComment on above:Performed By: #### TSH ####[facility] [address] [place], [place] [address]Lh.Scottie FrancoUS PELVIS AND TRANSVAGon 67-28-0923OR PELVIS AND TRANSVAGEXAMINATION: US PELVIS AND TRANSVAG HISTORY: Excessive and [...] Electronically authenticated by: DARA STAFFORD Date: 2022-11-07 10:56NormWooster Community HospitalBasophils Auto (Bld) [#/Vol]Ordered By: Finesse Recio on 03-48-0185Drjyrhetp (Bld) [#/Vol]0.0 10*3/uL0.0-0.2FMercy Health – The Jewish HospitalBasophils/100 WBC Auto (Bld)Ordered By: Finesse Recio on 05-09-2022 Basophils/100 WBC (Bld)0.7 %.[facility] Pointe HospitalBlood hemoglobin measurement (mass/volume)Ordered By: Finesse Recio on 99-96-6276Yincujveqs (Bld) [Mass/Vol]13.6 g/dL11.8-15.4FMercy Health – The Jewish HospitalBlood leukocytes automated count (number/volume)Ordered By: Finesse Recio on 48-01-6041GIA (Bld) [#/Vol]6.6 10*3/uL4.5-11.0Cleveland Clinic South Pointe HospitalBody fluid albumin measurement (mass/volume)Ordered By: Finesse Recio on 46-31-3887Xxcqmvb (Body fld) [Mass/Vol]4.2 g/dL3.2-5.5FMercy Health – The Jewish HospitalCholesterol [Mass/volume] in Serum or PlasmaOrdered By: Finesse Recio on 42-76-6388Tjtuccfrrbl [Mass/Vol]235 mg/jD212-478KvecruajpCleveland Clinic South Pointe HospitalComment on above:Chol less than 200 mg/dl low risk Chol 201-239 mg/dl borderline risk Chol 240 mg/dl and greater high riskCholesterol in LDL Calc [Mass/Vol]Ordered By: Finesse Recio on 90-01-2476Wvzxmnjbobt in LDL [Mass/Vol]166 mg/dL0-100Cleveland Clinic South Pointe HospitalComment on above:LDL ATP III CLASSIFICATION LDL less than 100 mg/dL Optimal LDL 100-129 mg/dL Near or above optimal LDL 130-159 mg/dL Borderline high LDL 160-189 mg/dL High LDL greater than 189 mg/dL Very highCholesterol in VLDL Calc [Mass/Vol]Ordered By: Finesse Recio on 57-82-5907Qlxttodhbyx in VLDL [Mass/Vol]15 mg/dLCleveland Clinic South Pointe HospitalCreatinine and Glomerular filtration rate.predicted panel (S/P/Bld)Ordered By: Finesse Recio on 15-29-7699Pkrqahfgey [Mass/Vol]0.75 mg/dL 0.44-1.03Cleveland Clinic South Pointe HospitalEosinophils Auto (Bld) [#/Vol]Ordered By: Finesse Recio on 32-94-4834Ntasmyciite (Bld) [#/Vol]0.2 10*3/uL0.0-0.45 [facility] Pointe HospitalEosinophils/100 WBC Auto (Bld)Ordered By: Finesse Recio on 08-37-7442Zbnwzqencqt/100 WBC (Bld)2.6 %.[facility] Pointe HospitalErythrocyte distribution width Auto (RBC) [Ratio]Ordered By: Finesse Recio on 32-10-1207Hbzzeetlibu distribution width (RBC) [Ratio]12.7 %11.9-15.3FMercy Health – The Jewish HospitalEstimated glomerular filtration rate (GFR) non- AmericanOrdered By: Finesse Recio on 46-20-8574DFD/1.73 sq M.predicted among non- blacks MDRD (S/P/Bld) [Vol rate/Area]> 60 mL/MinCleveland Clinic South Pointe HospitalGlobulin Calc (S) [Mass/Vol]Ordered By: Finesse Recio on 37-40-1504Zhykabdo (S) [Mass/Vol]2.8 g/dLCleveland Clinic South Pointe HospitalHematocrit Auto (Bld) [Volume fraction]Ordered By: Finesse Recio on 63-21-9764Xpzwjooaxg (Bld) [Volume fraction]39.4 %34.0-46.4FMercy Health – The Jewish HospitalLaboratory - Hematology and Cell countsOrdered By: Finesse Recio on 62-81-8846Osazdfhwn RBC/100 WBC (Bld) [Ratio]0.1 %0-0.5FMercy Health – The Jewish HospitalLymphocytes Auto (Bld) [#/Vol] Ordered By: Finesse Recio on 32-87-2717Bvssysnncsw (Bld) [#/Vol]1.7 10*3/uL1.00-4.8 [facility] Pointe HospitalLymphocytes/100 WBC Auto (Bld)Ordered By: Finesse Recio on 84-90-2021Cgaidplnizd/100 WBC (Bld)26.0 %.[facility]ullH Auto (RBC) [Entitic mass]Ordered By: Finesse Recio on 05-45-8210PAH (RBC) [Entitic mass]31.6 pg24.7-34.3FMercy Health – The Jewish HospitalMCHC Auto (RBC) [Mass/Vol]Ordered By: Finesse Recio on 99-07-9732KVLH (RBC) [Mass/Vol]34.6 g/dL 32.0-35.0C[facility] Pointe HospitalMCV Auto (RBC) [Entitic vol]Ordered By: Finesse Recio on 00-33-7887CHB (RBC) [Entitic vol]91.4 nC06-087UfzfkybcnCleveland Clinic South Pointe HospitalMonocytes Auto (Bld) [#/Vol]Ordered By: Finesse Recio on 43-70-8596Bjscfunrp (Bld) [#/Vol]0.4 10*3/uL0.0-0.8C[facility] HospitalMonocytes/100 WBC Auto (Bld)Ordered By: Finesse Recio on 05-09-2022 Monocytes/100 WBC (Bld)6.4 %.[facility] Pointe HospitalNeutrophils Auto (Bld) [#/Vol]Ordered By: Finesse Recio on 60-27-9922Sujllirtbeo (Bld) [#/Vol]4.2 10*3/uL1.8-7.7FMercy Health – The Jewish HospitalNeutrophils/100 WBC Auto (Bld) Ordered By: Finesse Recio on 83-89-7058Xxqkllqxumo/100 WBC (Bld)64.3 %.[facility] HospitalNo Panel InformationOrdered By: Finesse Recio on 05-09-2022 Estimated GFR ()> 60 mL/MinCleveland Clinic South Pointe Hospital Comment on above:GFR estimated reference range: According to KDOQI guidelines, <60 ml/min/1.73m2 is sufficient todiagnose a patient with chronic kidney disease.Pharmacy Creatinine Clearance (ChemN/[facility] Platelet mean volume Auto (Bld) [Entitic vol]Ordered By: Finesse Recio on 50-03-2731Ulfhnphy mean volume (Bld) [Entitic vol]9.2 fL6.3-10.7FMercy Health – The Jewish HospitalPlatelets Auto (Bld) [#/Vol]Ordered By: Finesse Recio on 99-29-4404Lmlyvnyce (Bld) [#/Vol]303 10*3/jV613-504KbifffmdmCleveland Clinic South Pointe HospitalProtein [Mass/volume] in Serum or PlasmaOrdered By: Finesse Recio on 10-58-4602Mipnvmb [Mass/Vol]7.0 g/dL6.1-7.9C[facility] Po[facility] HospitalRBC Auto (Bld) [#/Vol]Ordered By: Finesse Recio on 15-45-1432YFS (Bld) [#/Vol]4.31 10*6/uL3.60-5.00WVUMedicine Harrison Community Hospitalerum or plasma alanine aminotransferase measurement without P-5'-P (enzymatic activiOrdered By: Finesse Recio on 99-89-4122VVO No additional P-5'-P [Catalytic activity/Vol]23 U/L10-60 [facility] Hospitalerum or plasma albumin/globulin mass ratio Ordered By: Finesse Recio on 35-64-9519Ecjwite/Globulin [Mass ratio]1.5 {ratio} [facility] Hospitalerum or plasma alkaline phosphatase measurement (enzymatic activity/volume)Ordered By: Finesse Recio on 17-24-0590HWY [Catalytic activity/Vol]59 U/B33-94KwvlalmffWVUMedicine Harrison Community Hospitalerum or plasma aspartate aminotransferase measurement (enzymatic activity/volume)Ordered By: Finesse Recio on 33-17-3034XCD [Catalytic activity/Vol]18 U/M26-68PfjbhczsiWVUMedicine Harrison Community Hospitalerum or plasma calcium measurement (mass/volume)Ordered By: Finesse Recio on 96-01-7893Jtbsqko [Mass/Vol]9.2 mg/dL8.2-10.2FWilson Memorial Hospitalerum or plasma chloride measurement (moles/volume) Ordered By: Finesse Recio on 21-41-1846Wshxbovs [Moles/Vol]102 mmol/L95-114 [facility] Hospitalerum or plasma glucose measurement (mass/volume)Ordered By: Finesse Recio on 88-25-0132Ydgdzhd [Mass/Vol]93 mg/dL 70-100[facility] Pointe HospitalComment on above:ADA recommended reference range Random Glucose Reference Range is dependent on time and content of last meal. Glucose of more than 200 mg/dL in a nonstressed, ambulatory subject supports the diagnosis of Diabetes Mellitus.Serum or plasma high density lipoprotein (HDL) cholesterol measurementOrdered By: Finesse Recio on 38-18-2255Opoffkidhle in HDL [Mass/Vol]54 mg/rT76-28LjcepgsniCleveland Clinic South Pointe HospitalComment on above:HDL CHOL ATP-III CLASSIFICATION Cardiovascular Risk HDL > or equal to 60 mg/dL LOW HDL < 40 mg/dL HIGHSerum or plasma potassium measurement (moles/volume)Ordered By: Finesse Recio on 63-47-2336Nszxrzmwv [Moles/Vol]4.2 mmol/L3.5-5.1FWilson Memorial Hospitalerum or plasma sodium measurement (moles/volume)Ordered By: Finesse Recio on 86-23-5978Waalvw [Moles/Vol]137 mmol/M407-951BxkhlcgdrWVUMedicine Harrison Community Hospitalerum or plasma total bilirubin measurement (mass/volume) Ordered By: Finesse Recio on 36-38-2242Qywbxdkok [Mass/Vol]0.6 mg/dL0.3-1.2 [facility] Hospitalerum or plasma total carbon dioxide measurement (moles/volume)Ordered By: Finesse Recio on 81-69-5779LY3 [Moles/Vol] 24.5 mmol/L22.0-30.0WVUM[facility] Community Hospitalerum or plasma total cholesterol/high density lipoprotein (HDL) cholesterol mass ratOrdered By: Finesse Recio on 95-54-9349Uwieplonxfu.total/Cholesterol in HDL [Mass ratio]4.4 {ratio} <5.0WVUMed[facility] Community Hospitalerum or plasma urea nitrogen measurement (mass/volume)Ordered By: Finesse Recio on 27-12-5257Ptgr nitrogen [Mass/Vol]7 mg/dL 9-23[facility] HospitalTS DL <= 0.005 mIU/L QnOrdered By: Finesse Recio on 88-91-6528VWM Qn2.06 m[IU]/L0.45-5.33[facility] Triglyceride [Mass/volume] in Serum or PlasmaOrdered By: Finesse Recio on 12-56-5619Wsktfacnjead [Mass/Vol]77 mg/nI94-154GxcyrhcsaCleveland Clinic South Pointe Hospital Comment on above:TRIG ATP III CLASSIFICATION TRIG less than 150 mg/dL Normal TRIG 150-199 mg/dL Borderline high TRIG 200-500 mg/dL High TRIG greater than 500 mg/dL Very high Standard traceable to the Center for Disease Conrtrol and Prevention (CDC) test method. Vital Signs Date TimeVital SignValuePerforming TarbkymntTvunddjc48-95-7994 14:51-0400Body vxjucg194.1 cmDavid Pocos DO Work Phone: NOMissouri Rehabilitation CenterZtsgagpdcb47-08-1373 14:51-0400Body mass index (BMI) [Ratio]32.45 kg/u6Egnwx Pocos DO Work Phone: noMissouri Rehabilitation CenterSsiaspeqwd57-33-4612 14:51-0400Body .45 kgDavid Pocos DO Work Phone: noMissouri Rehabilitation CenterVvfwcbdabb99-64-8325 14:46-0400Body .1 cmTodmarley Chandler PA Work Phone: noMissouri Rehabilitation CenterZhiymaeyjm95-80-2495 14:46-0400Body mass index (BMI) [Ratio]32.45 kg/m2ToFederal Correction Institution Hospital PA Work Phone: UZMissouri Rehabilitation CenterZywwmodjap98-54-6186 14:46-0400Body nveghy52.45 kgToFederal Correction Institution Hospital PA Work Phone: noMissouri Rehabilitation CenterNkpthasdcc25-13-9818 09:31-0400Body narort513.1 Clarencejoseph Cobb REMEDIAL TEACHER Work Phone: [facility] LouisXtsipprafd28-63-4635 09:31-0400Body mass index (BMI) [Ratio]32.45 kg/v4Jdiqdk Kiepert REMEDIAL TEACHER Work Phone: [phone]. LouisSobovaocpq70-77-2518 09:31-0400Body temperature 97.11 [degF]Zuleima Dodsont REMEDIAL TEACHER Work Phone: [facility] LouisKnawmfaouz49-63-7102 09:31-0400Body .45 kgCarzuleima Dodsont REMEDIAL TEACHER Work Phone: [phone] LouisYwvecpjucf59-84-6754 09:31-0400Diastolic blood uuarbrte17 mm[Hg]Zuleima Dodsont REMEDIAL TEACHER Work Phone: [facility] LouisQfsfqzrxap03-82-4548 09:31-0400Heart rate79 /min Zuleima Dodsont REMEDIAL TEACHER Work Phone: [phone] LouisWloxldqqed76-36-6999 09:31-5069VpL7% (BldA) [Mass fraction]97 %Zuleima Dodsont REMEDIAL TEACHER Work Phone: [facility]. LouisRalphecdfa69-53-5639 09:31-0400Systolic blood tyhaobbf405 mm[Hg]Zuleima Cobb REMEDIAL TEACHER Work Phone: noMissouri Rehabilitation CenterXcctruhxoc65-92-1372 08:51-0400Body byolcp986.1 cmTsohail Chandler PA Work Phone: NOMissouri Rehabilitation CenterNglykulzzg66-83-9103 08:51-0400Body mass index (BMI) [Ratio]32.62 kg/m2Tojohnathan [place] PA Work Phone: NOMissouri Rehabilitation CenterBltaojlkao24-43-7798 08:51-0400Body .91 kgTojohnathan Chandler PA Work Phone: noMissouri Rehabilitation CenterNjlptapxym33-02-7641 14:18-0500Diastolic blood eecbqwzp76 mm[Hg]FERCHO SIVA 405-3104Udidvf-IfgesMiami Valley Hospital 09-27-2023 14:18-0500Mean blood myvliyif079 mm[Hg]FERCHO SIVA 716-3655Pgstyz-YcklzMiami Valley Hospital 09-27-2023 14:18-0500Systolic blood xynswkai304 mm[Hg]FERCHO SIVA 645-6595Yiirlb-UqbjzMiami Valley Hospital 09-27-2023 13:53-0500Blood Pressure LocationSHELLY SIVA 902-9701Fjbwiy-PtgkmMiami Valley Hospital 09-27-2023 13:53-0500Body xjrrxvoeetp82.78 [degF]FERCHO SIVA 280-9285Hycysb-QiuwvMiami Valley Hospital 09-27-2023 13:53-0500Diastolic blood mgpnwujx05 mm[Hg]FERCHO SIVA 397-9801Ktnskk-GswbdMiami Valley Hospital 09-27-2023 13:53-0500Heart rate91 /minSHELLY SIVA 432-7405Pvhigc-NpqybMiami Valley Hospital 09-27-2023 13:53-0500Respiratory rate14 /minSHELLY SIVA 966-2672Mbhsxn-FrjhcMiami Valley Hospital 09-27-2023 13:53-9846XsO1% (BldA) [Mass fraction]98 %FERCHO PANIAGUA 294-6358Udecle-YozivMiami Valley Hospital 09-27-2023 13:53-0500Systolic blood oofmiwrv093 mm[Hg]FERCHO PANIAGUA 935-5028Rvdaem-FrtmgMiami Valley Hospital 05-15-2023 12:00-0400Body .1 cmCollcira Smith Other [employer] Other 08-15-2023 12:00-0400Body mass index (BMI) [Ratio] 32.45 kg/a4Ohqfrzjcira Smith Other [employer] Other 08-15-2023 12:00-0400Body dyanxj20.45 kgCowillard Smith Other [employer] Other 02-25-2023 11:00-0500Body xlokqf444.1 cmSgracia Richmond Other [employer] Other 02-25-2023 11:00-0500Body mass index (BMI) [Ratio] 32.45 kg/n7CyvnpylfmNika Richmond Other [employer] Other 02-25-2023 11:00-0500Body hiwxkqrygcr46.3 [degF] Nika Richmond Other [employer] Other 02-25-2023 11:00-0500Body cclrol39.45 kgStrufino Richmond Other [employer] Other 02-25-2023 11:00-0500Respiratory rate20 /minStepgianfranco Richmond Other [facility] [employer] Other 456410-86-3976 11:00-7310DtB3% (BldA) [Mass fraction]99 % Nika Richmond Other [facility] [employer] Other Encounters Encounter DateEncounter TypeCare ProviderFacilityStart: 08-12-2025 End: 70-67-3075dlfuplojkfAzysyb L. BobbsFacility:FT [facility] BellevueStart: 06-29-2025 End: 63-13-5410Pixqoqe encounter procedureDavid A Pocos DO Work Phone: noms [email or web address] OrthopaedicsComment on above:Chronic pain of left knee (Primary Dx); Acute medial meniscus tear of left knee, initial encounter; Primary osteoarthritis of left kneeStart: 06-29-2025 End: 96-22-1579medwhtbaytWZYUU A POCOSNot AvailableStart: 06-29-2025 End: 19-76-1164Hpdvhf flowsheetDavid A Pocos DO Work Phone: [facility] [place] OrthopaedicsStart: 06-29-2025 End: 02-83-3808Olzlot flowsheetDavid A Pocos DO Work Phone: [facility] [place] OrthopaedicsStart: 06-16-2025 End: 62-27-0545stfvfiizmzQELF Marley CHANDLERNot AvailableStart: 06-05-2025 End: 09-63-3826Ghraukv encounter procedureTodd Marley Chandler PA Work Phone: noms [email or web address] OrthopaedicsComment on above:Acute pain of left knee (Primary Dx); Acute internal derangement of left kneeStart: 06-05-2025 End: 95-82-1072hwbhrewlqiSFGV Marley CHANDLERNot AvailableStart: 06-05-2025 End: 98-89-0919fahwpaegcxJKIR Marley CHANDLERNot AvailableStart: 04-28-2025 End: 37-08-2454dkehwbdppoNKHCUY A LEHMANNFacility:FT FM BellevueStart: 04-16-2025 End: 79-66-0935vynffvpykwSwyxq P Kuns - [facility] DO Work Phone: [facility] Work Phone: Start: 04-16-2025 End: 73-39-8663Hikwvwxk ReferredFinesse Harrison DO-[facility] Work Phone: start: 01-03-2025 End: 81-51-3512Ptmmpb outpatient visit 15 minutesCarrie A Kiepert REMEDIAL TEACHER Work Phone: NOMS SWS UCComment on above:Acute bacterial rhinosinusitis (Primary Dx); Vulvovaginal candidiasis; Neoplasm of uncertain behavior of skinStart: 01-03-2025 End: 14-27-5310ydeohlpwxpNTMMCS A ARNAVEPERTNot AvailableStart: 05-27-2024 End: 40-91-6911Uzloxi flowsheetTojohnathan RAMIREZ Work Phone: [facility] SWS ORTHOAOStart: 05-27-2024 End: 31-63-8594Bzbtfd flowsheetTojohnathan Chandler PA Work Phone: [facility] S[facility] ORTHOAOStart: 05-27-2024 End: 39-31-3222Uldiznc encounter procedureTojohnathan RAMIREZ Work Phone: N[facility] SWS ORTHOAOComment on above:Rotator cuff impingement syndrome of left shoulder (Primary Dx); Arthritis of left acromioclavicular joint; Right cervical radiculopathyStart: 09-27-2023 End: 71-70-8203Hbjypci encounter procedureSALEJANDRO PANIAGUA 386-0463Mfdino-GqhswGreen [facility] [place] Start: 01-41-1854Txfixo outpatient new 30 minutes Sissy Bhagat OrthopedicsStart: 05-15-2023 End: 24-10-6490nzhfqzjhsnXA Finesse Recio Work Phone: [facility] Work Phone: Start: 05-15-2023 End: 53-23-0539Krorflu encounter procedureDO Finesse Recio Work Phone: [facility] Start: 12-21-2022 End: 47-76-7510iszmmxaygkOW ÓSCAR SULEMAN .Facility:L9Bxxzq: 34-64-1246Fwtsbhuox for preprocedural cardiovascular examinationDR ÓSCAR SULEMAN .[facility] HospitalStart: 12-05-2022 End: 82-40-9931pcrbuzrgoiDW ÓSCAR SULEMAN .Facility:C0Srpca: 12-05-2022 End: 19-80-8893Gisxinmuy for preprocedural cardiovascular examinationDR ÓSCAR SULEMAN .Facility:W7Gzjyw: 11-25-2022 End: 49-14-8012atklkuslkqQwwatlxdf Breault Other [facility] [employer] Other Start: 22-42-9082Ummxwu outpatient new 30 minutes Nika RichmondFPG Urgent Care ClydeStart: 11-07-2022 End: 06-42-2287ovumgtcgiqUO DARA STAFFORDFacility:X7Rndel: 11-01-2022 End: 40-53-9073ciocakuwhkZL SURY GREY .Facility:S0Ajnto: 05-09-2022 End: 03-70-2540Rfgyclyv ReferredDO Finesse Recio Work Phone: [facility] Procedures DateProcedureProcedure DetailPerforming ClinicianStart: 40-66-4080Jxupcvwgsd examination knee 3 viewsTojohnathan RAMIREZ Work Phone: Start: 71-03-9919Qpckftvwukjxgd aspir&/inj major jt/bursa w/usShawnee RAMIREZ Work Phone: Start: 23-20-2286Kcuie X-ray of left handDO Finesse Recio Work Phone: start: 31-77-8713VcbzswpuspxMuev Hills PA Work Phone: Start: 47-29-3978Qyoc of Bartholin's gland duct (disorder)FERCHO PANIAGUA Comment on above:Patient states she has had removal done twiceStart: 16-10-0684Xuxhoqwrx of wisdom tooth (body structure)FERCHO PANIAGUA Start: 37-29-0889Ipmnbabomj bone structure (body structure)FERCHO PANIAGUA Ligation of fallopian tubeSALEJANDRO PANIAGUA Plan of Treatment DateCare ActivityDetailAuthorStart: 06-29-2025 End: 87-42-6946Vzmzacu encounter hwsmpeidg49/29/2025 3:00 PM EDT Office Visit [facility] [address] [place] [id number] Dara Ugarte DO [address] [place] [address] ArrivedNOWaterbury Hospital OrthopaedicsComment on above:ArrivedStart: 20-69-4787Mcafmsqjj vaccinationInfluenza Vaccine (#1)[facility] HealthcareStart: 43-60-7621Unokycymm vaccinationInfluenza Vaccine (#1)[facility] HealthcareStart: 86-45-9096Wcipbmigz for malignant neoplasm of breastMammogram NOM HealthcareStart: 74-85-9165Hxyycmxgz for malignant neoplasm of cervixNOMS HealthcareStart: 49-42-2355Bbsomtfjm for malignant neoplasm of cervixPap Smear [facility] HealthcareStart: 55-39-8033Rvackqksy for malignant neoplasm of colonNOMS Healthcare Payers DatePayer CategoryPayerPolicy [id number]-[id number] [id number] Health InsuranceMEDICAL MUTUAL [id number] M[employer]UAL [employer] [id number] 2022-Present [address] [place] [id number] 2.0.1.087444.3.57[id number] 2..1.369184.3.57[id number] 2..1.884153.3.57[id number] 2..1.453167.3.57[id number] 2..1.626466.3.57[id number] 2.0.1.686415.3.57[id number] 2.0.1.717166.3.57[id number] 2.0.1.174807.3.579.[id number] 2.0.1.108840.3.57[id number] 2.0.1.507257.3.57[id number] 2..840.1.747111.3.57[id number] 43469f59-wgg8-8685-20[id number] 2.16.840.1.031132.3.579.2.531 Social History DateTypeDetailFacilityTobacco smoking status NHISUnknown if ever smokedKeenan Private Hospital Work Phone: Start: 78-90-6268Hca [facility]ertart: 05-27-2024 End: 30-16-8646Skr Assigned At [facility]ulltart: 09-27-2023 End: 87-30-3071Maaqacs smoking statusNever smoked tobacco (finding)[facility] HospitalTobacco smoking statusNeverMiami Valley HospitalStart: 11-44-0442Hkwkcqg use and exposure Smokeless tobacco non-userNOIL HealthcareStart: 05-27-2024 End: 37-61-1978Yxtgrdnvg beverage intakeCurrent drinker of alcohol (finding)[facility] HealthcareStart: 05-27-2024 End: 92-40-1652Uatxnzfzq beverage intakeNOIL HealthcareStart: 66-42-4738Tgy assigned at birthNot on fileDELTA COMMUNITY [facility]ENTER HealthcareTobacco smoking status NHISTobacco smoking consumption unknownNOMS HealthcareSexFemale (finding)[facility] Functional Status DcozRdwqhciupjBpvuapPzhqgycs54-50-0362Gvknefmolz StatusN/AFThe [facility] Clinical Notes 11-25-2022 to 06-29-2025 Note Date & FbtpIqmkPyyaxgyl20-68-3754 History of Present illness Narrative* Sury Garrett - 06/29/2025 3:00 PM EDT Images from the original note were not included. GENERAL HISTORY AND PHYSICAL: NAME: Yunier Matamoros : 1970 CHIEF COMPLAINT: Left knee internal derangement. HISTORY OF PRESENT ILLNESS: This is a 54 y.o. female who presents for a pre-op H&P. Yunier is [id number] white female who presents complaining of pain and difficulty from [facility]. She has had difficulty since the winter of 2023. It has seemingly gotten a little bit worse. She denies any numbness or tingling. No fever or chills. She did see [place]. She has had a complete work up that does suggest the pathology at hand. With this, he did make recommendation for her selina seen here. She is accommodated for the same. She denies any numbness or tingling or further finding. PAST MEDICAL HISTORY: Past Medical History: Diagnosis [...] (Vitamin D-3) 50 MCG (1999 [place]) capsule fluticasone (Flonase) 50 MCG/ACT nasal spray 2 sprays, Each Nostril, Daily, Shake gently. Before first use, prime pump. After use, clean tip and replace cap. Multiple Vitamin (MULTI VITAMIN DAILY PO) REVIEW OF SYSTEMS: The review of systems, history and current medications list are all reviewed today. Vitals: Visit Vitals Ht 5' 5 Wt 195 lb BMI 32.45 kg/m Smoking Status Never BSA 2.01 m PHYSICAL EXAM: Her orthopedic exam of the knee here today reveals tenderness right over the medial compartment, posterior medial compartment with pain upon medial Adri testing. No click. Her varus and valgus stress testing is stable. Bhupendra is negative. The calf and thigh are supple. Examination of the contralateral right knee reveals arc of motion without difficulty. No tendernessto palpation. Neurocirculatory status is overall grossly intact. Pulses are otherwise brisk. X-rays done here today and does show some early arthritic change. She does have some lateral patellofemoral arthrosis. No evidence of fracture. MRI 06-16-2025 does show an apparent medial plica. There is also evidence of posterior horn medial meniscal tear. No evidence of fracture noted. Surgical History and Physical: GENERAL AND PSYCHOLOGICAL: The patient is alert and oriented for age. HEAD AND E.E.N.T.: The skull is normocephalic. There is no mass or sign of trauma. NECK: The neck is supple. There is good range of motion. There is no mass or adenopathy appreciated. The thyroid is not enlarged. CARDIAC: The heart is regular. There is no murmur or ectopy appreciated. LUNGS: Inspiratory and expiratory excursions are symmetrical. The lung isidro are clear in all quadrants. ABDOMEN: The texture is soft. Bowel sounds are heard well in all quadrants. There is no tenderness to palpation. There is no organomegaly appreciated. OSTEOPATHIC AND STRUCTURAL: There is no gross evidence of kyphosis, lordosis, scoliosis, or apparent leg length discrepancy, with no acute tissue texture changes in sitting or standing positions. ASSESSMENT: Left knee osteoarthritis, pain with likely medial meniscal tear. PLAN: The findings are discussed. The treatment options are outlined. We did discuss the options available to her and did discuss surgical intervention as being the definitive recommendation and treatment of choice. She does voice understanding of this. Ultimately she would like to go ahead with this, but she is unsure of timing. We did discuss the risks, complications, and reasonable expectations. The nature of the findings were discussed at length. Knee arthroscopy was recommended. Imaging studies, pathology and anatomy were reviewed. The patient has failed conservative care and has continued symptomatology with activities of daily living disruption. Knee arthroscopy is warranted. The patient is aware that knee arthroscopy does not cure arthritis. There is a potential of continued pain,stiffness, antalgic gait, infection, infection requiring multiple surgeries with IV antibiotics, nerve, vessel or tendon injury, foot drop, bleeding, anesthesia complications, blood clot, pulmonary embolus, myocardial infarction, arrhythmia, stroke and have all been reviewed. I am personally involved with the informed consent process. Numerous questions were answered. The patient will undergo routine presurgical testing per protocol. I will see the patient back postoperatively for a recheck, sooner if worse. The patient voices verbal understanding and is discharged in stable condition. We did discuss the medical risks and we did outline the time frame of healing. She does voice understanding of this. Routine testing will be done based upon age and gender. All of her questions are otherwise answered. She is discharged in stable condition here today. She is given a card for nursing a nd she may schedule the intervention at any point. Follow up letter sent to her primary care. Dara Ugarte D.O. Cosigned by Dara Ugarte DO at 07/01/2025 4:41 PM EDT documented in this encounterThe [facility] Institute of St. [id number] History of Present illness Narrative* JAMES Valdez - 06/05/2025 2:45 PM EDT GENERAL HISTORY AND PHYSICAL: NAME: Yunier Matamoros : 1970 HISTORY OF PRESENT ILLNESS: Yunier Matamoros is an 54 y.o. 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 She has been having general pain and achiness swelling of the knee. She recently had an episode where she had a real loud pop and actually some improvement with the discomfort feeling the pop in the posterior medial joint. 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 PAST MEDICAL HISTORY: Past Medical History: Diagnosis [...] cholecalciferol (Vitamin D-3) 50 MCG (1999) capsule fluticasone (Flonase) 50 MCG/ACT nasal spray 2 sprays, Each Nostril, Daily, Shake gently. Before first use, prime pump. After use, clean tip and replace cap. Multiple Vitamin (MULTI VITAMIN DAILY PO) REVIEW OF SYSTEMS: Review of Systems General: [...] seizure history. Vitals: Body mass index is 32.45 kg/m . PHYSICAL EXAM: Physical Exam She does have mild effusion of the left knee with minimal patellofemoral crepitus of both knees no prepatellar swelling redness or rash. She has no laxity to mediolateral collateral ligaments. She does have pain associated with Adri's to the posterior medial joint as well as pain with direct pressure applied to the joint line. Anterior posterior drawer testing is stable. XR knee 3 views left Imaging Result: Bilateral standing PA, bilateral sunrise, and lateral of the affected knee were imaged today in theoffice. Patient does have some lateral tiltTo both patella with some lateral facet hypertrophy but mediolateral compartments are well- preserved both knees no evidence of acute fracture bony tumor seen. Orders Placed This Encounter Procedures XR knee 3 views left Is the patient ?: No Reason for exam:: pain XR knee 3 views left Imaging Result: Bilateral standing PA, bilateral sunrise, and lateral of the affected knee were imaged today in the office. Patient does have some lateral tiltTo both patella with some lateral facet hypertrophy but mediolateral compartments are well-preserved both knees no evidence of acute fracture bony tumor seen. ASSESSMENT: Acute pain of left knee Acute internal derangement of left knee PLAN: Would avoid running jumping activity until MRIs obtained. We will follow up with results and determine if this is surgical and plan on setting you up with physician to discuss procedure. Tylenol and or anti-inflammatory medication of choice for discomfort ice 20 minutes several times a day and openpatella neoprene knee support we will be helpful avoid lunges and squatting as well. JAMES Valdez documented in this [facility]09-05-2025 Instructions* Patient Instructions* JAMES Valdez - 06/05/2025 2:45 PM EDT Would avoid running jumping activity until MRIs obtained. We will follow up with results and determine if this is surgical and plan on setting you up with physician to discuss procedure. Tylenol and or anti-inflammatory medication of choice for discomfort ice 20 minutes several times a day and openpatella neoprene knee support we will be helpful avoid lunges and squatting as well. documented in this [facility]07-29-2025 NotePatient Education Nutrition Fat and Cholesterol Restricted Eating [...] These include olive and canola oil, flaxseeds, walnuts,almonds, and seeds. ? [place]-3 fats. These are found in foods such [...] oatmeal, bulgur, barley, quinoa, or brown rice. [place]in or whole wheat flour tortillas. Meats and other proteins Ground beef (85% or leaner), grass-fed beef, or beef trimmed of fat. Skinless chicken or turkey. Ground chicken or turkey. Pork trimmed of fat. All fish and seafood. Egg whites. Dried beans, peas, orlentils. Unsalted nuts or seeds. Unsalted canned beans. Natural nut butters without added sugar andoil. Dairy Low-fat or nonfat dairy products, such as skim or 1% milk, 2% or reduced-fat cheeses, low-fat and fat-free ricotta or cottage cheese, or plain low-fat and nonfat yogurt. Fats and oils Tub margarine without trans fats. Light or reduced-fat mayonnaise and salad dressings. Avocado. [place], canola, sesame, or safflower oils. The items [...] pastries, and croissants. Crackers (more content not included)...[facility] 01-03-2025 History of Present illness Narrative* Zuleima Cobb, REMEDIAL TEACHER - 01/03/2025 9:30 AM EDT Images from the original note were not included. [address] , [address] [facility], [address] P: [phone] F: [phone] HPI Historian of HPI: patient Yunier Matamoros [...] by mouth Daily for 1 day Dispense: 1tablet; Refill: 0 3. Neoplasm of uncertain behavior of skin Must follow up with dermatology documented in this encounterThe Rehabilitation Institute of St. [id number] History of Present illness Narrative* CLARA Hobson - 05/27/2024 8:45 AM EDTAssociated Order(s): L Inj/Asp: L glenohumeral Post-Procedure Diagnose(s): [...] and draped in the usual sterile fashion. * JAMES Valdez - 05/27/2024 8:45 AM EDT GENERAL HISTORY AND PHYSICAL: NAME: Yunier Matamoros [...] which does significantly help. 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 This being her non dominant arm she is also having some radicular symptoms and right cervical and scapular discomfort which is newer than the shoulder problem and causing tingling down into the radial aspectof the hand and thumb. She is here [...] AC joint arthritis and inferior spurring of thedistal clavicle and acromial hook. She also has [...] hours up to 1 week. May repeat cortisone3 times a year per joint and as soon as 4 weeks from today. Continue your exercise program and use of the arm as tolerated maintaining her mobility. Try meloxicam daily with food to avoid GI upset and avoid other anti- inflammatory medications while taking this medicine. May try [...] neck region. JAMES Valdez documented in this encounterThe Rehabilitation Institute of St. [id number] Instructions* Patient Instructions* JAMES Valdez - 05/27/2024 8:45 AM EDT Would anticipate improvement with cortisone after about 48 hours up to 1 week. May repeat cortisone3 times a year per joint and as soon as 4 weeks from today. Continue your exercise program and use of the arm as tolerated maintaining her mobility. Try meloxicam daily with food to avoid GI upset and avoid other anti- inflammatory medications while taking this medicine. May try [...] arm and neck region. documented in this encounterThe Rehabilitation Institute of St. [id number] Hospital Discharge instructions Patient Education 09/27/2023 15:57:06 Upper Respiratory Infection, Adult, Dcis-gl-Jokz Upper Respiratory Infection, Adult An upper respiratory [...] contaminated) and then touching your mouth, nose, oreyes. What increases the risk? You are more [...] medicines to help relieve symptoms, such as: Bxzp-qzg-nvyosqj cold medicines. Medicines to reduce coughing (cough suppressants). Coughing is a type of defense against infection that helps to clear the nose, throat, windpipe, and lungs (respiratory system). Take these medicinesonly as told by your doctor. Medicines to [...] (3 6 g) of salt in 1 cup(237 mL) of warm water. Use a cool-mist humidifier to add moisture to the air. This can help you breathe more easily. Eating and drinking Drink enough fluid to keep your pee (urine) pale yellow. Eat soups and other clear broths. General instructions Take biuq-mef-fzgixat and prescription medicines only as told by [...] cannot use soap and water, use hand general road supervisor. Avoid touching your mouth, face, eyes, or [...] get better within 7 10 days. Take hmhd-zhp-sucogyp and prescription medicines only as told by your doctor. This information is not intended to replace advice given to you by your health care provider. Make sure you discuss any questions you have with your health care provider. Document Revised: 04/19/2022 Document Reviewed: 04/19/2022 [employer] Patient Education 2022 [employer]. [facility] [place] 08-15-2023 Evaluation note* Encounter Date Diagnosis Assessment Notes Treatment Notes Treatment Clinical Notes May, Ganglion, right hand (ICD-10 - M 67.441) Discussed with patient this appears to be a gaglion cyst. Discussed with patient we discussed surgical treatment vs consertive treatment options. Patient states she does not want to proceed with surgery at this time. Discussed with patient she can use OTC voltaren gel. May,anglion, left hand (ICD-10 - M67.442) May,Mass of left hand (ICD-10 - R22.32) [facility] 03-23-2023 NoteOPERATIVE NOTE OPERATION DATE: 12/21/2022 PROCEDURE: Shanel endometrial ablation with robotic assisted bilateral salpingectomy with removal of pedunculated fibroid at the fundal region of the uterus. PREOPERATIVE DIAGNOSIS: Menorrhagia, desires permanent sterilization. POSTOPERATIVE DIAGNOSIS: Menorrhagia, desires permanent sterilization including pedunculated uterine fibroid ANESTHESIA: General. SURGEON: Óscar Sheldon D.O. SPRING TACKER: SKIP Rodriguez URINE OUTPUT: Yellow and clear. [...] Sponge, lap and needle counts were correct [address]02-25-2023 Evaluation note * Encounter Date Diagnosis Assessment Notes Treatment Notes Treatment Clinical Notes Nov, Skin lesion (ICD-10 - L98.9) Referral sent for dermatology Nov,ronchitis (ICD-10 - J40)Take medications as directed. Rest and increase fluid [...] weeks for the cough to go away [facility] Other Evaluation + Plan note No data available for this section [facility] Evaluation noteNo assessment information available [facility] Work Phone: Evaluation note* Diagnosis Rotator cuff impingement syndrome of left shoulder- Primary Arthritis of left acromioclavicular joint Right cervical radiculopathy documented in this encounter [facility] HealthcareEvaluation note* Diagnosis Acute bacterial rhinosinusitis- Primary Vulvovaginal candidiasis Neoplasm of uncertain behavior of skin documented in this encounter [facility] HealthcareEvaluation note* Diagnosis Acute pain of left knee- Primary Acute internal derangement of left knee documented in this encounter [facility] HealthcareEvaluation note* Diagnosis Chronic pain of left knee- Primary Acute medial meniscus tear of left knee, initial encounter Primary osteoarthritis of left knee documented in this encounter [facility] HealthcareHistory general Narrative - Reported* Type Description Date Surgical History hip surgery 1972 Surgical History wisdom teeth extraction Hospitalization Historyhip [id number] [facility] Other Progress note No data available for this section [facility] [place] Reason for referral (narrative)No reason for referral information availableKeenan Private Hospital Work Phone: Chief Complaint and Reason for Visit Chief Complaint wellness check Chief Complaint Admit Date [facility] wellness April 16, 2025 8:45 am Reason for Referral Reason 01/02/23 @ 9:50am skin lesion - possibly a wart that will not come off with OTC treatment Diagnosis 1 Skin lesion (L98.9) Referral Organization [facility] Maggy Patel Referring Provider First Name Nika Referring Provider Last Name Basilio Referring Provider Specialty Nurse Pract itioner Referred Organization [facility] Referred Provider Tracy Murguia Referred Address ,[place], [place],[address] Referred Provider Specialty Dermatology Referral Priority Routine Referral Appointment Date 2023-01-02 General Notes AnjelicaRoxana 023 07:15:55 AM >Received referral. [facility] Dermatology office request us to send the referral P2P to them and they will call and schedule patient. Referral was sent P2P Roxana Dejesus 12/04/2022 10:23:35 AM >Fax letter for appt update Roxana Dejesus 12/04/2022 01:05:59 PM >Received letter back with apptSpecialty Diagnoses / ProceduresReferred By ContactReferred To ContactOrthopaedic Surgery Diagnoses Rotator cuff impingement syndrome of left shoulder Procedures L Inj/Asp: L glenohumeral Shawnee Chandler, JAMES [address] [place] [address] Referral IDStatusReasonStart DateExpiration DateVisits RequestedVisits [id number]/27/[id number]/ Summary Purpose Family History No Family History [...] Role Status Dates Finesse Recio , DO [facility] Primary Care Provider, Attending Provider Active Team Status: Active Member Role Status Dates Finesse Recio , DO [facility] Primary Care Provider Active Team Status: Inactive Member Role Status Dates Finesse Recio , DO [facility] Primary Care Provider Active Ehasn Graves ProviderActiveTeam MemberRelationshipSpecialty Start DateEnd Date Shani Yuen, AUTOMOTIVE TECHNOLOGY INSTRUCTOR-HAMMERER HELPER [address] [place] [address] PCP - Medical [employer]11/15/111 Fercho Paniagua [place] [address] [address] PCP - General05/27/24Team MemberRelationshipSpecialtyStart DateEnd Date Shani Yuen, AUTOMOTIVE TECHNOLOGY INSTRUCTOR-HAMMERER HELPER [address] [place] [address] PCP - Medical [employer]11/15/111 Fercho Paniagua [facility] [address] [address] PCP - General05/27/24Team MemberRelationshipSpecialtyStart DateEnd Date Fercho Panigaua NP [address] [address] PCP - General05/27/24 Team Status: Active Member Role Status Dates Finesse Recio - [facility] , DO [facility] Primary Care Provider Acti ve Team Status: Inactive Member Role Status Dates Finesse Recio - [facility] , DO [facility] Primary Care Provider Acti ve Start: April 16, 2025 End: April 16ryryan Recio - [facility] , DO CHCAttending ProviderActiveStart: April 16, 2025 End: April 16, 2025Team MemberRelationshipSpecialtyStart DateEnd Date Fercho Paniagua NP [address] [address] PCP - General05/27/24 Shawnee Chandler, [place] [address] [place] [address] PCP - Medical [employer]11/15/111Team MemberRelationshipSpecialty Start DateEnd Date Fercho Paniagua REMEDIAL TEACHER [place] [id number] PCP - General05/27/24 Shawnee Chandler, [place] [address] [place] [address] PCP - Medical [employer]11/15/111Team MemberRelationshipSpecialty Start DateEnd Date Fercho Paniagua REMEDIAL TEACHER [place] [id number] PCP - General05/27/24 Shawnee Chandler PA [address] [place] [address] PCP - Medical [employer]11/15 Goals (unrecognized section and content) Goals may be documented in a n alternate sectionNo InformationGoals may be documented in an alternate sectionNo Information No data available for this sectionGoals may be documented in an alternate section REASON FOR VISIT (unrecogniz ed section and content) ReasonCommentsPainReasonCommentsPainReasonCommentsFollow-up INFORMATION SOURCE (unrecogn ized section and content) DATE CREATED AUTHOR 01/05/[address] [facility] DATE CREATED AUTHOR AUTHOR'S ORGANIZ ATION 04/25/2025 [facility] DATE CREATED AUTHOR AUTHOR'S ORGANIZ ATION 07/05/2025 [facility] DATE CREATED AUTHOR AUTHOR'S ORGANIZ ATION 08/13/2025 [facility] FOR RECORDS PERTAINING TO PATIENTS WHO ARE [...] BE BASED ON THE PRIMARY CLINICAL RECORDS. [email or web address] provides no warranty or guarantee of the accuracy or completeness of information in this document.
[2025-08-25 15:55] LABS: Hematocrit 35.0 % (36.0-48.0); Hemoglobin 12.4 g/dL (12.0-16.0); Immature Granulocytes Abs Auto 0.02 10^3/uL (0.00-0.03); Immature Granulocytes Pct Auto 0.3 % (0.0-0.5); Lymphocytes Absolute Auto 2.3 10^3/uL (1.2-3.8); Mean Corpuscular HGB Conc 35.4 g/dL (29.9-35.2); Mean Corpuscular Hemoglobin 31.6 pg (26.7-34.0); Mean Corpuscular Volume 89.3 fL (81.0-99.0); Platelet Count 337 10^3/uL (150-450); Red Blood Count 3.92 10^6/uL (4.20-5.40); White Blood Count 7.1 10^3/uL (4.0-11.0)
[2025-08-25 16:19] LABS: Alanine Aminotransferase 33 U/L (14-59); Albumin Globulin Ratio 1.1; Albumin Level 4.1 g/dL (3.4-5.0); Alkaline Phosphatase 88 U/L (46-116); Anion Gap 12.0; Aspartate Amino Transferase 16 U/L (15-37); Blood Urea Nitrogen 10.0 mg/dL (7.0-18.0); Calcium 9.0 mg/dL (8.5-10.1); Carbon Dioxide 27.8 mmol/L (21.0-32.0); Chloride 103 mmol/L (98-107); Estimated GFR (African America >60 (>=60 mL/min/1.73m^2); Estimated GFR (Non-African Ame >60 (>=60 mL/min/1.73m^2); Globulin 3.8 g/dL; Glucose 95 mg/dL (74-106); Potassium 3.8 mmol/L (3.5-5.1); Sodium 139 mmol/L (136-145); Total Protein 7.9 g/dL (6.4-8.2)
[2025-08-27 04:07] LABS: Sex Horm Binding Glob, Serum 39.9 nmol/L (17.3-125.0)
== END 2025-08-25 15:30 | disposition home or self-care (01) ==
LOC: LAB 15:31
PROVIDERS: PCP Nurse Practitioner Family; Visit Provider Student in an Organized Health Care Education/Training Program
DX: R07.9 Chest pain, unspecified (principal); N95.1 Menopausal and female climacteric states; G43.909 Migraine, unspecified, not intractable, without status migrainosus; E66.811 Obesity, class 1; Z68.33 Body mass index [BMI] 33.0-33.9, adult; Z82.49 Family history of ischemic heart disease and other diseases of the circulatory system
CPT/HCPCS: 36415; 80053; 82306; 82533; 82627; 82670; 82679; 84144; 84270; 84402; 84403; 85025